=== PATIENT | female | born 1955 | race African-American/Black ===

== ENCOUNTER → 2016-12-15 | Outpatient (CLI) | payer OTHER ==
--- NOTE | 2016-12-15 11:39 | CONS ---
DATE OF CONSULTATION: 12/15/2016 CONSULTATION/NEW PATIENT EVALUATION: A 60-year-old lady who has been evaluated in the [facility] for possible obstructive sleep apnea-hypopnea syndrome. HISTORY OF PRESENT ILLNESS/SLEEP-WAKE EVALUATION: Patient's usual sleep schedule from around 9:30 p.m. to 6:30 a.m. FALLING ASLEEP: No problem with falling asleep. She has a TV set in bedroom. DURING SLEEP: According to her family she snores. She wakes up from sleep multiple times with a dry mouth, evidence of heartburn, palpitations, sweating, restless legs, nocturia 3 times at night. DURING THE DAY/WAKE STATE: Patient feels sleepy during the day following her sleep, has problems with memory. Dewitt Sleepiness Scale increased to 10. She usually takes naps at 2 p.m. once a day. No history of hypnagogical hallucinations, sleep paralysis or cataplexy. PAST MEDICAL HISTORY: Positive for hypertension and ( ). PAST SURGICAL HISTORY: Cyst removed from the left wrist, tubal ligation. SOCIAL HISTORY: Negative for smoking or using alcohol at the present time. MEDICATIONS: 1. Norvasc. 2. Losartan. 3. Minocycline. REVIEW OF SYSTEMS: Multiple awakenings from sleep, sleepiness during the day, episodes of anxiety, sometimes swelling of the legs. FAMILY HISTORY: Hypertension, heart problems, acid reflux, anemia. During physical exam, a 60-year-old lady without distress. BP 145/76, HR 68, RR 16. Height 5, 6-1/2, weight 252. BMI 36.8. Neck 15 inches in circumference. Temperature 98.1. Oxygen saturation at room air 98%. Oropharynx extremely low position of soft palate. ABDOMEN: Obese. HEENT: PERRLA, EOMI. Evaluation of oropharynx showed tongue protrudes midline. NECK: Supple. No JVD. Thyroid is not palpable. LUNGS: Clear to percussion and to auscultation. Good air exchange. No wheezing or rhonchi. HEART: S1, S2 regular. No murmurs, gallops or rubs. EXTREMITIES: No clubbing or cyanosis. SERGER: Awake, alert, and oriented x3. Cranial nerves 2 to 7 intact. There is no fasciculation or atrophy noted. No focal deficits observed. IMPRESSION: 1. Snoring, multiple awakenings from sleep with nocturia, extremely low position of soft palate, sleepiness, obstructive sleep apnea-hypopnea syndrome. 2. Obesity, body mass index of 36.8. 3. Hypertension. 4. ( ). 5. Status post tubal ligation. 6. Status post cyst removed from left wrist. 7. Back problems. 8. Episodes of swelling of legs. PLAN: 1. Polysomnography for evaluation of patient's breathing during sleep. 2. CPAP/BiPAP titration if sleep study confirms obstructive sleep apnea-hypopnea syndrome. 3. Preferable position during sleep on the side. 4. No driving if patient feels any sleepiness. Patient is aware of civil and criminal liability for unsafe driving. 5. I will see patient for follow-up visit to explain results of the testing and following plan. Thank you very much for referring this patient for consultation. Sincerely, Todd Vora MD, PhD, FAASM. Diplomat of [place], Sleep Medicine Board by [place] [place] [employer] Lot Porter [facility] [place]
== END | disposition home or self-care (01) ==
LOC: SLEEP 09:47
PROVIDERS: ATTEND Internal Medicine
DX: G47.33 Obstructive sleep apnea (adult) (pediatric) (principal); E66.9 Obesity, unspecified; Z68.36 Body mass index [BMI] 36.0-36.9, adult; I10 Essential (primary) hypertension
CPT/HCPCS: 99211

== ENCOUNTER → 2016-12-27 | Outpatient (CLI) | payer OTHER ==
--- NOTE | 2016-12-28 08:52 | MM ---
Reason for exam: screening (asymptomatic). Last mammogram was performed 1 year and 1 month ago. History: Patient is postmenopausal. Physical Findings: A clinical breast exam by your physician is recommended on an annual basis and results should be correlated with mammographic findings. MG Screening Mammo w CAD Bilateral CC and MLO view(s) were taken. Prior study comparison: November 24, 2015, bilateral MG screening mammo w CAD. October 29, 2013, bilateral digital screening mammo w/CAD. There are scattered fibroglandular densities. There is chronic nodularity bilaterally. There is no dominant lesion. No significant changes when compared with prior studies. ASSESSMENT: Benign, BI-RAD 2 RECOMMENDATION: Routine screening mammogram of both breasts in 1 year.
== END | disposition home or self-care (01) ==
LOC: RADMAMWWP 16:28
PROVIDERS: ATTEND Family Medicine
DX: Z12.31 Encounter for screening mammogram for malignant neoplasm of breast (principal)

== ENCOUNTER → 2016-12-30 | Outpatient (CLI) | payer OTHER ==
--- NOTE | 2016-12-30 10:27 | XR ---
EXAMINATION TYPE: XR chest 2V DATE OF EXAM: 12/30/2016 9:39 AM HISTORY: J44.9 COPD. REFERENCE: Previous study dated 12/07/2015. FINDINGS: The lungs are clear. Pleural space are clear. Heart size is normal. IMPRESSION: NO ACUTE INTRATHORACIC ABNORMALITY.
[2017-01-03 11:38] LABS: Asperg. fumagatus IgE 2.27 kU/L (<0.35); Asperg. fumagatus IgE Class CLASS II; Cat Epith & Dander IgE <0.35 kU/L (<0.35); Cat Epith & Dander IgE Class CLASS 0; Clad herbarum IgE 0.87 kU/L (<0.35); Clad herbarum IgE Class CLASS II; Com. Pigweed IgE <0.35 kU/L (<0.35); Com. Pigweed IgE Class CLASS 0; Common Ragweed IgE Class CLASS 0; Cow's Milk IgE Class CLASS 0; Dermato. farinae IgE 0.99 kU/L (<0.35); Dermato. farinae IgE Class CLASS II; House Dust (Greer) IgE 1.06 kU/L (<0.35); House Dust (Greer) IgE Class CLASS II; Maple (Box Elder) IgE <0.35 kU/L (<0.35); Maple (Box Elder) IgE Class CLASS 0; Penicillium notatum IgE Class CLASS I; Timothy Grass IgE <0.35 kU/L (<0.35); Timothy Grass IgE Class CLASS 0
[2017-01-11 23:27] LABS: Alternaria tenius IgG 7.9 mcg/mL (< 13.6); Cladosporium herbarium IgG 7.4 mcg/mL (< 14.7); Phoma ssp. IgG 7.7 mcg/mL (< 6.6); Saccaharomospora viridis Not detected (Not detected); Saccaharopoly. rectivirgula Not detected (Not detected)
== END | disposition home or self-care (01) ==
LOC: RADXRMAIN 09:24
PROVIDERS: ATTEND Internal Medicine Sleep Medicine
DX: J44.9 Chronic obstructive pulmonary disease, unspecified (principal); B44.89 Other forms of aspergillosis
CPT/HCPCS: 36415; 71020; 82785; 86001; 86003; 86606; 86609

== ENCOUNTER 2017-04-30 12:05 | Emergency (ER) | payer OTHER ==
[2017-04-30] MEDS ORDERED: ASPIRIN 81 MG CHEW PO STA (12:21)
[2017-04-30 12:23] VITALS: RESP 18
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
[2017-04-30] MEDS: NITROGLYCERIN SL TABS 0.4 MG TAB SUBLINGUAL PRN ×3 (12:29→12:40)
[2017-04-30 12:34] LABS: Basophils % (A) 1 %; CHCM 31.6; Eosinophils # (A) 0.1 k/uL (0-0.7); Eosinophils % (A) 1 %; HCT 35.6 % (34.0-46.0); HDW 2.85; HGB 11.2 gm/dL (11.4-16.0); Hypochromasia Slight; Luc # (Auto) 0.15; Luc % (Auto) 2; Lymphocytes # (A) 1.4 k/uL (1.0-4.8); Lymphocytes % (A) 20 %; MCHC 31.4 g/dL (31.0-37.0); Mean Platelet Volume 8.1; Monocytes # (A) 0.3 k/uL (0-1.0); Monocytes % (A) 4 %; Neutrophils # (A) 4.8 k/uL (1.3-7.7); Neutrophils % (A) 71 %; RBC 4.14 m/uL (3.80-5.40); RDW 14.7 % (11.5-15.5); WBC 6.7 k/uL (3.8-10.6); WBC (Perox) 7.13
[2017-04-30 12:45] LABS: ALT 28 U/L (9-52); AST 16 U/L (14-36); Alkaline Phosphatase 82 U/L (38-126); Anion Gap 10 mmol/L; Blood Urea Nitrogen 10 mg/dL (7-17); Calcium 9.4 mg/dL (8.4-10.2); Carbon Dioxide 26 mmol/L (22-30); Chloride 105 mmol/L (98-107); Glucose 90 mg/dL (74-99); Magnesium 1.8 mg/dL (1.6-2.3); Non-African American GFR(MDRD) >60 (>60 ml/min/1.73 sqM); Potassium 3.9 mmol/L (3.5-5.1); Sodium 141 mmol/L (137-145); Total Bilirubin 0.6 mg/dL (0.2-1.3); Total Protein 7.6 g/dL (6.3-8.2)
--- NOTE | 2017-04-30 12:55 | XR ---
EXAMINATION TYPE: XR chest 2V DATE OF EXAM: 04/30/2017 COMPARISON: 12/30/2016 HISTORY: 61-year-old female with chest pain TECHNIQUE: PA and lateral views FINDINGS: Heart is normal size. Mild elongation of the thoracic aorta. Mild diffuse interstitial prominence sim ilar to prior exam. No consolidation or pleural effusion. IMPRESSION: Interstitial prominence similar to prior exam, likely chronic changes. No acute process seen.
[2017-04-30 13:06] LABS: Creatine Kinase MB 0.6 ng/mL (0.0-2.4); Troponin I <0.012 ng/mL (0.000-0.034)
[2017-04-30 13:55] VITALS: PULSE 59
[2017-04-30 14:32] VITALS: BP 140/84; TEMP 97.6
== END 2017-04-30 14:32 | disposition left against medical advice (07) ==
LOC: EC 12:05
DX: R07.9 Chest pain, unspecified (principal); M54.2 Cervicalgia; M25.511 Pain in right shoulder; M79.601 Pain in right arm; M79.644 Pain in right finger(s); I25.10 Atherosclerotic heart disease of native coronary artery without angina pectoris; I10 Essential (primary) hypertension; Z87.891 Personal history of nicotine dependence; Z79.899 Other long term (current) drug therapy; Z88.0 Allergy status to penicillin; Z88.5 Allergy status to narcotic agent; Z95.818 Presence of other cardiac implants and grafts; Z82.49 Family history of ischemic heart disease and other diseases of the circulatory system
CPT/HCPCS: 36415; 71020; 80053; 82553; 83735; 84484; 85025; 93005; 99285

== ENCOUNTER → 2017-10-04 | Outpatient (CLI) | payer OTHER ==
[2017-10-04 09:08] LABS: T4, Free (Free Thyroxine) 1.18 ng/dL (0.78-2.19)
== END | disposition home or self-care (01) ==
LOC: LABWHC1 07:54
PROVIDERS: ATTEND Otolaryngology
DX: E03.9 Hypothyroidism, unspecified (principal); E07.89 Other specified disorders of thyroid
CPT/HCPCS: 36415; 84439; 84443; 86376

== ENCOUNTER → 2017-10-26 | Outpatient (CLI) | payer OTHER ==
--- NOTE | 2017-10-26 19:19 | US ---
EXAMINATION TYPE: US thyroid st tissue head/neck DATE OF EXAM: 10/26/2017 COMPARISON: 2009 CLINICAL HISTORY: E04.1 Thyroid Nodule. GLAND SIZE: Right Lobe: 4.5 x 1.3 x 1.8 cm Overall Parenchyma: heterogenous slightly Left Lobe: 4.3 x 1.4 x 1.5 cm Overall Parenchyma: heterogenous slightly Isthmus Thickness: 0.3 cm NODULES RIGHT: # of nodules measured on right: 0 LEFT: # of nodules measured on left: 0 ISTHMUS: # of nodules measured in the isthmus: 0 Bilateral neck scanned, no evidence of lymphadenopathy. IMPRESSION: 1. Unremarkable thyroid ultrasound.
== END | disposition home or self-care (01) ==
LOC: RADUSWWP 06:54
PROVIDERS: ATTEND Otolaryngology
DX: E04.1 Nontoxic single thyroid nodule (principal)
CPT/HCPCS: 76536

== ENCOUNTER → 2017-11-20 | Outpatient (CLI) | payer OTHER ==
--- NOTE | 2017-11-21 14:23 | MM ---
Reason for exam: screening (asymptomatic). Last mammogram was performed 11 months ago. History: Patient is postmenopausal. Physical Findings: A clinical breast exam by your physician is recommended on an annual basis and results should be correlated with mammographic findings. MG Screening Mammo w CAD Bilateral CC and MLO view(s) were taken. Prior study comparison: December 27, 2016, bilateral MG screening mammo w CAD. November 24, 2015, bilateral MG screening mammo w CAD. There are scattered fibroglandular densities. Finding #1: There are multiple typically benign masses, stable from priors. Finding #2: There are typically benign diffuse/scattered calcifications in both breasts. No suspicious abnormality. No significant changes in finding since December 27, 2016 and November 24, 2015. ASSESSMENT: Benign, BI-RAD 2 RECOMMENDATION: Routine screening mammogram of both breasts in 1 year.
== END | disposition home or self-care (01) ==
LOC: RADMAMWWP 16:20
PROVIDERS: ATTEND Obstetrics & Gynecology
DX: Z12.31 Encounter for screening mammogram for malignant neoplasm of breast (principal)
CPT/HCPCS: 77067

== ENCOUNTER → 2017-12-29 | Outpatient (CLI) | payer OTHER ==
--- NOTE | 2017-12-29 19:16 | CT ---
EXAMINATION TYPE: CT soft tissue neck w con DATE OF EXAM: 12/29/2017 6:52 PM COMPARISON: 11/06/2015 HISTORY: c/o throat pain and swelling to right side of neck CT DLP: 531.6 mGycm Automated exposure control for dose reduction was used. CONTRAST: CT scan of the neck is performed following with IV Contrast, patient injected with 100 mL of Isovue 3 00. Axial images are obtained, coronal and sagittal reformatted images are reviewed. FINDINGS: There is normal branching pattern of the great vessels on the aortic arch. Thyroid gland is symmetric . There is normal contrast opacification of carotid arteries and jugular veins. There is hypertrophic spurring in the cervical spine from C4 to T1. Epiglottis appears normal. Parotid glands are symmetri c. Submandibular salivary glands are symmetric. There are bilateral anterior triangle cervical lymph nodes that measure up to 10 mm. I see no pathologic fluid collection. Retropharyngeal soft tissues ar e not enlarged. There is medial deviation of the internal carotid arteries bilaterally which extend i nto the prevertebral soft tissues. There is no evidence of retropharyngeal abscess. The tonsils are s ymmetric. Adenoids appear within normal limits. IMPRESSION: There are spondylotic changes in the mid and lower cervical spine. Slight thickening of the retropharyngeal soft tissues apparently due to the medial deviation of the internal carotid arter ies. No adverse change compared to old exam. Nonspecific small cervical lymph nodes appear stable.
== END | disposition home or self-care (01) ==
LOC: RADCTMAIN 12-28 18:30
PROVIDERS: ATTEND Otolaryngology
DX: M47.812 Spondylosis without myelopathy or radiculopathy, cervical region (principal); J39.2 Other diseases of pharynx; I77.89 Other specified disorders of arteries and arterioles
CPT/HCPCS: 82565; 84520; 70491; 36415; Q9967

== ENCOUNTER 2018-08-23 19:34 | Emergency (ER) | payer OTHER ==
[2018-08-23 19:48] VITALS: BP 182/103; PULSE 63; RESP 18; TEMP 98.7
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
== END 2018-08-23 20:39 | disposition home or self-care (01) ==
LOC: EC 19:34
DX: M79.5 Residual foreign body in soft tissue (principal); I25.10 Atherosclerotic heart disease of native coronary artery without angina pectoris; I10 Essential (primary) hypertension; Z87.891 Personal history of nicotine dependence; Z79.899 Other long term (current) drug therapy; Z88.0 Allergy status to penicillin; Z88.5 Allergy status to narcotic agent; Z91.018 Allergy to other foods
CPT/HCPCS: 10120; 99283

== ENCOUNTER → 2018-10-30 | Outpatient (CLI) | payer OTHER | END | disposition home or self-care (01) | LOC: LABWHC1 14:17 | PROVIDERS: ATTEND Internal Medicine Interventional Cardiology | DX: E03.9 Hypothyroidism, unspecified (principal) | CPT/HCPCS: 36415; 84439; 84443 ==

== ENCOUNTER 2019-01-26 14:41 | Emergency (ER) | payer MEDICARE, OTHER ==
[2019-01-26 14:45] VITALS: RESP 16
[2019-01-26] MEDS ORDERED: KETOROLAC 30 MG/ML 1 ML VIAL IVP STA (15:08)
[2019-01-26] MEDS ORDERED: SODIUM CHLORIDE 0.9% 1,000 ML IV SCH (15:15)
[2019-01-26 15:26] LABS: Basophils # (A) 0.1 k/uL (0-0.2); Basophils % (A) 1 %; Eosinophils # (A) 0.1 k/uL (0-0.7); Eosinophils % (A) 1 %; HCT 35.7 % (34.0-46.0); Hypochromasia Slight; Lymphocytes # (A) 1.6 k/uL (1.0-4.8); Lymphocytes % (A) 27 %; MCH 26.9 pg (25.0-35.0); MCHC 30.9 g/dL (31.0-37.0); MCV 86.9 fL (80.0-100.0); Mean Platelet Volume 7.1; Monocytes # (A) 0.3 k/uL (0-1.0); Monocytes % (A) 4 %; Neutrophils # (A) 3.8 k/uL (1.3-7.7); Neutrophils % (A) 64 %; Platelet Count 240 k/uL (150-450); RBC 4.11 m/uL (3.80-5.40); WBC 5.9 k/uL (3.8-10.6)
--- NOTE | 2019-01-26 15:26 | ED ---
Extremity Problem HPI - General Chief complaint: Extremity Problem,Nontraumatic Stated complaint: Bilateral Leg Pain Time Seen by Provider: 01/26/19 14:53 Source: patient, RN notes reviewed, old records reviewed Mode of arrival: ambulatory Limitations: no limitations - History of Present Illness Initial comments: Patient is a 63-year-old female who presents emergency Department today with complaints of bilateral lower extremity pain. Patient states that she's noticed some swelling. She started having symptoms off and on for the past few months. She states the pain is worse here today. She is leaving tomorrow for vacation. She states she is occasionally short of breath. Patient denies any swelling of the leg at this time. No fall or trauma. - Related Data Home Medications Medication Instructions Recorded Confirmed amLODIPine BESYLATE [Norvasc] 10 mg PO HS 03/06/14 08/23/18 Cholecalciferol (Vitamin D3) 2,000 unit PO DAILY 04/30/17 08/23/18 [Vitamin D3] Losartan Potassium 50 mg PO DAILY 04/30/17 08/23/18 Previous Rx's Medication Instructions Recorded Mupirocin [Mupirocin 2%] 1 applic TOPICAL TID #60 gm 08/23/18 Cyclobenzaprine [Flexeril] 10 mg PO TID #15 tab 01/26/19 Ibuprofen 600 mg PO 20 #30 tablet 01/26/19 Allergies Allergy/AdvReac Type Severity Reaction Status Date / Time codeine Allergy Rash/Hives Verified 01/26/19 14:45 Penicillins Allergy Rash/Hives Verified 01/26/19 14:45 Review of Systems ROS Statement: Those systems with pertinent positive or pertinent negative responses have been documented in the HPI. ROS Other: All systems not noted in ROS Statement are negative. Past Medical History Past Medical History: Coronary Artery Disease (CAD), Chest Pain / Angina, GERD/Reflux, Hypertension, Skin Disorder Additional Past Medical History / Comment(s): rosacea, SOB, STATES RECENT ROOT CANAL, WAS TAKING ANTIBIOTIC History of Any Multi-Drug Resistant Organisms: None Reported Past Surgical History: Heart Catheterization, Tubal Ligation Additional Past Surgical History / Comment(s): ganglion cyst removal Past Anesthesia/Blood Transfusion Reactions: No Reported Reaction Past Psychological History: No Psychological Hx Reported Smoking Status: Former smoker Past Alcohol Use History: None Reported Past Drug Use History: None Reported - Past Family History Mother Family Medical History: Chest Pain / Angina, Congestive Heart Failure (CHF) Father Family Medical History: Chest Pain / Angina, Congestive Heart Failure (CHF), Coronary Artery Disease (CAD) General Exam - General Exam Comments Initial Comments: 63-year-old female. Alert and oriented. No distress. Limitations: no limitations General appearance: alert Head exam: Present: atraumatic, normocephalic, normal inspection Eye exam: Present: normal appearance, PERRL, EOMI. Absent: scleral icterus, conjunctival injection, periorbital swelling ENT exam: Present: normal exam, mucous membranes moist Neck exam: Present: normal inspection. Absent: tenderness, meningismus, lymphadenopathy Respiratory exam: Present: normal lung sounds bilaterally Cardiovascular Exam: Present: regular rate GI/Abdominal exam: Present: soft, normal bowel sounds. Absent: distended, tenderness, guarding, rebound, rigid Back exam: Present: normal inspection Neurological exam: Present: alert Psychiatric exam: Present: normal affect, normal mood Course Vital Signs 01/26/19 14:43 Temperature 98.3 F Pulse Rate 67 Respiratory 16 Rate Blood Pressure 147/85 O2 Sat by Pulse 100 Oximetry Medical Decision Making - Medical Decision Making 63-year-old female presents emergency department today with complaints bilateral extremity pain off-and-on for the past few months. Patient seems like the pain is worse with prolonged standing or putting pressure over her legs. She denies any back pain and falls or trauma. Patient has minimal swelling. Patient is very concerned has "caught her left lower 70. Patient's to have double ultrasound today and that is negative for any acute changes. She did complain of a mild episode of shortness breath yesterday with a leg pain we did do some further lab work checking for BNP for heart failure this was normal. Chest x- ray was normal. Patient pain seems similar to a sciatic distribution. We'll discharge the Patient with a short course of muscle relaxers anti-inflammatory medication. She is going on vacation tomorrow. I discussed return parameters and PCP follow-up as well. - Lab Data Result diagrams: 01/26/19 15:17 01/26/19 15:17 Lab Results 01/26/19 01/26/19 01/26/19 Range/Units 15:17 15:17 15:17 WBC 5.9 (3.8-10.6) k/uL RBC 4.11 (3.80-5.40) m/uL Hgb 11.0 L (11.4-16.0) gm/dL Hct 35.7 (34.0-46.0) % MCV 86.9 (80.0-100.0) fL MCH 26.9 (25.0-35.0) pg MCHC 30.9 L (31.0-37.0) g/dL RDW 14.0 (11.5-15.5) % Plt Count 240 (150-450) k/uL Neutrophils % 64 % Lymphocytes % 27 % Monocytes % 4 % Eosinophils % 1 % Basophils % 1 % Neutrophils # 3.8 (1.3-7.7) k/uL Lymphocytes # 1.6 (1.0-4.8) k/uL Monocytes # 0.3 (0-1.0) k/uL Eosinophils # 0.1 (0-0.7) k/uL Basophils # 0.1 (0-0.2) k/uL Hypochromasia Slight PT (9.0-12.0) sec INR (<1.2) APTT (22.0-30.0) sec Sodium 141 (137-145) mmol/L Potassium 4.1 (3.5-5.1) mmol/L Chloride 107 (98-107) mmol/L Carbon Dioxide 26 (22-30) mmol/L Anion Gap 8 mmol/L BUN 17 (7-17) mg/dL Creatinine 0.73 (0.52-1.04) mg/dL Est GFR (CKD-EPI)AfAm >90 (>60 ml/min/1.73 sqM) Est GFR (CKD-EPI)NonAf 87 (>60 ml/min/1.73 sqM) Glucose 92 (74-99) mg/dL Calcium 9.6 (8.4-10.2) mg/dL Magnesium 2.1 (1.6-2.3) mg/dL Total Bilirubin 0.4 (0.2-1.3) mg/dL AST 16 (14-36) U/L ALT 23 (9-52) U/L Alkaline Phosphatase 84 (38-126) U/L NT-Pro-B Natriuret Pep 32 pg/mL Total Protein 7.6 (6.3-8.2) g/dL Albumin 4.4 (3.5-5.0) g/dL 01/26/19 Range/Units 15:17 WBC (3.8-10.6) k/uL RBC (3.80-5.40) m/uL Hgb (11.4-16.0) gm/dL Hct (34.0-46.0) % MCV (80.0-100.0) fL MCH (25.0-35.0) pg MCHC (31.0-37.0) g/dL RDW (11.5-15.5) % Plt Count (150-450) k/uL Neutrophils % % Lymphocytes % % Monocytes % % Eosinophils % % Basophils % % Neutrophils # (1.3-7.7) k/uL Lymphocytes # (1.0-4.8) k/uL Monocytes # (0-1.0) k/uL Eosinophils # (0-0.7) k/uL Basophils # (0-0.2) k/uL Hypochromasia PT 10.4 (9.0-12.0) sec INR 1.0 (<1.2) APTT 26.3 (22.0-30.0) sec Sodium (137-145) mmol/L Potassium (3.5-5.1) mmol/L Chloride (98-107) mmol/L Carbon Dioxide (22-30) mmol/L Anion Gap mmol/L BUN (7-17) mg/dL Creatinine (0.52-1.04) mg/dL Est GFR (CKD-EPI)AfAm (>60 ml/min/1.73 sqM) Est GFR (CKD-EPI)NonAf (>60 ml/min/1.73 sqM) Glucose (74-99) mg/dL Calcium (8.4-10.2) mg/dL Magnesium (1.6-2.3) mg/dL Total Bilirubin (0.2-1.3) mg/dL AST (14-36) U/L ALT (9-52) U/L Alkaline Phosphatase (38-126) U/L NT-Pro-B Natriuret Pep pg/mL Total Protein (6.3-8.2) g/dL Albumin (3.5-5.0) g/dL 01/26/19 15:29 EKG shows sinus bradycardia minimal voltage Kercher for LVH may be normal variant. Benign EKG. Ventricular rate 56 bpm OK interval is 162 ms. QRS ration 92 ms. QT QTC 446/4:30 milliseconds. - Radiology Data Radiology results: report reviewed Chest x-rays negative for any acute critical me process. Doppler ultrasound of the shows no sign of DVT. Disposition Clinical Impression: Sciatic leg pain, IT band syndrome, Chronic leg pain Disposition: HOME SELF-CARE Condition: Good Instructions (If sedation given, give patient instructions): Sciatica (ED) Additional Instructions: Patient advised to follow-up with primary care physician. Take anti- inflammatory medication and muscle relaxers prescribed. Have close follow-up with your primary return to ED if any alarming signs or symptoms occur. Prescriptions: Cyclobenzaprine [Flexeril] 10 mg PO TID #15 tab Ibuprofen 600 mg PO 20 #30 tablet Is patient prescribed a controlled substance at d/c from ED?: No Referrals: Andre Rice DO [Primary Care Provider] - 1-2 days Time of Disposition: 16:48
[2019-01-26 15:43] LABS: Partial Thromboplastin Time 26.3 sec (22.0-30.0); Prothrombin Time 10.4 sec (9.0-12.0)
[2019-01-26 15:47] LABS: ALT 23 U/L (9-52); AST 16 U/L (14-36); Albumin 4.4 g/dL (3.5-5.0); Alkaline Phosphatase 84 U/L (38-126); Anion Gap 8 mmol/L; Blood Urea Nitrogen 17 mg/dL (7-17); Calcium 9.6 mg/dL (8.4-10.2); Carbon Dioxide 26 mmol/L (22-30); Chloride 107 mmol/L (98-107); Glucose 92 mg/dL (74-99); Magnesium 2.1 mg/dL (1.6-2.3); Potassium 4.1 mmol/L (3.5-5.1); Sodium 141 mmol/L (137-145); Total Bilirubin 0.4 mg/dL (0.2-1.3); Total Protein 7.6 g/dL (6.3-8.2)
--- NOTE | 2019-01-26 16:06 | XR ---
EXAMINATION TYPE: XR chest 2V DATE OF EXAM: 01/26/2019 COMPARISON: 04/30/2017 HISTORY: Leg pain TECHNIQUE: Frontal and lateral views of the chest are obtained. FINDINGS: There is no heart failure nor confluent pneumonic infiltrate. Costophrenic angles are rhett r. Bony thorax is intact. There is mild thoracolumbar levoscoliosis. IMPRESSION: No active cardiopulmonary disease. Normal heart. No change.
--- NOTE | 2019-01-26 16:18 | US ---
EXAMINATION TYPE: US venous doppler duplex LE LT DATE OF EXAM: 01/26/2019 3:06 PM COMPARISON: NONE CLINICAL HISTORY: Pain. No hx of blood clots. No blood thinners. No swelling. SIDE PERFORMED: Left TECHNIQUE: The lower extremity deep venous system is examined utilizing real time linear array sonog radha with graded compression, doppler sonography and color-flow sonography. VESSELS IMAGED: External Iliac Vein (EIV) Common Femoral Vein Deep Femoral Vein Greater Saphenous Vein * Femoral Vein Popliteal Vein Small Saphenous Vein * Proximal Calf Veins (* superficial vessels) Left Leg: Negative for DVT IMPRESSION: No evidence of deep venous thrombosis in the left leg.
[2019-01-26] MEDS ORDERED: traMADol 50 MG STARTER PACK 3 TAB BTL PO STA (16:49)
[2019-01-26 17:42] VITALS: BP 137/78; PULSE 61; TEMP 98.2
== END 2019-01-26 17:41 | disposition home or self-care (01) ==
LOC: EC 14:41
DX: M54.31 Sciatica, right side (principal); M54.32 Sciatica, left side; M76.31 Iliotibial band syndrome, right leg; M76.32 Iliotibial band syndrome, left leg; G89.29 Other chronic pain; I25.119 Atherosclerotic heart disease of native coronary artery with unspecified angina pectoris; I10 Essential (primary) hypertension; Z79.899 Other long term (current) drug therapy; Z88.0 Allergy status to penicillin; Z88.5 Allergy status to narcotic agent; Z87.891 Personal history of nicotine dependence; Z95.5 Presence of coronary angioplasty implant and graft
CPT/HCPCS: 36415; 93005; 83880; 80053; 83735; 85025; 85610; 85730; 71046; 93971; 99284; 96374; 96361 ×2; J1885

== ENCOUNTER 2019-07-08 15:47 | Observation (INO) | payer MEDICARE ==
--- NOTE | 2019-07-08 16:10 | ED ---
General Adult HPI - General Chief complaint: Chest Pain Stated complaint: Numbness side of face Time Seen by Provider: 07/08/19 16:07 Source: patient Mode of arrival: ambulatory Limitations: no limitations - History of Present Illness Initial comments: Patient presents to the ED complaining of having right lower facial numbness and diffuse upper chest pressure constantly since yesterday afternoon. Patient also states that she has felt very anxious recently. She denies any other area of numbness, focal weakness, headache, visual changes, speech difficulty, fever or chills, neck/arm/jaw/back pain, pleuritic pain, dyspnea, cough or cold symptoms, palpitations, dizziness, nausea or vomiting, abdominal pain, urinary symptoms, leg or calf swelling or tenderness, or any other symptoms or complaints. - Related Data Home Medications Medication Instructions Recorded Confirmed amLODIPine BESYLATE [Norvasc] 10 mg PO DAILY 03/06/14 07/08/19 Cholecalciferol (Vitamin D3) 2,000 unit PO DAILY 04/30/17 07/08/19 [Vitamin D3] Doxycycline Monohydrate 40 mg PO DAILY 07/08/19 07/08/19 [Doxycycline Ir-Dr] Allergies Allergy/AdvReac Type Severity Reaction Status Date / Time codeine Allergy Rash/Hives Verified 07/08/19 16:50 Penicillins Allergy Rash/Hives Verified 07/08/19 16:50 Review of Systems ROS Statement: Those systems with pertinent positive or pertinent negative responses have been documented in the HPI. ROS Other: All systems not noted in ROS Statement are negative. Past Medical History Past Medical History: Coronary Artery Disease (CAD), Chest Pain / Angina, GERD/Reflux, Hypertension, Skin Disorder Additional Past Medical History / Comment(s): rosacea History of Any Multi-Drug Resistant Organisms: None Reported Past Surgical History: Heart Catheterization, Tubal Ligation Additional Past Surgical History / Comment(s): ganglion cyst removal Past Anesthesia/Blood Transfusion Reactions: No Reported Reaction Past Psychological History: No Psychological Hx Reported Smoking Status: Former smoker Past Alcohol Use History: None Reported Past Drug Use History: None Reported - Past Family History Mother Family Medical History: Chest Pain / Angina, Congestive Heart Failure (CHF) Father Family Medical History: Chest Pain / Angina, Congestive Heart Failure (CHF), Coronary Artery Disease (CAD) General Exam Limitations: no limitations General appearance: alert, in no apparent distress Head exam: Present: atraumatic, normocephalic Eye exam: Present: normal appearance, PERRL, EOMI ENT exam: Present: mucous membranes moist Neck exam: Present: other (Trachea is in midline) Respiratory exam: Present: normal lung sounds bilaterally. Absent: respiratory distress, wheezes, rales, rhonchi, chest wall tenderness Cardiovascular Exam: Present: regular rate, normal rhythm, normal heart sounds, other (Normal radial pulses bilaterally) GI/Abdominal exam: Present: soft. Absent: distended, tenderness, guarding Extremities exam: Present: full ROM. Absent: tenderness, pedal edema, calf tenderness Neurological exam: Present: alert, oriented X3, other (patient has decreased sensation to light touch along right lower face when compared to the rest of her face; cranial nerves are otherwise intact; patient has no other sensory deficits; patient has no focal weakness on exam) Psychiatric exam: Present: normal affect, normal mood Skin exam: Present: warm, dry, intact, normal color Course Vital Signs 07/08/19 15:58 Temperature 98.3 F Pulse Rate 76 Respiratory 18 Rate Blood Pressure 153/88 O2 Sat by Pulse 99 Oximetry - Reevaluation(s) Reevaluation #1: 07/08/19 17:42 Patient denies development of any new symptoms while in the ED. Patient remains alert and breathing comfortably with a normal room air oxygen saturation. Patient is aware of her test results. Given the patient's symptoms and risk factors, I have recommended hospital admission for further cardiac and neurological workup. Patient agrees with hospital admission at this time. 07/08/19 18:50 Case, H&P, test results and ED management thus far were discussed with Dr. Dela Cruz. He accepts hospital floor admission. He requests to order an MRI brain with and without contrast for tomorrow morning. He has no further recom mendations at this time. EKG Findings - EKG Comments: EKG Findings:: EKG is somewhat limited secondary to motion, normal sinus rhythm, ventricular rate of 72 bpm, normal KS and QRS intervals, normal QT interval, minimal voltage criteria for LVH, normal axis, no ST or T-wave abnormality Medical Decision Making - Medical Decision Making Patient reports having constant symptoms since yesterday afternoon, and her ED workup is unremarkable, including a negative troponin and negative head CT. Patient's vital signs are reassuring. Given the patient's symptoms and risk factors, will admit the patient to the hospital for further cardiac and neurological evaluation. Patient was given a dose of aspirin 325 mg by mouth in the ED. Dr. Dela Cruz has accepted hospital admission. - Lab Data Result diagrams: 07/08/19 16:37 07/08/19 16:37 Lab Results 07/08/19 07/08/19 07/08/19 Range/Units 16:37 16:37 16:37 WBC 8.0 (3.8-10.6) k/uL RBC 4.21 (3.80-5.40) m/uL Hgb 11.6 (11.4-16.0) gm/dL Hct 36.0 (34.0-46.0) % MCV 85.5 (80.0-100.0) fL MCH 27.7 (25.0-35.0) pg MCHC 32.4 (31.0-37.0) g/dL RDW 13.5 (11.5-15.5) % Plt Count 262 (150-450) k/uL Neutrophils % 75 % Lymphocytes % 18 % Monocytes % 4 % Eosinophils % 1 % Basophils % 1 % Neutrophils # 6.1 (1.3-7.7) k/uL Lymphocytes # 1.4 (1.0-4.8) k/uL Monocytes # 0.3 (0-1.0) k/uL Eosinophils # 0.1 (0-0.7) k/uL Basophils # 0.1 (0-0.2) k/uL Hypochromasia Slight PT (9.0-12.0) sec INR (<1.2) APTT (22.0-30.0) sec Sodium 141 (137-145) mmol/L Potassium 4.0 (3.5-5.1) mmol/L Chloride 105 (98-107) mmol/L Carbon Dioxide 28 (22-30) mmol/L Anion Gap 8 mmol/L BUN 15 (7-17) mg/dL Creatinine 0.91 (0.52-1.04) mg/dL Est GFR (CKD-EPI)AfAm 77 (>60 ml/min/1.73 sqM) Est GFR (CKD-EPI)NonAf 66 (>60 ml/min/1.73 sqM) Glucose 99 (74-99) mg/dL Calcium 9.7 (8.4-10.2) mg/dL Magnesium 2.1 (1.6-2.3) mg/dL Total Bilirubin 0.4 (0.2-1.3) mg/dL AST 18 (14-36) U/L ALT 16 (9-52) U/L Alkaline Phosphatase 92 (38-126) U/L Troponin I (0.000-0.034) ng/mL NT-Pro-B Natriuret Pep 23 pg/mL Total Protein 7.7 (6.3-8.2) g/dL Albumin 4.4 (3.5-5.0) g/dL 07/08/19 07/08/19 Range/Units 16:37 16:37 WBC (3.8-10.6) k/uL RBC (3.80-5.40) m/uL Hgb (11.4-16.0) gm/dL Hct (34.0-46.0) % MCV (80.0-100.0) fL MCH (25.0-35.0) pg MCHC (31.0-37.0) g/dL RDW (11.5-15.5) % Plt Count (150-450) k/uL Neutrophils % % Lymphocytes % % Monocytes % % Eosinophils % % Basophils % % Neutrophils # (1.3-7.7) k/uL Lymphocytes # (1.0-4.8) k/uL Monocytes # (0-1.0) k/uL Eosinophils # (0-0.7) k/uL Basophils # (0-0.2) k/uL Hypochromasia PT 10.3 (9.0-12.0) sec INR 1.0 (<1.2) APTT 27.6 (22.0-30.0) sec Sodium (137-145) mmol/L Potassium (3.5-5.1) mmol/L Chloride (98-107) mmol/L Carbon Dioxide (22-30) mmol/L Anion Gap mmol/L BUN (7-17) mg/dL Creatinine (0.52-1.04) mg/dL Est GFR (CKD-EPI)AfAm (>60 ml/min/1.73 sqM) Est GFR (CKD-EPI)NonAf (>60 ml/min/1.73 sqM) Glucose (74-99) mg/dL Calcium (8.4-10.2) mg/dL Magnesium (1.6-2.3) mg/dL Total Bilirubin (0.2-1.3) mg/dL AST (14-36) U/L ALT (9-52) U/L Alkaline Phosphatase (38-126) U/L Troponin I <0.012 (0.000-0.034) ng/mL NT-Pro-B Natriuret Pep pg/mL Total Protein (6.3-8.2) g/dL Albumin (3.5-5.0) g/dL - Radiology Data Radiology results: report reviewed (CT head is negative), image reviewed (Chest x-ray is negative) Disposition Clinical Impression: Chest pain, Facial paresthesia, Anxiety Disposition: ADMITTED IP TO THIS [facility] Condition: Stable Is patient prescribed a controlled substance at d/c from ED?: No Time of Disposition: 18:50
[2019-07-08 16:49] LABS: Basophils # (A) 0.1 k/uL (0-0.2); Basophils % (A) 1 %; Eosinophils # (A) 0.1 k/uL (0-0.7); Eosinophils % (A) 1 %; HGB 11.6 gm/dL (11.4-16.0); Hypochromasia Slight; Lymphocytes # (A) 1.4 k/uL (1.0-4.8); Lymphocytes % (A) 18 %; MCH 27.7 pg (25.0-35.0); MCHC 32.4 g/dL (31.0-37.0); MCV 85.5 fL (80.0-100.0); Mean Platelet Volume 6.2; Monocytes # (A) 0.3 k/uL (0-1.0); Monocytes % (A) 4 %; Neutrophils # (A) 6.1 k/uL (1.3-7.7); Neutrophils % (A) 75 %; Platelet Count 262 k/uL (150-450); RBC 4.21 m/uL (3.80-5.40); RDW 13.5 % (11.5-15.5)
[2019-07-08 16:57] LABS: Partial Thromboplastin Time 27.6 sec (22.0-30.0); Prothrombin Time 10.3 sec (9.0-12.0)
[2019-07-08 17:00] LABS: Albumin 4.4 g/dL (3.5-5.0); Calcium 9.7 mg/dL (8.4-10.2); Magnesium 2.1 mg/dL (1.6-2.3); Total Bilirubin 0.4 mg/dL (0.2-1.3); Total Protein 7.7 g/dL (6.3-8.2)
--- NOTE | 2019-07-08 17:04 | XR ---
EXAMINATION TYPE: XR chest 2V DATE OF EXAM: 07/08/2019 COMPARISON: 01/26/2019 HISTORY: Chest pain TECHNIQUE: Frontal and lateral views of the chest are obtained. FINDINGS: Heart and mediastinum are normal. Lungs are clear. Diaphragm is normal. There are chest le ads. Bony thorax appears intact. IMPRESSION: Normal chest. No change.
--- NOTE | 2019-07-08 17:30 | CT ---
EXAMINATION TYPE: CT brain wo con DATE OF EXAM: 07/08/2019 COMPARISON: 03/15/2015 HISTORY: Right side facial numbness CT DLP: 1074.4 mGycm Automated exposure control for dose reduction was used. FINDINGS: Ventricles have normal size. There is no mass effect nor midline shift. There is no sign of intracran ial hemorrhage. Calvarium is intact. Skull base appears intact. IMPRESSION: NEGATIVE CT SCAN OF THE BRAIN. NO CHANGE.
[2019-07-08] MEDS ORDERED: ASPIRIN 325 MG TAB PO STA (17:41)
[2019-07-08] MEDS ORDERED: SODIUM CHLORIDE 0.9% 1,000 ML IV SCH (21:00)
[2019-07-08] MEDS ORDERED: MELATONIN 3 MG TABLET PO SCH (21:00)
[2019-07-08] MEDS ORDERED: ENOXAPARIN 40 MG/0.4 ML SYRINGE SQ SCH (21:00)
--- NOTE | 2019-07-08 22:13 | P.HPIM ---
History of Present Illness H&P Date: 07/08/19 Chief Complaint: Right face numbness, chest pain History of presenting complaint: This is a very pleasant 63-year-old patient of Dr. Rice. Chronic stable medical conditions include, GERD, rosacea, hypertension,. Patient is told she has a very small blockage in the heart. It was being managed medically. Patient now presents with right part of the face feeling numb along the AV are just adjacent to the right nostril. Present off and on. Patient also felt a little bit dizzy and some pain behind the right eye. Also had a very slight headache. Also felt central chest pressure felt more like indigestion. Lasted for about 20 minutes. There is no fever no chills. No radiation to the neck of the arm. Because of all the symptoms and decided to come in for a workup.. Both cardiology and neurology consulted. Review of systems: GEN.: Tired EYES: None HEENT: None NECK: None RESPIRATORY: None CARDIOVASCULAR: As above GASTROINTESTINAL: None GENITOURINARY: None MUSCULOSKELETAL: None LYMPHATICS: None HEMATOLOGICAL: None PSYCHIATRY: None NEUROLOGICAL: As above. Denied any other focal weakness no change in vision or change in swallowing Social history: Smoked half a day for about 13 years stopped in 1989. . Physical examination: VITAL SIGNS: 98.3, 76, 18, 153/88, 99% room air GENERAL: BMI 33.4, laying bed awake. EYES: Pupils equal. Conjunctiva normal. HEENT: External appearance of nose and ears normal, oral cavity grossly normal. NECK: JVD not raised; masses not palpable. HEART: First and second heart sounds are normal; no edema. LUNGS: Respiratory rate normal; clear to auscultation. ABDOMEN: Soft, nontender, liver spleen not palpable, no masses palpable. PSYCH: Alert and oriented x3; mood and affect normal. NEUROLOGICAL: Cranial nerves grossly intact; no facial asymmetry, power n grossly intact, some decreased sensation(lateral to the right nostril.. LYMPHATICS: No lymph nodes palpable in the axilla and neck INVESTIGATIONS, reviewed in the clinical context: White count 8 hemoglobin 11.6 platelets 262 potassium 4 creatinine 0.91 Troponin I less than 0.012 EKG tracing-personally reviewed by me shows normal sinus rhythm Chest x-ray film personally reviewed by me-lung londono are clear CT brain-negative Assessment: -Patient has numbness around the right part of the face with some dizziness and discomfort behind the right eye. Initial computed tomography scan was negative. MRI of the brain with and without contrast has been ordered. Was also ordered a CT angiogram of the brain. -Anterior chest wall pain. Rule out a cardiac cause -Essential hypertension -Chronic rosacea -GERD -Obesity BMI 33.4 Plan: -MRI of the brain with and without contrast has been ordered. We'll also order a CT angios the brain. 2-D echo. Care was discussed with the patient consultation is being made to cardiology and pulmonary. Past Medical History Past Medical History: Coronary Artery Disease (CAD), Chest Pain / Angina, GERD/Reflux, Hypertension, Skin Disorder Additional Past Medical History / Comment(s): rosacea History of Any Multi-Drug Resistant Organisms: None Reported Past Surgical History: Heart Catheterization, Tubal Ligation Additional Past Surgical History / Comment(s): ganglion cyst removal Past Anesthesia/Blood Transfusion Reactions: No Reported Reaction Past Psychological History: No Psychological Hx Reported Smoking Status: Former smoker Past Alcohol Use History: None Reported Additional Past Alcohol Use History / Comment(s): QUIT 1989, SMOKED FROM AGE 20, 1 AND 1/2PPD Past Drug Use History: None Reported - Past Family History Mother Family Medical History: Chest Pain / Angina, Congestive Heart Failure (CHF) Father Family Medical History: Chest Pain / Angina, Congestive Heart Failure (CHF), Coronary Artery Disease (CAD) Medications and Allergies Home Medications Medication Instructions Recorded Confirmed Type amLODIPine BESYLATE [Norvasc] 10 mg PO DAILY 03/06/14 07/08/19 History Cholecalciferol (Vitamin D3) 2,000 unit PO DAILY 04/30/17 07/08/19 History [Vitamin D3] Doxycycline Monohydrate 40 mg PO DAILY 07/08/19 07/08/19 History [Doxycycline Ir-Dr] Allergies Allergy/AdvReac Type Severity Reaction Status Date / Time codeine Allergy Rash/Hives Verified 07/08/19 16:50 Penicillins Allergy Rash/Hives Verified 07/08/19 16:50 Physical Exam Vitals: Vital Signs Temp Pulse Pulse Resp BP BP Pulse Ox 07/08/19 20:00 97.9 F 75 19 141/69 95 07/08/19 19:00 66 16 151/94 07/08/19 18:00 60 17 149/88 07/08/19 17:00 66 16 144/89 98 07/08/19 16:00 153/88 07/08/19 15:58 98.3 F 76 18 153/88 99 07/08/19 15:57 98 Intake and Output 07/08/19 07/08/19 07/08/19 06:59 14:59 22:59 Other: Weight 96.615 kg Results CBC & Chem 7: 07/08/19 16:37 07/08/19 16:37 Thrombosis Risk Factor Assmnt - Choose All That Apply Each Factor Represents 1 point: Obesity (BMI >25) Each Risk Factor Represents 2 Points: Age 61-74 years Thrombosis Risk Factor Assessment Total Risk Factor Score: 3 Thrombosis Risk Factor Assessment Level: Moderate Risk
--- NOTE | 2019-07-08 23:05 | CT ---
EXAMINATION TYPE: CT angio head neck DATE OF EXAM: 07/08/2019 HISTORY: COMPARISON: None CT DLP: mGycm. Automated Exposure Control for Dose Reduction was Utilized. TECHNIQUE: The IV contrast was Isovue 65 mL. There are 3-D post processed images. FINDINGS: There is normal branching pattern of the great vessels on the aortic arch. There is bilateral arteria l flow in the subclavian arteries. There is arterial flow in both vertebral arteries which are fairly symmetric. There is arterial flow in the common internal and external carotid arteries bilaterally. There is wide patency of the carotid artery bifurcations. There is minimal plaque formation and less than 10% stenosis. There is no evidence of carotid or vertebral artery aneurysm or dissection. There is arterial flow in the anterior middle and posterior cerebral arteries. Is arterial flow in th e vertebrobasilar artery system. The posterior communicating arteries show no significant flow. There is no mass effect. There is no evidence of intracranial aneurysm or neovascularity. I see no evidenc e of intracranial arterial stenosis. There is no evidence of aneurysm or neovascularity. IMPRESSION: Negative CT angiogram of the neck. Negative CT angiogram of the brain. No evidence of hemodynamic stenosis.
[2019-07-09 04:52] VITALS: RESP 18
[2019-07-09 04:52] LABS: Cholesterol 193 mg/dL (<200); HDL Cholesterol 49 mg/dL (40-60); LDL Cholesterol,Calculated 128 mg/dL (0-99); Triglycerides 78 mg/dL (<150)
[2019-07-09] MEDS ORDERED: ASPIRIN 325 MG TAB PO SCH (09:00)
[2019-07-09] MEDS ORDERED: amLODIPine 10 MG TAB PO SCH (09:00)
--- NOTE | 2019-07-09 11:47 | P.CNNES ---
History of Present Illness Consult date: 07/09/19 Reason for Consult: R facial numbness Chief complaint: R facial numbness and diffuse upper chest pressure History of Present Illness: HISTORY OF PRESENT ILLNESS: Thank you for allowing me to evaluate Ms. Angelita Griffith. Ms. Griffith is a 63-year-old woman with PMH of coronary artery disease, chest pa in, GERD, hypertension, rosacea, presenting to [facility] for right facial numbness. Patient states that in the last 3 weeks, she's been having more panic attacks than usual. Her granddaughter had a neck injury, which caused tics. Her granddaughter lives in [place], where patient was visiting recently. Since then, she's been experiencing more panic attacks. With these panic attacks, she usually feels some bandlike headache along with dizziness. Patient has never felt any numbness or weakness with these episodes. Patient states that the right facial numbness was like a line from just below her right nostril up to her right ear. She does not endorse any symptoms at this time. Denies any recent sickness, weakness, double vision. Patient endorses some blurry vision, but she's had this due to her cataract and glaucoma history. Patient denies ever having similar symptoms of facial numbness, or any weakness of her extremities. PAST MEDICAL HISTORY: coronary artery disease, chest pain, GERD, hypertension, rosacea, prolactinoma (treated medically about 25 years ago) PAST SURGICAL HISTORY: Heart catheterization, tubal ligation, ganglion cyst removal HOME MEDICATIONS: Amlodipine, vitamin D3 ALLERGIES: Codeine, penicillins SOCIAL HISTORY: Former smoker. Patient used to smoke 1.5 packs per day for about 25 years. She quit working about 20 years ago. Denies alcohol abuse or drug abuse history. FAMILY HISTORY: Mother with chest pain, CHF. Father with chest pain, CHF, coronary artery disease REVIEW OF SYSTEMS: The 14 systems are reviewed and no additional points are identified compared to the review of systems documented history and physical PHYSICAL EXAMINATION: VITAL SIGNS: T 98.9 HR 63 RR 18 BP 110/68 O2 sat 95% on RA GEN.: NAD, pleasant and cooperative HEENT: NCAT, sclera without icterus NECK: Supple, no carotid bruit SKIN AND EXTREMITIES: Warm to touch, no edema NEURO: MENTAL STATUS: Patient alert and oriented to self, place, time. Able to name the current president. Speech fluent, able to name and repeat, following all commands readily. No right and left disorientation, extinction to double simultaneous stimulation, finger agnosia, neglect. CRANIAL NERVES II THROUGH XII: II: Pupils are equal and reactive to light symmetrically. No afferent pupillary defect. Visual londono are intact. III, IV, : No ptosis. Extraocular movements full. No nystagmus. V: Facial sensation intact from V1-3. VII. No clear facial asymmetry. VIII: Hearing intact to finger rub bilaterally. IX, X: Symmetric palate elevation. XI: Shoulder shrug intact. XII: Tongue midline without fasciculation or atrophy. MOTOR: Normal bulk/tone. No pronator drift or tremor. Strength is 5/5 throughout all 4 extremities. SENSORY: Intact to light touch, temperature, pinprick in all 4 extremities. Romberg is negative. REFLEXES: 2+ throughout. Toes are downgoing. No clonus. Tianna's is absent COORDINATION: Finger to nose and heel to perez intact. No dysmetria. Rapid alternating movements with good speed and accuracy. GAIT: Narrow-based and stable. Able to toe/heel/tandem walk DIAGNOSTIC TESTING: LABORATORY: WBC 8.0 hemoglobin 11.6 platelet 262 PT 10.3 INR 1.0 sodium 141 potassium 4.0 chloride 105 bicarb 28 BUN 15 creatinine 0.91 AST 18 ALT 16 alk phos 92 troponin <0.012 Total cholesterol 193 LDL 128 HDL 49 triglycerides 78 IMAGING: CT head without contrast 07/08/2019: No acute intracranial process. Possible hypodensity in R [place] radi[place] region CTA of the head and neck with and without contrast 07/08/2019: Negative CTA of the head and neck. No evidence of hemodynamic stenosis. ASSESSMENT: Ms. Griffith is a 63-year-old woman with PMH of coronary artery disease, chest pain, GERD, hypertension, rosacea, prolactinoma (treated medically about 25 y ears ago) presenting to [facility] for right facial numbness. Patient with no other focal deficits. It's possible that she had this episode of numbness in the setting of her panic attack, palpation with risk factors for stroke along with a previous history of prolactinoma. RECOMMENDATIONS: 1. MRI brain without contrast. If patient cannot get MRI today, it is okay to get it as outpatient. 2. Transthoracic echocardiogram 3. Cardiac monitoring 4. Permissive HTN for 24-48 hours SBP >220. Give labetalol 10mg IV q1h PRN for SBP >220 DBP >110 5. ASA 81mg qday; patient has been on a statin before that caused significant muscle pain in her legs bilaterally. This happened many years ago, and she wants to try a low dose for stroke prevention. 6. Labs: A1C, TSH, FLP 7. PT/OT/ST per protocol 8. Discussed with patient about stroke prevention guidelines. Medication compliance, hypertension/diabetes control, lifestyle changes including no smoking, drinking in moderation, losing weight, exercising, eating healthier 9. Neurology will continue to follow 10. Patient needs to follow up with neurologist as outpatient with a 1-2 weeks of discharge. Past Medical History Past Medical History: Coronary Artery Disease (CAD), Chest Pain / Angina, GERD/Reflux, Hypertension, Skin Disorder Additional Past Medical History / Comment(s): rosacea History of Any Multi-Drug Resistant Organisms: None Reported Past Surgical History: Heart Catheterization, Tubal Ligation Additional Past Surgical History / Comment(s): ganglion cyst removal Past Anesthesia/Blood Transfusion Reactions: No Reported Reaction Past Psychological History: No Psychological Hx Reported Smoking Status: Former smoker Past Alcohol Use History: None Reported Additional Past Alcohol Use History / Comment(s): QUIT 1989, SMOKED FROM AGE 20, 1 AND 1/2PPD Past Drug Use History: None Reported - Past Family History Mother Family Medical History: Chest Pain / Angina, Congestive Heart Failure (CHF) Father Family Medical History: Chest Pain / Angina, Congestive Heart Failure (CHF), Coronary Artery Disease (CAD) Medications and Allergies Home Medications Medication Instructions Recorded Confirmed Type amLODIPine BESYLATE [Norvasc] 10 mg PO DAILY 03/06/14 07/08/19 History Cholecalciferol (Vitamin D3) 2,000 unit PO DAILY 04/30/17 07/08/19 History [Vitamin D3] Doxycycline Monohydrate 40 mg PO DAILY 07/08/19 07/08/19 History [Doxycycline Ir-Dr] Allergies Allergy/AdvReac Type Severity Reaction Status Date / Time codeine Allergy Rash/Hives Verified 07/08/19 16:50 Penicillins Allergy Rash/Hives Verified 07/08/19 16:50 Physical Examination - Vital Signs Vital Signs: Vital Signs Temp Pulse Pulse Resp BP BP Pulse Ox 10/08/19 04:00 98.9 F 63 18 110/68 95 07/08/19 22:57 97.0 F L 76 16 135/70 100 07/08/19 20:00 97.9 F 75 19 141/69 95 07/08/19 19:25 98.2 F 07/08/19 19:00 66 16 151/94 07/08/19 18:00 60 17 149/88 07/08/19 17:00 66 16 144/89 98 07/08/19 16:20 78 07/08/19 16:00 153/88 07/08/19 15:58 98.3 F 76 18 153/88 99 07/08/19 15:57 98 Intake and Output 07/08/19 07/09/19 07/09/19 22:59 06:59 14:59 Intake Total 360 Balance 360 Intake: Oral 360 Other: # Voids 1 Weight 96.615 kg 94.1 kg Results - Laboratory Findings CBC and BMP: 07/08/19 16:37 07/08/19 16:37 Abnormal Lab Findings: Abnormal Labs 07/09/19 04:23 LDL Cholesterol, Calc 128 H
--- NOTE | 2019-07-09 15:43 | MR ---
EXAMINATION TYPE: MR brain wo/w con DATE OF EXAM: 07/09/2019 COMPARISON: CT brain 07/08/2019, prior brain MRI 07/08/2014 HISTORY: right lower facial numbness TECHNIQUE: Multiplanar, multisequence images of the brain and brainstem is performed without and with IV contras t, utilizing 9.5 mL intravenous Gadavist . FINDINGS: Diffusion weighted images demonstrate no evidence of a recent infarct or other diffusion ab normality. There is no extra-axial fluid collection. Extensive confluent and scattered hyperintensit ies are present in the periventricular, subcortical, juxtacortical, pericallosal white matter similar to prior exam. There are some small lesions which are more conspicuous than on prior possibly due to differences in technique or some slight interval progression. There are greater than 50 lesions pres ent. The ventricular system and cisternal spaces are normal in size and appearance. The brain volume is age appropriate. Midline structures demonstrate normal morphology. The craniocervical junction appears within normal limits. Post contrast images demonstrate no abnormal enhancement. The dural venous sinuses appear pa tent. The visualized sinuses are clear and the globes are intact. IMPRESSION: Some slight interval progression in foci of abnormal signal compatible with demyelination , probable chronic small vessel ischemia
[2019-07-09 16:57] VITALS: BP 135/72; PULSE 65; TEMP 98.2
[2019-07-09 18:47] LABS: Hemoglobin A1C 4.6 % (4.0-6.0)
--- NOTE | 2019-07-09 21:57 | CONS ---
CONSULTATION This is a 63-year-old lady who is a patient of mine in the office. She has hypertension and a previous negative stress test that were performed as recently as August 2017. She had a recent stress test as recently as December 2017 and she walked for nearly 8 minutes without evidence of ischemia. Her blood pressure is generally under good control. She is under a lot of stress and she came into the hospital complaining of some right-sided numbness in the face, diffuse right upper chest discomfort with some anxiety and also she complained of some jaw discomfort. The quality of the pain seemed very atypical. There was a lot of anxiety involved. Patient is under a lot of stress and seems to be overwhelmed. However, after arrival, she had a CT angiography performed and there was no evidence of any obstructive lesions within the intracranial vasculature. She is back in her room, resting comfortably, feels somewhat better. She has no documented evidence of any significant CAD. Her last cardiac cath was in April 2011 which revealed a mid circumflex lesion of about 50%. At the time of my evaluation, she is resting comfortably without symptoms. PAST MEDICAL HISTORY: 1. Hypertension. 2. Anxiety disorder. 3. History of gastroesophageal reflux disease. 4. Noncritical coronary artery disease. ALLERGIES: SHE IS ALLERGIC TO CODEINE AND PENICILLIN. MEDICATIONS: Include amlodipine 10 mg daily, doxycycline, vitamin supplements. PHYSICAL EXAMINATION: On examination, blood pressure is 130/70, pulse rate is 70 per minute. HEENT unremarkable. Fundus was not examined by me. Neck is supple. No JVD. I do not hear any carotid bruit. There is no thyromegaly. Heart exam reveals S1, S2 heard normally. No rub, murmur or gallop. Lungs are clear. Abdomen is soft, nontender. Lower extremities reveal normal pulses. No edema. Central nervous system is normal. EKG revealed sinus mechanism, no acute changes. LABORATORY DATA: Reveals unremarkable troponins, normal BNP. Electrolytes are also within normal limits. CT angiography performed yesterday revealed no evidence of any hemodynamically significant lesions. EKG also did not reveal any significant abnormalities. Normal sinus rhythm was noted with borderline voltage criteria for LVH. IMPRESSION: 1. Atypical chest pain. 2. Very vague nondescript symptoms, not suggestive of transient ischemic attack, but negative CT angiography. 3. Hypertension. 4. Noncritical coronary artery disease by catheterization several years ago with a negative stress test in December of last year. RECOMMENDATIONS: I have given some Xanax for the patient. Same medical regimen to be continued. If she is stable, asymptomatic, feels well, she may be discharged later on today. Thank you very much for the consult. REGINA / PADMINI: [phone] /
--- NOTE | 2019-07-10 11:56 | ECHOF ---
Referral Reason:TIA MEASUREMENTS -------- HEIGHT: 170.2 cm WEIGHT: 93.9 kg BP: 114/74 RVIDd: 2.9 cm (< 3.3) IVSd: 1.6 cm (0.6 - 1.1) LVIDd: 3.2 cm (3.9 - 5.3) LVPWd: 1.8 cm (0.6 - 1.1) IVSs: 1.9 cm LVIDs: 2.0 cm LVPWs: 2.2 cm LAESV Index (A-L): 21.14 ml/m Ao Diam: 2.7 cm (2.0 - 3.7) AV Cusp: 2.0 cm (1.5 - 2.6) LA Diam: 3.5 cm (2.7 - 3.8) MV EXCURSION: 16.312 mm (> 18.000) MV EF SLOPE: 65 mm/s (70 - 150) EPSS: 0.8 cm MV E Abhinav: 0.59 m/s MV DecT: 247 ms MV A Abhinav: 0.85 m/s MV E/A Ratio: 0.69 RAP: 5.00 mmHg RVSP: 12.23 mmHg TAPSE: 27.77 mm FINDINGS -------- Sinus rhythm. This was a technically good study. The left ventricular size is normal. There is moderate concentric left ventricular hypertrophy. O verall left ventricular systolic function is normal with, an EF between 55 - 60 %. The right ventricle is normal in size. The left atrial size is normal. Normal LA size by volume 22+/-6 ml/m2. The right atrial size is normal. Interatrial and interventricular septum intact. The aortic valve is trileaflet and appears structurally normal. The mitral valve is normal. The mitral valve leaflets are mildly thickened. There is trace mitral regurgitation. The tricuspid valve appears structurally normal. Trace tricuspid regurgitation present. Right mandy tricular systolic pressure is normal at < 35 mmHg. There is no pulmonic regurgitation present. The aortic root size is normal. Normal inferior vena cava with normal inspiratory collapse consistent with estimated right atrial pre ssure of 5 mmHg. There is no pericardial effusion. CONCLUSIONS -------- 1. Sinus rhythm. 2. This was a technically good study. 3. The left ventricular size is normal. 4. There is moderate concentric left ventricular hypertrophy. 5. Overall left ventricular systolic function is normal with, an EF between 55 - 60 %. 6. The right ventricle is normal in size. 7. The left atrial size is normal. 8. Normal LA size by volume 22+/-6 ml/m2. 9. The right atrial size is normal. 10. Interatrial and interventricular septum intact. 11. The aortic valve is trileaflet and appears structurally normal. 12. The mitral valve is normal. 13. The mitral valve leaflets are mildly thickened. 14. There is trace mitral regurgitation. 15. The tricuspid valve appears structurally normal. 16. Trace tricuspid regurgitation present. 17. Right ventricular systolic pressure is normal at < 35 mmHg. 18. There is no pulmonic regurgitation present. 19. The aortic root size is normal. 20. Normal inferior vena cava with normal inspiratory collapse consistent with estimated right atrial pressure of 5 mmHg. 21. There is no pericardial effusion. BRAZING MACHINE FEEDER: Elizabeth Mccullough RDCS
--- NOTE | 2019-07-10 22:55 | P.DS ---
Providers Date of admission: 07/08/19 18:52 Expected date of discharge: 07/09/19 Attending physician: Chico Dela Cruz Consults: 07/08/19 20:51 Consult Physician Routine Consulting Provider: Marc Alas Consult Reason/Comments: CHEST PAIN Do you want consulting provider notified?: Yes, Notify in am 07/08/19 20:52 Consult Physician Routine Consulting Provider: Marcy Johnson Consult Reason/Comments: R FACIAL NUMBNESS Do you want consulting provider notified?: Yes, Notify in am Primary care physician: Andre Rice [facility] Course: Chief Complaint: Right face numbness, chest pain Hospital course: This is a very pleasant 63-year-old patient of Dr. Rice. Chronic stable medical conditions include, GERD, rosacea, hypertension,. Patient is told she has a very small blockage in the heart. It was being managed medically. Patient now presents with right part of the face feeling numb along the AV are just adjacent to the right nostril. Present off and on. Patient also felt a little bit dizzy and some pain behind the right eye. Also had a very slight headache. Also felt central chest pressure felt more like indigestion. Lasted for about 20 minutes. There is no fever no chills. No radiation to the neck of the arm. Because of all the symptoms and decided to come in for a workup.. Both cardiology and neurology consulted. Patient had a computed tomography scan of the brain, CT angios off the brain, 2-D echo, brain MRI. All negative. Patient's EF is 55-60%. And there was moderate concentric left ventricular hypertrophy. Possible TIA. Symptoms have resolved. Cleared by neurology and cardiology to go home. Care was discussed with the patient. Questions were answered. Consultation: Dr. KEMI Marvin from cardiology Dr. Johnson from neurology Physical examination: VITAL SIGNS: 98.2, 65, 18, 135/72, 98% room air GENERAL: Sitting up comfortable EYES: Pupils equal. Conjunctiva normal. HEENT: External appearance of nose and ears normal, oral cavity grossly normal. NECK: JVD not raised; masses not palpable. HEART: First and second heart sounds are normal; no edema. LUNGS: Respiratory rate normal; clear to auscultation. ABDOMEN: Soft, nontender, liver spleen not palpable, no masses palpable. PSYCH: Alert and oriented x3; mood and affect normal. NEUROLOGICAL: Cranial nerves grossly intact; no facial asymmetry, power n grossly intact, some decreased sensation(lateral to the right nostril.. INVESTIGATIONS, reviewed in the clinical context: White count 8 hemoglobin 11.6 platelets 262 potassium 4 creatinine 0.91 Troponin I less than 0.012 EKG tracing-personally reviewed by me shows normal sinus rhythm Chest x-ray film personally reviewed by me-lung londono are clear CT brain-negative 2-D echo shows EF of 55-60%. Concentric left medical hypertrophy. MRI of the brain-chronic changes Discharge diagnosis: -Possible TIA -Anterior chest wall pain. Possibly musculoskeletal pain -Essential hypertension -Hypertensive heart disease -Chronic rosacea -GERD -Obesity BMI 33.4 Disposition: Home Patient Condition at Discharge: Stable Plan - Discharge Summary New Discharge Prescriptions: New Aspirin 81 mg PO DAILY #30 chewable Atorvastatin [Lipitor] 40 mg PO HS #30 tablet Continue amLODIPine BESYLATE [Norvasc] 10 mg PO DAILY Cholecalciferol (Vitamin D3) [Vitamin D3] 2,000 unit PO DAILY Doxycycline Monohydrate [Doxycycline Ir-Dr] 40 mg PO DAILY Discharge Medication List amLODIPine BESYLATE [Norvasc] 10 mg PO DAILY 03/06/14 [History] Cholecalciferol (Vitamin D3) [Vitamin D3] 2,000 unit PO DAILY 04/30/17 [History] Doxycycline Monohydrate [Doxycycline Ir-Dr] 40 mg PO DAILY 07/08/19 [History] Aspirin 81 mg PO DAILY #30 chewable 07/09/19 [Rx] Atorvastatin [Lipitor] 40 mg PO HS #30 tablet 07/09/19 [Rx] Follow up Appointment(s)/Referral(s): Andre Rice DO [Primary Care Provider] - 1 Week (Please call and make an appointment with your primary physician within one week of being discharged. ) Wesley Marvin MD [STAFF PHYSICIAN] - 1 Week (Neurologist. Please call for a follow up appointment with neurology.) Patient Instructions/Handouts: Transient Ischemic Attack (DC), Chest Pain (DC) Discharge Disposition: HOME SELF-CARE
== END 2019-07-09 18:09 | disposition home or self-care (01) ==
LOC: EC 15:47 → 3SCARD 18:52
PROVIDERS: ADMIT Hospitalist; ATTEND Hospitalist
DX: R07.89 Other chest pain (principal); R20.0 Anesthesia of skin; R42 Dizziness and giddiness; H57.11 Ocular pain, right eye; R51 Headache; R68.84 Jaw pain; R20.2 Paresthesia of skin; I11.9 Hypertensive heart disease without heart failure; K21.9 Gastro-esophageal reflux disease without esophagitis; E66.9 Obesity, unspecified; Z68.33 Body mass index [BMI] 33.0-33.9, adult; F41.0 Panic disorder [episodic paroxysmal anxiety]; L71.9 Rosacea, unspecified; H40.9 Unspecified glaucoma; H26.9 Unspecified cataract; I25.10 Atherosclerotic heart disease of native coronary artery without angina pectoris; Z87.891 Personal history of nicotine dependence; Z79.899 Other long term (current) drug therapy; Z79.2 Long term (current) use of antibiotics; Z88.5 Allergy status to narcotic agent; Z88.0 Allergy status to penicillin; Z82.49 Family history of ischemic heart disease and other diseases of the circulatory system
CPT/HCPCS: 96372; 99285; 36415; 93005; 93306; 83880; 80061; 80053; 84443; 83735; 84484 ×2; 85025; 85610; 85730; 83036; 71046; 70496; 70450; 70498; 70553; G0378 ×2; J1650; A9585; Q9967

== ENCOUNTER 2019-07-28 10:35 | Emergency (ER) | payer MEDICARE ==
[2019-07-28 10:54] VITALS: BP 154/89; PULSE 71; RESP 20; TEMP 98.3
--- NOTE | 2019-07-28 11:31 | ED ---
General Adult HPI - General Chief complaint: Anxiety Stated complaint: anxiety Time Seen by Provider: 07/28/19 10:57 Source: patient, RN notes reviewed Mode of arrival: ambulatory Limitations: no limitations - History of Present Illness Initial comments: 63-year-old female with a past medical history of CAD, hypertension, GERD presents to the emergency department for chief complaint of anxiety. Patient has had severe anxiety for the past month. States this started when her granddaughter had a neck injury and became very sick. States that since then she cannot get her thoughts under control. States her mind is racing. States she has lost 13 pounds in the past month because she does not have an appetite. States that she saw her primary care provider who gave her Valium but this is not helping. States that she sought help with counseling which did give her some guidance however she cannot see her counselor again until the fourth. Patient states that she felt a little better yesterday and force herself to watch a movie. However she could not sleep all night. denies any thoughts of harming herself or anyone else. Denies any suicidal thoughts.Patient has no other complaints at this time including shortness of breath, chest pain, abdominal pain, nausea or vomiting, headache, or visual changes. - Related Data Home Medications Medication Instructions Recorded Confirmed amLODIPine BESYLATE [Norvasc] 10 mg PO DAILY 03/06/14 07/28/19 Doxycycline Monohydrate 40 mg PO DAILY 07/08/19 07/28/19 [Doxycycline Ir-Dr] Diazepam [Valium] 2.5 - 5 mg PO DAILY PRN 07/28/19 07/28/19 Allergies Allergy/AdvReac Type Severity Reaction Status Date / Time codeine Allergy Rash/Hives Verified 07/28/19 11:02 Penicillins Allergy Rash/Hives Verified 07/28/19 11:02 Review of Systems ROS Statement: Those systems with pertinent positive or pertinent negative responses have been documented in the HPI. ROS Other: All systems not noted in ROS Statement are negative. Past Medical History Past Medical History: Coronary Artery Disease (CAD), Chest Pain / Angina, GERD/Reflux, Hypertension, Skin Disorder Additional Past Medical History / Comment(s): rosacea History of Any Multi-Drug Resistant Organisms: None Reported Past Surgical History: Heart Catheterization, Tubal Ligation Additional Past Surgical History / Comment(s): ganglion cyst removal Past Anesthesia/Blood Transfusion Reactions: No Reported Reaction Past Psychological History: Anxiety Smoking Status: Former smoker Past Alcohol Use History: None Reported Past Drug Use History: None Reported - Past Family History Mother Family Medical History: Chest Pain / Angina, Congestive Heart Failure (CHF) Father Family Medical History: Chest Pain / Angina, Congestive Heart Failure (CHF), Coronary Artery Disease (CAD) General Exam Limitations: no limitations General appearance: alert, anxious (Tearful) Head exam: Present: atraumatic, normocephalic, normal inspection Eye exam: Present: normal appearance, PERRL, EOMI. Absent: scleral icterus, conjunctival injection, periorbital swelling ENT exam: Present: normal exam, mucous membranes moist Neck exam: Present: normal inspection, full ROM. Absent: tenderness, meningismus, lymphadenopathy Respiratory exam: Present: normal lung sounds bilaterally. Absent: respiratory distress, wheezes, rales, rhonchi, stridor Cardiovascular Exam: Present: regular rate, normal rhythm, normal heart sounds. Absent: systolic murmur, diastolic murmur, rubs, gallop, clicks Neurological exam: Present: alert Psychiatric exam: Present: anxious (Tearful) Course Vital Signs 07/28/19 10:52 Temperature 98.3 F Pulse Rate 71 Respiratory 20 Rate Blood Pressure 154/89 O2 Sat by Pulse 99 Oximetry Medical Decision Making - Medical Decision Making Patient evaluated by EPS, recommending discharge. She was reevaluated and feeling much better. She was given referral information outpatient. Again denying any suicidal thoughts or thoughts of harming herself or anyone else. She'll return if she has any worsening symptoms. Disposition Clinical Impression: Acute anxiety Disposition: HOME SELF-CARE Condition: Good Instructions (If sedation given, give patient instructions): Generalized Anxiety Disorder (ED) Additional Instructions: Please follow up with Dr. Rice as well as referrals given to you. Please return to the emergency department if you have any worsening symptoms. Is patient prescribed a controlled substance at d/c from ED?: No Referrals: Andre Rcie DO [Primary Care Provider] - 1-2 days Time of Disposition: 13:40
== END 2019-07-28 13:46 | disposition home or self-care (01) ==
LOC: EC 10:35
DX: F41.9 Anxiety disorder, unspecified (principal); I25.10 Atherosclerotic heart disease of native coronary artery without angina pectoris; I10 Essential (primary) hypertension; K21.9 Gastro-esophageal reflux disease without esophagitis; I25.2 Old myocardial infarction; Z87.891 Personal history of nicotine dependence; Z79.899 Other long term (current) drug therapy; Z88.5 Allergy status to narcotic agent; Z88.1 Allergy status to other antibiotic agents; Z95.5 Presence of coronary angioplasty implant and graft
CPT/HCPCS: 82075; 99283

== ENCOUNTER 2019-08-13 20:25 | Emergency (ER) | payer MEDICARE ==
[2019-08-13 20:30] VITALS: RESP 18
[2019-08-13] MEDS ORDERED: LORazepam 2 MG/ML INJ IV STA (21:05)
[2019-08-13] MEDS ORDERED: SODIUM CHLORIDE 0.9% 1,000 ML IV STA (21:05)
[2019-08-13] MEDS ORDERED: ONDANSETRON 4 MG/2 ML VIAL IVP STA (21:05)
--- NOTE | 2019-08-13 21:18 | ED ---
Anxiety HPI - General Chief Complaint: Anxiety Stated Complaint: Panic Attack Time Seen by Provider: 08/13/19 20:31 Source: patient Mode of arrival: ambulatory - History of Present Illness Initial Comments: 63-year-old female patient presents to the emergency department today for evaluation of anxiety and panic attacks. Patient states she's had some anxiety for quite some time. Patient states that her physician has been trying different medications. States that today she had panic attack after panic attacks so presented here for further evaluation. Patient's blood pressure is elevated. States that she did take a blood pressure medication today. Patient states she is having nausea and some chest discomfort and midepigastric burning and discomfort. Patient states the burning abdominal pain is radiating through to her back. She denies any episodes of vomiting or diarrhea. Denies fever or chills. She denies any suicidal or homicidal ideation. Patient states she feels "tired" of dealing with this anxiety and obsession. Patient denies any recent rash, shortness breath, diarrhea, constipation, back pain, numbness, tingling, dizziness, weakness, hematuria, dysuria, urinary urgency, urinary frequency, visual changes, or any other complaints. - Related Data Home Medications: Home Medications Medication Instructions Recorded Confirmed amLODIPine BESYLATE [Norvasc] 10 mg PO DAILY 03/06/14 08/13/19 Doxycycline Monohydrate 40 mg PO DAILY 07/08/19 08/13/19 [Doxycycline Ir-Dr] Diazepam [Valium] 2.5 - 5 mg PO DAILY PRN 07/28/19 08/13/19 ALPRAZolam [Xanax] 0.25 mg PO ONCE 08/13/19 08/13/19 Aspirin 81 mg PO DAILY 08/13/19 08/13/19 Mirtazapine [Remeron] 7.5 mg PO HS 08/13/19 08/13/19 Propranolol [Inderal] 5 mg PO Q12H PRN 08/13/19 08/13/19 Allergies/Adverse Reactions: Allergies Allergy/AdvReac Type Severity Reaction Status Date / Time codeine Allergy Rash/Hives Verified 08/13/19 21:34 Penicillins Allergy Rash/Hives Verified 08/13/19 21:34 Review of Systems ROS Statement: Those systems with pertinent positive or pertinent negative responses have been documented in the HPI. ROS Other: All systems not noted in ROS Statement are negative. Past Medical History Past Medical History: Coronary Artery Disease (CAD), Chest Pain / Angina, GERD/R eflux, Hypertension, Skin Disorder Additional Past Medical History / Comment(s): rosacea History of Any Multi-Drug Resistant Organisms: None Reported Past Surgical History: Heart Catheterization, Tubal Ligation Additional Past Surgical History / Comment(s): ganglion cyst removal Past Anesthesia/Blood Transfusion Reactions: No Reported Reaction Past Psychological History: Anxiety Smoking Status: Former smoker Past Alcohol Use History: None Reported Past Drug Use History: None Reported - Past Family History Mother Family Medical History: Chest Pain / Angina, Congestive Heart Failure (CHF) Father Family Medical History: Chest Pain / Angina, Congestive Heart Failure (CHF), Coronary Artery Disease (CAD) General Exam Limitations: no limitations General appearance: alert, in no apparent distress, other (Physical well-d eveloped, well-nourished adult female patient in no acute distress. Vital signs upon presentation are temperature 97.4F, pulse 72, respirations 18, blood pressure 205/102, pulse ox 96% on room air.) Eye exam: Present: normal appearance, PERRL, EOMI. Absent: scleral icterus, conjunctival injection, periorbital swelling ENT exam: Present: normal exam, normal oropharynx, mucous membranes moist Respiratory exam: Present: normal lung sounds bilaterally. Absent: respiratory distress, wheezes, rales, rhonchi, stridor Cardiovascular Exam: Present: regular rate, normal rhythm, normal heart sounds. Absent: systolic murmur, diastolic murmur, rubs, gallop, clicks GI/Abdominal exam: Present: soft, normal bowel sounds. Absent: distended, tenderness, guarding, rebound, rigid Neurological exam: Present: alert, oriented X3, CN II-XII intact Psychiatric exam: Present: normal affect, normal mood Skin exam: Present: warm, dry, intact, normal color. Absent: rash Course Vital Signs 08/13/19 08/13/19 08/13/19 20:27 20:51 21:30 Temperature 97.4 F L Pulse Rate 72 60 62 Respiratory 18 18 18 Rate Blood Pressure 205/102 182/116 164/98 O2 Sat by Pulse 96 99 100 Oximetry 08/13/19 08/13/19 08/13/19 22:06 22:57 23:31 Temperature 97.8 F 97.7 F Pulse Rate 64 62 60 Respiratory 17 18 18 Rate Blood Pressure 145/89 149/96 132/87 O2 Sat by Pulse 100 100 100 Oximetry Medical Decision Making - Medical Decision Making 63 old female patient percents to the emergency department today for evaluation of anxiety and panic attacks. Physical examination is unremarkable. Labs reviewed and were unremarkable. EKG showed normal sinus rhythm. Patient was given an IV dose of Ativan here in the emergency department. Upon reevaluation shows report improvement of symptoms. She'll be discharged home at this time. Her primary care physician for recheck in 1-2 days. Return parameters were discussed in detail patient verbalizes understanding and agrees with this plan. - Lab Data Result diagrams: 08/13/19 21:27 08/13/19 21:27 Lab Results 08/13/19 08/13/19 08/13/19 Range/Units 21:27 21:27 21:27 WBC 7.7 (3.8-10.6) k/uL RBC 4.50 (3.80-5.40) m/uL Hgb 11.8 (11.4-16.0) gm/dL Hct 38.4 (34.0-46.0) % MCV 85.5 (80.0-100.0) fL MCH 26.3 (25.0-35.0) pg MCHC 30.8 L (31.0-37.0) g/dL RDW 13.7 (11.5-15.5) % Plt Count 272 (150-450) k/uL Neutrophils % 73 % Lymphocytes % 20 % Monocytes % 3 % Eosinophils % 2 % Basophils % 1 % Neutrophils # 5.6 (1.3-7.7) k/uL Lymphocytes # 1.5 (1.0-4.8) k/uL Monocytes # 0.2 (0-1.0) k/uL Eosinophils # 0.2 (0-0.7) k/uL Basophils # 0.1 (0-0.2) k/uL Sodium 142 (137-145) mmol/L Potassium 3.9 (3.5-5.1) mmol/L Chloride 105 (98-107) mmol/L Carbon Dioxide 28 (22-30) mmol/L Anion Gap 9 mmol/L BUN 13 (7-17) mg/dL Creatinine 0.85 (0.52-1.04) mg/dL Est GFR (CKD-EPI)AfAm 84 (>60 ml/min/1.73 sqM) Est GFR (CKD-EPI)NonAf 72 (>60 ml/min/1.73 sqM) Glucose 115 H (74-99) mg/dL Calcium 9.8 (8.4-10.2) mg/dL Total Bilirubin 0.6 (0.2-1.3) mg/dL AST 16 (14-36) U/L ALT 19 (9-52) U/L Alkaline Phosphatase 89 (38-126) U/L Troponin I <0.012 (0.000-0.034) ng/mL Total Protein 7.8 (6.3-8.2) g/dL Albumin 4.4 (3.5-5.0) g/dL Lipase 167 (23-300) U/L TSH 2.330 (0.465-4.680) mIU/L Urine Color Urine Appearance (Clear) Urine pH (5.0-8.0) Ur Specific [place] (1.001-1.035) Urine Protein (Negative) Urine Glucose (UA) (Negative) Urine Ketones (Negative) Urine Blood (Negative) Urine Nitrite (Negative) Urine Bilirubin (Negative) Urine Urobilinogen (<2.0) mg/dL Ur Leukocyte Esterase (Negative) Urine WBC (0-5) /hpf Ur Squamous Epith Cells (0-4) /hpf Urine Mucus (None) /hpf 08/13/19 Range/Units 21:27 WBC (3.8-10.6) k/uL RBC (3.80-5.40) m/uL Hgb (11.4-16.0) gm/dL Hct (34.0-46.0) % MCV (80.0-100.0) fL MCH (25.0-35.0) pg MCHC (31.0-37.0) g/dL RDW (11.5-15.5) % Plt Count (150-450) k/uL Neutrophils % % Lymphocytes % % Monocytes % % Eosinophils % % Basophils % % Neutrophils # (1.3-7.7) k/uL Lymphocytes # (1.0-4.8) k/uL Monocytes # (0-1.0) k/uL Eosinophils # (0-0.7) k/uL Basophils # (0-0.2) k/uL Sodium (137-145) mmol/L Potassium (3.5-5.1) mmol/L Chloride (98-107) mmol/L Carbon Dioxide (22-30) mmol/L Anion Gap mmol/L BUN (7-17) mg/dL Creatinine (0.52-1.04) mg/dL Est GFR (CKD-EPI)AfAm (>60 ml/min/1.73 sqM) Est GFR (CKD-EPI)NonAf (>60 ml/min/1.73 sqM) Glucose (74-99) mg/dL Calcium (8.4-10.2) mg/dL Total Bilirubin (0.2-1.3) mg/dL AST (14-36) U/L ALT (9-52) U/L Alkaline Phosphatase (38-126) U/L Troponin I (0.000-0.034) ng/mL Total Protein (6.3-8.2) g/dL Albumin (3.5-5.0) g/dL Lipase (23-300) U/L TSH (0.465-4.680) mIU/L Urine Color Yellow Urine Appearance Clear (Clear) Urine pH 6.0 (5.0-8.0) Ur Specific [place] 1.020 (1.001-1.035) Urine Protein Negative (Negative) Urine Glucose (UA) Negative (Negative) Urine Ketones Negative (Negative) Urine Blood Negative (Negative) Urine Nitrite Negative (Negative) Urine Bilirubin Negative (Negative) Urine Urobilinogen <2.0 (<2.0) mg/dL Ur Leukocyte Esterase Trace H (Negative) Urine WBC 1 (0-5) /hpf Ur Squamous Epith Cells 4 (0-4) /hpf Urine Mucus Occasional H (None) /hpf - EKG Data -: EKG Interpreted by Me EKG Comments: EKG obtained at 2143 shows normal sinus rhythm with a ventricular rate of 63, OH interval 154, QRS duration 88, QT 412, QTC 421. No evidence of ST elevation or depression. Disposition Clinical Impression: Anxiety, Panic attack Disposition: HOME SELF-CARE Condition: Good Instructions (If sedation given, give patient instructions): Generalized Anxiety Disorder (ED) Additional Instructions: Follow-up through primary care physician for recheck in 1-2 days. Return to the emergency department immediately for any new, worsening, or concerning symptoms. Is patient prescribed a controlled substance at d/c from ED?: No Referrals: Andre Rice DO [Primary Care Provider] - 1-2 days Time of Disposition: 23:09
[2019-08-13 21:38] LABS: Basophils # (A) 0.1 k/uL (0-0.2); Basophils % (A) 1 %; Eosinophils # (A) 0.2 k/uL (0-0.7); Eosinophils % (A) 2 %; HCT 38.4 % (34.0-46.0); HGB 11.8 gm/dL (11.4-16.0); Lymphocytes # (A) 1.5 k/uL (1.0-4.8); Lymphocytes % (A) 20 %; MCH 26.3 pg (25.0-35.0); MCHC 30.8 g/dL (31.0-37.0); MCV 85.5 fL (80.0-100.0); Mean Platelet Volume 6.9; Monocytes # (A) 0.2 k/uL (0-1.0); Monocytes % (A) 3 %; Neutrophils # (A) 5.6 k/uL (1.3-7.7); Neutrophils % (A) 73 %; Platelet Count 272 k/uL (150-450); RDW 13.7 % (11.5-15.5); WBC 7.7 k/uL (3.8-10.6)
[2019-08-13 21:54] LABS: Albumin 4.4 g/dL (3.5-5.0); Calcium 9.8 mg/dL (8.4-10.2); Potassium 3.9 mmol/L (3.5-5.1); Total Bilirubin 0.6 mg/dL (0.2-1.3); Total Protein 7.8 g/dL (6.3-8.2)
[2019-08-13 21:56] LABS: Appearance,Urine Clear (Clear); Bilirubin,Urine Negative (Negative); Blood,Urine Negative (Negative); Color,Urine Yellow; Glucose,Urine (UA) Negative (Negative); Ketones,Urine Negative (Negative); Leukocyte Esterase,Urine Trace (Negative); Mucus,Urine Occasional /hpf; Nitrite,Urine Negative (Negative); Protein,Urine Negative (Negative); Squamous Epithelial Cell,Urine 4 /hpf (0-4); Urobilinogen,Urine <2.0 mg/dL (<2.0); WBC,Urine 1 /hpf (0-5)
[2019-08-13 23:32] VITALS: BP 132/87; PULSE 60; TEMP 97.7
== END 2019-08-13 23:33 | disposition home or self-care (01) ==
LOC: EC 20:25
DX: F41.0 Panic disorder [episodic paroxysmal anxiety] (principal); I25.119 Atherosclerotic heart disease of native coronary artery with unspecified angina pectoris; I10 Essential (primary) hypertension; L71.9 Rosacea, unspecified; Z87.891 Personal history of nicotine dependence; Z88.0 Allergy status to penicillin; Z88.5 Allergy status to narcotic agent; Z79.82 Long term (current) use of aspirin; Z79.899 Other long term (current) drug therapy; Z95.818 Presence of other cardiac implants and grafts; Z82.49 Family history of ischemic heart disease and other diseases of the circulatory system
CPT/HCPCS: 36415; 93005; 80053; 84443; 83690; 84484; 85025; 81001; 99283; 96374; 96375; 96361; J2060; J2405

== ENCOUNTER 2019-08-20 11:02 | Observation (INO) | payer MEDICARE ==
[2019-08-20] MEDS ORDERED: LORazepam 2 MG/ML INJ IV STA (11:25)
[2019-08-20] MEDS ORDERED: ASPIRIN 81 MG PO STA (11:25)
[2019-08-20] MEDS ORDERED: NITROGLYCERIN SL TABS 0.4 MG TAB SUBLINGUAL STA ×3 (11:25)
--- NOTE | 2019-08-20 11:29 | ED ---
General Adult HPI - General Chief complaint: Chest Pain Stated complaint: Chest discomfort Time Seen by Provider: 08/20/19 11:12 Source: patient, RN notes reviewed Mode of arrival: ambulatory Limitations: no limitations - History of Present Illness Initial comments: Patient is a pleasant 63-year-old female presenting to the emergency Department with complaints of chest discomfort. Onset of symptoms was around 9 AM. A perez feels more like indigestion but some pressure. Patient has now mild dyspnea. There has been nausea. Patient states she feels a little bit sweaty now as well. Discomfort is rated 5/10. Patient believes she has had similar symptoms previously associated with her heart however has no history of stent placement or heart attack. Patient also feels anxious and is receptive to antibiotic. No leg pain or leg swelling. - Related Data Home Medications Medication Instructions Recorded Confirmed amLODIPine BESYLATE [Norvasc] 10 mg PO DAILY 03/06/14 08/20/19 Doxycycline Monohydrate 40 mg PO DAILY 07/08/19 08/20/19 [Doxycycline Ir-Dr] Aspirin 81 mg PO DAILY 08/13/19 08/20/19 Mirtazapine [Remeron] 7.5 mg PO HS 08/13/19 08/20/19 Propranolol [Inderal] 5 mg PO Q12H PRN 08/13/19 08/20/19 Pantoprazole [Protonix] 40 mg PO DAILY 08/20/19 08/20/19 busPIRone HCL [Buspar] 7.5 mg PO BID 08/20/19 08/20/19 Allergies Allergy/AdvReac Type Severity Reaction Status Date / Time codeine Allergy Rash/Hives Verified 08/20/19 12:03 Penicillins Allergy Rash/Hives Verified 08/20/19 12:03 Review of Systems ROS Statement: Those systems with pertinent positive or pertinent negative responses have been documented in the HPI. ROS Other: All systems not noted in ROS Statement are negative. Constitutional: Denies: fever Eyes: Denies: eye pain ENT: Denies: ear pain Respiratory: Reports: dyspnea. Denies: cough Cardiovascular: Reports: chest pain Endocrine: Denies: fatigue Gastrointestinal: Reports: nausea. Denies: abdominal pain Genitourinary: Denies: dysuria Musculoskeletal: Denies: back pain Skin: Denies: rash Neurological: Denies: headache Psychiatric: Reports: anxiety Past Medical History Past Medical History: Coronary Artery Disease (CAD), Chest Pain / Angina, GERD/Reflux, Hypertension, Skin Disorder Additional Past Medical History / Comment(s): rosacea History of Any Multi-Drug Resistant Organisms: None Reported Past Surgical History: Heart Catheterization, Tubal Ligation Additional Past Surgical History / Comment(s): ganglion cyst removal Past Anesthesia/Blood Transfusion Reactions: No Reported Reaction Past Psychological History: Anxiety Smoking Status: Former smoker Past Alcohol Use History: None Reported Past Drug Use History: None Reported - Past Family History Mother Family Medical History: Chest Pain / Angina, Congestive Heart Failure (CHF) Father Family Medical History: Chest Pain / Angina, Congestive Heart Failure (CHF), Coronary Artery Disease (CAD) General Exam Limitations: no limitations General appearance: alert, in no apparent distress Head exam: Present: normocephalic Eye exam: Present: normal appearance, PERRL ENT exam: Present: normal oropharynx Neck exam: Present: normal inspection Respiratory exam: Present: normal lung sounds bilaterally. Absent: chest wall tenderness Cardiovascular Exam: Present: regular rate, normal rhythm, normal heart sounds Expanded Peripheral pulses: 2+: Radial (R), Radial (L), Posterior Tibialis (R), Posterior Tibialis (L), Dorsalis Pedis (R), Dorsalis Pedis (L) GI/Abdominal exam: Present: soft. Absent: tenderness Extremities exam: Present: normal inspection. Absent: pedal edema, calf tenderness Neurological exam: Present: alert Psychiatric exam: Present: normal affect, normal mood Skin exam: Present: normal color Course Vital Signs 08/20/19 08/20/19 11:09 11:36 Temperature 97.9 F Pulse Rate 66 79 Respiratory 18 18 Rate Blood Pressure 148/89 142/95 O2 Sat by Pulse 99 100 Oximetry EKG Findings - EKG Comments: EKG Findings:: Normal sinus rhythm at 70. MD 154. QRS 74. QT 390. QTC 421. Left axis. LVH criteria. Q wave in lead V1 and V2. No acute ST change. Medical Decision Making - Medical Decision Making Patient reevaluated and resting comfortably in bed. Patient states she had only mild improvement with nitroglycerin and Ativan. Patient and family updated on results and plan. Case was discussed in detail with Dr. Dela Cruz, who will admit covering for Dr. Rice. - Lab Data Result diagrams: 08/20/19 11:15 08/20/19 11:15 Lab Results 08/20/19 08/20/19 08/20/19 Range/Units 11:15 11:15 11:15 WBC 6.7 (3.8-10.6) k/uL RBC 4.42 (3.80-5.40) m/uL Hgb 12.1 (11.4-16.0) gm/dL Hct 38.4 (34.0-46.0) % MCV 86.7 (80.0-100.0) fL MCH 27.4 (25.0-35.0) pg MCHC 31.6 (31.0-37.0) g/dL RDW 13.5 (11.5-15.5) % Plt Count 254 (150-450) k/uL Neutrophils % 75 % Lymphocytes % 18 % Monocytes % 4 % Eosinophils % 1 % Basophils % 1 % Neutrophils # 5.1 (1.3-7.7) k/uL Lymphocytes # 1.2 (1.0-4.8) k/uL Monocytes # 0.3 (0-1.0) k/uL Eosinophils # 0.1 (0-0.7) k/uL Basophils # 0.0 (0-0.2) k/uL Hypochromasia Slight PT 10.4 (9.0-12.0) sec INR 1.0 (<1.2) APTT 27.3 (22.0-30.0) sec D-Dimer 0.21 (<0.60) mg/L FEU Sodium 141 (137-145) mmol/L Potassium 4.0 (3.5-5.1) mmol/L Chloride 103 (98-107) mmol/L Carbon Dioxide 26 (22-30) mmol/L Anion Gap 12 mmol/L BUN 13 (7-17) mg/dL Creatinine 1.01 (0.52-1.04) mg/dL Est GFR (CKD-EPI)AfAm 68 (>60 ml/min/1.73 sqM) Est GFR (CKD-EPI)NonAf 59 (>60 ml/min/1.73 sqM) Glucose 95 (74-99) mg/dL Calcium 10.1 (8.4-10.2) mg/dL Magnesium 2.2 (1.6-2.3) mg/dL Total Bilirubin 0.7 (0.2-1.3) mg/dL AST 16 (14-36) U/L ALT 16 (9-52) U/L Alkaline Phosphatase 85 (38-126) U/L Troponin I (0.000-0.034) ng/mL Total Protein 8.2 (6.3-8.2) g/dL Albumin 4.5 (3.5-5.0) g/dL 08/20/19 Range/Units 11:15 WBC (3.8-10.6) k/uL RBC (3.80-5.40) m/uL Hgb (11.4-16.0) gm/dL Hct (34.0-46.0) % MCV (80.0-100.0) fL MCH (25.0-35.0) pg MCHC (31.0-37.0) g/dL RDW (11.5-15.5) % Plt Count (150-450) k/uL Neutrophils % % Lymphocytes % % Monocytes % % Eosinophils % % Basophils % % Neutrophils # (1.3-7.7) k/uL Lymphocytes # (1.0-4.8) k/uL Monocytes # (0-1.0) k/uL Eosinophils # (0-0.7) k/uL Basophils # (0-0.2) k/uL Hypochromasia PT (9.0-12.0) sec INR (<1.2) APTT (22.0-30.0) sec D-Dimer (<0.60) mg/L FEU Sodium (137-145) mmol/L Potassium (3.5-5.1) mmol/L Chloride (98-107) mmol/L Carbon Dioxide (22-30) mmol/L Anion Gap mmol/L BUN (7-17) mg/dL Creatinine (0.52-1.04) mg/dL Est GFR (CKD-EPI)AfAm (>60 ml/min/1.73 sqM) Est GFR (CKD-EPI)NonAf (>60 ml/min/1.73 sqM) Glucose (74-99) mg/dL Calcium (8.4-10.2) mg/dL Magnesium (1.6-2.3) mg/dL Total Bilirubin (0.2-1.3) mg/dL AST (14-36) U/L ALT (9-52) U/L Alkaline Phosphatase (38-126) U/L Troponin I <0.012 (0.000-0.034) ng/mL Total Protein (6.3-8.2) g/dL Albumin (3.5-5.0) g/dL - Radiology Data Radiology results: image reviewed (Chest x-ray shows no acute process) Disposition Clinical Impression: Chest pain Disposition: ADMITTED IP TO THIS HOSP Is patient prescribed a controlled substance at d/c from ED?: No Referrals: Andre Rice DO [Primary Care Provider] - 1-2 days Decision Time: 12:21
[2019-08-20 11:48] LABS: Basophils % (A) 1 %; Eosinophils # (A) 0.1 k/uL (0-0.7); Eosinophils % (A) 1 %; HCT 38.4 % (34.0-46.0); HGB 12.1 gm/dL (11.4-16.0); Hypochromasia Slight; Lymphocytes # (A) 1.2 k/uL (1.0-4.8); Lymphocytes % (A) 18 %; MCH 27.4 pg (25.0-35.0); MCHC 31.6 g/dL (31.0-37.0); MCV 86.7 fL (80.0-100.0); Mean Platelet Volume 6.3; Monocytes # (A) 0.3 k/uL (0-1.0); Monocytes % (A) 4 %; Neutrophils # (A) 5.1 k/uL (1.3-7.7); Neutrophils % (A) 75 %; Platelet Count 254 k/uL (150-450); RBC 4.42 m/uL (3.80-5.40); RDW 13.5 % (11.5-15.5); WBC 6.7 k/uL (3.8-10.6)
[2019-08-20 11:49] LABS: Albumin 4.5 g/dL (3.5-5.0); Calcium 10.1 mg/dL (8.4-10.2); Magnesium 2.2 mg/dL (1.6-2.3); Total Bilirubin 0.7 mg/dL (0.2-1.3); Total Protein 8.2 g/dL (6.3-8.2)
--- NOTE | 2019-08-20 12:02 | XR ---
EXAMINATION TYPE: XR chest 2V DATE OF EXAM: 08/20/2019 COMPARISON: Prior chest x-ray 07/08/2019 HISTORY: Chest pain and shortness of breath TECHNIQUE: Frontal and lateral views of the chest are obtained. FINDINGS: There is no focal air space opacity, pleural effusion, or pneumothorax seen. The cardiac silhouette size is within normal limits. The osseous structures are intact, there is a spinal curva ture, degenerative disc change in the visualized spine. There is eventration of the right and left he midiaphragms. IMPRESSION: No acute cardiopulmonary process.
[2019-08-20 12:15] LABS: D-Dimer 0.21 mg/L FEU (<0.60); Partial Thromboplastin Time 27.3 sec (22.0-30.0); Prothrombin Time 10.4 sec (9.0-12.0)
[2019-08-20] MEDS ORDERED: PROPRANOLOL 10 MG TAB PO PRN (12:19)
[2019-08-20] MEDS ORDERED: NITROGLYCERIN SL TABS 0.4 MG TAB SUBLINGUAL PRN (12:21)
[2019-08-20] MEDS ORDERED: PANTOPRAZOLE 40 MG TABLET PO SCH (15:16)
[2019-08-20] MEDS: NITROGLYCERIN OINT 1 INCH/GM PACKET TOPICAL SCH (17:24)
--- NOTE | 2019-08-20 17:36 | P.HPIM ---
History of Present Illness H&P Date: 08/20/19 Chief Complaint: Chest. Pain History of presenting complaint: This is a very pleasant 63-year-old patient of Dr. Rice. Chronic stable medical conditions include, GERD, rosacea, hypertension, hypertensive heart disease. Patient is told she has a very small blockage in the heart. Had a cardiac cath some time ago with minimal disease. Patient was here about a month ago with a diagnosis of TIA. 2-D echo that time. He'll 455-60%. Concentric left ventricular hypertrophy. Patient now presents with multitudinous symptoms. For last 2 or 3 weeks finding it difficult to sleep. When she tries to go to sleep she'll wake up. She had some episodes of becoming forgetful and she is afraid if she goes to sleep she will forget things. Very anxious. Sometimes tearful during the interview. Also episodes of chest discomfort in the upper part of the chest. Not necessa rily related to exertion. No radiation. No dizziness no lightheadedness. Does feel weak and tired. Has been somewhat depressed. Otherwise able to get from the house. Patient was beginning significant burning sensation in epigastrium sometimes goes up the chest. In [address] Marquez that showed mild antral gastritis. Patient thinks her reflux symptoms are much worse after she not been eating well. is at the bedside. Review of systems: GEN.: Tired EYES: None HEENT: None NECK: None RESPIRATORY: None CARDIOVASCULAR: As above GASTROINTESTINAL: As above GENITOURINARY: None MUSCULOSKELETAL: None LYMPHATICS: None HEMATOLOGICAL: None PSYCHIATRY: Anxious NEUROLOGICAL: As above. Difficulty sleeping Social history: Smoked half a day for about 13 years stopped in 1989. . 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 Conjunctiva normal. HEENT: External appearance of nose and ears normal, oral cavity grossly normal. NECK: JVD not raised; masses not palpable. HEART: First and second heart sounds are normal; no edema. LUNGS: Respiratory rate normal; clear to auscultation. ABDOMEN: Soft, minimal epigastric tenderness, liver spleen not palpable, no masses palpable. PSYCH: Alert and oriented x3; mood and affect. Tearful. NEUROLOGICAL: Cranial nerves grossly intact; no facial asymmetry, power n grossly intact, some decreased sensation(lateral to the right nostril.. LYMPHATICS: No lymph nodes palpable in the axilla and neck INVESTIGATIONS, reviewed in the clinical context: White count 6.7 hemoglobin 12.1 percussion 4 creatinine 1.01 Troponin less than 0.012 LDL 128 from recently 2-D echo-no wall motion operability, moderate concentric left medical hypertrophy from 07/09/2019 Assessment: -Anterior chest wall pain could be exacerbation of GERD, but rule out cardiac cause -Exacerbation of GERD with gastritis -Anterior chest wall pain. Rule out a cardiac cause -Essential hypertension -Chronic rosacea -GERD -Obesity BMI 31 -Anxiety depression not otherwise specified -Insomnia from anxiety Plan: Care was discussed the patient and at length. Dr. Conley different lifestyle modalities to overcome anxiety depression. is any creams for the same. Serial cardiac enzymes and in place. Cardiology was consulted. Give melatonin at night. Encouraged the patient to be out of bed. We'll start the p atient Protonix. We'll order gallbladder ultrasound. Consult GI for endoscopy Past Medical History Past Medical History: Coronary Artery Disease (CAD), Chest Pain / Angina, Eye Disorder, GERD/Reflux, Hyperlipidemia, Hypertension, Skin Disorder Additional Past Medical History / Comment(s): Chronic bilateral sciatica, arrhythmia-pt cannot recall type, beginnings of bilateral cataracts, rosacea. History of Any Multi-Drug Resistant Organisms: None Reported Past Surgical History: Heart Catheterization, Tubal Ligation Additional Past Surgical History / Comment(s): Cardiac cath-normal, egd, colonoscopy, R ganglion cyst removal Past Anesthesia/Blood Transfusion Reactions: No Reported Reaction Smoking Status: Former smoker - Past Family History Mother Family Medical History: Chest Pain / Angina, Congestive Heart Failure (CHF) Father Family Medical History: Chest Pain / Angina, Congestive Heart Failure (CHF), Coronary Artery Disease (CAD) Medications and Allergies Home Medications Medication Instructions Recorded Confirmed Type amLODIPine BESYLATE [Norvasc] 10 mg PO DAILY 03/06/14 08/20/19 History Doxycycline Monohydrate 40 mg PO DAILY 07/08/19 08/20/19 History [Doxycycline Ir-Dr] Aspirin 81 mg PO DAILY 08/13/19 08/20/19 History Mirtazapine [Remeron] 7.5 mg PO HS 08/13/19 08/20/19 History Propranolol [Inderal] 5 mg PO Q12H PRN 08/13/19 08/20/19 History Pantoprazole [Protonix] 40 mg PO DAILY 08/20/19 08/20/19 History busPIRone HCL [Buspar] 7.5 mg PO BID 08/20/19 08/20/19 History Allergies Allergy/AdvReac Type Severity Reaction Status Date / Time codeine Allergy Rash/Hives Verified 08/20/19 12:03 Penicillins Allergy Rash/Hives Verified 08/20/19 12:03 Physical Exam Vitals: Vital Signs Temp Pulse Resp BP BP Pulse Ox 08/20/19 16:00 98.3 F 14 123/74 98 08/20/19 12:38 98.6 F 08/20/19 12:00 70 142/95 99 08/20/19 11:36 79 18 142/95 100 08/20/19 11:30 69 162/98 99 08/20/19 11:09 97.9 F 66 18 148/89 99 Intake and Output 08/20/19 08/20/19 08/20/19 06:59 14:59 22:59 Intake Total 120 Balance 120 Intake: Oral 120 Other: Weight 89.811 kg Results CBC & Chem 7: 08/20/19 11:15 08/20/19 11:15 Thrombosis Risk Factor Assmnt - Choose All That Apply Any of the Below Risk Factors Present?: Yes Each Factor Represents 1 point: Obesity (BMI >25) Other Risk Factors: Yes Each Risk Factor Represents 2 Points: Age 61-74 years Other congenital or acquired thrombophilia - If yes, enter type in comment: No Thrombosis Risk Factor Assessment Total Risk Factor Score: 3 Thrombosis Risk Factor Assessment Level: Moderate Risk
[2019-08-20] MEDS ORDERED: MAG HYDROX/AL HYDROX/SIMETH 30 ML CUP PO SCH (18:00)
[2019-08-20 20:23] VITALS: RESP 18
[2019-08-20] MEDS ORDERED: MELATONIN 3 MG TABLET PO SCH (21:00)
[2019-08-20] MEDS ORDERED: MIRTAZAPINE 15 MG TAB PO SCH (21:00)
[2019-08-20] MEDS: busPIRone HCl 5 MG TAB PO SCH (21:12)
[2019-08-21 01:20] LABS: Cholesterol 209 mg/dL (<200); HDL Cholesterol 49 mg/dL (40-60); LDL Cholesterol,Calculated 140 mg/dL (0-99); Triglycerides 101 mg/dL (<150)
[2019-08-21] MEDS: CALCIUM CARBONATE LIQUID 500 MG/5 ML CUP PO SCH ×3 (02:28→12:11)
[2019-08-21] MEDS: NITROGLYCERIN OINT 1 INCH/GM PACKET TOPICAL SCH ×3 (02:28→12:08)
[2019-08-21] MEDS ORDERED: PANTOPRAZOLE 40 MG TABLET PO SCH ×2 (07:30)
--- NOTE | 2019-08-21 08:26 | US ---
EXAMINATION TYPE: US abdomen limited DATE OF EXAM: 08/21/2019 COMPARISON: US CLINICAL HISTORY: Assess gallbladder-epigastric pain. Pain, ABD burning EXAM MEASUREMENTS: Liver Length: 14.2 cm Gallbladder Wall: 0.2 cm CBD: 0.4 cm Right Kidney: 10.1 x 4.2 x 4.9 cm Pancreas: wnl Liver: wnl Gallbladder: wnl Evidence for sonographic Kaur's sign: No CBD: wnl Right Kidney: wnl No abnormality visualized to account for pt's symptoms IMPRESSION: No sonographic evidence of cholelithiasis nor acute cholecystitis. Unremarkable limited a bdominal ultrasound.
--- NOTE | 2019-08-21 08:58 | P.CRDCN ---
History of Present Illness Consult date: 08/21/19 Chief complaint: Chest pain History of present illness: This is a very pleasant 63-year-old female patient with a past medical history significant for hypertension, dyslipidemia, and recent diagnosis of TIA, presented to the hospital complaining of multiple symptoms. We consulted to see her mainly because of chest discomfort. The patient does follow-up with Dr. Marvin in the office on regular basis. She stated that she has not been feeling well for the last few days. She has been more forgetful and not sleeping well. She described beside that the chest discomfort, in the mid of the chest as well as epigastric area, as a sharp kind of discomfort, without any radiation, and without any associated symptoms of sweating, nausea, or vomiting. The EKG showed sinus rhythm without any ST or T-wave abnormalities. 3 sets of cardiac enzymes came in to be unremarkable. The chest x-ray did not show any acute abnormalities. The patient stated that she underwent heart catheterization long time ago and she was told that she has minimal coronary artery disease. Also she stated that she underwent a stress echo and echocardiogram in our office about 2 years ago. She sustained chest pain free at this point. Overall she is reluctant to undergo any testing at this point and she will like to wait. Meanwhile I am going to obtain the previous medical records from our office including the last office visit, stress test and echocardiogram. Past Medical History Past Medical History: Coronary Artery Disease (CAD), Chest Pain / Angina, Eye Disorder, GERD/Reflux, Hyperlipidemia, Hypertension, Skin Disorder Additional Past Medical History / Comment(s): Chronic bilateral sciatica, arrhythmia-pt cannot recall type, beginnings of bilateral cataracts, rosacea. History of Any Multi-Drug Resistant Organisms: None Reported Past Surgical History: Heart Catheterization, Tubal Ligation Additional Past Surgical History / Comment(s): Cardiac cath-normal, egd, colonoscopy, R ganglion cyst removal Past Anesthesia/Blood Transfusion Reactions: No Reported Reaction Smoking Status: Former smoker - Past Family History Mother Family Medical History: Chest Pain / Angina, Congestive Heart Failure (CHF) Father Family Medical History: Chest Pain / Angina, Congestive Heart Failure (CHF), Coronary Artery Disease (CAD) Medications and Allergies Home Medications Medication Instructions Recorded Confirmed Type amLODIPine BESYLATE [Norvasc] 10 mg PO DAILY 03/06/14 08/20/19 History Doxycycline Monohydrate 40 mg PO DAILY 07/08/19 08/20/19 History [Doxycycline Ir-Dr] Aspirin 81 mg PO DAILY 08/13/19 08/20/19 History Mirtazapine [Remeron] 7.5 mg PO HS 08/13/19 08/20/19 History Propranolol [Inderal] 5 mg PO Q12H PRN 08/13/19 08/20/19 History Pantoprazole [Protonix] 40 mg PO DAILY 08/20/19 08/20/19 History busPIRone HCL [Buspar] 7.5 mg PO BID 08/20/19 08/20/19 History Allergies Allergy/AdvReac Type Severity Reaction Status Date / Time codeine Allergy Rash/Hives Verified 08/20/19 12:03 Penicillins Allergy Rash/Hives Verified 08/20/19 12:03 Physical Exam Vitals: Vital Signs Temp Pulse Pulse Resp BP BP Pulse Ox 08/21/19 03:23 97.9 F 75 18 121/75 97 08/21/19 00:00 97.8 F 60 17 118/72 99 08/20/19 20:21 97.4 F L 66 18 121/69 100 08/20/19 20:00 64 17 08/20/19 18:22 17 08/20/19 16:00 98.3 F 14 123/74 98 08/20/19 12:38 98.6 F 08/20/19 12:00 70 142/95 99 08/20/19 11:36 79 18 142/95 100 08/20/19 11:30 69 162/98 99 08/20/19 11:09 97.9 F 66 18 148/89 99 Intake and Output 08/20/19 08/21/19 08/21/19 22:59 06:59 14:59 Intake Total 360 Balance 360 Intake: Oral 360 Other: Voiding Method Toilet Toilet # Voids 1 1 Weight 89.7 kg - Constitutional General appearance: no acute distress - Respiratory Respiratory: bilateral: CTA - Cardiovascular Rhythm: regular Heart sounds: normal: S1, S2 Results 08/20/19 11:15 08/20/19 11:15 Cardiac Enzymes 08/20/19 08/20/19 08/20/19 Range/Units 11:15 11:15 17:42 AST 16 (14-36) U/L Troponin I <0.012 <0.012 (0.000-0.034) ng/mL 08/20/19 Range/Units 22:53 AST (14-36) U/L Troponin I <0.012 (0.000-0.034) ng/mL Coagulation 08/20/19 Range/Units 11:15 PT 10.4 (9.0-12.0) sec APTT 27.3 (22.0-30.0) sec Lipids 08/20/19 Range/Units 11:15 Triglycerides 101 (<150) mg/dL Cholesterol 209 H (<200) mg/dL HDL Cholesterol 49 (40-60) mg/dL CBC 08/20/19 Range/Units 11:15 WBC 6.7 (3.8-10.6) k/uL RBC 4.42 (3.80-5.40) m/uL Hgb 12.1 (11.4-16.0) gm/dL Hct 38.4 (34.0-46.0) % Plt Count 254 (150-450) k/uL Comprehensive Metabolic Panel 08/20/19 Range/Units 11:15 Sodium 141 (137-145) mmol/L Potassium 4.0 (3.5-5.1) mmol/L Chloride 103 (98-107) mmol/L Carbon Dioxide 26 (22-30) mmol/L BUN 13 (7-17) mg/dL Creatinine 1.01 (0.52-1.04) mg/dL Glucose 95 (74-99) mg/dL Calcium 10.1 (8.4-10.2) mg/dL AST 16 (14-36) U/L ALT 16 (9-52) U/L Alkaline Phosphatase 85 (38-126) U/L Total Protein 8.2 (6.3-8.2) g/dL Albumin 4.5 (3.5-5.0) g/dL Current Medications Generic Name Dose Route Start Last Admin Trade Name Freq PRN Reason Stop Dose Admin Amlodipine Besylate 10 mg 08/21/19 09:00 Norvasc PO DAILY [facility] Aspirin 81 mg 08/21/19 09:00 Aspirin PO DAILY [facility] Buspirone HCl 7.5 mg 08/20/19 21:00 08/20/19 21:12 Buspar PO Not Given BID [facility] Calcium Carbonate/Glycine 500 mg 08/20/19 21:00 08/21/19 02:28 Tums Liquid PO Not Given ACHS RUPALI Melatonin 3 mg 08/20/19 21:00 08/21/19 02:28 Melatonin PO Not Given HS RUPALI Mirtazapine 7.5 mg 08/20/19 21:00 08/20/19 21:09 Remeron PO 7.5 mg HS RUPALI Administration Nitroglycerin 0.4 mg 08/20/19 12:21 Nitrostat SUBLINGUAL Q5M PRN Chest Pain Nitroglycerin 1 inch 08/20/19 18:00 08/21/19 06:36 Nitro-Bid Oint TOPICAL Not Given Q6HR RUPALI Pantoprazole Sodium 40 mg 08/21/19 07:30 08/21/19 06:37 Protonix PO 40 mg AC-BID RUPALI Administration Propranolol HCl 5 mg 08/20/19 12:19 Inderal PO Q12H PRN Anxiety Sodium Chloride 10 ml 08/20/19 21:00 08/20/19 21:13 Saline Flush IV 10 ml BID RUPALI Administration Intake and Output 08/20/19 08/21/19 08/21/19 22:59 06:59 14:59 Intake Total 360 Balance 360 Intake: Oral 360 Other: Voiding Method Toilet Toilet # Voids 1 1 Weight 89.7 kg 08/20/19 11:15 08/20/19 11:15 Assessment and Plan Assessment: Assessment #1 atypical chest discomfort #2 hypertension #3 dyslipidemia #4 history of TIA Plan #1 the patient was ruled out for acute coronary event #2 I will obtain the previous medical records from the office #3 further recommendation to follow that
[2019-08-21] MEDS ORDERED: ASPIRIN 81 MG PO SCH (09:00)
[2019-08-21] MEDS ORDERED: ASPIRIN 325 MG TAB PO SCH (09:00)
[2019-08-21] MEDS ORDERED: amLODIPine 10 MG TAB PO SCH (09:00)
[2019-08-21] MEDS: busPIRone HCl 5 MG TAB PO SCH (09:39)
[2019-08-21 11:17] VITALS: BMI 30.9
[2019-08-21 11:31] VITALS: TEMP 98.1
[2019-08-21 12:46] VITALS: BP 128/77; PULSE 65
--- NOTE | 2019-08-21 23:04 | P.DS ---
Providers Date of admission: 08/20/19 12:21 Expected date of discharge: 08/21/19 Attending physician: [place] Dela Cruz Consults: 08/20/19 12:21 Consult Physician Urgent Consulting Provider: Florencio Galeano Consult Reason/Comments: cp Do you want consulting provider notified?: Yes [facility] Course: Chief Complaint: Chest. Pain Hospital course: This is a very pleasant 63-year-old patient of Dr. Rice. Chronic stable medical conditions include, GERD, rosacea, hypertension, hypertensive heart disease. Patient is told she has a very small blockage in the heart. Had a cardiac cath some time ago with minimal disease. Patient was here about a month ago with a diagnosis of TIA. 2-D echo that time. He'll 455-60%. Concentric left ventricular hypertrophy. Patient now presents with multitudinous symptoms. For last 2 or 3 weeks finding it difficult to sleep. When she tries to go to sleep she'll wake up. She had some episodes of becoming forgetful and she is afraid if she goes to sleep she will forget things. Very anxious. Sometimes tearful during the interview. Also episodes of chest discomfort in the upper part of the chest. Not necessarily related to exertion. No radiation. No dizziness no lightheadedness. Does feel weak and tired. Has been somewhat depressed. Otherwise able to get from the house. Patient was beginning significant burning sensation in epigastrium sometimes goes up the chest. In [address] Marquez that showed mild antral gastritis. Patient thinks her reflux symptoms are much worse after she not been eating well. is at the bedside. Today-patient was offered stress test per Dr. Galeano. Patient wishes to do that as an outpatient. Also decided to have EGD done as an outpatient. Dose of Protonix was doubled. Spoke to patient extensively about lifestyle changes. Discussion and discharge planning more than 35 minutes Physical examination: VITAL SIGNS: 98.1, 68, 128% 6, 99% room air GENERAL: BMI 31, sitting up, comfortable EYES: Pupils equal. Conjunctiva normal. HEENT: External appearance of nose and ears normal, oral cavity grossly normal. NECK: JVD not raised; masses not palpable. HEART: First and second heart sounds are normal; no edema. LUNGS: Respiratory rate normal; clear to auscultation. ABDOMEN: Soft, minimal epigastric tenderness, liver spleen not palpable, no masses palpable. PSYCH: Alert and oriented x3; mood and affect. Tearful. INVESTIGATIONS, reviewed in the clinical context: White count 6.7 hemoglobin 12.1 percussion 4 creatinine 1.01 Troponin less than 0.012 LDL 128 from recently 2-D echo-no wall motion operability, moderate concentric left medical hypertrophy from 07/09/2019 Abdominal ultrasound-unremarkable Assessment: -Anterior chest wall pain could be exacerbation of GERD, but rule out cardiac cause -Exacerbation of GERD with gastritis -Anterior chest wall pain. Rule out a cardiac cause -Essential hypertension -Chronic rosacea -GERD -Obesity BMI 31 -Anxiety depression not otherwise specified -Insomnia from anxiety Disposition: Home Patient Condition at Discharge: Stable Plan - Discharge Summary Discharge Rx Participant: No New Discharge Prescriptions: Continue amLODIPine BESYLATE [Norvasc] 10 mg PO DAILY Doxycycline Monohydrate [Doxycycline Ir-Dr] 40 mg PO DAILY Aspirin 81 mg PO DAILY Mirtazapine [Remeron] 7.5 mg PO HS Changed Pantoprazole [Protonix] 40 mg PO BID #60 tab No Action Propranolol [Inderal] 5 mg PO Q12H PRN PRN Reason: Anxiety Discharge Medication List amLODIPine BESYLATE [Norvasc] 10 mg PO DAILY 03/06/14 [History] Doxycycline Monohydrate [Doxycycline Ir-Dr] 40 mg PO DAILY 07/08/19 [History] Aspirin 81 mg PO DAILY 08/13/19 [History] Mirtazapine [Remeron] 7.5 mg PO HS 08/13/19 [History] Propranolol [Inderal] 5 mg PO Q12H PRN 08/13/19 [History] Pantoprazole [Protonix] 40 mg PO BID #60 tab 08/21/19 [Rx] Follow up Appointment(s)/Referral(s): Benny Marvin MD [STAFF PHYSICIAN] - 09/03/19 10:45 am (Monday with COMPREHENSIVE ADVISOR) Andre Rice DO [Primary Care Provider] - 09/03/19 11:40 am (Monday -earliest available pharmacy) Vijaya May MD [STAFF PHYSICIAN] - 1 Week (Please call to schedule appointment) Patient Instructions/Handouts: Chest Pain (DC), How to Stop Smoking (DC) Discharge Disposition: HOME SELF-CARE
== END 2019-08-21 15:00 | disposition home or self-care (01) ==
LOC: EC 11:02 → 3SCARD 12:21
PROVIDERS: ADMIT Hospitalist; ATTEND Hospitalist
DX: R07.89 Other chest pain (principal); E66.9 Obesity, unspecified; E78.5 Hyperlipidemia, unspecified; F41.9 Anxiety disorder, unspecified; F32.9 Major depressive disorder, single episode, unspecified; F51.05 Insomnia due to other mental disorder; I11.9 Hypertensive heart disease without heart failure; I25.10 Atherosclerotic heart disease of native coronary artery without angina pectoris; K21.9 Gastro-esophageal reflux disease without esophagitis; L71.9 Rosacea, unspecified; Z68.31 Body mass index [BMI] 31.0-31.9, adult; Z79.82 Long term (current) use of aspirin; Z79.899 Other long term (current) drug therapy; Z82.49 Family history of ischemic heart disease and other diseases of the circulatory system; Z86.73 Personal history of transient ischemic attack (TIA), and cerebral infarction without residual deficits; Z87.891 Personal history of nicotine dependence; Z88.5 Allergy status to narcotic agent; Z88.0 Allergy status to penicillin
CPT/HCPCS: 93005 ×2; 96374; 99285; 36415; 85379; 83880; 80061; 80053; 83735; 84484; 85025; 85610; 85730; 71046; 76705; G0378 ×2; J2060

== ENCOUNTER 2019-08-27 15:52 | Emergency (ER) | payer MEDICARE ==
[2019-08-27 16:05] VITALS: BP 144/89; PULSE 72; RESP 18; TEMP 98.3
--- NOTE | 2019-08-27 16:55 | ED ---
General Adult HPI - General Chief complaint: Anxiety Stated complaint: Panic attack Time Seen by Provider: 08/27/19 16:20 Source: patient, RN notes reviewed Mode of arrival: ambulatory Limitations: no limitations - History of Present Illness Initial comments: Patient is a pleasant [age]-year-old female presenting to the emergency Department with complaints of anxiety. He should states symptoms are somewhat chronic, worse with the past several weeks. Patient did not sleep well last night. Patient was prescribed Remeron however has not been using it. Patient does have Ativan and Xanax and Valium. Patient states she took one Xanax earlier and feels like she would take an additional 0.5. Patient denies any suicidal or homicidal thoughts. Patient is not on any long-term medication at this time. Patient previously was on BuSpar however this was discontinued. Patient states she was in the emergency department by long ago and was admitted for cardiac evaluation and everything turned out okay. - Related Data Home Medications Medication Instructions Recorded Confirmed amLODIPine BESYLATE [Norvasc] 10 mg PO DAILY 03/06/14 08/20/19 Doxycycline Monohydrate 40 mg PO DAILY 07/08/19 08/20/19 [Doxycycline Ir-Dr] Aspirin 81 mg PO DAILY 08/13/19 08/20/19 Mirtazapine [Remeron] 7.5 mg PO HS 08/13/19 08/20/19 Propranolol [Inderal] 5 mg PO Q12H PRN 08/13/19 08/20/19 Previous Rx's Medication Instructions Recorded Pantoprazole [Protonix] 40 mg PO BID #60 tab 08/21/19 Allergies Allergy/AdvReac Type Severity Reaction Status Date / Time codeine Allergy Rash/Hives Verified 08/27/19 16:05 Penicillins Allergy Rash/Hives Verified 08/27/19 16:05 Review of Systems ROS Statement: Those systems with pertinent positive or pertinent negative responses have been documented in the HPI. ROS Other: All systems not noted in ROS Statement are negative. Constitutional: Denies: fever Eyes: Denies: eye pain ENT: Denies: ear pain Respiratory: Denies: cough Cardiovascular: Denies: chest pain Endocrine: Denies: fatigue Gastrointestinal: Denies: abdominal pain Genitourinary: Denies: urgency Musculoskeletal: Denies: back pain Skin: Denies: rash Neurological: Denies: weakness Psychiatric: Reports: anxiety. Denies: homicidal thoughts, suicidal thoughts Past Medical History Past Medical History: Coronary Artery Disease (CAD), Chest Pain / Angina, Eye Disorder, GERD/Reflux, Hyperlipidemia, Hypertension, Skin Disorder Additional Past Medical History / Comment(s): Chronic bilateral sciatica, arrhythmia-pt cannot recall type, beginnings of bilateral cataracts, rosacea. History of Any Multi-Drug Resistant Organisms: None Reported Past Surgical History: Heart Catheterization, Tubal Ligation Additional Past Surgical History / Comment(s): Cardiac cath-normal, egd, colonoscopy, R ganglion cyst removal Past Anesthesia/Blood Transfusion Reactions: No Reported Reaction Past Psychological History: Anxiety, Depression Smoking Status: Former smoker Past Alcohol Use History: None Reported Past Drug Use History: None Reported - Past Family History Mother Family Medical History: Chest Pain / Angina, Congestive Heart Failure (CHF) Father Family Medical History: Chest Pain / Angina, Congestive Heart Failure (CHF), Coronary Artery Disease (CAD) General Exam Limitations: no limitations General appearance: alert, in no apparent distress Head exam: Present: normocephalic Eye exam: Present: normal appearance Respiratory exam: Present: normal lung sounds bilaterally Cardiovascular Exam: Present: regular rate, normal rhythm Extremities exam: Present: normal inspection Neurological exam: Present: alert Psychiatric exam: Present: anxious (Patient is mildly anxious) Skin exam: Present: normal color Course Vital Signs 08/27/19 16:03 Temperature 98.3 F Pulse Rate 72 Respiratory 18 Rate Blood Pressure 144/89 O2 Sat by Pulse 98 Oximetry Medical Decision Making - Medical Decision Making Patient would like to take an additional 0.5 of her Xanax as far as treatment at this time. Patient is informed that this would be okay. Patient is advised close follow-up with her primary care physician for long-term management. Disposition Clinical Impression: Anxiety Disposition: HOME SELF-CARE Condition: Stable Instructions (If sedation given, give patient instructions): Generalized Anxiety Disorder (ED) Additional Instructions: Please take Remeron this evening as prescribed. Please follow-up with primary care physician in the next day or 2 for recheck. You will need further long- term treatment for anxiety. Continue follow-up with counselor as well. Is patient prescribed a controlled substance at d/c from ED?: No Referrals: Andre Rice DO [Primary Care Provider] - 1-2 days Time of Disposition: 16:55
== END 2019-08-27 17:06 | disposition home or self-care (01) ==
LOC: EC 15:52
DX: F41.9 Anxiety disorder, unspecified (principal); I25.119 Atherosclerotic heart disease of native coronary artery with unspecified angina pectoris; I10 Essential (primary) hypertension; F32.9 Major depressive disorder, single episode, unspecified; Z79.899 Other long term (current) drug therapy; Z88.0 Allergy status to penicillin; Z88.5 Allergy status to narcotic agent; Z87.891 Personal history of nicotine dependence
CPT/HCPCS: 99282

== ENCOUNTER 2019-09-01 04:50 | Emergency (ER) | payer MEDICARE ==
[2019-09-01 05:21] LABS: Glucose,Whole Blood 127 mg/dL (75-99)
[2019-09-01] MEDS ORDERED: ALPRAZolam 0.25 MG TAB PO STA (05:21)
[2019-09-01 05:47] LABS: Basophils % (A) 1 %; Eosinophils # (A) 0.1 k/uL (0-0.7); Eosinophils % (A) 1 %; HCT 37.9 % (34.0-46.0); HGB 11.6 gm/dL (11.4-16.0); Lymphocytes # (A) 0.9 k/uL (1.0-4.8); Lymphocytes % (A) 16 %; MCH 26.2 pg (25.0-35.0); MCHC 30.5 g/dL (31.0-37.0); Mean Platelet Volume 7.1; Monocytes # (A) 0.2 k/uL (0-1.0); Monocytes % (A) 4 %; Neutrophils # (A) 4.2 k/uL (1.3-7.7); Neutrophils % (A) 77 %; Platelet Count 253 k/uL (150-450); RBC 4.41 m/uL (3.80-5.40); RDW 13.9 % (11.5-15.5); WBC 5.5 k/uL (3.8-10.6)
--- NOTE | 2019-09-01 05:54 | ED ---
General Adult HPI - General Chief complaint: Neuro Symptoms/Deficit Stated complaint: Near Syncope Time Seen by Provider: 09/01/19 05:19 Source: patient Mode of arrival: ambulatory Limitations: no limitations - History of Present Illness -: week(s) Location: head Consistency: intermittent, now resolved Improves with: none Worsens with: none, other (Walking) Treatments Prior to Arrival: none - Related Data Home Medications Medication Instructions Recorded Confirmed amLODIPine BESYLATE [Norvasc] 10 mg PO DAILY 03/06/14 08/20/19 Doxycycline Monohydrate 40 mg PO DAILY 07/08/19 08/20/19 [Doxycycline Ir-Dr] Aspirin 81 mg PO DAILY 08/13/19 08/20/19 Mirtazapine [Remeron] 7.5 mg PO HS 08/13/19 08/20/19 Propranolol [Inderal] 5 mg PO Q12H PRN 08/13/19 08/20/19 Previous Rx's Medication Instructions Recorded Pantoprazole [Protonix] 40 mg PO BID #60 tab 08/21/19 Allergies Allergy/AdvReac Type Severity Reaction Status Date / Time codeine Allergy Rash/Hives Verified 09/01/19 05:09 Penicillins Allergy Rash/Hives Verified 09/01/19 05:09 Review of Systems ROS Statement: Those systems with pertinent positive or pertinent negative responses have been documented in the HPI. ROS Other: All systems not noted in ROS Statement are negative. Constitutional: Denies: fever, chills, weakness Eyes: Denies: eye pain, vision change Respiratory: Denies: cough, dyspnea Cardiovascular: Denies: chest pain, palpitations, dyspnea on exertion, orthopnea, edema, syncope Gastrointestinal: Denies: abdominal pain, nausea, vomiting, melena, hematochezia Genitourinary: Denies: dysuria, hematuria Musculoskeletal: Denies: back pain Skin: Denies: rash Neurological: Reports: abnormal gait, vertigo. Denies: headache, weakness, numbness, paresthesias, confusion Psychiatric: Reports: anxiety Past Medical History Past Medical History: Coronary Artery Disease (CAD), Chest Pain / Angina, CVA/TIA, Eye Disorder, GERD/Reflux, Hyperlipidemia, Hypertension, Skin Disorder Additional Past Medical History / Comment(s): Chronic bilateral sciatica, arrhy thmia-pt cannot recall type, beginnings of bilateral cataracts, rosacea. History of Any Multi-Drug Resistant Organisms: None Reported Past Surgical History: Heart Catheterization, Tubal Ligation Additional Past Surgical History / Comment(s): Cardiac cath-normal, egd, colonoscopy, R ganglion cyst removal Past Anesthesia/Blood Transfusion Reactions: No Reported Reaction Past Psychological History: Anxiety, Depression Smoking Status: Former smoker Past Alcohol Use History: None Reported Past Drug Use History: None Reported - Past Family History Mother Family Medical History: Chest Pain / Angina, Congestive Heart Failure (CHF) Father Family Medical History: Chest Pain / Angina, Congestive Heart Failure (CHF), Coronary Artery Disease (CAD) General Exam Limitations: no limitations General appearance: alert, in no apparent distress, anxious Head exam: Present: atraumatic, normocephalic Eye exam: Present: normal appearance, PERRL, EOMI. Absent: scleral icterus, conjunctival injection, nystagmus ENT exam: Present: normal oropharynx Neck exam: Present: normal inspection, full ROM Respiratory exam: Present: normal lung sounds bilaterally. Absent: respiratory distress, wheezes, rales, rhonchi, stridor Cardiovascular Exam: Present: regular rate, normal rhythm, normal heart sounds. Absent: systolic murmur, diastolic murmur, rubs, gallop GI/Abdominal exam: Present: soft. Absent: distended, tenderness, guarding, rebound, rigid Extremities exam: Present: normal inspection, normal capillary refill. Absent: pedal edema, calf tenderness Back exam: Present: normal inspection. Absent: CVA tenderness (R), CVA ten derness (L) Neurological exam: Present: alert, oriented X3, CN II-XII intact, normal gait. Absent: motor sensory deficit Skin exam: Present: warm, dry, intact, normal color. Absent: rash Course Vital Signs 09/01/19 09/01/19 09/01/19 05:06 05:50 06:59 Temperature 98.4 F 98.4 F Pulse Rate 71 63 60 Respiratory 18 18 18 Rate Blood Pressure 161/95 132/90 125/85 O2 Sat by Pulse 95 100 96 Oximetry EKG Findings - EKG Results: EKG: interpreted by ERMD, sinus rhythm (Rate 63 bpm), normal axis, normal QRS, normal ST/T - Blocks, [place], Hypertrophy, ST Abn: Chamber hypertrophy or enlargement: only voltage criteria for left ventricular hypertrophy Medical Decision Making - Lab Data Result diagrams: 09/01/19 05:31 09/01/19 05:31 Lab Results 09/01/19 09/01/19 09/01/19 Range/Units 05:19 05:31 05:31 WBC 5.5 (3.8-10.6) k/uL RBC 4.41 (3.80-5.40) m/uL Hgb 11.6 (11.4-16.0) gm/dL Hct 37.9 (34.0-46.0) % MCV 86.0 (80.0-100.0) fL MCH 26.2 (25.0-35.0) pg MCHC 30.5 L (31.0-37.0) g/dL RDW 13.9 (11.5-15.5) % Plt Count 253 (150-450) k/uL Neutrophils % 77 % Lymphocytes % 16 % Monocytes % 4 % Eosinophils % 1 % Basophils % 1 % Neutrophils # 4.2 (1.3-7.7) k/uL Lymphocytes # 0.9 L (1.0-4.8) k/uL Monocytes # 0.2 (0-1.0) k/uL Eosinophils # 0.1 (0-0.7) k/uL Basophils # 0.0 (0-0.2) k/uL PT (9.0-12.0) sec INR (<1.2) APTT (22.0-30.0) sec Sodium 139 (137-145) mmol/L Potassium 3.9 (3.5-5.1) mmol/L Chloride 104 (98-107) mmol/L Carbon Dioxide 28 (22-30) mmol/L Anion Gap 7 mmol/L BUN 15 (7-17) mg/dL Creatinine 1.03 (0.52-1.04) mg/dL Est GFR (CKD-EPI)AfAm 66 (>60 ml/min/1.73 sqM) Est GFR (CKD-EPI)NonAf 57 (>60 ml/min/1.73 sqM) Glucose 114 H (74-99) mg/dL POC Glucose (mg/dL) 127 H (75-99) mg/dL POC Glu Ingot Weigher ID Mari Campos Calcium 9.8 (8.4-10.2) mg/dL Total Bilirubin 0.8 (0.2-1.3) mg/dL AST 15 (14-36) U/L ALT 18 (9-52) U/L Alkaline Phosphatase 82 (38-126) U/L Troponin I (0.000-0.034) ng/mL Total Protein 7.4 (6.3-8.2) g/dL Albumin 4.3 (3.5-5.0) g/dL TSH 2.080 (0.465-4.680) mIU/L 09/01/19 09/01/19 Range/Units 05:31 05:31 WBC (3.8-10.6) k/uL RBC (3.80-5.40) m/uL Hgb (11.4-16.0) gm/dL Hct (34.0-46.0) % MCV (80.0-100.0) fL MCH (25.0-35.0) pg MCHC (31.0-37.0) g/dL RDW (11.5-15.5) % Plt Count (150-450) k/uL Neutrophils % % Lymphocytes % % Monocytes % % Eosinophils % % Basophils % % Neutrophils # (1.3-7.7) k/uL Lymphocytes # (1.0-4.8) k/uL Monocytes # (0-1.0) k/uL Eosinophils # (0-0.7) k/uL Basophils # (0-0.2) k/uL PT 10.6 (9.0-12.0) sec INR 1.0 (<1.2) APTT 27.1 (22.0-30.0) sec Sodium (137-145) mmol/L Potassium (3.5-5.1) mmol/L Chloride (98-107) mmol/L Carbon Dioxide (22-30) mmol/L Anion Gap mmol/L BUN (7-17) mg/dL Creatinine (0.52-1.04) mg/dL Est GFR (CKD-EPI)AfAm (>60 ml/min/1.73 sqM) Est GFR (CKD-EPI)NonAf (>60 ml/min/1.73 sqM) Glucose (74-99) mg/dL POC Glucose (mg/dL) (75-99) mg/dL POC Glu Ingot Weigher ID Calcium (8.4-10.2) mg/dL Total Bilirubin (0.2-1.3) mg/dL AST (14-36) U/L ALT (9-52) U/L Alkaline Phosphatase (38-126) U/L Troponin I <0.012 (0.000-0.034) ng/mL Total Protein (6.3-8.2) g/dL Albumin (3.5-5.0) g/dL TSH (0.465-4.680) mIU/L Disposition Clinical Impression: Anxiety, Vertigo Disposition: HOME SELF-CARE Condition: Fair Instructions (If sedation given, give patient instructions): Vertigo (DC) Is patient prescribed a controlled substance at d/c from ED?: No Referrals: Andre Rice DO [Primary Care Provider] - 1-2 days Nathalie Kamara MD [STAFF PHYSICIAN] - 1-2 days
[2019-09-01 05:56] LABS: Partial Thromboplastin Time 27.1 sec (22.0-30.0); Prothrombin Time 10.6 sec (9.0-12.0)
[2019-09-01 06:01] LABS: Albumin 4.3 g/dL (3.5-5.0); Calcium 9.8 mg/dL (8.4-10.2); Potassium 3.9 mmol/L (3.5-5.1); Total Bilirubin 0.8 mg/dL (0.2-1.3); Total Protein 7.4 g/dL (6.3-8.2)
--- NOTE | 2019-09-01 06:18 | CT ---
EXAM: CT Head Without Intravenous Contrast CLINICAL HISTORY: Neuro deficit, acute, stroke suspected TECHNIQUE: Axial computed tomography images of the head/brain without intravenous contrast. CTDI is 49.1 mGy and DLP is 1078.4 mGy-cm. This CT exam was performed using one or more of the following dose reduction techniques: automated exposure control, adjustment of the mA and/or kV according to patient size, and/or use of iterative reconstruction technique. COMPARISON: 07/08/19 FINDINGS: Brain: Unremarkable. No hemorrhage. Few scattered areas of white matter change. This is stable compared to prior study No edema. Ventricles: Unremarkable. No ventriculomegaly. Bones/joints: Unremarkable. No acute fracture. Soft tissues: Unremarkable. Sinuses: Unremarkable as visualized. No acute sinusitis. Mastoid air cells: Unremarkable as visualized. No mastoid effusion. IMPRESSION: No acute abnormality. No evidence for hemorrhage or hematoma. No evidence for acute infarct. Stable compared to prior study
--- NOTE | 2019-09-01 06:37 | XR ---
EXAM: XR Chest, 2 Views CLINICAL HISTORY: altered mental status TECHNIQUE: Frontal and lateral views of the chest. COMPARISON: 08/20/19 FINDINGS: Lungs: Unremarkable. No consolidation. Pleural space: Unremarkable. No pneumothorax. Heart: Unremarkable. No cardiomegaly. Mediastinum: Unremarkable. Bones/joints: Unremarkable. IMPRESSION: Normal chest x-rays. No change from the prior study
[2019-09-01 07:38] LABS: Appearance,Urine Clear (Clear); Bilirubin,Urine Negative (Negative); Blood,Urine Negative (Negative); Color,Urine Yellow; Glucose,Urine (UA) Negative (Negative); Ketones,Urine Negative (Negative); Leukocyte Esterase,Urine Negative (Negative); Nitrite,Urine Negative (Negative); Protein,Urine Negative (Negative); Urobilinogen,Urine <2.0 mg/dL (<2.0)
[2019-09-01 09:22] VITALS: BP 138/74; PULSE 64; RESP 16; TEMP 97.9
== END 2019-09-01 09:20 | disposition home or self-care (01) ==
LOC: EC 04:50
DX: F41.9 Anxiety disorder, unspecified (principal); R42 Dizziness and giddiness; R55 Syncope and collapse; I25.10 Atherosclerotic heart disease of native coronary artery without angina pectoris; I10 Essential (primary) hypertension; F32.9 Major depressive disorder, single episode, unspecified; Z86.73 Personal history of transient ischemic attack (TIA), and cerebral infarction without residual deficits; Z95.818 Presence of other cardiac implants and grafts; Z87.891 Personal history of nicotine dependence; Z79.82 Long term (current) use of aspirin; Z79.899 Other long term (current) drug therapy; Z88.5 Allergy status to narcotic agent; Z88.0 Allergy status to penicillin
CPT/HCPCS: 36415; 70450; 71046; 80053; 81003; 84443; 84484; 85025; 85610; 85730; 93005; 99285

== ENCOUNTER 2019-09-23 07:39 | Emergency (ER) | payer MEDICARE ==
[2019-09-23 07:44] VITALS: BP 142/87; PULSE 65; RESP 18; TEMP 97.8
[2019-09-23] MEDS ORDERED: LORazepam 1 MG TAB PO STA (08:03)
--- NOTE | 2019-09-23 08:20 | ED ---
General Adult HPI - General Chief complaint: Allergic Reaction Stated complaint: medication side effect Time Seen by Provider: 09/23/19 07:45 Source: patient, RN notes reviewed, old records reviewed Mode of arrival: ambulatory Limitations: no limitations - History of Present Illness Initial comments: 63-year-old female presents with abnormal reaction to medication. Patient was initiated on trazodone yesterday for sleep. She took this medication yesterday evening and was awake all night with anxiety and inability to sleep. Denies suicidal or homicidal ideation. She's been dealing with panic attacks and anxiety for some time. She's following with her primary care physician and has been initiated on Prozac, Ativan, and trazodone. She's had some success with Prozac and Ativan but this trazodone left her feeling wired and unable to sleep. No other complaints. - Related Data Home Medications Medication Instructions Recorded Confirmed FLUoxetine HCL [PROzac] 10 mg PO DAILY 09/23/19 09/23/19 LORazepam [Ativan] 0.5 mg PO DAILY PRN 09/23/19 09/23/19 traZODone HCL 50 mg PO HS 09/23/19 09/23/19 Allergies Allergy/AdvReac Type Severity Reaction Status Date / Time codeine Allergy Rash/Hives Verified 09/23/19 08:10 Penicillins Allergy Rash/Hives Verified 09/23/19 08:10 Review of Systems ROS Statement: Those systems with pertinent positive or pertinent negative responses have been documented in the HPI. ROS Other: All systems not noted in ROS Statement are negative. Past Medical History Past Medical History: Coronary Artery Disease (CAD), Chest Pain / Angina, CVA/TIA, Eye Disorder, GERD/Reflux, Hyperlipidemia, Hypertension, Skin Disorder Additional Past Medical History / Comment(s): Chronic bilateral sciatica, arrhythmia-pt cannot recall type, beginnings of bilateral cataracts, rosacea. History of Any Multi-Drug Resistant Organisms: None Reported Past Surgical History: Heart Catheterization, Tubal Ligation Additional Past Surgical History / Comment(s): Cardiac cath-normal, egd, colonoscopy, R ganglion cyst removal Past Anesthesia/Blood Transfusion Reactions: No Reported Reaction Past Psychological History: Anxiety, Depression Smoking Status: Former smoker Past Alcohol Use History: None Reported Past Drug Use History: None Reported - Past Family History Mother Family Medical History: Chest Pain / Angina, Congestive Heart Failure (CHF) Father Family Medical History: Chest Pain / Angina, Congestive Heart Failure (CHF), Coronary Artery Disease (CAD) General Exam Limitations: no limitations General appearance: alert, in no apparent distress Head exam: Present: atraumatic, normocephalic Eye exam: Present: normal appearance, PERRL ENT exam: Present: normal exam Neck exam: Present: normal inspection. Absent: tenderness, meningismus Respiratory exam: Present: normal lung sounds bilaterally. Absent: respiratory distress, wheezes Cardiovascular Exam: Present: regular rate, normal rhythm GI/Abdominal exam: Present: soft. Absent: distended, tenderness Extremities exam: Present: normal inspection, full ROM Neurological exam: Present: alert, oriented X3, CN II-XII intact Psychiatric exam: Present: anxious. Absent: homicidal ideation, suicidal ideation Skin exam: Present: warm, dry Course Vital Signs 09/23/19 07:41 Temperature 97.8 F Pulse Rate 65 Respiratory 18 Rate Blood Pressure 142/87 O2 Sat by Pulse 98 Oximetry Medical Decision Making - Medical Decision Making 63-year-old female with paradoxical reaction to trazodone. She will discontinue trazodone, yesterday was her first day on this medication. She is given Ativan in the emergency department, she will go home and sleep. She is not driving. She is not suicidal. Disposition Clinical Impression: Adverse drug reaction, Anxiety Disposition: HOME SELF-CARE Condition: Good Instructions (If sedation given, give patient instructions): Adverse Drug Reaction (ED) Is patient prescribed a controlled substance at d/c from ED?: No Referrals: Andre Rice DO [Primary Care Provider] - 1-2 days Time of Disposition: 08:20
== END 2019-09-23 08:35 | disposition home or self-care (01) ==
LOC: EC 07:39
DX: F41.9 Anxiety disorder, unspecified (principal); T43.215A Adverse effect of selective serotonin and norepinephrine reuptake inhibitors, initial encounter; F32.9 Major depressive disorder, single episode, unspecified; I25.119 Atherosclerotic heart disease of native coronary artery with unspecified angina pectoris; Z79.899 Other long term (current) drug therapy; Z88.5 Allergy status to narcotic agent; Z88.0 Allergy status to penicillin; Z95.5 Presence of coronary angioplasty implant and graft; Z87.891 Personal history of nicotine dependence; Z86.73 Personal history of transient ischemic attack (TIA), and cerebral infarction without residual deficits
CPT/HCPCS: 99283

== ENCOUNTER 2019-10-04 13:28 | Observation (INO) | payer MEDICARE ==
[2019-10-04] MEDS ORDERED: ALPRAZolam 0.5 MG TAB PO STA (13:58)
[2019-10-04] MEDS ORDERED: NITROGLYCERIN OINT 1 INCH/GM PACKET TOPICAL STA (14:00)
[2019-10-04] MEDS ORDERED: ASPIRIN 81 MG PO STA (14:00)
--- NOTE | 2019-10-04 14:04 | ED ---
General Adult HPI - General Chief complaint: Chest Pain Stated complaint: Chest pain Time Seen by Provider: 10/04/19 13:52 Source: patient, RN notes reviewed, old records reviewed Mode of arrival: ambulatory Limitations: no limitations - History of Present Illness Initial comments: Patient is a pleasant 63-year-old female presenting to the emergency Department with chest discomfort and shortness of breath. Patient has had this several times recently. Patient admits to feeling anxious. Onset of symptoms was a couple hours ago. Patient states the shortness of breath seems for her. Discomfort in the chest is hard to describe. No radiation. No nausea or diaphoresis. - Related Data Home Medications Medication Instructions Recorded Confirmed FLUoxetine HCL [PROzac] 10 mg PO DAILY 09/23/19 10/04/19 ALPRAZolam [Xanax] 0.5 mg PO DAILY PRN 10/04/19 10/04/19 Aspirin EC [Ecotrin Low Dose] 81 mg PO DAILY 10/04/19 10/04/19 Famotidine [Pepcid] 20 mg PO DAILY 10/04/19 10/04/19 amLODIPine [Norvasc] 10 mg PO DAILY 10/04/19 10/04/19 Allergies Allergy/AdvReac Type Severity Reaction Status Date / Time codeine Allergy Rash/Hives Verified 10/04/19 14:19 Penicillins Allergy Rash/Hives Verified 10/04/19 14:19 Review of Systems ROS Statement: Those systems with pertinent positive or pertinent negative responses have been documented in the HPI. ROS Other: All systems not noted in ROS Statement are negative. Constitutional: Denies: fever Eyes: Denies: eye pain ENT: Denies: ear pain Respiratory: Reports: dyspnea. Denies: cough Cardiovascular: Reports: chest pain. Denies: palpitations Endocrine: Denies: fatigue Gastrointestinal: Denies: abdominal pain Genitourinary: Denies: dysuria Musculoskeletal: Denies: back pain Skin: Denies: rash Neurological: Denies: weakness Psychiatric: Reports: anxiety Past Medical History Past Medical History: Coronary Artery Disease (CAD), Chest Pain / Angina, CVA/TIA, Eye Disorder, GERD/Reflux, Hyperlipidemia, Hypertension, Skin Disorder Additional Past Medical History / Comment(s): Chronic bilateral sciatica, arrhythmia-pt cannot recall type, beginnings of bilateral cataracts, rosacea. History of Any Multi-Drug Resistant Organisms: None Reported Past Surgical History: Heart Catheterization, Tubal Ligation Additional Past Surgical History / Comment(s): Cardiac cath-normal, egd, colonoscopy, R ganglion cyst removal Past Anesthesia/Blood Transfusion Reactions: No Reported Reaction Past Psychological History: Anxiety, Depression Smoking Status: Former smoker Past Alcohol Use History: None Reported Past Drug Use History: None Reported - Past Family History Mother Family Medical History: Chest Pain / Angina, Congestive Heart Failure (CHF) Father Family Medical History: Chest Pain / Angina, Congestive Heart Failure (CHF), Coronary Artery Disease (CAD) General Exam Limitations: no limitations General appearance: alert, in no apparent distress Head exam: Present: normocephalic Eye exam: Present: normal appearance Neck exam: Present: normal inspection Respiratory exam: Present: normal lung sounds bilaterally. Absent: chest wall tenderness Cardiovascular Exam: Present: regular rate, normal rhythm Expanded Peripheral pulses: 2+: Radial (R), Radial (L), Dorsalis Pedis (R), Dorsalis Pedis (L) GI/Abdominal exam: Present: soft. Absent: tenderness Extremities exam: Present: normal inspection Neurological exam: Present: alert Psychiatric exam: Present: normal affect, normal mood Skin exam: Present: normal color Course Vital Signs 10/04/19 10/04/19 10/04/19 13:31 14:00 14:30 Temperature 97.6 F Pulse Rate 64 62 65 Respiratory 18 16 16 Rate Blood Pressure 184/100 190/108 178/97 O2 Sat by Pulse 100 Oximetry 10/04/19 10/04/19 15:00 15:30 Temperature Pulse Rate 63 63 Respiratory 16 16 Rate Blood Pressure 152/99 165/102 O2 Sat by Pulse Oximetry EKG Findings - EKG Comments: EKG Findings:: Sinus bradycardia 59. OK 158. QRS 80. QT 434. QTC 429. Left axis. LVH criteria. No acute ST change. Medical Decision Making - Medical Decision Making Patient reevaluated and resting comfortably in bed. Dyspnea has resolved. Chest discomfort has improved. Patient updated on results and plan. Case discussed in detail with Dr. Painting, who will admit for Dr. Dela Cruz, who admits for Dr. Rice. - Lab Data Result diagrams: 10/04/19 14:00 10/04/19 14:00 Lab Results 10/04/19 10/04/19 10/04/19 Range/Units 14:00 14:00 14:00 WBC 6.7 (3.8-10.6) k/uL RBC 4.47 (3.80-5.40) m/uL Hgb 12.0 (11.4-16.0) gm/dL Hct 38.7 (34.0-46.0) % MCV 86.5 (80.0-100.0) fL MCH 26.8 (25.0-35.0) pg MCHC 31.0 (31.0-37.0) g/dL RDW 14.1 (11.5-15.5) % Plt Count 234 (150-450) k/uL Neutrophils % 71 % Lymphocytes % 21 % Monocytes % 4 % Eosinophils % 1 % Basophils % 1 % Neutrophils # 4.7 (1.3-7.7) k/uL Lymphocytes # 1.4 (1.0-4.8) k/uL Monocytes # 0.3 (0-1.0) k/uL Eosinophils # 0.1 (0-0.7) k/uL Basophils # 0.0 (0-0.2) k/uL PT 10.8 (9.0-12.0) sec INR 1.0 (<1.2) APTT 26.7 (22.0-30.0) sec D-Dimer 0.33 (<0.60) mg/L FEU Sodium 140 (137-145) mmol/L Potassium 3.7 (3.5-5.1) mmol/L Chloride 104 (98-107) mmol/L Carbon Dioxide 28 (22-30) mmol/L Anion Gap 8 mmol/L BUN 11 (7-17) mg/dL Creatinine 0.84 (0.52-1.04) mg/dL Est GFR (CKD-EPI)AfAm 84 (>60 ml/min/1.73 sqM) Est GFR (CKD-EPI)NonAf 73 (>60 ml/min/1.73 sqM) Glucose 91 (74-99) mg/dL Calcium 9.7 (8.4-10.2) mg/dL Magnesium 2.1 (1.6-2.3) mg/dL Total Bilirubin 0.8 (0.2-1.3) mg/dL AST 18 (14-36) U/L ALT 9 (4-34) U/L Alkaline Phosphatase 89 (38-126) U/L Troponin I (0.000-0.034) ng/mL NT-Pro-B Natriuret Pep pg/mL Total Protein 7.8 (6.3-8.2) g/dL Albumin 4.4 (3.5-5.0) g/dL Amylase 56 (30-110) U/L Lipase 127 (23-300) U/L 10/04/19 10/04/19 Range/Units 14:00 14:00 WBC (3.8-10.6) k/uL RBC (3.80-5.40) m/uL Hgb (11.4-16.0) gm/dL Hct (34.0-46.0) % MCV (80.0-100.0) fL MCH (25.0-35.0) pg MCHC (31.0-37.0) g/dL RDW (11.5-15.5) % Plt Count (150-450) k/uL Neutrophils % % Lymphocytes % % Monocytes % % Eosinophils % % Basophils % % Neutrophils # (1.3-7.7) k/uL Lymphocytes # (1.0-4.8) k/uL Monocytes # (0-1.0) k/uL Eosinophils # (0-0.7) k/uL Basophils # (0-0.2) k/uL PT (9.0-12.0) sec INR (<1.2) APTT (22.0-30.0) sec D-Dimer (<0.60) mg/L FEU Sodium (137-145) mmol/L Potassium (3.5-5.1) mmol/L Chloride (98-107) mmol/L Carbon Dioxide (22-30) mmol/L Anion Gap mmol/L BUN (7-17) mg/dL Creatinine (0.52-1.04) mg/dL Est GFR (CKD-EPI)AfAm (>60 ml/min/1.73 sqM) Est GFR (CKD-EPI)NonAf (>60 ml/min/1.73 sqM) Glucose (74-99) mg/dL Calcium (8.4-10.2) mg/dL Magnesium (1.6-2.3) mg/dL Total Bilirubin (0.2-1.3) mg/dL AST (14-36) U/L ALT (4-34) U/L Alkaline Phosphatase (38-126) U/L Troponin I <0.012 (0.000-0.034) ng/mL NT-Pro-B Natriuret Pep 57 pg/mL Total Protein (6.3-8.2) g/dL Albumin (3.5-5.0) g/dL Amylase (30-110) U/L Lipase (23-300) U/L - Radiology Data Radiology results: image reviewed (Chest x-ray shows no acute process) Disposition Clinical Impression: Chest pain Disposition: ADMITTED IP TO THIS HOSP Is patient prescribed a controlled substance at d/c from ED?: No Referrals: Andre Rice DO [Primary Care Provider] - 1-2 days Decision Time: 15:51
[2019-10-04 14:24] LABS: Basophils % (A) 1 %; Eosinophils # (A) 0.1 k/uL (0-0.7); Eosinophils % (A) 1 %; HCT 38.7 % (34.0-46.0); Lymphocytes # (A) 1.4 k/uL (1.0-4.8); Lymphocytes % (A) 21 %; MCH 26.8 pg (25.0-35.0); MCV 86.5 fL (80.0-100.0); Mean Platelet Volume 7.6; Monocytes # (A) 0.3 k/uL (0-1.0); Monocytes % (A) 4 %; Neutrophils # (A) 4.7 k/uL (1.3-7.7); Neutrophils % (A) 71 %; Platelet Count 234 k/uL (150-450); RBC 4.47 m/uL (3.80-5.40); RDW 14.1 % (11.5-15.5); WBC 6.7 k/uL (3.8-10.6)
[2019-10-04 14:30] LABS: Albumin 4.4 g/dL (3.5-5.0); Calcium 9.7 mg/dL (8.4-10.2); Magnesium 2.1 mg/dL (1.6-2.3); Potassium 3.7 mmol/L (3.5-5.1); Total Bilirubin 0.8 mg/dL (0.2-1.3); Total Protein 7.8 g/dL (6.3-8.2)
[2019-10-04 14:43] LABS: D-Dimer 0.33 mg/L FEU (<0.60); Partial Thromboplastin Time 26.7 sec (22.0-30.0); Prothrombin Time 10.8 sec (9.0-12.0)
--- NOTE | 2019-10-04 14:43 | XR ---
EXAMINATION TYPE: XR chest 2V DATE OF EXAM: 10/04/2019 COMPARISON: 09/01/2019 HISTORY: 63-year-old female with chest pain TECHNIQUE: PA and lateral views FINDINGS: Heart normal size. Aorta and pulmonary vasculature within normal limits. Mild interstitial prominence is unchanged. No consolidation or pleural effusion. IMPRESSION: Chronic changes without acute cardiopulmonary process.
[2019-10-04] MEDS ORDERED: NITROGLYCERIN SL TABS 0.4 MG TAB SUBLINGUAL PRN (15:51)
[2019-10-04] MEDS ORDERED: ALPRAZolam 0.25 MG TAB PO PRN (15:51)
[2019-10-04] MEDS ORDERED: LORazepam 2 MG/ML INJ IV STA (16:50)
[2019-10-04] MEDS ORDERED: ACETAMINOPHEN TAB 500 MG TAB PO PRN (19:58)
[2019-10-04] MEDS ORDERED: TEMAZEPAM 15 MG CAP PO PRN (19:58)
--- NOTE | 2019-10-04 21:48 | HP ---
HISTORY AND PHYSICAL DATE OF SERVICE: 10/04/2019 CHIEF COMPLAINT: Chest pain. HISTORY OF PRESENT ILLNESS: This is a 63-year-old woman with a past medical history of multiple medical problems including history of CAD, history of GERD, hypertension, hyperlipidemia, history of chronic bilateral sciatica, history of anxiety and depression being followed by Dr. Rice in the outpatient is complaining of chest pain which is felt in anterior part of the chest, radiating to the back. The patient also feels some anxiety. The pain was mostly a pressure type. No excessive sweating or palpitations. The patient came to [facility] and admitted for further evaluation and treatment. The initial troponins are negative and the EKG shows some nonspecific ST-T changes and probably LVH. There is no history of any fevers or rigors. No history of headache, loss of consciousness, seizures. The patient apparently had a stress test about a year ago, being followed by Dr. Ford Marvin in the outpatient setting. PAST MEDICAL HISTORY: History of CAD, history of GERD, hypertension, hyperlipidemia, history of cardiac catheterization, history of anxiety, depression. HOME MEDICATIONS: 1. Norvasc 10 mg. 2. Pepcid 20 mg. 3. Prozac 10 mg. 4. Ecotrin 81 mg. 5. Xanax 0.5 daily p.r.n. ALLERGIES: CODEINE, PENICILLIN. FAMILY HISTORY: History of chest pain, history of CHF in the family. SOCIAL HISTORY: History of smoking. No history of current smoking or alcohol intake. REVIEW OF SYSTEMS: ENT: No diminished vision or hearing. CARDIOVASCULAR: As mentioned earlier. RESPIRATORY: As mentioned earlier. GI: No nausea. : No dysuria. NERVOUS SYSTEM: No numbness or weakness. ALLERGY/IMMUNOLOGY: No asthma or hayfever. MUSCULOSKELETAL: As mentioned earlier. HEMATOLOGY/ONCOLOGY: No history of anemia. ENDOCRINE: No history of diabetes or hypothyroidism. CONSTITUTIONAL: As mentioned earlier. DERMATOLOGY: Negative. RHEUMATOLOGY: Negative. PSYCHIATRY: As mentioned earlier. PHYSICAL EXAMINATION: Alert and oriented x3. Pulse 61, blood pressure 141/81, respiration 16, temperature 98.2, pulse ox 100% on room air. HEENT: Conjunctivae normal. Oral mucosa moist. NECK: No jugular venous distention. No lymph node enlargement. CARDIOVASCULAR: S1, S2. RESPIRATORY: Diminished breath sounds at the bases. No rhonchi, no crackles. ABDOMEN: Soft, nontender. LEGS: No edema, no swelling. NERVOUS SYSTEM: Higher functions mentioned earlier. Moves all four limbs. No focal deficits. LYMPHATICS: No lymph node in neck or axilla. SKIN: No rash. JOINTS: No active deforming arthropathy. LABS: CBC and BMP noted. EKG noted. ASSESSMENT: 1. Chest pain, possible unstable angina. 2. History of gastroesophageal reflux disease. 3. History of hypertension. 4. History of hyperlipidemia. 5. Chronic bilateral sciatica. 6. History of cardiac arrhythmias. 7. History of anxiety, depression. 8. Remote history of nicotine dependence. RECOMMENDATIONS AND DISCUSSION: In this 63-year-old woman who presented with multiple complex medical issues, we will monitor the patient closely, rule out myocardial infarction, resume the home medications, unstable angina protocol, cardiology consultation. Guarded prognosis because of multiple complex medical issues. Further recommendations to follow. MMODL / IJN: [id number] /
[2019-10-04] MEDS: NITROGLYCERIN OINT 1 INCH/GM PACKET TOPICAL SCH (21:57)
[2019-10-05] MEDS: NITROGLYCERIN OINT 1 INCH/GM PACKET TOPICAL SCH ×2 (02:35→09:35)
[2019-10-05 07:05] VITALS: RESP 18
[2019-10-05 07:19] LABS: Basophils % (A) 1 %; Eosinophils # (A) 0.1 k/uL (0-0.7); Eosinophils % (A) 1 %; HCT 35.5 % (34.0-46.0); HGB 11.1 gm/dL (11.4-16.0); Lymphocytes % (A) 20 %; MCHC 31.2 g/dL (31.0-37.0); MCV 86.7 fL (80.0-100.0); Mean Platelet Volume 7.8; Monocytes # (A) 0.3 k/uL (0-1.0); Monocytes % (A) 5 %; Neutrophils # (A) 3.8 k/uL (1.3-7.7); Neutrophils % (A) 72 %; Platelet Count 224 k/uL (150-450); RBC 4.09 m/uL (3.80-5.40); WBC 5.3 k/uL (3.8-10.6)
[2019-10-05] MEDS ORDERED: PANTOPRAZOLE 40 MG TABLET PO SCH (07:30)
[2019-10-05 07:41] LABS: Calcium 9.5 mg/dL (8.4-10.2); Potassium 3.8 mmol/L (3.5-5.1)
[2019-10-05] MEDS ORDERED: FAMOTIDINE 20 MG TAB PO SCH (09:00)
[2019-10-05] MEDS ORDERED: FLUoxetine HCL 10 MG CAP PO SCH (09:00)
[2019-10-05] MEDS ORDERED: ASPIRIN 325 MG TAB PO SCH (09:00)
[2019-10-05] MEDS ORDERED: ASPIRIN 81 MG PO SCH (09:00)
[2019-10-05] MEDS ORDERED: amLODIPine 10 MG TAB PO SCH (09:00)
[2019-10-05 11:17] VITALS: BMI 31.0
[2019-10-05 12:01] VITALS: BP 135/82; PULSE 75; TEMP 98.3
--- NOTE | 2019-10-05 13:37 | ECHOF ---
Referral Reason:cp MEASUREMENTS -------- HEIGHT: 167.6 cm WEIGHT: 88.5 kg BP: RVIDd: 3.3 cm (< 3.3) IVSd: 1.2 cm (0.6 - 1.1) LVIDd: 4.1 cm (3.9 - 5.3) LVPWd: 1.5 cm (0.6 - 1.1) IVSs: 2.2 cm LVIDs: 1.9 cm LVPWs: 1.9 cm LAESV Index (A-L): 19.79 ml/m Ao Diam: 3.1 cm (2.0 - 3.7) AV Cusp: 1.9 cm (1.5 - 2.6) LA Diam: 3.5 cm (2.7 - 3.8) MV EXCURSION: 15.271 mm (> 18.000) MV EF SLOPE: 97 mm/s (70 - 150) EPSS: 0.8 cm MV E Abhinav: 0.71 m/s MV DecT: 263 ms MV A Abhinav: 1.13 m/s MV E/A Ratio: 0.62 RAP: 5.00 mmHg RVSP: 13.49 mmHg FINDINGS -------- Sinus rhythm. This was a technically good study. The left ventricular size is normal. There is mild concentric left ventricular hypertrophy. Overa ll left ventricular systolic function is normal with, an EF between 55 - 60 %. Normal LAP. Grade 1 Diastolic Dysfunction. The right ventricle is mildly enlarged. The left atrial size is normal. Normal LA size by volume 22+/-6 ml/m2. The right atrial size is normal. The aortic valve is trileaflet and appears structurally normal. The mitral valve is normal. There is trace mitral regurgitation. The tricuspid valve appears structurally normal. Trace tricuspid regurgitation present. Right mandy tricular systolic pressure is normal at < 35 mmHg. There is no pulmonic regurgitation present. The aortic root size is normal. Normal inferior vena cava with normal inspiratory collapse consistent with estimated right atrial pre ssure of 5 mmHg. There is no pericardial effusion. CONCLUSIONS -------- 1. Sinus rhythm. 2. This was a technically good study. 3. The left ventricular size is normal. 4. There is mild concentric left ventricular hypertrophy. 5. Overall left ventricular systolic function is normal with, an EF between 55 - 60 %. 6. Normal LAP. Grade 1 Diastolic Dysfunction. 7. The right ventricle is mildly enlarged. 8. The left atrial size is normal. 9. Normal LA size by volume 22+/-6 ml/m2. 10. The right atrial size is normal. 11. The aortic valve is trileaflet and appears structurally normal. 12. The mitral valve is normal. 13. There is trace mitral regurgitation. 14. The tricuspid valve appears structurally normal. 15. Trace tricuspid regurgitation present. 16. Right ventricular systolic pressure is normal at < 35 mmHg. 17. There is no pulmonic regurgitation present. 18. The aortic root size is normal. 19. Normal inferior vena cava with normal inspiratory collapse consistent with estimated right atrial pressure of 5 mmHg. 20. There is no pericardial effusion. ADMINISTRATIVE SUPPORT SPECIALIST: Elizabeth Mccullough RDCS
--- NOTE | 2019-10-05 15:36 | CONS ---
CONSULTATION CHIEF COMPLAINT: Chest pain. Angelita is a 63-year-old lady with family history of premature coronary artery disease and hypertension as coronary risk factors, who presented to the hospital complaining of chest discomfort. She sees Dr. KEMI Marvin, my associate in the office and underwent a cardiac catheterization more than 10 years ago that revealed normal coronaries. Apparently, underwent a stress test a year ago that was unremarkable. Patient had an echocardiogram July of last year that showed normal LV function. Patient's symptoms were associated with anxiety and her initial blood pressure was elevated. She also complains of shortness of breath. An EKG on this admission was within normal limits. Cardiac enzymes have been normal. PAST MEDICAL HISTORY: Significant for hypertension, anxiety, bipolar mood disorder. CURRENT MEDICATIONS: Include Norvasc 10 daily, Pepcid 20 daily, Prozac, aspirin and Xanax. ALLERGIC: To CODEINE and PENICILLIN. FAMILY HISTORY: Significant for coronary artery disease. SOCIAL HISTORY: There is no history of EtOH abuse or drug abuse. REVIEW OF SYSTEMS: HEENT: Unremarkable. CARDIAC: As described above. RESPIRATORY: As described above. GI: Negative. GENITOURINARY: Negative. ALLERGY/IMMUNOLOGY: Negative. MUSCULOSKELETAL: Negative. ENDOCRINE: Negative. CONSTITUTIONAL: Negative. ONCOLOGICAL: Negative. COMMUNITY YOUTH SECRETARY: Negative. Rest of the system review is not relevant. On exam, patient is comfortable at rest. Vital signs are stable. There is no jugular venous distention. Carotid upstroke is normal. There is no bruit. Chest exam reveals good air entry bilaterally. Heart exam reveals first and second heart sounds. Systolic murmur at the left lower sternal border. Abdomen is soft. Exam of extremities did not reveal any edema. Peripheral pulses are felt. COMMUNITY YOUTH SECRETARY exam did not reveal focal neurological deficits. ASSESSMENT: Chest pain, atypical. Myocardial infarction is ruled out. I will obtain a 2D echo. If this is unremarkable, she can be discharged home and have an outpatient stress test. MMODL / IJN: [id number] /
--- NOTE | 2019-10-06 00:04 | DS ---
DISCHARGE SUMMARY FINAL DIAGNOSES: 1. Chest pain possible unstable angina. Myocardial infarction ruled out. 2. History of gastroesophageal reflux disease. 3. History of hypertension. 4. History of hyperlipidemia. 5. History of chronic bilateral sciatica. 6. History of cardiac catheterization. 7. History of anxiety, depression. 8. Remote history of nicotine dependence. 9. Social stressors. DISCHARGE DISPOSITION: The patient will be discharged in stable condition with guarded prognosis. Discharge cleared by Cardiology. HISTORY OF PRESENT ILLNESS: This 63-year-old woman with a past medical history of multiple medical problems being followed by Dr. Rice in the outpatient setting. The patient had chest pain, myocardial function ruled out. Cardiology saw the patient and recommend outpatient stress test. On exam, vital signs are stable. Cardiovascular: S1, S2. Abdomen soft. Nervous system: No focal deficits. DISCHARGE ADVICE AND MEDICATIONS: 1. Diet is cardiac diet. 2. Activity limited until followup. 3. Follow up with Dr. Rice, as mentioned earlier. 4. Follow up with Dr. Ford Marvin as recommended. DISCHARGE MEDICATIONS: 1. Ecotrin 81 mg. 2. Norvasc 10 mg. 3. Pepcid 20 mg daily. 4. Prozac 10 mg. 5. Xanax 0.5 daily. MMODL / IJN: [id number] /
== END 2019-10-05 13:05 | disposition home or self-care (01) ==
LOC: EC 13:28 → 1SOBS 15:51
PROVIDERS: ADMIT Hospitalist; ATTEND Hospitalist
DX: R07.89 Other chest pain (principal); E78.5 Hyperlipidemia, unspecified; F31.9 Bipolar disorder, unspecified; F41.9 Anxiety disorder, unspecified; I10 Essential (primary) hypertension; I25.10 Atherosclerotic heart disease of native coronary artery without angina pectoris; M54.31 Sciatica, right side; M54.32 Sciatica, left side; Z79.82 Long term (current) use of aspirin; Z82.49 Family history of ischemic heart disease and other diseases of the circulatory system; Z86.73 Personal history of transient ischemic attack (TIA), and cerebral infarction without residual deficits; Z87.891 Personal history of nicotine dependence; Z79.899 Other long term (current) drug therapy; Z88.5 Allergy status to narcotic agent; Z88.0 Allergy status to penicillin; H26.9 Unspecified cataract; K21.9 Gastro-esophageal reflux disease without esophagitis; Z73.3 Stress, not elsewhere classified
CPT/HCPCS: 93005 ×2; 96374; 99285; 36415; 93306; 85379; 83880; 80061; 80053; 80048; 82150; 83690; 83735; 84484 ×2; 85025 ×2; 85610; 85730; 71046; G0378 ×2; J2060

== ENCOUNTER 2019-10-08 01:12 | Emergency (ER) | payer MEDICARE ==
[2019-10-08 01:19] VITALS: BP 156/85; PULSE 65; RESP 20; TEMP 97.9
[2019-10-08] MEDS ORDERED: INSULIN REGULAR 100 UNIT/ML VIAL IV STA (03:25)
[2019-10-08] MEDS ORDERED: diphenhydrAMINE 50 MG/ML 1 ML VIAL IM STA (03:25)
--- NOTE | 2019-10-08 03:28 | ED ---
Recheck HPI - General Chief Complaint: Recheck/Abnormal Lab/Rx Stated Complaint: Unable to sleep Time Seen by Provider: 10/08/19 02:31 Source: patient, family Mode of arrival: ambulatory Limitations: no limitations - History of Present Illness Initial Comments: 63 year old female patient presents to the emergency department today for evaluation of insomnia and anxiety. Patient states she's been having difficulty with this for over the last month and a half. Patient states she has tried multiple medications. States that her Remeron dosage was doubled today. Patient states she did take this dose. States that she is still unable to sleep. States his been 3 days and she's had any sleep. States she is feeling nauseous and increasingly anxious due to lack of sleep. She denies any chest pain or shortness of breath. Denies any fever or chills. States her symptoms are consistent with what she has been going through over the last couple of mo nths. She has been seeing a psychiatrist who has been trialing different medications. Patient denies any recent rash, chest pain, abdominal pain, nausea, vomiting, diarrhea, constipation, back pain, numbness, tingling, dizziness, weakness, hematuria, dysuria, urinary urgency, urinary frequency, headache, visual changes, or any other complaints. - Related Data Home Medications Medication Instructions Recorded Confirmed FLUoxetine HCL [PROzac] 10 mg PO DAILY 09/23/19 10/04/19 ALPRAZolam [Xanax] 0.5 mg PO DAILY PRN 10/04/19 10/04/19 Aspirin EC [Ecotrin Low Dose] 81 mg PO DAILY 10/04/19 10/04/19 Famotidine [Pepcid] 20 mg PO DAILY 10/04/19 10/04/19 amLODIPine [Norvasc] 10 mg PO DAILY 10/04/19 10/04/19 Allergies Allergy/AdvReac Type Severity Reaction Status Date / Time codeine Allergy Rash/Hives Verified 10/08/19 01:18 Penicillins Allergy Rash/Hives Verified 10/08/19 01:18 Review of Systems ROS Statement: Those systems with pertinent positive or pertinent negative responses have been documented in the HPI. ROS Other: All systems not noted in ROS Statement are negative. Past Medical History Past Medical History: Coronary Artery Disease (CAD), Chest Pain / Angina, Eye Disorder, GERD/Reflux, Hyperlipidemia, Hypertension, Skin Disorder Additional Past Medical History / Comment(s): Chronic bilateral sciatica, arrhythmia-pt cannot recall type, beginnings of bilateral cataracts, rosacea. History of Any Multi-Drug Resistant Organisms: None Reported Past Surgical History: Heart Catheterization, Tubal Ligation Additional Past Surgical History / Comment(s): Cardiac cath-normal, egd, colonoscopy, R ganglion cyst removal Past Anesthesia/Blood Transfusion Reactions: No Reported Reaction Past Psychological History: Anxiety, Depression Smoking Status: Former smoker Past Alcohol Use History: None Reported Past Drug Use History: None Reported - Past Family History Mother Family Medical History: Chest Pain / Angina, Congestive Heart Failure (CHF) Father Family Medical History: Chest Pain / Angina, Congestive Heart Failure (CHF), Coronary Artery Disease (CAD) General Exam Limitations: no limitations General appearance: alert, in no apparent distress, other (This is a well- developed, well-nourished adult female patient in no acute distress. Vital signs upon presentation are temperature 97.9F, pulse 65, respirations 20, blood pressure 156/85, pulse ox 99% on room air.) Eye exam: Present: normal appearance, PERRL, EOMI. Absent: scleral icterus, conjunctival injection, periorbital swelling ENT exam: Present: normal exam, normal oropharynx, mucous membranes moist Respiratory exam: Present: normal lung sounds bilaterally. Absent: respiratory distress, wheezes, rales, rhonchi, stridor Cardiovascular Exam: Present: regular rate, normal rhythm, normal heart sounds. Absent: systolic murmur, diastolic murmur, rubs, gallop, clicks GI/Abdominal exam: Present: soft, normal bowel sounds. Absent: distended, tenderness, guarding, rebound, rigid Neurological exam: Present: alert, oriented X3, CN II-XII intact Psychiatric exam: Present: normal affect, normal mood Skin exam: Present: warm, dry, intact, normal color. Absent: rash Course Vital Signs 10/08/19 01:15 Temperature 97.9 F Pulse Rate 65 Respiratory 20 Rate Blood Pressure 156/85 O2 Sat by Pulse 99 Oximetry Medical Decision Making - Medical Decision Making [age] female patient presents to the emergency department today for evaluation of insomnia. States she has not slept in 3 days. Physical examination is unremarkable. Patient did take 15 mg of Remeron this evening which did not help her. She is not suicidal nor homicidal. She does not want to see emergency psychiatric services. We did discuss several options for medications for sleep this evening. She does agree to take Benadryl at this time. She'll be discharged to follow up with her psychiatrist in the morning. Return parameters discussed in detail patient verbalizes understanding and agrees with this plan. Disposition Clinical Impression: Insomnia Disposition: HOME SELF-CARE Condition: Good Instructions (If sedation given, give patient instructions): Insomnia (ED) Additional Instructions: Follow up with your primary care physician for recheck as soon as possible. Is patient prescribed a controlled substance at d/c from ED?: No Referrals: Andre Rice DO [Primary Care Provider] - 1-2 days Time of Disposition: 03:28
== END 2019-10-08 03:42 | disposition home or self-care (01) ==
LOC: EC 01:12
DX: G47.00 Insomnia, unspecified (principal); R11.0 Nausea; I25.119 Atherosclerotic heart disease of native coronary artery with unspecified angina pectoris; K21.9 Gastro-esophageal reflux disease without esophagitis; I10 Essential (primary) hypertension; M54.32 Sciatica, left side; M54.31 Sciatica, right side; F32.9 Major depressive disorder, single episode, unspecified; F41.9 Anxiety disorder, unspecified; Z87.891 Personal history of nicotine dependence; Z88.0 Allergy status to penicillin; Z88.5 Allergy status to narcotic agent; Z79.82 Long term (current) use of aspirin; Z79.899 Other long term (current) drug therapy; Z95.818 Presence of other cardiac implants and grafts
CPT/HCPCS: 99283; 96372; J1200

== ENCOUNTER 2019-10-23 00:10 | Emergency (ER) | payer MEDICARE ==
[2019-10-23 00:16] VITALS: TEMP 97.9
--- NOTE | 2019-10-23 00:57 | ED ---
Anxiety HPI - General Chief Complaint: Anxiety Stated Complaint: Medication Reaction Time Seen by Provider: 10/23/19 00:22 Source: patient Mode of arrival: wheelchair - History of Present Illness Initial Comments: 's patient is 63-year-old woman who presents because she thinks she is having an adverse reaction to Seroquel. The patient states that she has been prescribed this medication to help with her anxiety. She states that she took her dose this evening, and then noticed that she was feeling a bit shaky, she was having some tingling of the extremities and feeling very anxious. She states that this set COME on about 2 hours ago. I patient did phone the psychiatric nurse and was told that if she was not feeling better she could come emergency part for evaluation. The patient is stating that she is not having any suicidal ideation or hallucinations. She is not having any chest pain, dyspnea, syncope, lightheadedness, nausea or vomiting. The patient did request to speak further with psychiatric nurse. MD Complaint: anxiety Onset/Timin -: hour(s) Symptoms: extremity numbness/tingling, dry mouth Place: home Previous History of Same: Yes Severity: moderate Quality: constant Improves With: nothing Worsens With: nothing - Related Data Home Medications: Home Medications Medication Instructions Recorded Confirmed FLUoxetine HCL [PROzac] 10 mg PO DAILY 09/23/19 10/04/19 ALPRAZolam [Xanax] 0.5 mg PO DAILY PRN 10/04/19 10/04/19 Aspirin EC [Ecotrin Low Dose] 81 mg PO DAILY 10/04/19 10/04/19 Famotidine [Pepcid] 20 mg PO DAILY 10/04/19 10/04/19 amLODIPine [Norvasc] 10 mg PO DAILY 10/04/19 10/04/19 Allergies/Adverse Reactions: Allergies Allergy/AdvReac Type Severity Reaction Status Date / Time codeine Allergy Rash/Hives Verified 10/23/19 00:16 Penicillins Allergy Rash/Hives Verified 10/23/19 00:16 Review of Systems ROS Statement: Those systems with pertinent positive or pertinent negative responses have been documented in the HPI. ROS Other: All systems not noted in ROS Statement are negative. Constitutional: Denies: fever, chills Respiratory: Denies: cough, dyspnea Cardiovascular: Denies: chest pain, palpitations, syncope Gastrointestinal: Denies: abdominal pain, vomiting, diarrhea Skin: Denies: rash Neurological: Denies: headache, weakness Psychiatric: Reports: anxiety Past Medical History Past Medical History: Coronary Artery Disease (CAD), Chest Pain / Angina, Eye Disorder, GERD/Reflux, Hyperlipidemia, Hypertension, Skin Disorder Additional Past Medical History / Comment(s): Chronic bilateral sciatica, arrhythmia-pt cannot recall type, beginnings of bilateral cataracts, rosacea. History of Any Multi-Drug Resistant Organisms: None Reported Past Surgical History: Heart Catheterization, Tubal Ligation Additional Past Surgical History / Comment(s): Cardiac cath-normal, egd, colonoscopy, R ganglion cyst removal Past Anesthesia/Blood Transfusion Reactions: No Reported Reaction Past Psychological History: Anxiety, Depression Smoking Status: Former smoker Past Alcohol Use History: None Reported Past Drug Use History: None Reported - Past Family History Mother Family Medical History: Chest Pain / Angina, Congestive Heart Failure (CHF) Father Family Medical History: Chest Pain / Angina, Congestive Heart Failure (CHF), Coronary Artery Disease (CAD) General Exam Limitations: physical limitation General appearance: alert, anxious Head exam: Present: atraumatic, normocephalic Eye exam: Present: normal appearance ENT exam: Present: normal oropharynx Respiratory exam: Present: normal lung sounds bilaterally. Absent: respiratory distress, wheezes, rales, rhonchi, stridor Cardiovascular Exam: Present: regular rate, normal rhythm, normal heart sounds. Absent: systolic murmur, diastolic murmur, rubs, gallop GI/Abdominal exam: Present: soft. Absent: tenderness Extremities exam: Present: normal inspection Neurological exam: Present: alert Psychiatric exam: Present: anxious. Absent: depressed, agitated, manic, homicidal ideation, suicidal ideation Skin exam: Present: warm, dry, intact, normal color. Absent: rash Course Vital Signs 10/23/19 10/23/19 00:12 02:14 Temperature 97.9 F Pulse Rate 71 66 Respiratory 18 18 Rate Blood Pressure 166/86 135/95 O2 Sat by Pulse 100 97 Oximetry Disposition Clinical Impression: Acute anxiety Disposition: HOME SELF-CARE Condition: Good Instructions (If sedation given, give patient instructions): Generalized Anxiety Disorder (ED) Is patient prescribed a controlled substance at d/c from ED?: No Referrals: Andre Rice DO [Primary Care Provider] - 1-2 days
[2019-10-23] MEDS ORDERED: ALPRAZolam 0.25 MG TAB PO STA (02:22)
[2019-10-23 05:30] VITALS: BP 139/97; PULSE 69; RESP 16
== END 2019-10-23 05:30 | disposition home or self-care (01) ==
LOC: EC 00:10
DX: F41.9 Anxiety disorder, unspecified (principal); R20.0 Anesthesia of skin; R20.2 Paresthesia of skin; R68.2 Dry mouth, unspecified; I25.10 Atherosclerotic heart disease of native coronary artery without angina pectoris; K21.9 Gastro-esophageal reflux disease without esophagitis; I10 Essential (primary) hypertension; F32.9 Major depressive disorder, single episode, unspecified; Z95.818 Presence of other cardiac implants and grafts; Z87.891 Personal history of nicotine dependence; Z79.82 Long term (current) use of aspirin; Z79.899 Other long term (current) drug therapy; Z88.5 Allergy status to narcotic agent; Z88.0 Allergy status to penicillin
CPT/HCPCS: 82075; 99284

== ENCOUNTER → 2019-10-30 | Outpatient (CLI) | payer MEDICARE ==
--- NOTE | 2019-10-31 10:18 | MM ---
Reason for exam: screening (asymptomatic). Last mammogram was performed 1 year and 11 months ago. History: Patient is postmenopausal. Physical Findings: A clinical breast exam by your physician is recommended on an annual basis and results should be correlated with mammographic findings. MG 3D Screening Mammo W/Cad Bilateral CC and MLO view(s) were taken. Prior study comparison: November 20, 2017, bilateral MG screening mammo w CAD. December 27, 2016, bilateral MG screening mammo w CAD. The breast tissue is heterogeneously dense. This may lower the sensitivity of mammography. There are benign appearing round oval circumscribed masses bilaterally similar to prior exams, most appear as lymph nodes. Benign appearing bilateral calcifications. No suspicious abnormality. No significant changes when compared with prior studies. ASSESSMENT: Benign, BI-RAD 2 RECOMMENDATION: Routine screening mammogram of both breasts in 1 year.
== END | disposition home or self-care (01) ==
LOC: RADMAMWWP 08:46
PROVIDERS: ATTEND Family Medicine
DX: Z12.31 Encounter for screening mammogram for malignant neoplasm of breast (principal)
CPT/HCPCS: 77063; 77067

== ENCOUNTER 2019-11-05 06:00 | Emergency (ER) | payer MEDICARE ==
[2019-11-05 06:05] VITALS: TEMP 98.2
[2019-11-05] MEDS ORDERED: amLODIPine 10 MG TAB PO STA (06:16)
[2019-11-05] MEDS ORDERED: LORazepam 1 MG TAB PO STA (06:17)
[2019-11-05] MEDS ORDERED: LORATADINE 10 MG TAB PO STA (06:17)
--- NOTE | 2019-11-05 06:31 | ED ---
ENT HPI - General Chief complaint: ENT Stated complaint: ear pain Time Seen by Provider: 11/05/19 06:07 Source: patient, RN notes reviewed Mode of arrival: ambulatory Limitations: no limitations - History of Present Illness Initial comments: This is a 63-year-old female presents emergency Department chief complaint of congestion in the ears. Patient states that when filling fall, crackling in ringing at times. She states that she's had some mild congestion no current headache or dizziness. Patient states she had an episode of dizziness days ago in which she was evaluated for. Patient has no nausea, vomiting diarrhea constipation no fevers or chills patient states that she has an appointment with ENT at 3:00 today. Patient states the only change in her medications that she is taking [id number] probiotic. Patient states with movement she notices a the congestion changes in her ear she states she can feel it moving. Patient does admit that she has hypertension did not take her blood pressure medications morning and also states that she has a history anxiety but does not take her Xanax and she states that she is very anxious about her ears. - Related Data Home Medications Medication Instructions Recorded Confirmed FLUoxetine HCL [PROzac] 10 mg PO DAILY 09/23/19 10/04/19 ALPRAZolam [Xanax] 0.5 mg PO DAILY PRN 10/04/19 10/04/19 Aspirin EC [Ecotrin Low Dose] 81 mg PO DAILY 10/04/19 10/04/19 Famotidine [Pepcid] 20 mg PO DAILY 10/04/19 10/04/19 amLODIPine [Norvasc] 10 mg PO DAILY 10/04/19 10/04/19 Previous Rx's Medication Instructions Recorded Fluticasone Nasal [place] [Flonase 2 spr EA NOSTRIL DAILY #1 bottle 11/05/19 Nasal [place]] Allergies Allergy/AdvReac Type Severity Reaction Status Date / Time codeine Allergy Rash/Hives Verified 11/05/19 06:05 Penicillins Allergy Rash/Hives Verified 11/05/19 06:05 Review of Systems ROS Statement: Those systems with pertinent positive or pertinent negative responses have been documented in the HPI. ROS Other: All systems not noted in ROS Statement are negative. Past Medical History Past Medical History: Coronary Artery Disease (CAD), Chest Pain / Angina, Eye Disorder, GERD/Reflux, Hyperlipidemia, Hypertension, Skin Disorder Additional Past Medical History / Comment(s): Chronic bilateral sciatica, arrhythmia-pt cannot recall type, beginnings of bilateral cataracts, rosacea. History of Any Multi-Drug Resistant Organisms: None Reported Past Surgical History: Heart Catheterization, Tubal Ligation Additional Past Surgical History / Comment(s): Cardiac cath-normal, egd, colonoscopy, R ganglion cyst removal Past Anesthesia/Blood Transfusion Reactions: No Reported Reaction Past Psychological History: Anxiety, Depression Smoking Status: Former smoker Past Alcohol Use History: None Reported Past Drug Use History: None Reported - Past Family History Mother Family Medical History: Chest Pain / Angina, Congestive Heart Failure (CHF) Father Family Medical History: Chest Pain / Angina, Congestive Heart Failure (CHF), Coronary Artery Disease (CAD) General Exam Limitations: no limitations General appearance: alert, in no apparent distress Head exam: Present: atraumatic, normocephalic, normal inspection Eye exam: Present: normal appearance, PERRL, EOMI. Absent: scleral icterus, conjunctival injection, periorbital swelling ENT exam: Present: normal oropharynx, mucous membranes moist, normal external ear exam. Absent: TM's normal bilaterally (Bilateral no erythema, mild fluid noted) Neck exam: Present: normal inspection, full ROM. Absent: tenderness, meningismus, lymphadenopathy Respiratory exam: Present: normal lung sounds bilaterally. Absent: respiratory distress, wheezes, rales, rhonchi, stridor Cardiovascular Exam: Present: regular rate, normal rhythm, normal heart sounds. Absent: systolic murmur, diastolic murmur, rubs, gallop, clicks Neurological exam: Present: alert, oriented X3, CN II-XII intact, reflexes normal. Absent: motor sensory deficit Skin exam: Present: warm, dry, intact, normal color. Absent: rash Course Vital Signs 11/05/19 11/05/19 06:02 06:59 Temperature 98.2 F Pulse Rate 61 74 Respiratory 20 18 Rate Blood Pressure 178/110 120/73 O2 Sat by Pulse 100 100 Oximetry Medical Decision Making - Medical Decision Making 53-year-old female presented for ear fullness, congestion. Patient does have some eustachian tube dysfunction. Patient will be given Flonase, advised take decongestant. Patient did have some hypertension it's not taking medication. Blood pressures improved she has no complaints of chest pain, dizziness or any focal weakness. Patient has appointment 3 PM today for ENT. She is advised to follow-up return for any worsening symptoms. Disposition Clinical Impression: Eustachian tube dysfunction, Hypertension, Tinnitus Disposition: HOME SELF-CARE Condition: Stable Instructions (If sedation given, give patient instructions): Earache (ED), Tinnitus (ED) Additional Instructions: Go to your ENT appointment at 3 PM.Please return to the Emergency Department if symptoms worsen or any other concerns. Prescriptions: Fluticasone Nasal [place] [Flonase Nasal [place]] 2 spr EA NOSTRIL DAILY #1 bottle Is patient prescribed a controlled substance at d/c from ED?: No Referrals: Andre Rice DO [Primary Care Provider] - 1-2 days Time of Disposition: 07:02
[2019-11-05 06:59] VITALS: BP 120/73; PULSE 74; RESP 18
== END 2019-11-05 07:11 | disposition home or self-care (01) ==
LOC: EC 06:00
DX: H69.80 Other specified disorders of Eustachian tube, unspecified ear (principal); H93.19 Tinnitus, unspecified ear; I10 Essential (primary) hypertension; F41.9 Anxiety disorder, unspecified; F32.9 Major depressive disorder, single episode, unspecified; I25.119 Atherosclerotic heart disease of native coronary artery with unspecified angina pectoris; K21.9 Gastro-esophageal reflux disease without esophagitis; Z79.82 Long term (current) use of aspirin; Z79.899 Other long term (current) drug therapy; Z88.0 Allergy status to penicillin; Z88.5 Allergy status to narcotic agent; Z87.891 Personal history of nicotine dependence; Z95.5 Presence of coronary angioplasty implant and graft
CPT/HCPCS: 99282

== ENCOUNTER → 2019-11-12 | Outpatient (CLI) | payer MEDICARE ==
--- NOTE | 2019-11-12 11:45 | BD ---
EXAMINATION TYPE: Axial Bone Density DATE OF EXAM: 11/12/2019 COMPARISON: NONE CLINICAL HISTORY: Height: 66 IN Weight: 193 LBS FRAX RISK QUESTIONS: Secondary Osteoporosis: 3. Menopause before 45: AGE 53 RISK FACTORS HISTORY OF: Active: YES Diet low in dairy products/other sources of calcium: YES Postmenopausal woman: AGE 53 Frequent falls: YES DUE TO DIZZINESS MEDICATIONS: Additional Medications: VIT D, XANAX, NORVASC EXAM MEASUREMENTS: Bone mineral densitometry was performed using the NovoED System. Bone mineral density as measured about the Lumbar spine is: ----- L1-L4(G/cm2): 1.158 T Score Values are as follows: ----- L2: -0.7 ----- L3: -0.6 ----- L4: 0.1 ----- L1-L4: -0.2 Bone mineral density BASELINE Bone mineral density about the R hip (g/cm2): 1.000 Bone mineral density about the L hip (g/cm2): 1.032 T Score values are as follows: -----R Neck: -0.3 -----L Neck: 0.0 -----R Total: -0.6 -----L Total: -0.3 Bone mineral density BASELINE IMPRESSION: Normal NOTE: T-SCORE=SD OF THE YOUNG ADULT MEAN.
== END | disposition home or self-care (01) ==
LOC: RADBDWWP 10:28
PROVIDERS: ATTEND Obstetrics & Gynecology
DX: N95.1 Menopausal and female climacteric states (principal)
CPT/HCPCS: 77080

== ENCOUNTER → 2019-11-21 | Outpatient (CLI) | payer MEDICARE ==
--- NOTE | 2019-11-21 09:25 | US ---
EXAMINATION TYPE: US pelvic complete DATE OF EXAM: 11/21/2019 COMPARISON: NONE CLINICAL HISTORY: 63-year-old female R10.2 Pelvic Pain. Pelvic pressure hx of fibroids. TECHNIQUE: Transabdominal (TA Findings: EXAM MEASUREMENTS: Uterus: 13.8 x 6.6 x 11.1 cm Endometrial Stripe: Not seen due to fibroids. 1. Uterus: Anteverted. Numerous fibroids are present distorting the uterine contour, largest at the fundus measuring 4.2 x 3.5 x 3.7 cm. 2. Endometrium: Obscured due to fibroids 3. Right Ovary: Obscured by overlying bowel gas 4. Left Ovary: Obscured by overlying bowel gas 5. Bilateral Adnexa: wnl 6. Posterior cul-de-sac: wnl IMPRESSION: 1. Bulky fibroid uterus with lobulated contours. Largest fibroid measures 4.2 cm. The endometrial str ipe is obscured secondary to the fibroid change. If fibroid mapping or assessment of the zonal anatom y is desired, female pelvic MRI can be performed. 2. Neither ovary could be visualized.
== END | disposition home or self-care (01) ==
LOC: RADUSWWP 08:11
PROVIDERS: ATTEND Obstetrics & Gynecology
DX: D25.9 Leiomyoma of uterus, unspecified (principal)
CPT/HCPCS: 76856

== ENCOUNTER 2019-12-08 19:10 | Emergency (ER) | payer MEDICARE ==
[2019-12-08 19:17] VITALS: BP 144/102; PULSE 74; RESP 20; TEMP 97.9
[2019-12-08] MEDS ORDERED: SODIUM CHLORIDE 0.9% 1,000 ML IV STA (19:34)
[2019-12-08 19:57] LABS: Basophils % (A) 0 %; Eosinophils # (A) 0.2 k/uL (0-0.7); Eosinophils % (A) 3 %; HCT 37.1 % (34.0-46.0); HGB 11.4 gm/dL (11.4-16.0); Hypochromasia Slight; Lymphocytes # (A) 1.7 k/uL (1.0-4.8); Lymphocytes % (A) 22 %; MCH 26.6 pg (25.0-35.0); MCHC 30.8 g/dL (31.0-37.0); MCV 86.4 fL (80.0-100.0); Mean Platelet Volume 7.7; Monocytes # (A) 0.3 k/uL (0-1.0); Monocytes % (A) 3 %; Neutrophils # (A) 5.3 k/uL (1.3-7.7); Neutrophils % (A) 70 %; Platelet Count 249 k/uL (150-450); RBC 4.29 m/uL (3.80-5.40); RDW 13.7 % (11.5-15.5); WBC 7.6 k/uL (3.8-10.6)
[2019-12-08 20:07] LABS: Albumin 4.3 g/dL (3.5-5.0); Calcium 9.4 mg/dL (8.4-10.2); Potassium 3.8 mmol/L (3.5-5.1); Total Bilirubin 0.4 mg/dL (0.2-1.3); Total Protein 7.5 g/dL (6.3-8.2)
[2019-12-08 20:18] LABS: Appearance,Urine Clear (Clear); Bilirubin,Urine Negative (Negative); Blood,Urine Large (Negative); Color,Urine Light Yellow; Glucose,Urine (UA) Negative (Negative); Ketones,Urine Negative (Negative); Leukocyte Esterase,Urine Negative (Negative); Mucus,Urine Occasional /hpf; Nitrite,Urine Negative (Negative); Protein,Urine Negative (Negative); RBC,Urine 56 /hpf (0-5); Specific Gravity,Urine 1.009 (1.001-1.035); Squamous Epithelial Cell,Urine <1 /hpf (0-4); Urobilinogen,Urine <2.0 mg/dL (<2.0); WBC,Urine <1 /hpf (0-5)
--- NOTE | 2019-12-08 20:18 | CT ---
EXAMINATION TYPE: CT abdomen pelvis wo con DATE OF EXAM: 12/08/2019 COMPARISON: None HISTORY: hematuria and flank pain CT DLP: 757.1 mGycm Automated exposure control for dose reduction was used. Multiple axial sections were obtained from the diaphragm to the floor the pelvis with no contrast. The lung bases show some mild atelectasis in the left lower lobe. There is no pleural effusion. Heart size is normal. There is no pericardial effusion. Liver shows no focal defect. Gallbladder appears normal. Spleen is intact. There is no pancreatic mas s. Stomach is intact. There is no adrenal mass. Kidneys have normal size and contour. There is no hydronephrosis. Ureters a re not dilated. There is 1.3 cm calculus in the interpolar right kidney. There is no retroperitoneal adenopathy. Bladder distends smoothly. There is lobulated enlarged uterus related to multiple fibroid s. Uterus measures 13.3 x 7.6 cm. There is no inguinal hernia. There is no free fluid in the pelvis. The appendix appears normal. There is mild atheromatous change in the abdominal aorta. There is no mesenteric edema. There is no ascites or free air. IMPRESSION: Nonobstructing large right renal calculus. Normal appendix. Enlarged lobulated fibroid uterus.
--- NOTE | 2019-12-08 20:39 | ED ---
Abdominal Pain HPI - General Chief Complaint: Abdominal Pain Stated Complaint: BLood in urine Time Seen by Provider: 12/08/19 19:20 Source: patient Mode of arrival: ambulatory Limitations: no limitations - History of Present Illness Initial Comments: 63 old female patient presents to the emergency department today for evaluation of hematuria and mild right flank pain. Patient states that she noticed this morning that her urine is very dark so she went to urgent care. When they ran a urinalysis that showed blood to the center here for further evaluation. Patient states is having some mild right flank pain for the last few days. She denies any dysuria or urinary urgency, urinary frequency. Denies history of kidney stones. She denies fever or chills, nausea, or vomiting. She denies use of anticoagulants or antiplatelet medications. Denies any injury to the region. Patient denies any recent rash, shortness breath, chest pain, diarrhea, co nstipation, numbness, tingling, dizziness, weakness, headache, visual changes, or any other complaints. - Related Data Home Medications Medication Instructions Recorded Confirmed FLUoxetine HCL [PROzac] 10 mg PO DAILY 09/23/19 10/04/19 ALPRAZolam [Xanax] 0.5 mg PO DAILY PRN 10/04/19 10/04/19 Aspirin EC [Ecotrin Low Dose] 81 mg PO DAILY 10/04/19 10/04/19 Famotidine [Pepcid] 20 mg PO DAILY 10/04/19 10/04/19 amLODIPine [Norvasc] 10 mg PO DAILY 10/04/19 10/04/19 Previous Rx's Medication Instructions Recorded Fluticasone Nasal [place] [Flonase 2 spr EA NOSTRIL DAILY #1 bottle 11/05/19 Nasal [place]] Allergies Allergy/AdvReac Type Severity Reaction Status Date / Time codeine Allergy Rash/Hives Verified 12/08/19 19:17 Penicillins Allergy Rash/Hives Verified 12/08/19 19:17 Review of Systems ROS Statement: Those systems with pertinent positive or pertinent negative responses have been documented in the HPI. ROS Other: All systems not noted in ROS Statement are negative. Past Medical History Past Medical History: Coronary Artery Disease (CAD), Chest Pain / Angina, Eye Disorder, GERD/Reflux, Hyperlipidemia, Hypertension, Skin Disorder Additional Past Medical History / Comment(s): Chronic bilateral sciatica, arrhythmia-pt cannot recall type, beginnings of bilateral cataracts, rosacea. History of Any Multi-Drug Resistant Organisms: None Reported Past Surgical History: Heart Catheterization, Tubal Ligation Additional Past Surgical History / Comment(s): Cardiac cath-normal, egd, colonoscopy, R ganglion cyst removal Past Anesthesia/Blood Transfusion Reactions: No Reported Reaction Past Psychological History: Anxiety, Depression Smoking Status: Former smoker Past Alcohol Use History: None Reported Past Drug Use History: None Reported - Past Family History Mother Family Medical History: Chest Pain / Angina, Congestive Heart Failure (CHF) Father Family Medical History: Chest Pain / Angina, Congestive Heart Failure (CHF), Coronary Artery Disease (CAD) General Exam Limitations: no limitations General appearance: alert, in no apparent distress, other (This is a well- developed, well-nourished adult female patient in no acute distress. Vital signs upon presentation are temperature 97.9F, pulse 74, respirations 20, blood pressure 144/102, pulse ox 97% on room air.) Eye exam: Present: normal appearance, PERRL, EOMI. Absent: scleral icterus, conjunctival injection, periorbital swelling ENT exam: Present: normal exam, normal oropharynx, mucous membranes moist Respiratory exam: Present: normal lung sounds bilaterally. Absent: respiratory distress, wheezes, rales, rhonchi, stridor Cardiovascular Exam: Present: regular rate, normal rhythm, normal heart sounds. Absent: systolic murmur, diastolic murmur, rubs, gallop, clicks GI/Abdominal exam: Present: soft, normal bowel sounds. Absent: distended, tenderness, guarding, rebound, rigid Back exam: Present: normal inspection, CVA tenderness (R). Absent: CVA tenderness (L) Neurological exam: Present: alert, oriented X3, CN II-XII intact Psychiatric exam: Present: normal affect, normal mood Skin exam: Present: warm, dry, intact, normal color. Absent: rash Course Vital Signs 12/08/19 19:15 Temperature 97.9 F Pulse Rate 74 Respiratory 20 Rate Blood Pressure 144/102 O2 Sat by Pulse 97 Oximetry Medical Decision Making - Medical Decision Making 63-year-old female patient presents to emergency department today for evaluation of hematuria and right flank pain. Physical examination is reveal some mild right CVA tenderness. Labs reviewed and are unremarkable. There is blood in the urine. CT abdomen and pelvis was obtained, shows a large right renal calculus with no obstructing stones seen. She is afebrile with normal vital signs. Results were discussed with the patient. She'll be discharged to follow up with urology and her primary care physician for recheck in 1-2 days. Return parameters were discussed in detail. She verbalizes understanding and agrees with this plan to - Lab Data Result diagrams: 12/08/19 19:45 12/08/19 19:45 Lab Results 12/08/19 12/08/19 12/08/19 Range/Units 19:45 19:45 19:45 WBC 7.6 (3.8-10.6) k/uL RBC 4.29 (3.80-5.40) m/uL Hgb 11.4 (11.4-16.0) gm/dL Hct 37.1 (34.0-46.0) % MCV 86.4 (80.0-100.0) fL MCH 26.6 (25.0-35.0) pg MCHC 30.8 L (31.0-37.0) g/dL RDW 13.7 (11.5-15.5) % Plt Count 249 (150-450) k/uL Neutrophils % 70 % Lymphocytes % 22 % Monocytes % 3 % Eosinophils % 3 % Basophils % 0 % Neutrophils # 5.3 (1.3-7.7) k/uL Lymphocytes # 1.7 (1.0-4.8) k/uL Monocytes # 0.3 (0-1.0) k/uL Eosinophils # 0.2 (0-0.7) k/uL Basophils # 0.0 (0-0.2) k/uL Hypochromasia Slight Sodium 136 L (137-145) mmol/L Potassium 3.8 (3.5-5.1) mmol/L Chloride 103 (98-107) mmol/L Carbon Dioxide 27 (22-30) mmol/L Anion Gap 6 mmol/L BUN 15 (7-17) mg/dL Creatinine 0.87 (0.52-1.04) mg/dL Est GFR (CKD-EPI)AfAm 81 (>60 ml/min/1.73 sqM) Est GFR (CKD-EPI)NonAf 70 (>60 ml/min/1.73 sqM) Glucose 121 H (74-99) mg/dL Calcium 9.4 (8.4-10.2) mg/dL Total Bilirubin 0.4 (0.2-1.3) mg/dL AST 22 (14-36) U/L ALT 11 (4-34) U/L Alkaline Phosphatase 95 (38-126) U/L Total Protein 7.5 (6.3-8.2) g/dL Albumin 4.3 (3.5-5.0) g/dL Amylase 63 (30-110) U/L Lipase 229 (23-300) U/L Urine Color Light Yellow Urine Appearance Clear (Clear) Urine pH 5.0 (5.0-8.0) Ur Specific [place] 1.009 (1.001-1.035) Urine Protein Negative (Negative) Urine Glucose (UA) Negative (Negative) Urine Ketones Negative (Negative) Urine Blood Large H (Negative) Urine Nitrite Negative (Negative) Urine Bilirubin Negative (Negative) Urine Urobilinogen <2.0 (<2.0) mg/dL Ur Leukocyte Esterase Negative (Negative) Urine RBC 56 H (0-5) /hpf Urine WBC <1 (0-5) /hpf Ur Squamous Epith Cells <1 (0-4) /hpf Urine Mucus Occasional H (None) /hpf - Radiology Data Radiology results: report reviewed, image reviewed CT abdomen and pelvis without contrast was obtained. Report was reviewed in its entirety. Impression by Dr. Brock shows nonobstructing large right renal calculus. Normal appendix. A large lobulated fibroid uterus. Disposition Clinical Impression: Hematuria, Right flank pain, Kidney stone on right side Disposition: HOME SELF-CARE Condition: Good Instructions (If sedation given, give patient instructions): Kidney Stones (ED), Hematuria (ED), Flank Pain (ED) Additional Instructions: Increase fluids. Rest. Follow-up with the urologist for further evaluation. Follow up with her primary care physician for recheck in 1-2 days. Return to the emergency department immediately for any new, worsening, or concerning symptoms. Is patient prescribed a controlled substance at d/c from ED?: No Referrals: Andre Rice DO [Primary Care Provider] - 1-2 days Heraclio Carrizales MD [STAFF PHYSICIAN] - 1-2 days Time of Disposition: 20:39
== END 2019-12-08 20:57 | disposition home or self-care (01) ==
LOC: EC 19:10
DX: N20.0 Calculus of kidney (principal); F41.9 Anxiety disorder, unspecified; F32.9 Major depressive disorder, single episode, unspecified; I25.119 Atherosclerotic heart disease of native coronary artery with unspecified angina pectoris; K21.9 Gastro-esophageal reflux disease without esophagitis; I10 Essential (primary) hypertension; Z79.82 Long term (current) use of aspirin; Z88.5 Allergy status to narcotic agent; Z88.0 Allergy status to penicillin; Z79.899 Other long term (current) drug therapy; Z98.890 Other specified postprocedural states; Z95.5 Presence of coronary angioplasty implant and graft; Z87.891 Personal history of nicotine dependence
CPT/HCPCS: 36415; 74176; 80053; 81001; 82150; 83690; 85025; 96360; 99284

== ENCOUNTER → 2020-03-06 | Outpatient (CLI) | payer MEDICARE ==
--- NOTE | 2020-03-06 10:24 | CT ---
EXAMINATION TYPE: CT soft tissue neck w con DATE OF EXAM: 03/06/2020 HISTORY: swelling posterior neck COMPARISON: CT neck December 29, 2017. CT DLP: 494.5 mGycm. Automated Exposure Control for Dose Reduction was Utilized. TECHNIQUE: CT scan of the neck is performed with IV Contrast, patient injected with 100 mL of Isovue 300, axial images are obtained, coronal and sagittal reformatted images are reviewed. FINDINGS: Airway: No gross abnormality seen. Parotid/submandibular glands: Few scattered benign-appearing lymph nodes throughout the right parotid gland inferiorly are present. Carotid/Vascular Structures: Mild calcified plaque right carotid bulb without significant stenosis, n o significant change from prior. Fairly moderate to severe calcified plaque supraclinoid segment dist al internal carotid arteries bilaterally redemonstrated. Osseous Structures: Straightening of cervical spine with moderate multilevel spurring and disc space narrowing mid to lower cervical levels again seen Other: A few scattered prominent but subcentimeter lymph nodes throughout the neck bilaterally. No ovalle spicious greater than 1 cm neck adenopathy. IMPRESSION: No significant new or acute abnormality is identified.
== END | disposition home or self-care (01) ==
LOC: RADCTMAIN 08:13
PROVIDERS: ATTEND Otolaryngology
DX: R22.1 Localized swelling, mass and lump, neck (principal); J32.9 Chronic sinusitis, unspecified; H93.19 Tinnitus, unspecified ear; H92.09 Otalgia, unspecified ear; Z88.0 Allergy status to penicillin; Z88.1 Allergy status to other antibiotic agents; Z88.5 Allergy status to narcotic agent
CPT/HCPCS: 82565; 84520; 70491; 36415; Q9967

== ENCOUNTER 2020-03-15 19:31 | Emergency (ER) | payer MEDICARE ==
[2020-03-15 19:37] VITALS: TEMP 98.5
[2020-03-15] MEDS ORDERED: SODIUM CHLORIDE 0.9% 500 ML 500 ML IV STA (20:01)
[2020-03-15] MEDS ORDERED: ASPIRIN 81 MG PO STA (20:01)
[2020-03-15 20:38] LABS: Basophils % (A) 0 %; Eosinophils # (A) 0.1 k/uL (0-0.7); Eosinophils % (A) 2 %; HCT 36.5 % (34.0-46.0); HGB 11.7 gm/dL (11.4-16.0); Hypochromasia Slight; Lymphocytes # (A) 1.6 k/uL (1.0-4.8); Lymphocytes % (A) 21 %; MCH 27.9 pg (25.0-35.0); Mean Platelet Volume 7.5; Monocytes # (A) 0.3 k/uL (0-1.0); Monocytes % (A) 4 %; Neutrophils # (A) 5.4 k/uL (1.3-7.7); Neutrophils % (A) 71 %; Platelet Count 226 k/uL (150-450); RBC 4.19 m/uL (3.80-5.40); RDW 13.9 % (11.5-15.5); WBC 7.6 k/uL (3.8-10.6)
--- NOTE | 2020-03-15 20:42 | XR ---
EXAMINATION TYPE: XR chest 2V DATE OF EXAM: 03/15/2020 COMPARISON: 10/04/2019 HISTORY: Chest pain TECHNIQUE: 2 views FINDINGS: Heart and mediastinum are normal. Lungs are clear. Diaphragm is normal. Bony thorax is inta ct. There are chest leads. IMPRESSION: Normal chest. No change.
[2020-03-15 20:47] LABS: Albumin 4.3 g/dL (3.5-5.0); Calcium 9.5 mg/dL (8.4-10.2); Magnesium 2.1 mg/dL (1.6-2.3); Potassium 4.1 mmol/L (3.5-5.1); Total Bilirubin 0.5 mg/dL (0.2-1.3); Total Protein 7.7 g/dL (6.3-8.2)
[2020-03-15 20:58] LABS: D-Dimer 0.27 mg/L FEU (<0.60); Partial Thromboplastin Time 24.5 sec (22.0-30.0); Prothrombin Time 10.2 sec (9.0-12.0)
--- NOTE | 2020-03-15 21:26 | US ---
EXAMINATION TYPE: US venous doppler duplex LE RT DATE OF EXAM: 03/15/2020 9:12 PM COMPARISON: NONE CLINICAL HISTORY: pain . Pain SIDE PERFORMED: Right TECHNIQUE: The lower extremity deep venous system is examined utilizing real time linear array sonog radha with graded compression, doppler sonography and color-flow sonography. VESSELS IMAGED: External Iliac Vein (EIV) Common Femoral Vein Deep Femoral Vein Greater Saphenous Vein * Femoral Vein Popliteal Vein Small Saphenous Vein * Proximal Calf Veins (* superficial vessels) Right Leg: Normal augmentation. IMPRESSION: No evidence of deep vein thrombosis in the right leg.
--- NOTE | 2020-03-15 22:12 | ED ---
General Adult HPI - General Chief complaint: Arrhythmia/Palpitations Stated complaint: Heart Palps Time Seen by Provider: 03/15/20 19:50 Source: patient, RN notes reviewed, old records reviewed Mode of arrival: ambulatory Limitations: no limitations - History of Present Illness Initial comments: 64-year-old female patient presents to ED for evaluation of heart palpitations and some chest pain that she experienced earlier today. Patient reports that about 7:00 she began experience some substernal chest pain also radiating underneath the left breast in the left arm. Patient reports that she had some mild shortness of breath which resolved. Denies any nausea or vomiting. Does report previous reported heart blockage that was just treated with medical management. No stent placement. Patient also reports that she has been having some pain in her right leg. That has been waxing and waning for the last few months. Denies any other complaints. Systemic: Pt denies fatigue, fever/chills, rash. Pt denies weakness, night sweats, weight loss. Neuro: Pt denies headache, visual disturbances, syncope or pre-syncope. HEENT: Pt denies ocular discharge or irritation, otalgia, rhinorrhea, pharyngitis or notable lymphadenopathy. Cardiopulmonary: Pt denies dyspnea on exertion. Abdominal/GI: Pt denies abdominal pain, n/v/d. : Pt denies dysuria, burning w/ urination, frequency/urgency. Denies new onset urinary or bowel incontinence. MSK: Pt denies myalgia, loss of strength or function in extremities. Neuro: Pt denies new onset weakness, paresthesias. - Related Data Home Medications Medication Instructions Recorded Confirmed FLUoxetine HCL [PROzac] 10 mg PO DAILY 09/23/19 10/04/19 ALPRAZolam [Xanax] 0.5 mg PO DAILY PRN 10/04/19 10/04/19 Aspirin EC [Ecotrin Low Dose] 81 mg PO DAILY 10/04/19 10/04/19 Famotidine [Pepcid] 20 mg PO DAILY 10/04/19 10/04/19 amLODIPine [Norvasc] 10 mg PO DAILY 10/04/19 10/04/19 Previous Rx's Medication Instructions Recorded Fluticasone Nasal [place] [Flonase 2 spr EA NOSTRIL DAILY #1 bottle 11/05/19 Nasal [place]] Allergies Allergy/AdvReac Type Severity Reaction Status Date / Time codeine Allergy Rash/Hives Verified 03/15/20 19:36 Penicillins Allergy Rash/Hives Verified 03/15/20 19:36 Review of Systems ROS Statement: Those systems with pertinent positive or pertinent negative responses have been documented in the HPI. ROS Other: All systems not noted in ROS Statement are negative. Past Medical History Past Medical History: Coronary Artery Disease (CAD), Chest Pain / Angina, Eye Disorder, GERD/Reflux, Hyperlipidemia, Hypertension, Skin Disorder Additional Past Medical History / Comment(s): Chronic bilateral sciatica, arrhythmia-pt cannot recall type, beginnings of bilateral cataracts, rosacea. History of Any Multi-Drug Resistant Organisms: None Reported Past Surgical History: Heart Catheterization, Tubal Ligation Additional Past Surgical History / Comment(s): Cardiac cath-normal, egd, colonoscopy, R ganglion cyst removal Past Anesthesia/Blood Transfusion Reactions: No Reported Reaction Past Psychological History: Anxiety, Depression Smoking Status: Former smoker Past Alcohol Use History: None Reported Past Drug Use History: None Reported - Past Family History Mother Family Medical History: Chest Pain / Angina, Congestive Heart Failure (CHF) Father Family Medical History: Chest Pain / Angina, Congestive Heart Failure (CHF), Co ronary Artery Disease (CAD) General Exam - General Exam Comments Initial Comments: Constitutional: NAD, AOX3, Pt has pleasant affect. HEENT: NC/AT, trachea midline, neck supple, no lymphadenopathy. Posterior pharynx non erythematous, without exudates. External ears appear normal, without discharge. Mucous membranes moist. Eyes PERRLA, EOM intact. There is no scleral icterus. No pallor noted. Cardiopulmonary: RRR, no murmurs, rubs or gallops, no JVD noted. Lungs CTAB in anterior and posterior [place]. No peripheral edema. Abdominal exam: Abdomen soft and non-distended. Abdomen non-tender to palpation in all 4 quadrants. Bowel sounds active in LLQ. No hepatosplenomegaly. No ecchymosis Neuro: CN II-XII grossly intact. No nuchal rigidity. No raccon eyes, no gregory sign, no hemotympanum. No cervical spinal tenderness. MSK: No posterior calf tenderness bilaterally, homans sign negative bilaterally. Posterior tibialis and radial pulse +2 bilaterally. Sensation intact in upper and lower extremities. Full active ROM in upper and lower extremities, 5/5 stregnth. Limitations: no limitations Course Vital Signs 03/15/20 03/15/20 03/15/20 19:34 20:00 21:00 Temperature 98.5 F Pulse Rate 68 65 57 L Respiratory 16 16 16 Rate Blood Pressure 157/88 156/92 157/97 O2 Sat by Pulse 99 99 100 Oximetry 03/15/20 22:00 Temperature Pulse Rate 54 L Respiratory 18 Rate Blood Pressure 134/80 O2 Sat by Pulse 98 Oximetry Medical Decision Making - Medical Decision Making 64-year-old female patient presents to ED for evaluation of heart palpitations and some chest pain that she experienced earlier today. Patient reports that about 7:00 she began experience some substernal chest pain also radiating underneath the left breast in the left arm. Patient reports that she had some mild shortness of breath which resolved. Denies any nausea or vomiting. Does report previous reported heart blockage that was just treated with medical management. No stent placement. Patient also reports that she has been having some pain in her right leg. That has been waxing and waning for the last few months. Denies any other complaints. Patient vital signs stable, afebrile. Physical exam did not display acute pathology. Laboratory investigations were obtained. D-dimer is negative troponin is negative, CXR revealed no aucte process. Ultrasound is negative for DVT. Patient was advised to stay in hospital. Was initially agreeable to this. Patient then went to be discharged. I discussed with patient risks including she verbalized understanding. Patient left AGAINST MEDICAL ADVICE. Case discussed with Dr. Soliman. - Lab Data Result diagrams: 03/15/20 20:27 03/15/20 20:27 Lab Results 03/15/20 03/15/20 03/15/20 Range/Units 20:27 20:27 20:27 WBC 7.6 (3.8-10.6) k/uL RBC 4.19 (3.80-5.40) m/uL Hgb 11.7 (11.4-16.0) gm/dL Hct 36.5 (34.0-46.0) % MCV 87.0 (80.0-100.0) fL MCH 27.9 (25.0-35.0) pg MCHC 32.0 (31.0-37.0) g/dL RDW 13.9 (11.5-15.5) % Plt Count 226 (150-450) k/uL Neutrophils % 71 % Lymphocytes % 21 % Monocytes % 4 % Eosinophils % 2 % Basophils % 0 % Neutrophils # 5.4 (1.3-7.7) k/uL Lymphocytes # 1.6 (1.0-4.8) k/uL Monocytes # 0.3 (0-1.0) k/uL Eosinophils # 0.1 (0-0.7) k/uL Basophils # 0.0 (0-0.2) k/uL Hypochromasia Slight PT 10.2 (9.0-12.0) sec INR 1.0 (<1.2) APTT 24.5 (22.0-30.0) sec D-Dimer 0.27 (<0.60) mg/L FEU Sodium 139 (137-145) mmol/L Potassium 4.1 (3.5-5.1) mmol/L Chloride 107 (98-107) mmol/L Carbon Dioxide 25 (22-30) mmol/L Anion Gap 7 mmol/L BUN 23 H (7-17) mg/dL Creatinine 0.86 (0.52-1.04) mg/dL Est GFR (CKD-EPI)AfAm 82 (>60 ml/min/1.73 sqM) Est GFR (CKD-EPI)NonAf 71 (>60 ml/min/1.73 sqM) Glucose 99 (74-99) mg/dL Calcium 9.5 (8.4-10.2) mg/dL Magnesium 2.1 (1.6-2.3) mg/dL Total Bilirubin 0.5 (0.2-1.3) mg/dL AST 20 (14-36) U/L ALT 10 (4-34) U/L Alkaline Phosphatase 81 (38-126) U/L Troponin I (0.000-0.034) ng/mL NT-Pro-B Natriuret Pep pg/mL Total Protein 7.7 (6.3-8.2) g/dL Albumin 4.3 (3.5-5.0) g/dL 03/15/20 03/15/20 Range/Units 20:27 20:27 WBC (3.8-10.6) k/uL RBC (3.80-5.40) m/uL Hgb (11.4-16.0) gm/dL Hct (34.0-46.0) % MCV (80.0-100.0) fL MCH (25.0-35.0) pg MCHC (31.0-37.0) g/dL RDW (11.5-15.5) % Plt Count (150-450) k/uL Neutrophils % % Lymphocytes % % Monocytes % % Eosinophils % % Basophils % % Neutrophils # (1.3-7.7) k/uL Lymphocytes # (1.0-4.8) k/uL Monocytes # (0-1.0) k/uL Eosinophils # (0-0.7) k/uL Basophils # (0-0.2) k/uL Hypochromasia PT (9.0-12.0) sec INR (<1.2) APTT (22.0-30.0) sec D-Dimer (<0.60) mg/L FEU Sodium (137-145) mmol/L Potassium (3.5-5.1) mmol/L Chloride (98-107) mmol/L Carbon Dioxide (22-30) mmol/L Anion Gap mmol/L BUN (7-17) mg/dL Creatinine (0.52-1.04) mg/dL Est GFR (CKD-EPI)AfAm (>60 ml/min/1.73 sqM) Est GFR (CKD-EPI)NonAf (>60 ml/min/1.73 sqM) Glucose (74-99) mg/dL Calcium (8.4-10.2) mg/dL Magnesium (1.6-2.3) mg/dL Total Bilirubin (0.2-1.3) mg/dL AST (14-36) U/L ALT (4-34) U/L Alkaline Phosphatase (38-126) U/L Troponin I <0.012 (0.000-0.034) ng/mL NT-Pro-B Natriuret Pep 30 pg/mL Total Protein (6.3-8.2) g/dL Albumin (3.5-5.0) g/dL - EKG Data -: EKG Interpreted by Me (and Dr. Soliman ) EKG Comments: Ventricular rate 64, purulent for 148, QS 88, QT/QTc 424 since 437. Normal sinus rhythm. Possible anterior infarct age undetermined. No concern for acute ischemia at this time. Disposition Clinical Impression: Chest pain Disposition: Left Against Medical Advice Condition: Undetermined Is patient prescribed a controlled substance at d/c from ED?: No Referrals: Andre Rice DO [Primary Care Provider] - 1-2 days
[2020-03-15 22:18] VITALS: BP 134/80; PULSE 54; RESP 18
[2020-03-15] MEDS ORDERED: NITROGLYCERIN SL TABS 0.4 MG TAB SUBLINGUAL PRN (22:27)
[2020-03-16] MEDS ORDERED: ASPIRIN 325 MG TAB PO SCH (09:00)
== END 2020-03-15 23:07 | disposition left against medical advice (07) ==
LOC: EC 19:31 → UNDOADMOB 21:44 → 1SOBS 21:44 → EC 23:07
DX: R07.2 Precordial pain (principal); R00.2 Palpitations; R06.02 Shortness of breath; M79.604 Pain in right leg; I25.119 Atherosclerotic heart disease of native coronary artery with unspecified angina pectoris; K21.9 Gastro-esophageal reflux disease without esophagitis; I10 Essential (primary) hypertension; F41.9 Anxiety disorder, unspecified; F32.9 Major depressive disorder, single episode, unspecified; Z79.82 Long term (current) use of aspirin; Z79.899 Other long term (current) drug therapy; Z87.891 Personal history of nicotine dependence; Z88.0 Allergy status to penicillin; Z88.5 Allergy status to narcotic agent; Z95.5 Presence of coronary angioplasty implant and graft; Z98.51 Tubal ligation status; Z53.20 Procedure and treatment not carried out because of patient's decision for unspecified reasons
CPT/HCPCS: 36415; 71046; 80053; 83735; 83880; 84484; 85025; 85379; 85610; 85730; 93005; 96360; 96361; 99285

== ENCOUNTER 2020-04-13 18:02 | Emergency (ER) | payer MEDICARE ==
[2020-04-13 18:23] VITALS: RESP 18
[2020-04-13] MEDS ORDERED: SODIUM CHLORIDE 0.9% 1,000 ML IV STA (18:41)
[2020-04-13] MEDS ORDERED: KETOROLAC 30 MG/ML 1 ML VIAL IVP STA (18:41)
[2020-04-13] MEDS ORDERED: ONDANSETRON 4 MG/2 ML VIAL IVP STA (18:41)
--- NOTE | 2020-04-13 18:44 | ED ---
General Adult HPI - General Chief complaint: Recheck/Abnormal Lab/Rx Stated complaint: High blood pressure Time Seen by Provider: 04/13/20 18:32 Source: patient Mode of arrival: ambulatory Limitations: no limitations - History of Present Illness Initial comments: Dictation was produced using [employer] dictation software. please excuse any grammatical, word or spelling errors. This patient was cared for during a federal and state declared state of emergency secondary to Covid 19 Chief Complaint: 64 year old female presents with labile blood pressures. History of Present Illness: 64 year female she has past medical history of hypertension. Last week patient had a couple changes to her antihypertensive medications. Patient used to be on Norvasc over develop some adverse effects to it. Her primary care physician took her off of that. Patient was then started on metoprolol. Yesterday she did have more salt usual with her dinner. She woke up and had high blood pressures with systolics measuring from 150-170. Should her blood pressure checked at the local pharmacy which is found to be slightly elevated 170s. Shoulder PCP and was told to come to the emergency department. Patient complains of slight sinus pressure and very mild headache. Denies any numbness distally paresthesias. The ROS documented in this emergency department record has been reviewed and confirmed by me. Those systems with pertinent positive or negative responses have been documented in the HPI. All other systems are other negative and/or noncontributory. PHYSICAL EXAM: General Impression: Alert and oriented x3, not in acute distress HEENT: Normocephalic atraumatic, extra-ocular movements intact, pupils equal and reactive to light bilaterally, mucous membranes moist. Cardiovascular: Heart regular rate and rhythm Chest: Able to complete full sentences, no retractions, no tachypnea Abdomen: abdomen soft, non-tender, non-distended, no organomegaly Musculoskeletal: Pulses present and equal in all extremities, no peripheral edema Motor: no focal deficits noted Neurological: CN II-XII grossly intact, no focal motor or sensory deficits noted Skin: Intact with no visualized rashes Psych: Normal affect and mood ED course: 64 yo female presents with labile blood pressures that have been trending higher than patient's usual. She did have her blood pressure medications adjusted by her primary care physician last week. Signs upon a rrival are within acceptable limits. BP is 162/88. Patient is complaining of mild headache. She did have more salt than usual yesterday. She is well- appearing and not showing any signs of hypertensive emergency. Patient given headache cocktail. Laboratory evaluation obtained. CBC, metabolic panel is unremarkable. Patient reevaluated at bedside with still mild headache. Patient's elevated blood pressure is likely multifactorial secondary to increased salt intake yesterday and mild headache. Patient given medications for her headache. Patient given 5 mg IV labetalol. Patient strongly advised to follow-up with her primary care physician tomorrow for Rx adjustments on her antihypertensive medications. Patient is well-appearing. She does not have any symptoms to suggest hypertensive emergency. Return parameters discussed. Patient clear for discharge. - Related Data Home Medications Medication Instructions Recorded Confirmed FLUoxetine HCL [PROzac] 10 mg PO DAILY 09/23/19 10/04/19 ALPRAZolam [Xanax] 0.5 mg PO DAILY PRN 10/04/19 10/04/19 Aspirin EC [Ecotrin Low Dose] 81 mg PO DAILY 10/04/19 10/04/19 Famotidine [Pepcid] 20 mg PO DAILY 10/04/19 10/04/19 amLODIPine [Norvasc] 10 mg PO DAILY 10/04/19 10/04/19 Previous Rx's Medication Instructions Recorded Fluticasone Nasal [place] [Flonase 2 spr EA NOSTRIL DAILY #1 bottle 11/05/19 Nasal [place]] Allergies Allergy/AdvReac Type Severity Reaction Status Date / Time codeine Allergy Rash/Hives Verified 04/13/20 18:23 Penicillins Allergy Rash/Hives Verified 04/13/20 18:23 Review of Systems ROS Statement: Those systems with pertinent positive or pertinent negative responses have been documented in the HPI. ROS Other: All systems not noted in ROS Statement are negative. Past Medical History Past Medical History: Coronary Artery Disease (CAD), Chest Pain / Angina, Eye Disorder, GERD/Reflux, Hyperlipidemia, Hypertension, Skin Disorder Additional Past Medical History / Comment(s): Chronic bilateral sciatica, arrhythmia-pt cannot recall type, beginnings of bilateral cataracts, rosacea. History of Any Multi-Drug Resistant Organisms: None Reported Past Surgical History: Heart Catheterization, Tubal Ligation Additional Past Surgical History / Comment(s): Cardiac cath-normal, egd, colonoscopy, R ganglion cyst removal Past Anesthesia/Blood Transfusion Reactions: No Reported Reaction Past Psychological History: Anxiety, Depression Smoking Status: Former smoker Past Alcohol Use History: None Reported Past Drug Use History: None Reported - Past Family History Mother Family Medical History: Chest Pain / Angina, Congestive Heart Failure (CHF) Father Family Medical History: Chest Pain / Angina, Congestive Heart Failure (CHF), Coronary Artery Disease (CAD) General Exam Limitations: no limitations Course Vital Signs 04/13/20 04/13/20 18:19 19:34 Temperature 98.2 F Pulse Rate 80 88 Respiratory 18 18 Rate Blood Pressure 162/88 160/102 O2 Sat by Pulse 98 98 Oximetry Medical Decision Making - Lab Data Result diagrams: 04/13/20 19:00 04/13/20 19:00 Lab Results 04/13/20 04/13/20 Range/Units 19:00 19:00 WBC 5.5 (3.8-10.6) k/uL RBC 4.15 (3.80-5.40) m/uL Hgb 11.6 (11.4-16.0) gm/dL Hct 36.6 (34.0-46.0) % MCV 88.2 (80.0-100.0) fL MCH 28.0 (25.0-35.0) pg MCHC 31.7 (31.0-37.0) g/dL RDW 14.0 (11.5-15.5) % Plt Count 221 (150-450) k/uL Neutrophils % 68 % Lymphocytes % 23 % Monocytes % 4 % Eosinophils % 3 % Basophils % 1 % Neutrophils # 3.7 (1.3-7.7) k/uL Lymphocytes # 1.3 (1.0-4.8) k/uL Monocytes # 0.2 (0-1.0) k/uL Eosinophils # 0.2 (0-0.7) k/uL Basophils # 0.0 (0-0.2) k/uL Hypochromasia Moderate Sodium 139 (137-145) mmol/L Potassium 4.0 (3.5-5.1) mmol/L Chloride 106 (98-107) mmol/L Carbon Dioxide 26 (22-30) mmol/L Anion Gap 7 mmol/L BUN 16 (7-17) mg/dL Creatinine 0.76 (0.52-1.04) mg/dL Est GFR (CKD-EPI)AfAm >90 (>60 ml/min/1.73 sqM) Est GFR (CKD-EPI)NonAf 83 (>60 ml/min/1.73 sqM) Glucose 89 (74-99) mg/dL Calcium 9.5 (8.4-10.2) mg/dL Disposition Clinical Impression: Hypertension Disposition: HOME SELF-CARE Condition: Good Instructions (If sedation given, give patient instructions): Hypertension (ED) Is patient prescribed a controlled substance at d/c from ED?: No Referrals: Andre Rice DO [Primary Care Provider] - 1-2 days Time of Disposition: 19:44
[2020-04-13] MEDS ORDERED: ACETAMINOPHEN TAB 325 MG TAB PO STA (19:02)
[2020-04-13 19:13] LABS: Basophils % (A) 1 %; Eosinophils # (A) 0.2 k/uL (0-0.7); Eosinophils % (A) 3 %; HCT 36.6 % (34.0-46.0); HGB 11.6 gm/dL (11.4-16.0); Hypochromasia Moderate; Lymphocytes # (A) 1.3 k/uL (1.0-4.8); Lymphocytes % (A) 23 %; MCHC 31.7 g/dL (31.0-37.0); MCV 88.2 fL (80.0-100.0); Mean Platelet Volume 7.8; Monocytes # (A) 0.2 k/uL (0-1.0); Monocytes % (A) 4 %; Neutrophils # (A) 3.7 k/uL (1.3-7.7); Neutrophils % (A) 68 %; Platelet Count 221 k/uL (150-450); RBC 4.15 m/uL (3.80-5.40); WBC 5.5 k/uL (3.8-10.6)
[2020-04-13 19:24] LABS: African American GFR (CKD) >90 (>60 ml/min/1.73 sqM); Anion Gap 7 mmol/L; Blood Urea Nitrogen 16 mg/dL (7-17); Calcium 9.5 mg/dL (8.4-10.2); Carbon Dioxide 26 mmol/L (22-30); Chloride 106 mmol/L (98-107); Glucose 89 mg/dL (74-99); Non-African American GFR(CKD) 83 (>60 ml/min/1.73 sqM); Sodium 139 mmol/L (137-145)
[2020-04-13] MEDS ORDERED: LABETALOL 5 MG/ML VIAL MDV IVP STA (19:42)
[2020-04-13 20:11] VITALS: BP 154/87; PULSE 78; TEMP 97.9
== END 2020-04-13 20:10 | disposition home or self-care (01) ==
LOC: EC 18:02
DX: I10 Essential (primary) hypertension (principal); R51 Headache; J34.89 Other specified disorders of nose and nasal sinuses; I25.119 Atherosclerotic heart disease of native coronary artery with unspecified angina pectoris; K21.9 Gastro-esophageal reflux disease without esophagitis; F41.9 Anxiety disorder, unspecified; F32.9 Major depressive disorder, single episode, unspecified; Z79.82 Long term (current) use of aspirin; Z79.899 Other long term (current) drug therapy; Z87.891 Personal history of nicotine dependence; Z88.5 Allergy status to narcotic agent; Z88.0 Allergy status to penicillin; Z95.5 Presence of coronary angioplasty implant and graft; Z82.49 Family history of ischemic heart disease and other diseases of the circulatory system
CPT/HCPCS: 36415; 80048; 85025; 96361; 96374; 99283

== ENCOUNTER 2020-11-19 20:40 | Emergency (ER) | payer MEDICARE ==
[2020-11-19 20:47] VITALS: BP 156/91; PULSE 68; TEMP 98.7
[2020-11-19] MEDS ORDERED: SODIUM CHLORIDE 0.9% 1,000 ML IV STA (20:56)
[2020-11-19] MEDS ORDERED: FAMOTIDINE 20 MG/2 ML VIAL IV STA (20:56)
[2020-11-19] MEDS ORDERED: diphenhydrAMINE 50 MG/ML 1 ML VIAL IVP STA (20:56)
[2020-11-19] MEDS ORDERED: methylPREDNISolone SOD SUCCI 125 MG/2 ML VIAL IV STA (20:56)
--- NOTE | 2020-11-19 20:58 | ED ---
Allergic Reaction HPI - General Chief complaint: Allergic Reaction Stated complaint: Allergic reaction Time Seen by Provider: 11/19/20 20:52 Source: patient, RN notes reviewed Mode of arrival: ambulatory Limitations: no limitations - History of Present Illness Initial Comments: Patient is a 64-year-old female that presents emergency department complaining of ALLERGIC reaction. She noted that she started taking omeprazole 2 days ago but noted that she had no reaction the first 2 days. She did note that she took an Ativan which usually doesn't take today for some head pain. She also that she ate some popcorn was new seasoning that she never had before. She noted that the last thing that is bothering her is that her throat feels a little bit swollen. She denied any shortness of breath chest pain urticaria fever fatigue chills nausea vomiting diarrhea constipation. - Related Data Home Medications Medication Instructions Recorded Confirmed FLUoxetine HCL [PROzac] 10 mg PO DAILY 09/23/19 10/04/19 ALPRAZolam [Xanax] 0.5 mg PO DAILY PRN 10/04/19 10/04/19 Aspirin EC [Ecotrin Low Dose] 81 mg PO DAILY 10/04/19 10/04/19 Famotidine [Pepcid] 20 mg PO DAILY 10/04/19 10/04/19 amLODIPine [Norvasc] 10 mg PO DAILY 10/04/19 10/04/19 Previous Rx's Medication Instructions Recorded Fluticasone Nasal [place] [Flonase 2 spr EA NOSTRIL DAILY #1 bottle 11/05/19 Nasal [place]] Allergies Allergy/AdvReac Type Severity Reaction Status Date / Time codeine Allergy Rash/Hives Verified 11/19/20 20:46 Penicillins Allergy Rash/Hives Verified 11/19/20 20:46 Review of Systems ROS Statement: Those systems with pertinent positive or pertinent negative responses have been documented in the HPI. ROS Other: All systems not noted in ROS Statement are negative. Past Medical History Past Medical History: Coronary Artery Disease (CAD), Chest Pain / Angina, Eye Disorder, GERD/Reflux, Hyperlipidemia, Hypertension, Skin Disorder Additional Past Medical History / Comment(s): Chronic bilateral sciatica, arrhythmia-pt cannot recall type, beginnings of bilateral cataracts, rosacea. History of Any Multi-Drug Resistant Organisms: None Reported Past Surgical History: Heart Catheterization, Tubal Ligation Additional Past Surgical History / Comment(s): Cardiac cath-normal, egd, colonoscopy, R ganglion cyst removal Past Anesthesia/Blood Transfusion Reactions: No Reported Reaction Past Psychological History: Anxiety, Depression Smoking Status: Former smoker Past Alcohol Use History: None Reported Past Drug Use History: None Reported - Past Family History Mother Family Medical History: Chest Pain / Angina, Congestive Heart Failure (CHF) Father Family Medical History: Chest Pain / Angina, Congestive Heart Failure (CHF), Coronary Artery Disease (CAD) General Exam Limitations: no limitations General appearance: alert, in no apparent distress Head exam: Present: atraumatic, normocephalic, normal inspection Eye exam: Present: normal appearance, PERRL, EOMI. Absent: scleral icterus, conjunctival injection, periorbital swelling ENT exam: Present: normal exam, mucous membranes moist, other (Oropharynx mild erythema) Neck exam: Present: normal inspection. Absent: tenderness, meningismus, lymphadenopathy Respiratory exam: Present: normal lung sounds bilaterally. Absent: respiratory distress, wheezes, rales, rhonchi, stridor Cardiovascular Exam: Present: regular rate, normal rhythm, normal heart sounds. Absent: systolic murmur, diastolic murmur, rubs, gallop, clicks GI/Abdominal exam: Present: soft, normal bowel sounds. Absent: distended, tenderness, guarding, rebound, rigid Extremities exam: Present: normal inspection, full ROM, normal capillary refill. Absent: tenderness, pedal edema, joint swelling, calf tenderness Neurological exam: Present: alert, oriented X3, CN II-XII intact Psychiatric exam: Present: normal affect, normal mood Skin exam: Present: warm, dry, intact, normal color. Absent: rash Course Vital Signs 11/19/20 11/19/20 20:42 20:46 Temperature 98.7 F Pulse Rate 68 Respiratory 17 18 Rate Blood Pressure 156/91 O2 Sat by Pulse 99 Oximetry Medical Decision Making - Medical Decision Making Patient is a 64-year-old female that presents to emergency complaining of ALLERGIC reaction. 1 L normal saline, Solu-Medrol, Benadryl, Pepcid ordered. Patient handled medication and saline bolus well. Case discussed with Dr. Morrell, was decided the patient to discharge home. Disposition Clinical Impression: Allergic reaction Disposition: HOME SELF-CARE Instructions (If sedation given, give patient instructions): Allergies (ED) Additional Instructions: Please return to the Emergency Department if symptoms worsen or any other concerns. Follow-up with primary care 1-2 days. Continue to take Benadryl [id number] as needed for symptomatically control. Drink plenty of fluids. Is patient prescribed a controlled substance at d/c from ED?: No Referrals: Andre Rice DO [Primary Care Provider] - 1-2 days Time of Disposition: 22:29
[2020-11-19 22:05] VITALS: RESP 18
== END 2020-11-19 22:40 | disposition home or self-care (01) ==
LOC: EC 20:40
DX: T78.40XA Allergy, unspecified, initial encounter (principal); I25.119 Atherosclerotic heart disease of native coronary artery with unspecified angina pectoris; K21.9 Gastro-esophageal reflux disease without esophagitis; F41.9 Anxiety disorder, unspecified; F32.9 Major depressive disorder, single episode, unspecified; I10 Essential (primary) hypertension; Z79.82 Long term (current) use of aspirin; Z79.899 Other long term (current) drug therapy; Z95.5 Presence of coronary angioplasty implant and graft; Z87.891 Personal history of nicotine dependence; Z88.5 Allergy status to narcotic agent; Z88.0 Allergy status to penicillin
CPT/HCPCS: 96374; 96375 ×2; 96361; 99284; J1200; J2930

== ENCOUNTER → 2021-01-18 | Outpatient (CLI) | payer MEDICARE ==
--- NOTE | 2021-01-18 12:12 | FL ---
EXAMINATION TYPE: FL barium swallow DATE OF EXAM: 01/18/2021 CLINICAL HISTORY: Dysphagia. For 3 months. Patient feels like food and pills getting stuck in upper t hroat. TECHNIQUE: A double contrast esophagram is performed utilizing air and barium. A total of 29 second s of fluoroscopic time was utilized during procedure and 63 images obtained COMPARISON: CT neck March 06, 2020 FINDINGS: The esophagus shows satisfactory motility and emptying into the stomach. Small sliding-type hiatal hernia noted towards the end of study. No proximal diverticulum. No suspicious mass or strict ure with particular attention to the proximal esophagus. No proximal diverticulum. There is persisten t left-sided prominence just below aortic knob could reflect a wide mouth diverticulum or focal dilat ation. No significant stasis of contrast at this level identified. No significant gastroesophageal re flux was seen during real time performance of this study. Incidental multilevel spurring in the mid t o lower thoracic spine noted during real-time performance of study. IMPRESSION: No significant abnormality is seen to account for patient's symptoms of upper esophageal dysphagia.
== END | disposition home or self-care (01) ==
LOC: RADUSWWP 10:03
PROVIDERS: ATTEND Family Medicine
DX: R13.10 Dysphagia, unspecified (principal)
CPT/HCPCS: 74220

== ENCOUNTER → 2021-01-21 | Outpatient (CLI) | payer MEDICARE ==
--- NOTE | 2021-01-25 10:26 | MM ---
Reason for exam: screening (asymptomatic). Last mammogram was performed 1 year and 3 months ago. History: Patient is postmenopausal. Physical Findings: A clinical breast exam by your physician is recommended on an annual basis and results should be correlated with mammographic findings. MG 3D Screening Mammo W/Cad Bilateral CC and MLO view(s) were taken. Prior study comparison: October 30, 2019, bilateral MG 3d screening mammo w/cad. November 20, 2017, bilateral MG screening mammo w CAD. The breast tissue is heterogeneously dense. This may lower the sensitivity of mammography. There is chronic nodularity bilaterally. Superior asymmetric denity right MLO view does not persist on 3D images. No significant changes when compared with prior studies. ASSESSMENT: Benign, BI-RAD 2 RECOMMENDATION: Routine screening mammogram of both breasts in 1 year.
== END | disposition home or self-care (01) ==
LOC: RADMAMWWP 12:34
PROVIDERS: ATTEND Family Medicine
DX: Z12.31 Encounter for screening mammogram for malignant neoplasm of breast (principal)
CPT/HCPCS: 77063; 77067

== ENCOUNTER 2021-06-22 00:45 | Emergency (ER) | payer MEDICARE ==
[2021-06-22 00:49] VITALS: TEMP 97.9
[2021-06-22] MEDS ORDERED: methylPREDNISolone SOD SUCCI 125 MG/2 ML VIAL IM ONE (01:07)
[2021-06-22] MEDS ORDERED: ACETAMINOPHEN TAB 500 MG TAB PO STA (01:09)
--- NOTE | 2021-06-22 01:37 | XR ---
EXAMINATION TYPE: XR lumbar spine 2 or 3V DATE OF EXAM: 06/22/2021 COMPARISON: 10/03/2010 HISTORY: Back pain TECHNIQUE: 2 views FINDINGS: There is mild dextroscoliosis. There is no compression fracture. Abdominal aorta is atherom atous. Posterior elements are intact. There is narrowing of L4-5 disc space. Sacroiliac joints are in tact. IMPRESSION: Disc space narrowing at L4-5 not significantly different than old exam. No fracture.
--- NOTE | 2021-06-22 02:04 | ED ---
Extremity Problem HPI - General Chief complaint: Extremity Problem,Nontraumatic Stated complaint: Leg Pain Time Seen by Provider: 06/22/21 00:58 Source: patient, RN notes reviewed Mode of arrival: ambulatory Limitations: no limitations - History of Present Illness Initial comments: Patient is a 65-year-old female presents to emergency department complaining of bilateral lower extremities pain. She notes that she does have some low back issues. She is unsure if these 2 are connected. She notes that she came in for evaluation and symptomatic control. She denied any injury or trauma to her low back or lower extremities. She was otherwise a well-appearing 65-year-old female in no apparent distress or pain. She noted that her pain was approximate 5-6 out of 10 with no relief from at home therapies. She denied any chest pain shortness of breath headache nausea vomiting diarrhea constipation fever fatigue chills. - Related Data Home Medications Medication Instructions Recorded Confirmed FLUoxetine HCL [PROzac] 10 mg PO DAILY 09/23/19 10/04/19 ALPRAZolam [Xanax] 0.5 mg PO DAILY PRN 10/04/19 10/04/19 Aspirin EC [Ecotrin Low Dose] 81 mg PO DAILY 10/04/19 10/04/19 Famotidine [Pepcid] 20 mg PO DAILY 10/04/19 10/04/19 amLODIPine [Norvasc] 10 mg PO DAILY 10/04/19 10/04/19 Previous Rx's Medication Instructions Recorded Fluticasone Nasal [place] [Flonase 2 spr EA NOSTRIL DAILY #1 bottle 11/05/19 Nasal [place]] Ibuprofen [Motrin] 600 mg PO Q8HR PRN #30 tab 06/22/21 predniSONE 50 mg PO DAILY #5 tab 06/22/21 Allergies Allergy/AdvReac Type Severity Reaction Status Date / Time codeine Allergy Rash/Hives Verified 06/22/21 00:49 Penicillins Allergy Rash/Hives Verified 06/22/21 00:49 Review of Systems ROS Statement: Those systems with pertinent positive or pertinent negative responses have been documented in the HPI. ROS Other: All systems not noted in ROS Statement are negative. Past Medical History Past Medical History: Coronary Artery Disease (CAD), Chest Pain / Angina, Eye Disorder, GERD/Reflux, Hyperlipidemia, Hypertension, Skin Disorder Additional Past Medical History / Comment(s): Chronic bilateral sciatica, arrhythmia-pt cannot recall type, beginnings of bilateral cataracts, rosacea. History of Any Multi-Drug Resistant Organisms: None Reported Past Surgical History: Heart Catheterization, Tubal Ligation Additional Past Surgical History / Comment(s): Cardiac cath-normal, egd, colonoscopy, R ganglion cyst removal Past Anesthesia/Blood Transfusion Reactions: No Reported Reaction Past Psychological History: Anxiety, Depression Smoking Status: Former smoker Past Alcohol Use History: None Reported Past Drug Use History: None Reported - Past Family History Mother Family Medical History: Chest Pain / Angina, Congestive Heart Failure (CHF) Father Family Medical History: Chest Pain / Angina, Congestive Heart Failure (CHF), Coronary Artery Disease (CAD) General Exam Limitations: no limitations General appearance: alert, in no apparent distress, obese Head exam: Present: atraumatic, normocephalic, normal inspection Eye exam: Present: normal appearance, PERRL, EOMI. Absent: scleral icterus, conjunctival injection, periorbital swelling ENT exam: Present: normal exam, mucous membranes moist Neck exam: Present: normal inspection Respiratory exam: Present: normal lung sounds bilaterally. Absent: respiratory distress, wheezes, rales, rhonchi, stridor Cardiovascular Exam: Present: regular rate, normal rhythm, normal heart sounds. Absent: systolic murmur, diastolic murmur, rubs, gallop, clicks Extremities exam: Present: normal inspection, full ROM, normal capillary refill. Absent: tenderness, pedal edema, joint swelling, calf tenderness Back exam: Present: normal inspection, tenderness (Bilateral SI). Absent: CVA tenderness (R), CVA tenderness (L) Neurological exam: Present: alert, oriented X3 Psychiatric exam: Present: normal affect, normal mood Skin exam: Present: warm, dry, intact, normal color. Absent: rash Course Vital Signs 06/22/21 00:47 Temperature 97.9 F Pulse Rate 63 Respiratory 18 Rate Blood Pressure 151/88 O2 Sat by Pulse 98 Oximetry Medical Decision Making - Medical Decision Making 65-year-old female complaining of bilateral lower extremity pain and low back pain and tenderness over her SI. Lumbar spine x-ray, 125 mg of Solu-Medrol ordered. X-ray negative for any acute process, no significant change from previous studies. Patient is okay with discharge home and felt primary care. Case discussed with Dr. Trachy, patient can discharge home. - Radiology Data Radiology results: report reviewed, image reviewed Lumbar x-ray: Disc space narrowing at L4-L5 not significantly different than old exam. No fracture. Disposition Clinical Impression: Bilateral sciatica, Lumbar radiculopathy Disposition: HOME SELF-CARE Condition: Stable Instructions (If sedation given, give patient instructions): Back Pain (ED), Lower Back Exercises (ED) Additional Instructions: Please return to the Emergency Department if symptoms worsen or any other concerns. Follow-up with primary care 1-2 days. Take prednisone and Motrin as prescribed. Is patient prescribed a controlled substance at d/c from ED?: No Referrals: Andre Rice DO [Primary Care Provider] - 1-2 days Time of Disposition: 02:03
[2021-06-22 02:16] VITALS: BP 146/84; PULSE 64; RESP 20
== END 2021-06-22 02:17 | disposition home or self-care (01) ==
LOC: EC 00:45
DX: M54.42 Lumbago with sciatica, left side (principal); M54.41 Lumbago with sciatica, right side; M54.16 Radiculopathy, lumbar region; I10 Essential (primary) hypertension; I25.10 Atherosclerotic heart disease of native coronary artery without angina pectoris; K21.9 Gastro-esophageal reflux disease without esophagitis; E78.5 Hyperlipidemia, unspecified; F41.9 Anxiety disorder, unspecified; F32.9 Major depressive disorder, single episode, unspecified; Z79.82 Long term (current) use of aspirin; Z88.0 Allergy status to penicillin; Z88.5 Allergy status to narcotic agent; Z98.51 Tubal ligation status; Z87.891 Personal history of nicotine dependence
CPT/HCPCS: 72100; 96372; 99283

== ENCOUNTER 2021-07-07 13:25 | Emergency (ER) | payer MEDICARE ==
[2021-07-07 13:41] VITALS: BP 132/75; PULSE 75; RESP 16; TEMP 98.3
--- NOTE | 2021-07-07 14:53 | ED ---
General Adult HPI - General Chief complaint: Dizziness Stated complaint: Dizziness sent by pcp for e/o cva Time Seen by Provider: 07/07/21 14:31 Source: patient Mode of arrival: wheelchair Limitations: no limitations - History of Present Illness Initial comments: Dictation was produced using [employer] dictation software. please excuse any grammatical, word or spelling errors. Chief Complaint: 65-year-old was sent in from a nearby urgent care for concerns of stroke History of Present Illness: This 65-year-old female she has been for the last 2 days been feeling fatigued, weak and nauseated. Patient went to the urgent care to be evaluated. She was told by the nurse practitioner to come to the emergency department for concerns of cerebrovascular accident. Patient denies any numbness tingling or paresthesias. Denies any ataxia or weakness to the extremities. She is able to ambulate with no problem. She has no history of [facility]. She has past medical history of coronary artery disease, dyslipidemia and hypertension. States that she's been having some sinus congestion and feels warm but has no fever. She states that she feels like she has an internal fever. She has no pain complaints. Denies any urinary symptoms. No cough. She was tested for covered at the urgent care and was negative. She has no dizziness at rest. The ROS documented in this emergency department record has been reviewed and confirmed by me. Those systems with pertinent positive or negative responses have been documented in the HPI. All other systems are other negative and/or noncontributory. PHYSICAL EXAM: General Impression: Alert and oriented x3, not in acute distress HEENT: Normocephalic atraumatic, extra-ocular movements intact, pupils equal and reactive to light bilaterally, mucous membranes moist. Cardiovascular: Heart regular rate and rhythm Chest: Able to complete full sentences, no retractions, no tachypnea Abdomen: abdomen soft, non-tender, non-distended, no organomegaly Musculoskeletal: Pulses present and equal in all extremities, no peripheral edema Motor: no focal deficits noted Neurological: CN II-XII grossly intact, no focal motor or sensory deficits noted, normal gait, NIH of 0, non-aphasic, not dysarthric, non-ataxic Skin: Intact with no visualized rashes Psych: Normal affect and mood ED course: 65-year-old feel presents to the emergency department for feelings of fatigue for 2 days. She states that she feels like she has a fever inside her body. She has no localizing symptoms. Signs upon arrival are within acceptable limits. Physical examination is benign. No concern for CVA. Laboratory evaluation obtained. Metabolic panel is unremarkable. Urinalysis negative. 4 panel viral PCR is negative for influenza RSV and coronavirus. Chest x-ray showed right basilar infiltrate. EKG interpretation: Ventricular rate 57, sinus bradycardia, OK interval 172, QRS 86, QTC 426. No OK prolongation, no QTC prolongation. Isolated T-wave inversion in lead 3. Compared to EKG from 03/15/2020 V3 was flattened. Today's EKG is nonspecific. After evaluation obtained. CBC unremarkable. Metabolic panel is negative. Urinalysis is negative. 4 panel viral PCR is negative. Chest x-ray shows mild right lower lobe infiltrates. Patient's clinical presentation is not entirely obvious for possible pneumonia however given patient's x-ray findings with his constitutional symptoms this may be a pneumonia. Patient given prescription for Zithromax pack to be taken in a wait and see fashion. She has an appointment with her primary care doctor tomorrow. Patient reevaluated bedside at 4:30 PM she is stable appearing. She is not showing signs of distress. Patient discharged. - Related Data Home Medications Medication Instructions Recorded Confirmed amLODIPine [Norvasc] 10 mg PO HS 10/04/19 07/07/21 Previous Rx's Medication Instructions Recorded Ibuprofen [Motrin] 600 mg PO Q8HR PRN #30 tab 06/22/21 Azithromycin [Zithromax Z-pack] 0 mg PO DIRECTED #6 tab 07/07/21 Allergies Allergy/AdvReac Type Severity Reaction Status Date / Time codeine Allergy Rash/Hives Verified 07/07/21 15:00 Penicillins Allergy Rash/Hives Verified 07/07/21 15:00 Review of Systems ROS Statement: Those systems with pertinent positive or pertinent negative responses have been documented in the HPI. ROS Other: All systems not noted in ROS Statement are negative. Past Medical History Past Medical History: Coronary Artery Disease (CAD), Chest Pain / Angina, Eye Disorder, GERD/Reflux, Hyperlipidemia, Hypertension, Skin Disorder Additional Past Medical History / Comment(s): Chronic bilateral sciatica, arrhythmia-pt cannot recall type, beginnings of bilateral cataracts, rosacea. History of Any Multi-Drug Resistant Organisms: None Reported Past Surgical History: Heart Catheterization, Tubal Ligation Additional Past Surgical History / Comment(s): Cardiac cath-normal, egd, co lonoscopy, R ganglion cyst removal Past Anesthesia/Blood Transfusion Reactions: No Reported Reaction Past Psychological History: Anxiety, Depression Smoking Status: Former smoker Past Alcohol Use History: None Reported Past Drug Use History: None Reported - Past Family History Mother Family Medical History: Chest Pain / Angina, Congestive Heart Failure (CHF) Father Family Medical History: Chest Pain / Angina, Congestive Heart Failure (CHF), Coronary Artery Disease (CAD) General Exam Limitations: no limitations Course Vital Signs 07/07/21 13:39 Temperature 98.3 F Pulse Rate 75 Respiratory 16 Rate Blood Pressure 132/75 O2 Sat by Pulse 100 Oximetry Medical Decision Making - Lab Data Result diagrams: 07/07/21 15:53 07/07/21 14:56 Lab Results 07/07/21 07/07/21 07/07/21 Range/Units 14:56 14:56 14:56 WBC (3.8-10.6) k/uL RBC (3.80-5.40) m/uL Hgb (11.4-16.0) gm/dL Hct (34.0-46.0) % MCV (80.0-100.0) fL MCH (25.0-35.0) pg MCHC (31.0-37.0) g/dL RDW (11.5-15.5) % Plt Count (150-450) k/uL MPV Neutrophils % % Lymphocytes % % Monocytes % % Eosinophils % % Basophils % % Neutrophils # (1.3-7.7) k/uL Lymphocytes # (1.0-4.8) k/uL Monocytes # (0-1.0) k/uL Eosinophils # (0-0.7) k/uL Basophils # (0-0.2) k/uL Sodium 140 (137-145) mmol/L Potassium 4.6 (3.5-5.1) mmol/L Chloride 107 (98-107) mmol/L Carbon Dioxide 25 (22-30) mmol/L Anion Gap 8 mmol/L BUN 19 H (7-17) mg/dL Creatinine 0.83 (0.52-1.04) mg/dL Est GFR (CKD-EPI)AfAm 85 (>60 ml/min/1.73 sqM) Est GFR (CKD-EPI)NonAf 74 (>60 ml/min/1.73 sqM) Glucose 100 H (74-99) mg/dL Calcium 9.2 (8.4-10.2) mg/dL Magnesium 2.2 (1.6-2.3) mg/dL Total Bilirubin 0.8 (0.2-1.3) mg/dL AST 41 H (14-36) U/L ALT 15 (4-34) U/L Alkaline Phosphatase 100 (38-126) U/L Total Protein 7.7 (6.3-8.2) g/dL Albumin 4.3 (3.5-5.0) g/dL Urine Color Yellow Urine Appearance Cloudy H (Clear) Urine pH 5.5 (5.0-8.0) Ur Specific [place] 1.023 (1.001-1.035) Urine Protein Negative (Negative) Urine Glucose (UA) Negative (Negative) Urine Ketones Negative (Negative) Urine Blood Negative (Negative) Urine Nitrite Negative (Negative) Urine Bilirubin Negative (Negative) Urine Urobilinogen <2.0 (<2.0) mg/dL Ur Leukocyte Esterase Negative (Negative) Urine WBC 2 (0-5) /hpf Ur Squamous Epith Cells 1 (0-4) /hpf Uric Acid Crystals Few H (None) /hpf Urine Mucus Occasional H (None) /hpf Influenza Type A (PCR) Not Detected (Not Detectd) Influenza Type B (PCR) Not Detected (Not Detectd) RSV (PCR) Not Detected (Not Detectd) SARS-CoV-2 (PCR) Not Detected (Not Detectd) 07/07/21 Range/Units 15:53 WBC 6.8 (3.8-10.6) k/uL RBC 4.28 (3.80-5.40) m/uL Hgb 11.7 (11.4-16.0) gm/dL Hct 37.8 (34.0-46.0) % MCV 88.5 (80.0-100.0) fL MCH 27.3 (25.0-35.0) pg MCHC 30.8 L (31.0-37.0) g/dL RDW 14.0 (11.5-15.5) % Plt Count 243 (150-450) k/uL MPV 8.0 Neutrophils % 74 % Lymphocytes % 18 % Monocytes % 4 % Eosinophils % 2 % Basophils % 1 % Neutrophils # 5.0 (1.3-7.7) k/uL Lymphocytes # 1.2 (1.0-4.8) k/uL Monocytes # 0.3 (0-1.0) k/uL Eosinophils # 0.1 (0-0.7) k/uL Basophils # 0.1 (0-0.2) k/uL Sodium (137-145) mmol/L Potassium (3.5-5.1) mmol/L Chloride (98-107) mmol/L Carbon Dioxide (22-30) mmol/L Anion Gap mmol/L BUN (7-17) mg/dL Creatinine (0.52-1.04) mg/dL Est GFR (CKD-EPI)AfAm (>60 ml/min/1.73 sqM) Est GFR (CKD-EPI)NonAf (>60 ml/min/1.73 sqM) Glucose (74-99) mg/dL Calcium (8.4-10.2) mg/dL Magnesium (1.6-2.3) mg/dL Total Bilirubin (0.2-1.3) mg/dL AST (14-36) U/L ALT (4-34) U/L Alkaline Phosphatase (38-126) U/L Total Protein (6.3-8.2) g/dL Albumin (3.5-5.0) g/dL Urine Color Urine Appearance (Clear) Urine pH (5.0-8.0) Ur Specific [place] (1.001-1.035) Urine Protein (Negative) Urine Glucose (UA) (Negative) Urine Ketones (Negative) Urine Blood (Negative) Urine Nitrite (Negative) Urine Bilirubin (Negative) Urine Urobilinogen (<2.0) mg/dL Ur Leukocyte Esterase (Negative) Urine WBC (0-5) /hpf Ur Squamous Epith Cells (0-4) /hpf Uric Acid Crystals (None) /hpf Urine Mucus (None) /hpf Influenza Type A (PCR) (Not Detectd) Influenza Type B (PCR) (Not Detectd) RSV (PCR) (Not Detectd) SARS-CoV-2 (PCR) (Not Detectd) Disposition Clinical Impression: Dizziness Disposition: HOME SELF-CARE Condition: Good Instructions (If sedation given, give patient instructions): Dizziness (ED) Prescriptions: Azithromycin [Zithromax Z-pack] 0 mg PO DIRECTED #6 tab Is patient prescribed a controlled substance at d/c from ED?: No Referrals: Andre Rice DO [Primary Care Provider] - 1-2 days
[2021-07-07 15:19] LABS: Albumin 4.3 g/dL (3.5-5.0); Calcium 9.2 mg/dL (8.4-10.2); Magnesium 2.2 mg/dL (1.6-2.3); Potassium 4.6 mmol/L (3.5-5.1); Total Bilirubin 0.8 mg/dL (0.2-1.3); Total Protein 7.7 g/dL (6.3-8.2)
[2021-07-07 15:34] LABS: Appearance,Urine Cloudy (Clear); Bilirubin,Urine Negative (Negative); Blood,Urine Negative (Negative); Color,Urine Yellow; Glucose,Urine (UA) Negative (Negative); Ketones,Urine Negative (Negative); Leukocyte Esterase,Urine Negative (Negative); Mucus,Urine Occasional /hpf; Nitrite,Urine Negative (Negative); PH, Urine 5.5 (5.0-8.0); Protein,Urine Negative (Negative); Specific Gravity,Urine 1.023 (1.001-1.035); Squamous Epithelial Cell,Urine 1 /hpf (0-4); Uric Acid Crystals,Urine Few /hpf; Urobilinogen,Urine <2.0 mg/dL (<2.0); WBC,Urine 2 /hpf (0-5)
--- NOTE | 2021-07-07 15:37 | XR ---
EXAMINATION TYPE: XR chest 1V portable DATE OF EXAM: 07/07/2021 COMPARISON: 03/15/2020 HISTORY: Sinus pressure TECHNIQUE: Single frontal view of the chest is obtained. FINDINGS: Subsegmental changes at the right lung base. Heart size normal. No overt failure. Diffuse osteopenia. Heart size mildly prominent there is hypertrophic and degenerative change of the spine. IMPRESSION: Right basilar infiltrate or atelectasis.
[2021-07-07 16:00] LABS: Basophils # (A) 0.1 k/uL (0-0.2); Basophils % (A) 1 %; Eosinophils # (A) 0.1 k/uL (0-0.7); Eosinophils % (A) 2 %; HCT 37.8 % (34.0-46.0); HGB 11.7 gm/dL (11.4-16.0); Lymphocytes # (A) 1.2 k/uL (1.0-4.8); Lymphocytes % (A) 18 %; MCH 27.3 pg (25.0-35.0); MCHC 30.8 g/dL (31.0-37.0); MCV 88.5 fL (80.0-100.0); Monocytes # (A) 0.3 k/uL (0-1.0); Monocytes % (A) 4 %; Neutrophils % (A) 74 %; Platelet Count 243 k/uL (150-450); RBC 4.28 m/uL (3.80-5.40); WBC 6.8 k/uL (3.8-10.6)
== END 2021-07-07 16:53 | disposition home or self-care (01) ==
LOC: EC 13:25
DX: R42 Dizziness and giddiness (principal); I10 Essential (primary) hypertension; I25.10 Atherosclerotic heart disease of native coronary artery without angina pectoris; E78.5 Hyperlipidemia, unspecified; Z79.1 Long term (current) use of non-steroidal anti-inflammatories (NSAID); Z79.899 Other long term (current) drug therapy; Z87.891 Personal history of nicotine dependence; Z88.0 Allergy status to penicillin; Z82.49 Family history of ischemic heart disease and other diseases of the circulatory system
CPT/HCPCS: 36415; 71045; 80053; 81001; 83735; 85025; 87636; 93005; 99284

== ENCOUNTER 2021-09-12 00:10 | Emergency (ER) | payer MEDICARE ==
[2021-09-12 00:18] VITALS: TEMP 98.6
--- NOTE | 2021-09-12 00:36 | ED ---
General Adult HPI - General Chief complaint: Upper Respiratory Infection Stated complaint: Heart Palpatations, Cough Time Seen by Provider: 09/12/21 00:22 Source: patient Mode of arrival: wheelchair Limitations: no limitations - History of Present Illness Initial comments: This patient is 65-year-old woman who presents to emergency department to be evaluated for cough. She states that her symptoms started 4-5 days ago with some upper congestion, the following day with cough. She states she went to the clinic and was seen there. She had a covid test that was negative. She was given a course of azithromycin which she has taken 3 days of, and course of steroids which she has not started yet. She states that the cough seems to be a little worse. She states that she was not able to sleep well last night. The cough is worse if she lies flat and that prevented her from sleeping. Patient denies fever or chills. No chest pain. No leg pain or swelling. No change in urination. Patient states she may be having more frequent bowel movements over the past few days. No blood or dark tarry stools. Onset/Timin -: days(s) Severity scale (1-10): 0 Improves with: none Worsens with: none Associated Symptoms: cough Treatments Prior to Arrival: none - Related Data Home Medications Medication Instructions Recorded Confirmed amLODIPine [Norvasc] 10 mg PO HS 10/04/19 07/07/21 Previous Rx's Medication Instructions Recorded Ibuprofen [Motrin] 600 mg PO Q8HR PRN #30 tab 06/22/21 Azithromycin [Zithromax Z-pack] 0 mg PO DIRECTED #6 tab 07/07/21 Allergies Allergy/AdvReac Type Severity Reaction Status Date / Time codeine Allergy Rash/Hives Verified 09/12/21 00:18 Penicillins Allergy Rash/Hives Verified 09/12/21 00:18 Review of Systems ROS Statement: Those systems with pertinent positive or pertinent negative responses have been documented in the HPI. ROS Other: All systems not noted in ROS Statement are negative. Constitutional: Denies: fever, chills Respiratory: Reports: cough. Denies: dyspnea, wheezes, hemoptysis Cardiovascular: Reports: palpitations. Denies: chest pain, orthopnea, edema, syncope Gastrointestinal: Reports: diarrhea. Denies: abdominal pain, nausea, vomiting, constipation, melena, hematochezia Genitourinary: Denies: dysuria, hematuria Musculoskeletal: Denies: back pain Skin: Denies: rash Neurological: Denies: headache, weakness Past Medical History Past Medical History: Coronary Artery Disease (CAD), Chest Pain / Angina, Eye Disorder, GERD/Reflux, Hyperlipidemia, Hypertension, Skin Disorder Additional Past Medical History / Comment(s): Chronic bilateral sciatica, arrhythmia-pt cannot recall type, beginnings of bilateral cataracts, rosacea. History of Any Multi-Drug Resistant Organisms: None Reported Past Surgical History: Heart Catheterization, Tubal Ligation Additional Past Surgical History / Comment(s): Cardiac cath-normal, egd, colonoscopy, R ganglion cyst removal Past Anesthesia/Blood Transfusion Reactions: No Reported Reaction Past Psychological History: Anxiety, Depression Smoking Status: Former smoker Past Alcohol Use History: None Reported Past Drug Use History: None Reported - Past Family History Mother Family Medical History: Chest Pain / Angina, Congestive Heart Failure (CHF) Father Family Medical History: Chest Pain / Angina, Congestive Heart Failure (CHF), Coronary Artery Disease (CAD) General Exam Limitations: no limitations General appearance: alert, in no apparent distress Head exam: Present: atraumatic, normocephalic Eye exam: Present: normal appearance. Absent: scleral icterus, conjunctival injection Neck exam: Present: normal inspection Respiratory exam: Present: normal lung sounds bilaterally. Absent: respiratory distress, wheezes, rales, rhonchi, stridor Cardiovascular Exam: Present: regular rate, normal rhythm, normal heart sounds. Absent: systolic murmur, diastolic murmur, rubs, gallop GI/Abdominal exam: Present: soft. Absent: distended, tenderness, guarding, rebound, rigid, mass Extremities exam: Present: normal inspection, normal capillary refill. Absent: pedal edema, calf tenderness Back exam: Present: normal inspection. Absent: CVA tenderness (R), CVA tenderness (L) Neurological exam: Present: alert Skin exam: Present: warm, dry, intact, normal color. Absent: rash Course Vital Signs 09/12/21 09/12/21 09/12/21 00:13 01:02 01:58 Temperature 98.6 F Pulse Rate 68 66 64 Respiratory 20 16 20 Rate Blood Pressure 177/92 129/74 120/70 O2 Sat by Pulse 100 98 95 Oximetry 09/12/21 09/12/21 02:09 02:17 Temperature Pulse Rate 63 60 Respiratory Rate Blood Pressure O2 Sat by Pulse Oximetry EKG Findings - EKG Results: EKG: interpreted by ERMD, sinus rhythm (Rate 63 bpm), normal axis, normal ST/T - IN, Pacemaker, Normal: Myocardial infarction: anterior IN (old age or indeterminate) (Possible old anterior infarct) Medical Decision Making - Lab Data Result diagrams: 09/12/21 00:48 09/12/21 00:48 Lab Results 09/12/21 09/12/21 09/12/21 Range/Units 00:48 00:48 00:48 WBC 7.7 (3.8-10.6) k/uL RBC 4.22 (3.80-5.40) m/uL Hgb 11.4 (11.4-16.0) gm/dL Hct 36.8 (34.0-46.0) % MCV 87.3 (80.0-100.0) fL MCH 27.0 (25.0-35.0) pg MCHC 30.9 L (31.0-37.0) g/dL RDW 14.3 (11.5-15.5) % Plt Count 249 (150-450) k/uL MPV 7.7 Neutrophils % 68 % Lymphocytes % 24 % Monocytes % 4 % Eosinophils % 2 % Basophils % 1 % Neutrophils # 5.2 (1.3-7.7) k/uL Lymphocytes # 1.9 (1.0-4.8) k/uL Monocytes # 0.3 (0-1.0) k/uL Eosinophils # 0.2 (0-0.7) k/uL Basophils # 0.1 (0-0.2) k/uL Hypochromasia Slight D-Dimer (<0.60) mg/L FEU Sodium 139 (137-145) mmol/L Potassium 3.9 (3.5-5.1) mmol/L Chloride 103 (98-107) mmol/L Carbon Dioxide 26 (22-30) mmol/L Anion Gap 10 mmol/L BUN 22 H (7-17) mg/dL Creatinine 1.02 (0.52-1.04) mg/dL Est GFR (CKD-EPI)AfAm 66 (>60 ml/min/1.73 sqM) Est GFR (CKD-EPI)NonAf 57 (>60 ml/min/1.73 sqM) Glucose 106 H (74-99) mg/dL Calcium 9.4 (8.4-10.2) mg/dL Total Bilirubin 0.8 (0.2-1.3) mg/dL AST 21 (14-36) U/L ALT 17 (4-34) U/L Alkaline Phosphatase 83 (38-126) U/L Troponin I <0.012 (0.000-0.034) ng/mL NT-Pro-B Natriuret Pep pg/mL Total Protein 7.6 (6.3-8.2) g/dL Albumin 4.2 (3.5-5.0) g/dL Coronavirus (PCR) (Not Detectd) 09/12/21 09/12/21 09/12/21 Range/Units 00:48 00:48 00:48 WBC (3.8-10.6) k/uL RBC (3.80-5.40) m/uL Hgb (11.4-16.0) gm/dL Hct (34.0-46.0) % MCV (80.0-100.0) fL MCH (25.0-35.0) pg MCHC (31.0-37.0) g/dL RDW (11.5-15.5) % Plt Count (150-450) k/uL MPV Neutrophils % % Lymphocytes % % Monocytes % % Eosinophils % % Basophils % % Neutrophils # (1.3-7.7) k/uL Lymphocytes # (1.0-4.8) k/uL Monocytes # (0-1.0) k/uL Eosinophils # (0-0.7) k/uL Basophils # (0-0.2) k/uL Hypochromasia D-Dimer 0.33 (<0.60) mg/L FEU Sodium (137-145) mmol/L Potassium (3.5-5.1) mmol/L Chloride (98-107) mmol/L Carbon Dioxide (22-30) mmol/L Anion Gap mmol/L BUN (7-17) mg/dL Creatinine (0.52-1.04) mg/dL Est GFR (CKD-EPI)AfAm (>60 ml/min/1.73 sqM) Est GFR (CKD-EPI)NonAf (>60 ml/min/1.73 sqM) Glucose (74-99) mg/dL Calcium (8.4-10.2) mg/dL Total Bilirubin (0.2-1.3) mg/dL AST (14-36) U/L ALT (4-34) U/L Alkaline Phosphatase (38-126) U/L Troponin I (0.000-0.034) ng/mL NT-Pro-B Natriuret Pep 55 pg/mL Total Protein (6.3-8.2) g/dL Albumin (3.5-5.0) g/dL Coronavirus (PCR) Not Detected (Not Detectd) Disposition Clinical Impression: Bronchitis Disposition: HOME SELF-CARE Condition: Good Instructions (If sedation given, give patient instructions): Acute Bronchitis (ED) Is patient prescribed a controlled substance at d/c from ED?: No Referrals: Andre Rice DO [Primary Care Provider] - 1-2 days
[2021-09-12 00:55] LABS: Basophils # (A) 0.1 k/uL (0-0.2); Basophils % (A) 1 %; Eosinophils # (A) 0.2 k/uL (0-0.7); Eosinophils % (A) 2 %; HCT 36.8 % (34.0-46.0); HGB 11.4 gm/dL (11.4-16.0); Hypochromasia Slight; Lymphocytes # (A) 1.9 k/uL (1.0-4.8); Lymphocytes % (A) 24 %; MCHC 30.9 g/dL (31.0-37.0); MCV 87.3 fL (80.0-100.0); Mean Platelet Volume 7.7; Monocytes # (A) 0.3 k/uL (0-1.0); Monocytes % (A) 4 %; Neutrophils # (A) 5.2 k/uL (1.3-7.7); Neutrophils % (A) 68 %; Platelet Count 249 k/uL (150-450); RBC 4.22 m/uL (3.80-5.40); RDW 14.3 % (11.5-15.5); WBC 7.7 k/uL (3.8-10.6)
--- NOTE | 2021-09-12 00:55 | XR ---
EXAMINATION TYPE: XR chest 2V DATE OF EXAM: 09/12/2021 COMPARISON: 07/07/2021 HISTORY: Short of breath TECHNIQUE: 2 views FINDINGS: There is no heart failure nor confluent pneumonic infiltrate. Costophrenic angles are clear. There ar e chest leads. IMPRESSION: No active cardiopulmonary disease. No change.
[2021-09-12 01:08] LABS: Albumin 4.2 g/dL (3.5-5.0); Calcium 9.4 mg/dL (8.4-10.2); Potassium 3.9 mmol/L (3.5-5.1); Total Bilirubin 0.8 mg/dL (0.2-1.3); Total Protein 7.6 g/dL (6.3-8.2)
[2021-09-12] MEDS ORDERED: predniSONE 20 MG TAB PO STA (01:48)
[2021-09-12] MEDS ORDERED: ALBUTEROL NEBULIZED 2.5 MG/3 ML INHALATION STA (01:48)
[2021-09-12 01:59] VITALS: BP 120/70; RESP 20
[2021-09-12 02:17] VITALS: PULSE 60
== END 2021-09-12 03:20 | disposition home or self-care (01) ==
LOC: EC 00:10
DX: J40 Bronchitis, not specified as acute or chronic (principal); I25.10 Atherosclerotic heart disease of native coronary artery without angina pectoris; E78.5 Hyperlipidemia, unspecified; I10 Essential (primary) hypertension; F41.9 Anxiety disorder, unspecified; F32.A Depression, unspecified; Z87.891 Personal history of nicotine dependence
CPT/HCPCS: 36415; 94640; 93005; 85379; 83880; 80053; 84484; 85025; 87635; 71046; 99284; J7512

== ENCOUNTER → 2021-10-21 | Outpatient (CLI) | payer MEDICARE ==
--- NOTE | 2021-10-21 15:50 | US ---
EXAMINATION TYPE: US kidneys/renal and bladder DATE OF EXAM: 10/21/2021 COMPARISON: CT A&P 2019 CLINICAL HISTORY: N20.0 kidney stone. Hx of renal stone; found on CT EXAM MEASUREMENTS: Right Kidney: 10.2 x 4.2 x 5.1 cm Left Kidney: 10.4 x 4.9 x 5.1 cm Right Kidney: Echogenic focus lower pole with posterior shadowing 1.2 cm compatible with a nonobstruc ting renal stone. Left Kidney: No hydronephrosis or masses seen Bladder: Not distended Bilateral Jets seen: No IMPRESSION: 1. Nonobstructing inferior pole right renal stone.
== END | disposition home or self-care (01) ==
LOC: RADUSWWP 09:31
PROVIDERS: ATTEND Urology
DX: N20.0 Calculus of kidney (principal)
CPT/HCPCS: 76770

== ENCOUNTER → 2022-01-27 | Outpatient (CLI) | payer MEDICARE ==
--- NOTE | 2022-01-28 13:05 | MM ---
Reason for exam: screening (asymptomatic). Last mammogram was performed 1 year ago. History: Patient is postmenopausal. Physical Findings: A clinical breast exam by your physician is recommended on an annual basis and results should be correlated with mammographic findings. MG 3D Screening Mammo W/Cad Bilateral CC and MLO view(s) were taken. Prior study comparison: January 21, 2021, bilateral MG 3d screening mammo w/cad. October 30, 2019, bilateral MG 3d screening mammo w/cad. There are scattered fibroglandular densities. No significant changes when compared with prior studies. ASSESSMENT: Benign, BI-RAD 2 RECOMMENDATION: Routine screening mammogram of both breasts in 1 year.
== END | disposition home or self-care (01) ==
LOC: RADMAMWWP 06:45
PROVIDERS: ATTEND Family Medicine
DX: Z12.31 Encounter for screening mammogram for malignant neoplasm of breast (principal); Z78.0 Asymptomatic menopausal state
CPT/HCPCS: 77063; 77067

== ENCOUNTER 2022-05-01 21:30 | Emergency (ER) | payer MEDICARE ==
[2022-05-01 21:50] VITALS: TEMP 98.6
--- NOTE | 2022-05-01 22:08 | ED ---
General Adult HPI - General Chief complaint: Shortness of Breath Stated complaint: Wants to be tested for Covid Time Seen by Provider: 05/01/22 21:55 Source: patient Mode of arrival: ambulatory Limitations: no limitations - History of Present Illness Initial comments: Patient is a 66-year-old female presenting requesting Covid test. Patient took him at home Covid test today which was positive, she wants to receive a PCR test to ensure this result was accurate. Symptoms started 3 days ago. She admits to some cough, congestion, mild shortness of breath, nausea. She denies any fever, chills, chest pain, weakness, abdominal pain, diarrhea, hematochezia, melena, dysuria, hematuria. - Related Data Home Medications Medication Instructions Recorded Confirmed amLODIPine [Norvasc] 10 mg PO HS 10/04/19 07/07/21 Previous Rx's Medication Instructions Recorded Ibuprofen [Motrin] 600 mg PO Q8HR PRN #30 tab 06/22/21 Azithromycin [Zithromax Z-pack] 0 mg PO DIRECTED #6 tab 07/07/21 Nirmatrelvir/Ritonavir [Paxlovid 1 each PO BID #1 packet 05/01/22 2X150 mg-100 mg (Eua)] Allergies Allergy/AdvReac Type Severity Reaction Status Date / Time codeine Allergy Rash/Hives Verified 09/12/21 00:18 Penicillins Allergy Rash/Hives Verified 09/12/21 00:18 Review of Systems ROS Statement: Those systems with pertinent positive or pertinent negative responses have been documented in the HPI. ROS Other: All systems not noted in ROS Statement are negative. Past Medical History Past Medical History: Coronary Artery Disease (CAD), Chest Pain / Angina, Eye Disorder, GERD/Reflux, Hyperlipidemia, Hypertension, Skin Disorder Additional Past Medical History / Comment(s): Chronic bilateral sciatica, arrhythmia-pt cannot recall type, beginnings of bilateral cataracts, rosacea. History of Any Multi-Drug Resistant Organisms: None Reported Past Surgical History: Heart Catheterization, Tubal Ligation Additional Past Surgical History / Comment(s): Cardiac cath-normal, egd, colonoscopy, R ganglion cyst removal Past Anesthesia/Blood Transfusion Reactions: No Reported Reaction Past Psychological History: Anxiety, Depression Smoking Status: Former smoker Past Alcohol Use History: None Reported Past Drug Use History: None Reported - Past Family History Mother Family Medical History: Chest Pain / Angina, Congestive Heart Failure (CHF) Father Family Medical History: Chest Pain / Angina, Congestive Heart Failure (CHF), Coronary Artery Disease (CAD) General Exam Limitations: no limitations General appearance: alert, in no apparent distress Head exam: Present: atraumatic, normocephalic, normal inspection Eye exam: Present: normal appearance, EOMI. Absent: scleral icterus, periorbital swelling Neck exam: Present: normal inspection Respiratory exam: Present: normal lung sounds bilaterally. Absent: respiratory distress, wheezes, rales, rhonchi, stridor Cardiovascular Exam: Present: regular rate, normal rhythm, normal heart sounds. Absent: systolic murmur, diastolic murmur, rubs, gallop, clicks Neurological exam: Present: alert, oriented X3, CN II-XII intact Psychiatric exam: Present: normal affect, normal mood Skin exam: Present: warm, dry, intact, normal color. Absent: rash Course Vital Signs 05/01/22 05/01/22 21:44 23:33 Temperature 98.6 F Pulse Rate 77 83 Respiratory 18 16 Rate Blood Pressure 155/86 148/92 O2 Sat by Pulse 98 98 Oximetry Medical Decision Making - Medical Decision Making Patient is a 66-year-old female presenting for Covid testing. Patient states she tested positive at home today. She has had symptoms for the last 3 days. They include cough, congestion, mild shortness of breath on exertion. Physical examination is unremarkable, vital signs are stable. Chest x-ray shows no acute process. Patient does test positive for Covid today. Patient will be provided with a prescription for Paxlovid. I instructed the patient on dose adjustment for her amlodipine. I instructed her and quarantine guidelines and supportive treatment. Follow-up with PCP. Report back to ER with any new or worsening symptoms. Discussed return parameters answered all questions. Patient conveyed verbal understanding and agreed to the plan. I discussed this case my attending Dr. Zamudio. - Lab Data Lab Results 05/01/22 Range/Units 22:21 Coronavirus (PCR) Detected A (Not Detectd) Disposition Clinical Impression: COVID Disposition: HOME SELF-CARE Condition: Good Instructions (If sedation given, give patient instructions): COVID-19 (Co ronavirus Disease 2019) (ED), How to Recover from COVID-19 at Home (ED) Additional Instructions: Follow-up with PCP. Take medication as prescribed. Take half of your daily dose of amlodipine while taking Paxlovid, restart usual dose 2 days after completing Paxlovid. Quarantine for 5 days starting from your first day of symptoms, after 5 days if you are symptom-free and fever free you may go out in public while wearing a tight fitting mask at all times for an additional 5 days. Continue quarantining if you are still having symptoms or any fever. Report back to ER with any new or worsening symptoms. Prescriptions: Nirmatrelvir/Ritonavir [Paxlovid 2X150 mg-100 mg (Eua)] 1 each PO BID #1 packet Is patient prescribed a controlled substance at d/c from ED?: No Referrals: Andre Rice DO [Primary Care Provider] - 1-2 days Time of Disposition: 23:19
--- NOTE | 2022-05-01 22:38 | XR ---
EXAMINATION TYPE: XR chest 2V DATE OF EXAM: 05/01/2022 COMPARISON: 09/12/2021 HISTORY: Cough. Short of breath TECHNIQUE: FINDINGS: Heart and mediastinum are normal. Lungs are clear. Diaphragm is normal. Bony thorax is inta ct. IMPRESSION: Normal chest. No change.
[2022-05-01 23:34] VITALS: BP 148/92; PULSE 83; RESP 16
== END 2022-05-01 23:33 | disposition home or self-care (01) ==
LOC: EC 21:30
DX: U07.1 COVID-19 (principal); I25.10 Atherosclerotic heart disease of native coronary artery without angina pectoris; E78.5 Hyperlipidemia, unspecified; I10 Essential (primary) hypertension; Z87.891 Personal history of nicotine dependence; Z79.899 Other long term (current) drug therapy; Z88.5 Allergy status to narcotic agent; Z88.0 Allergy status to penicillin
CPT/HCPCS: 71046; 87635; 99285

== ENCOUNTER 2023-04-01 18:44 | Emergency (ER) | payer MEDICARE ==
[2023-04-01] MEDS ORDERED: SODIUM CHLORIDE 0.9% 1,000 ML IV STA (19:21)
--- NOTE | 2023-04-01 19:29 | ED ---
General Adult HPI - General Chief complaint: Arrhythmia/Palpitations Stated complaint: weakness/chest pressure Time Seen by Provider: 04/01/23 18:55 Source: patient, RN notes reviewed, old records reviewed Mode of arrival: ambulatory Limitations: no limitations - History of Present Illness Initial comments: 67-year-old female presenting with palpitations, and lightheadedness. Patient denies central chest pain. She's had some nausea without vomiting. No abdominal pain. Denies measured fever but states she has felt warm. She denies any focal numbness or weakness. She states she has multiple medical problems and is being followed by multiple physicians. - Related Data Home Medications Medication Instructions Recorded Confirmed amLODIPine [Norvasc] 10 mg PO HS 10/04/19 04/01/23 Allergies Allergy/AdvReac Type Severity Reaction Status Date / Time codeine Allergy Rash/Hives Verified 04/01/23 19:50 Penicillins Allergy Rash/Hives Verified 04/01/23 19:50 Review of Systems ROS Statement: Those systems with pertinent positive or pertinent negative responses have been documented in the HPI. ROS Other: All systems not noted in ROS Statement are negative. Past Medical History Past Medical History: Coronary Artery Disease (CAD), Chest Pain / Angina, Eye Disorder, GERD/Reflux, Hyperlipidemia, Hypertension, Skin Disorder Additional Past Medical History / Comment(s): Chronic bilateral sciatica, arrhythmia-pt cannot recall type, beginnings of bilateral cataracts, rosacea. History of Any Multi-Drug Resistant Organisms: None Reported Past Surgical History: Heart Catheterization, Tubal Ligation Additional Past Surgical History / Comment(s): Cardiac cath-normal, egd, colonoscopy, R ganglion cyst removal Past Anesthesia/Blood Transfusion Reactions: No Reported Reaction Past Psychological History: Anxiety, Depression Smoking Status: Former smoker Past Alcohol Use History: None Reported Past Drug Use History: None Reported - Past Family History Mother Family Medical History: Chest Pain / Angina, Congestive Heart Failure (CHF) Father Family Medical History: Chest Pain / Angina, Congestive Heart Failure (CHF), Coronary Artery Disease (CAD) General Exam Limitations: no limitations General appearance: alert, in no apparent distress Head exam: Present: atraumatic, normocephalic Eye exam: Present: normal appearance, PERRL ENT exam: Present: normal exam Neck exam: Present: normal inspection. Absent: tenderness Respiratory exam: Present: normal lung sounds bilaterally. Absent: respiratory distress, wheezes Cardiovascular Exam: Present: regular rate, normal rhythm GI/Abdominal exam: Present: soft. Absent: distended, tenderness, guarding Extremities exam: Present: normal inspection, normal capillary refill Neurological exam: Present: alert, oriented X3, CN II-XII intact. Absent: motor sensory deficit Psychiatric exam: Present: normal affect, normal mood Skin exam: Present: warm, dry, intact. Absent: cyanosis, diaphoretic, erythema Course Vital Signs 04/01/23 04/01/23 04/01/23 18:47 18:59 19:00 Temperature 98.6 F Pulse Rate 64 63 Respiratory 20 17 12 Rate Blood Pressure 140/85 O2 Sat by Pulse 97 99 100 Oximetry 04/01/23 04/01/23 04/01/23 19:10 19:20 19:30 Temperature Pulse Rate 60 66 59 L Respiratory 12 20 14 Rate Blood Pressure O2 Sat by Pulse 99 99 Oximetry 04/01/23 04/01/23 04/01/23 19:40 19:50 20:00 Temperature Pulse Rate 57 L 60 Respiratory 17 18 Rate Blood Pressure 155/95 155/95 155/95 O2 Sat by Pulse 99 100 Oximetry 04/01/23 04/01/23 04/01/23 20:10 20:20 20:30 Temperature Pulse Rate 57 L 57 L 59 L Respiratory 16 13 17 Rate Blood Pressure 151/110 151/110 151/110 O2 Sat by Pulse 98 99 98 Oximetry 04/01/23 04/01/23 04/01/23 20:40 20:50 21:00 Temperature Pulse Rate 60 61 56 L Respiratory 18 44 H 9 L Rate Blood Pressure 145/91 145/91 145/91 O2 Sat by Pulse Oximetry 04/01/23 04/01/23 21:10 21:20 Temperature Pulse Rate 58 L 61 Respiratory 6 L 16 Rate Blood Pressure 142/92 142/92 O2 Sat by Pulse Oximetry Medical Decision Making - Medical Decision Making Was pt. sent in by a medical professional or institution (, INGE, REEL REPAIRER, urgent care, hospital, or usp...) When possible be specific @ -No Did you speak to anyone other than the patient for history (EMS, parent, family, police, friend...)? What history was obtained from this source @ -No Did you review nursing and triage notes (agree or disagree)? Why? @ -I reviewed and agree with nursing and triage notes Were old charts reviewed (outside hosp., previous admission, EMS record, old EKG , old radiological studies, urgent care reports/EKG's, usp records)? Report findings @ -No old charts were reviewed Differential Diagnosis (chest pain, altered mental status, abdominal pain women, abdominal pain men, vaginal bleeding, weakness, fever, dyspnea, syncope, headache, dizziness, GI bleed, back pain, seizure, CVA, palpatations, mental health, musculoskeletal)? @ Differential Palpitations Ventricular arrhythmias, atrial arrhythmias, myocardial infarction, anemia, thyrotoxicosis, electrolyte imbalance, hypokalemia, pulmonary embolism, pulmonary disease, drugs, alcohol, anxiety, stress.... This is not meant to be an all-inclusive list. EKG interpreted by me (3pts min.). @ -Sinus rhythm rate of 61, CO interval 169, QRS duration 89, QTC 426, no ST segment elevation X-rays interpreted by me (1pt min.). @Chest x-ray clear without focal pneumonia or acute findings CT interpreted by me (1pt min.). @ -None done U/S interpreted by me (1pt. min.). @ -None done What testing was considered but not performed or refused? (CT, X-rays, U/S, labs)? Why? @ -None What meds were considered but not given or refused? Why? @ -None Did you discuss the management of the patient with other professionals (professionals i.e. , PA, REEL REPAIRER, lab, RT, psych nurse, 7th grade social studies teacher, field reporter, teacher, training and development officer, bilingual case manager)? Give summary @ -No Was smoking cessation discussed for >3mins.? @ -No Was critical care preformed (if so, how long)? @ -No Were there social determinants of health that impacted care today? How? (Homelessness, low income, unemployed, alcoholism, drug addiction, transportation, low edu. Level, literacy, decrease access to med. care, fci, rehab)? @ -No Was there de-escalation of care discussed even if they declined (Discuss DNR or withdrawal of care, Hospice)? DNR status @ -No What co-morbidities impacted this encounter? (DM, HTN, Smoking, COPD, CAD, Cancer, CVA, ARF, Chemo, Hep., AIDS, mental health diagnosis, sleep apnea, morbid obesity)? @Hypertension Was patient admitted / discharged? Hospital course, mention meds given and route, prescriptions, significant lab abnormalities, going to OR and other pertinent info. @ -67-year-old female presenting with palpitations. No central chest pain. EKG is sinus rhythm. Chest x-ray is clear. She has a CBC showing anemia which is chronic. Normal CMP, negative troponin, normal urinalysis. Patient has occasional PVC on the monitor. She does have close outpatient cardiology follow-up. I did offer observation but patient declines prefers discharge with return parameters. Undiagnosed new problem with uncertain prognosis? @ -No Drug Therapy requiring intensive monitoring for toxicity (Heparin, Nitro, Insulin, Cardizem)? @ -No Were any procedures done? @ -No Diagnosis/symptom? @Palpitations, occasional PVC Acute, or Chronic, or Acute on Chronic? @Acute Uncomplicated (without systemic symptoms) or Complicated (systemic symptoms)? @ -default Side effects of treatment? @ -No Exacerbation, Progression, or Severe Exacerbation? @ -No Poses a threat to life or bodily function? How? (Chest pain, USA, IA, pneumonia, PE, COPD, DKA, ARF, appy, cholecystitis, CVA, Diverticulitis, Homicidal, Suicidal, threat to staff... and all critical care pts) @Moderate risk, arrhythmia - Lab Data Result diagrams: 04/01/23 19:43 04/01/23 19:43 Lab Results 04/01/23 04/01/23 04/01/23 Range/Units 19:43 19:43 19:43 WBC 6.2 (3.8-10.6) k/uL RBC 3.93 (3.80-5.40) m/uL Hgb 10.8 L (11.4-16.0) gm/dL Hct 34.5 (34.0-46.0) % MCV 87.9 (80.0-100.0) fL MCH 27.6 (25.0-35.0) pg MCHC 31.4 (31.0-37.0) g/dL RDW 14.2 (11.5-15.5) % Plt Count 211 (150-450) k/uL MPV 7.8 Neutrophils % 66 % Lymphocytes % 25 % Monocytes % 4 % Eosinophils % 3 % Basophils % 0 % Neutrophils # 4.1 (1.3-7.7) k/uL Lymphocytes # 1.6 (1.0-4.8) k/uL Monocytes # 0.2 (0-1.0) k/uL Eosinophils # 0.2 (0-0.7) k/uL Basophils # 0.0 (0-0.2) k/uL Hypochromasia Slight PT 10.4 (9.0-12.0) sec INR 1.0 (<1.2) APTT 23.5 (22.0-30.0) sec Sodium (137-145) mmol/L Potassium (3.5-5.1) mmol/L Chloride (98-107) mmol/L Carbon Dioxide (22-30) mmol/L Anion Gap mmol/L BUN (7-17) mg/dL Creatinine (0.52-1.04) mg/dL Est GFR (CKD-EPI)AfAm (>60 ml/min/1.73 sqM) Est GFR (CKD-EPI)NonAf (>60 ml/min/1.73 sqM) Glucose (74-99) mg/dL Calcium (8.4-10.2) mg/dL Magnesium (1.6-2.3) mg/dL Total Bilirubin (0.2-1.3) mg/dL AST (14-36) U/L ALT (4-34) U/L Alkaline Phosphatase (38-126) U/L Troponin I (0.000-0.034) ng/mL Total Protein (6.3-8.2) g/dL Albumin (3.5-5.0) g/dL Urine Color Yellow Urine Appearance Clear (Clear) Urine pH 5.5 (5.0-8.0) Ur Specific [place] 1.023 (1.001-1.035) Urine Protein Negative (Negative) Urine Glucose (UA) Negative (Negative) Urine Ketones Negative (Negative) Urine Blood Negative (Negative) Urine Nitrite Negative (Negative) Urine Bilirubin Negative (Negative) Urine Urobilinogen <2.0 (<2.0) mg/dL Ur Leukocyte Esterase Negative (Negative) 04/01/23 04/01/23 Range/Units 19:43 19:43 WBC (3.8-10.6) k/uL RBC (3.80-5.40) m/uL Hgb (11.4-16.0) gm/dL Hct (34.0-46.0) % MCV (80.0-100.0) fL MCH (25.0-35.0) pg MCHC (31.0-37.0) g/dL RDW (11.5-15.5) % Plt Count (150-450) k/uL MPV Neutrophils % % Lymphocytes % % Monocytes % % Eosinophils % % Basophils % % Neutrophils # (1.3-7.7) k/uL Lymphocytes # (1.0-4.8) k/uL Monocytes # (0-1.0) k/uL Eosinophils # (0-0.7) k/uL Basophils # (0-0.2) k/uL Hypochromasia PT (9.0-12.0) sec INR (<1.2) APTT (22.0-30.0) sec Sodium 139 (137-145) mmol/L Potassium 4.0 (3.5-5.1) mmol/L Chloride 105 (98-107) mmol/L Carbon Dioxide 27 (22-30) mmol/L Anion Gap 7 mmol/L BUN 15 (7-17) mg/dL Creatinine 0.81 (0.52-1.04) mg/dL Est GFR (CKD-EPI)AfAm 86 (>60 ml/min/1.73 sqM) Est GFR (CKD-EPI)NonAf 75 (>60 ml/min/1.73 sqM) Glucose 91 (74-99) mg/dL Calcium 9.0 (8.4-10.2) mg/dL Magnesium 2.0 (1.6-2.3) mg/dL Total Bilirubin 0.5 (0.2-1.3) mg/dL AST 24 (14-36) U/L ALT 31 (4-34) U/L Alkaline Phosphatase 89 (38-126) U/L Troponin I <0.012 (0.000-0.034) ng/mL Total Protein 7.3 (6.3-8.2) g/dL Albumin 4.0 (3.5-5.0) g/dL Urine Color Urine Appearance (Clear) Urine pH (5.0-8.0) Ur Specific [place] (1.001-1.035) Urine Protein (Negative) Urine Glucose (UA) (Negative) Urine Ketones (Negative) Urine Blood (Negative) Urine Nitrite (Negative) Urine Bilirubin (Negative) Urine Urobilinogen (<2.0) mg/dL Ur Leukocyte Esterase (Negative) Disposition Clinical Impression: Palpitations Disposition: HOME SELF-CARE Condition: Fair Instructions (If sedation given, give patient instructions): Heart Palpitations (ED) Is patient prescribed a controlled substance at d/c from ED?: No Referrals: Andre Rice DO [Primary Care Provider] - 1-2 days Benny Marvin MD [STAFF PHYSICIAN] - 1-2 days Time of Disposition: 21:48
[2023-04-01 20:04] LABS: Basophils % (A) 0 %; Eosinophils # (A) 0.2 k/uL (0-0.7); Eosinophils % (A) 3 %; HCT 34.5 % (34.0-46.0); HGB 10.8 gm/dL (11.4-16.0); Hypochromasia Slight; Lymphocytes # (A) 1.6 k/uL (1.0-4.8); Lymphocytes % (A) 25 %; MCH 27.6 pg (25.0-35.0); MCHC 31.4 g/dL (31.0-37.0); MCV 87.9 fL (80.0-100.0); Mean Platelet Volume 7.8; Monocytes # (A) 0.2 k/uL (0-1.0); Monocytes % (A) 4 %; Neutrophils # (A) 4.1 k/uL (1.3-7.7); Neutrophils % (A) 66 %; Platelet Count 211 k/uL (150-450); RBC 3.93 m/uL (3.80-5.40); RDW 14.2 % (11.5-15.5); WBC 6.2 k/uL (3.8-10.6)
--- NOTE | 2023-04-01 20:20 | XR ---
EXAMINATION TYPE: XR chest 2V DATE OF EXAM: 04/01/2023 COMPARISON: 11/19/2022 INDICATION: Dysrhythmia heart palpitations TECHNIQUE: Frontal and lateral views of the chest are obtained. FINDINGS: The heart size is normal. The pulmonary vasculature is normal. The lungs are clear. IMPRESSION: 1. No acute pulmonary process.
[2023-04-01 20:31] LABS: Partial Thromboplastin Time 23.5 sec (22.0-30.0); Prothrombin Time 10.4 sec (9.0-12.0)
[2023-04-01 20:44] LABS: ALT 31 U/L (4-34); AST 24 U/L (14-36); African American GFR (CKD) 86 (>60 ml/min/1.73 sqM); Alkaline Phosphatase 89 U/L (38-126); Anion Gap 7 mmol/L; Appearance,Urine Clear (Clear); Bilirubin,Urine Negative (Negative); Blood Urea Nitrogen 15 mg/dL (7-17); Blood,Urine Negative (Negative); Carbon Dioxide 27 mmol/L (22-30); Chloride 105 mmol/L (98-107); Color,Urine Yellow; Glucose 91 mg/dL (74-99); Glucose,Urine (UA) Negative (Negative); Ketones,Urine Negative (Negative); Leukocyte Esterase,Urine Negative (Negative); Nitrite,Urine Negative (Negative); Non-African American GFR(CKD) 75 (>60 ml/min/1.73 sqM); PH, Urine 5.5 (5.0-8.0); Protein,Urine Negative (Negative); Sodium 139 mmol/L (137-145); Specific Gravity,Urine 1.023 (1.001-1.035); Total Bilirubin 0.5 mg/dL (0.2-1.3); Total Protein 7.3 g/dL (6.3-8.2); Urobilinogen,Urine <2.0 mg/dL (<2.0)
[2023-04-01 22:08] VITALS: BP 137/84; PULSE 57; RESP 18
[2023-04-01 22:09] VITALS: TEMP 98.9
== END 2023-04-01 22:16 | disposition home or self-care (01) ==
LOC: EC 18:44
DX: R00.2 Palpitations (principal); I10 Essential (primary) hypertension; I25.10 Atherosclerotic heart disease of native coronary artery without angina pectoris; F41.9 Anxiety disorder, unspecified; F32.A Depression, unspecified; Z79.899 Other long term (current) drug therapy; Z87.891 Personal history of nicotine dependence; Z88.0 Allergy status to penicillin; Z88.8 Allergy status to other drugs, medicaments and biological substances
CPT/HCPCS: 36415; 71046; 80053; 81003; 83735; 84484; 85025; 85610; 85730; 93005; 99285

== ENCOUNTER 2023-09-14 00:13 | Emergency (ER) | payer MEDICARE ==
[2023-09-14 00:34] VITALS: RESP 18
[2023-09-14 00:46] LABS: Basophils % (A) 1 %; Eosinophils # (A) 0.2 k/uL (0-0.7); Eosinophils % (A) 3 %; HCT 35.3 % (34.0-46.0); HGB 11.3 gm/dL (11.4-16.0); Hypochromasia Slight; Lymphocytes # (A) 1.7 k/uL (1.0-4.8); Lymphocytes % (A) 25 %; MCH 27.7 pg (25.0-35.0); MCV 86.6 fL (80.0-100.0); Mean Platelet Volume 8.2; Monocytes # (A) 0.4 k/uL (0-1.0); Monocytes % (A) 5 %; Neutrophils # (A) 4.4 k/uL (1.3-7.7); Neutrophils % (A) 65 %; Platelet Count 228 k/uL (150-450); RBC 4.08 m/uL (3.80-5.40); RDW 14.2 % (11.5-15.5); WBC 6.7 k/uL (3.8-10.6)
[2023-09-14] MEDS ORDERED: ONDANSETRON 4 MG/2 ML VIAL IVP STA (01:31)
[2023-09-14] MEDS ORDERED: MORPHINE SULFATE 4 MG/ML SYRINGE IVP STA (01:31)
[2023-09-14] MEDS ORDERED: KETOROLAC 15 MG/ML 1 ML VIAL IVP STA (01:57)
--- NOTE | 2023-09-14 01:57 | ED ---
Abdominal Pain HPI - General Source: patient Mode of arrival: ambulatory Limitations: no limitations <Cinthya Mata - Last Filed: 09/14/23 03:45> - General Source: RN notes reviewed, old records reviewed <Nabeel Rodrigez - Last Filed: 09/14/23 04:54> - General Chief Complaint: Abdominal Pain Stated Complaint: Back Pain, Abdominal Pain, Nausea, Vomiting Time Seen by Provider: 09/14/23 01:23 - History of Present Illness Initial Comments: 67-year-old female presenting with chief complaint of right flank pain. Patient has had pain for several days. She was seen at urgent care and had an x-ray done which showed a large kidney stone. Patient states that she was given Toradol and the pain improved, however this evening she was awoken to severe pain and reported to the ER. She admits to nausea and vomiting. She states that the pain radiates from the flank to the groin and thigh. No fevers or chills. No dysuria or hematuria. No diarrhea. No injury. (Cinthya Mata) - Related Data Home Medications Medication Instructions Recorded Confirmed amLODIPine [Norvasc] 10 mg PO HS 10/04/19 04/01/23 Allergies Allergy/AdvReac Type Severity Reaction Status Date / Time codeine Allergy Rash/Hives Verified 04/01/23 19:50 Penicillins Allergy Rash/Hives Verified 04/01/23 19:50 Review of Systems ROS Other: All systems not noted in ROS Statement are negative. <Cinthya Mata - Last Filed: 09/14/23 03:45> ROS Other: All systems not noted in ROS Statement are negative. <Nabeel Rodrigez - Last Filed: 09/14/23 04:54> ROS Statement: Those systems with pertinent positive or pertinent negative responses have been documented in the HPI. Past Medical History Past Medical History: Coronary Artery Disease (CAD), Chest Pain / Angina, Eye Disorder, GERD/Reflux, Hyperlipidemia, Hypertension, Skin Disorder Additional Past Medical History / Comment(s): Chronic bilateral sciatica, arrhythmia-pt cannot recall type, beginnings of bilateral cataracts, rosacea. History of Any Multi-Drug Resistant Organisms: None Reported Past Surgical History: Heart Catheterization, Tubal Ligation Additional Past Surgical History / Comment(s): Cardiac cath-normal, egd, colonoscopy, R ganglion cyst removal Past Anesthesia/Blood Transfusion Reactions: No Reported Reaction Past Psychological History: Anxiety, Depression Smoking Status: Former smoker Past Alcohol Use History: None Reported Past Drug Use History: None Reported - Past Family History Mother Family Medical History: Chest Pain / Angina, Congestive Heart Failure (CHF) Father Family Medical History: Chest Pain / Angina, Congestive Heart Failure (CHF), Coronary Artery Disease (CAD) <Cinthya Mata - Last Filed: 09/14/23 03:45> General Exam Limitations: no limitations General appearance: alert, in no apparent distress Head exam: Present: atraumatic, normocephalic, normal inspection Eye exam: Present: normal appearance, EOMI Neck exam: Present: normal inspection Respiratory exam: Present: normal lung sounds bilaterally. Absent: respiratory distress, wheezes, rales, rhonchi, stridor Cardiovascular Exam: Present: regular rate, normal rhythm, normal heart sounds. Absent: systolic murmur, diastolic murmur, rubs, gallop, clicks GI/Abdominal exam: Present: soft, tenderness. Absent: distended, guarding, rebound, rigid Back exam: Present: normal inspection, CVA tenderness (R). Absent: CVA tenderness (L) Neurological exam: Present: alert, oriented X3 Psychiatric exam: Present: normal affect, normal mood Skin exam: Present: warm, dry, intact, normal color. Absent: rash <Cinthya Mata - Last Filed: 09/14/23 03:45> Course Vital Signs 09/14/23 09/14/23 09/14/23 00:17 01:20 01:23 Temperature 98.0 F 98.6 F Pulse Rate 70 71 Respiratory 18 18 Rate Blood Pressure 141/72 137/88 O2 Sat by Pulse 99 99 99 Oximetry 09/14/23 09/14/23 02:00 03:00 Temperature 98.6 F 97.9 F Pulse Rate 67 72 Respiratory 16 18 Rate Blood Pressure 137/88 132/86 O2 Sat by Pulse 98 99 Oximetry Medical Decision Making - Lab Data Result diagrams: 09/14/23 00:28 09/14/23 00:28 <Cinthya Mata - Last Filed: 09/14/23 03:45> - Lab Data Result diagrams: 09/14/23 00:28 09/14/23 00:28 <Nabeel Rodrigez N - Last Filed: 09/14/23 04:54> - Medical Decision Making Was pt. sent in by a medical professional or institution (INGE Kessler, MACHINE PLASTER MIXER, urgent care, hospital, or residential...) When possible be specific @ -[No] Did you speak to anyone other than the patient for history (EMS, parent, family, police, friend...)? What history was obtained from this source @ -[No] Did you review nursing and triage notes (agree or disagree)? Why? @ -[I reviewed and agree with nursing and triage notes] Were old charts reviewed (outside hosp., previous admission, EMS record, old EKG, old radiological studies, urgent care reports/EKG's, residential records)? Report findings @ -[No old charts were reviewed] Differential Diagnosis (chest pain, altered mental status, abdominal pain women, abdominal pain men, vaginal bleeding, weakness, fever, dyspnea, syncope, headache, dizziness, GI bleed, back pain, seizure, CVA, palpatations, mental health, musculoskeletal)? @ -MDM Differential Abdominal Pain Women: Appendicitis, Cholecystitis, diverticulosis, ischemic bowel, pancreatitis, hepatitis, UTI, gastroenteritis, AAA, incarcerated hernia, bowel obstruction, constipation, inflammatory bowel, hepatitis, peptic ulcer disease, splenic infarction, perforated viscus, vulvitis, ovarian torsion, PID, kidney stone, placenta abruption... This is not meant to be an all-inclusive list EKG interpreted by me (3pts min.). @ -[As above] X-rays interpreted by me (1pt min.). @ -[None done] CT interpreted by me (1pt min.). @ -Pending U/S interpreted by me (1pt. min.). @ -[None done] What testing was considered but not performed or refused? (CT, X-rays, U/S, labs)? Why? @ -[None] What meds were considered but not given or refused? Why? @ -[None] Did you discuss the management of the patient with other professionals (professionals i.e. IN[employer] Kessler, MACHINE PLASTER MIXER, lab, RT, psych nurse, social media job titles, special education itinerant teacher, teacher, environmental technical officer, case technician)? Give summary @ -[No] Was smoking cessation discussed for >3mins.? @ -[No] Was critical care preformed (if so, how long)? @ -[No] Were there social determinants of health that impacted care today? How? (Homelessness, low income, unemployed, alcoholism, drug addiction, transportation, low edu. Level, literacy, decrease access to med. care, longterm, rehab)? @ -[No] Was there de-escalation of care discussed even if they declined (Discuss DNR or withdrawal of care, Hospice)? DNR status @ -[No] What co-morbidities impacted this encounter? (DM, HTN, Smoking, COPD, CAD, Cancer, CVA, ARF, Chemo, Hep., AIDS, mental health diagnosis, sleep apnea, morbid obesity)? @ -[None] Was patient admitted / discharged? Hospital course, mention meds given and route, prescriptions, significant lab abnormalities, going to OR and other pertinent info. @ -67-year-old female presented chief complaint of right flank pain and nausea and vomiting. History and physical examination are conducted. No leukocytosis. Hemoglobin is consistent with baseline. CT of the abdomen and pelvis without contrast is obtained and results are pending Patient is signed out to my attending for further management and disposition (Cinthya Mata) CT shows large stone in the right renal pelvis, no other acute findings. Laboratory studies reviewed, unremarkable. Patient eager for discharge will follow with urology. (Nabeel Rodrigez) - Lab Data Lab Results 09/14/23 09/14/23 09/14/23 Range/Units 00:28 00:28 00:28 WBC 6.7 (3.8-10.6) k/uL RBC 4.08 (3.80-5.40) m/uL Hgb 11.3 L (11.4-16.0) gm/dL Hct 35.3 (34.0-46.0) % MCV 86.6 (80.0-100.0) fL MCH 27.7 (25.0-35.0) pg MCHC 32.0 (31.0-37.0) g/dL RDW 14.2 (11.5-15.5) % Plt Count 228 (150-450) k/uL MPV 8.2 Neutrophils % 65 % Lymphocytes % 25 % Monocytes % 5 % Eosinophils % 3 % Basophils % 1 % Neutrophils # 4.4 (1.3-7.7) k/uL Lymphocytes # 1.7 (1.0-4.8) k/uL Monocytes # 0.4 (0-1.0) k/uL Eosinophils # 0.2 (0-0.7) k/uL Basophils # 0.0 (0-0.2) k/uL Hypochromasia Slight Sodium 141 (137-145) mmol/L Potassium 4.1 (3.5-5.1) mmol/L Chloride 106 (98-107) mmol/L Carbon Dioxide 22 (22-30) mmol/L Anion Gap 13 mmol/L BUN 20 H (7-17) mg/dL Creatinine 0.82 (0.52-1.04) mg/dL Est GFR (CKD-EPI)AfAm 85 (>60 ml/min/1.73 sqM) Est GFR (CKD-EPI)NonAf 73 (>60 ml/min/1.73 sqM) Glucose 109 H (74-99) mg/dL Calcium 9.0 (8.4-10.2) mg/dL Total Bilirubin 0.6 (0.2-1.3) mg/dL AST 23 (14-36) U/L ALT 23 (4-34) U/L Alkaline Phosphatase 88 (38-126) U/L Total Protein 7.2 (6.3-8.2) g/dL Albumin 4.0 (3.5-5.0) g/dL Urine Color Yellow Urine Appearance Clear (Clear) Urine pH 5.0 (5.0-8.0) Ur Specific Gomer 1.030 (1.001-1.035) Urine Protein Negative (Negative) Urine Glucose (UA) Negative (Negative) Urine Ketones Negative (Negative) Urine Blood Negative (Negative) Urine Nitrite Negative (Negative) Urine Bilirubin 1+ H (Negative) Urine Urobilinogen <2.0 (<2.0) mg/dL Ur Leukocyte Esterase Small (Negative) Urine RBC 2 (0-5) /hpf Urine WBC 1 (0-5) /hpf Ur Squamous Epith Cells 8 H (0-4) /hpf Urine Mucus Rare H (None) /hpf Disposition <Cinthya Mata - Last Filed: 09/14/23 03:45> Is patient prescribed a controlled substance at d/c from ED?: No Time of Disposition: 04:54 <Nabeel Rodrigez - Last Filed: 09/14/23 04:54> Clinical Impression: Abdominal pain, Calculus of kidney Disposition: HOME SELF-CARE Condition: Fair Instructions (If sedation given, give patient instructions): Abdominal Pain (ED), Kidney Stones (ED) Referrals: Andre Rice DO [Primary Care Provider] - 1-2 days Heraclio Carrizales MD [STAFF PHYSICIAN] - 1-2 days
[2023-09-14 02:13] LABS: ALT 23 U/L (4-34); AST 23 U/L (14-36); African American GFR (CKD) 85 (>60 ml/min/1.73 sqM); Alkaline Phosphatase 88 U/L (38-126); Anion Gap 13 mmol/L; Blood Urea Nitrogen 20 mg/dL (7-17); Carbon Dioxide 22 mmol/L (22-30); Chloride 106 mmol/L (98-107); Glucose 109 mg/dL (74-99); Non-African American GFR(CKD) 73 (>60 ml/min/1.73 sqM); Potassium 4.1 mmol/L (3.5-5.1); Sodium 141 mmol/L (137-145); Total Bilirubin 0.6 mg/dL (0.2-1.3); Total Protein 7.2 g/dL (6.3-8.2)
[2023-09-14] MEDS ORDERED: DICYCLOMINE 10 MG/ML 2 ML AMP IM STA (02:14)
[2023-09-14 04:04] LABS: Mucus,Urine Rare /hpf; RBC,Urine 2 /hpf (0-5); Squamous Epithelial Cell,Urine 8 /hpf (0-4); WBC,Urine 1 /hpf (0-5)
[2023-09-14 04:06] LABS: Appearance,Urine Clear (Clear); Bilirubin,Urine 1+ (Negative); Blood,Urine Negative (Negative); Color,Urine Yellow; Glucose,Urine (UA) Negative (Negative); Ketones,Urine Negative (Negative); Nitrite,Urine Negative (Negative); Protein,Urine Negative (Negative); Urobilinogen,Urine <2.0 mg/dL (<2.0)
[2023-09-14 04:07] LABS: Leukocyte Esterase,Urine Small (Negative)
--- NOTE | 2023-09-14 04:33 | CT ---
EXAM: CT Abdomen and Pelvis Without Intravenous Contrast CLINICAL HISTORY: ITS.REASON CT Reason: R flank pain TECHNIQUE: Axial computed tomography images of the abdomen and pelvis without intravenous contrast. CTDI is 17.5 mGy and DLP is 995.9 mGy-cm. This CT exam was performed using one or more of the following dose reduction techniques: automated exposure control, adjustment of the mA and/or kV according to patient size, and/or use of iterative reconstruction technique. COMPARISON: No relevant prior studies available. FINDINGS: Limitations: Limited evaluation in the absence of contrast. Lung bases: Tree-in-bud nodularity within the left lower lobe which may be due to chronic atypical infection. ABDOMEN: Liver: Unremarkable. Gallbladder and bile ducts: Unremarkable. No calcified stones. No ductal dilation. Pancreas: Unremarkable. No ductal dilation. Spleen: Unremarkable. No splenomegaly. Adrenals: Unremarkable. No mass. Kidneys and ureters: No evidence of obstructive renal calculi or signs of collecting system dilatation. 8 x 13 x 10 mm calculus noted within the right renal pelvis. No evidence of signs of obstruction. Stomach and bowel: No evidence of bowel obstruction. No mucosal thickening. PELVIS: Appendix: Normal appendix. Bladder: Unremarkable. No stones. Reproductive: Multi-fibroid uterus with degenerated fibroids. ABDOMEN and PELVIS: Intraperitoneal space: Unremarkable. No free air. No significant fluid collection. Bones/joints: Degenerative changes in the spine. Flowing osteophyte formations in the spine compatible with diffuse idiopathic skeletal hyperostosis (DISH). Soft tissues: Umbilical hernia containing fat. Vasculature: Atherosclerotic disease. No abdominal aortic aneurysm. Lymph nodes: Unremarkable. No enlarged lymph nodes. IMPRESSION: 1. Limited evaluation in the absence of contrast. 2. No evidence of obstructive renal calculi or signs of collecting system dilatation. 3. 8 x 13 x 10 mm calculus noted within the right renal pelvis. No evidence of signs of obstruction. 4. No other acute findings. 5. Incidental findings as described.
[2023-09-14 05:27] VITALS: BP 126/78; PULSE 74; TEMP 98.8
== END 2023-09-14 05:09 | disposition home or self-care (01) ==
LOC: EC 00:13
DX: N20.0 Calculus of kidney (principal); I10 Essential (primary) hypertension; I25.10 Atherosclerotic heart disease of native coronary artery without angina pectoris; Z86.59 Personal history of other mental and behavioral disorders; Z87.891 Personal history of nicotine dependence; Z79.899 Other long term (current) drug therapy; Z88.5 Allergy status to narcotic agent; Z88.0 Allergy status to penicillin
CPT/HCPCS: 36415; 80053; 85025; 81001; 74176; 99284; 96374; 96375; 96372; J0500; J2405; J1885

== ENCOUNTER 2023-10-12 13:18 | Emergency (ER) | payer MEDICARE ==
[2023-10-12 14:03] LABS: Basophils % (A) 1 %; Eosinophils # (A) 0.2 k/uL (0-0.7); Eosinophils % (A) 2 %; HCT 36.7 % (34.0-46.0); HGB 11.7 gm/dL (11.4-16.0); Hypochromasia Slight; Lymphocytes # (A) 1.4 k/uL (1.0-4.8); Lymphocytes % (A) 19 %; MCH 27.4 pg (25.0-35.0); MCV 85.9 fL (80.0-100.0); Mean Platelet Volume 7.7; Monocytes # (A) 0.3 k/uL (0-1.0); Monocytes % (A) 4 %; Neutrophils # (A) 5.6 k/uL (1.3-7.7); Neutrophils % (A) 73 %; Platelet Count 248 k/uL (150-450); RBC 4.27 m/uL (3.80-5.40); RDW 14.3 % (11.5-15.5); WBC 7.7 k/uL (3.8-10.6)
[2023-10-12 14:13] LABS: ALT 25 U/L (4-34); AST 23 U/L (14-36); African American GFR (CKD) 72 (>60 ml/min/1.73 sqM); Albumin 4.3 g/dL (3.5-5.0); Alkaline Phosphatase 92 U/L (38-126); Anion Gap 12 mmol/L; Blood Urea Nitrogen 18 mg/dL (7-17); Calcium 9.3 mg/dL (8.4-10.2); Carbon Dioxide 24 mmol/L (22-30); Chloride 104 mmol/L (98-107); Glucose 122 mg/dL (74-99); Magnesium 2.1 mg/dL (1.6-2.3); Non-African American GFR(CKD) 62 (>60 ml/min/1.73 sqM); Potassium 4.1 mmol/L (3.5-5.1); Sodium 140 mmol/L (137-145); Total Bilirubin 0.5 mg/dL (0.2-1.3); Total Protein 7.8 g/dL (6.3-8.2)
--- NOTE | 2023-10-12 14:22 | ED ---
Chest Pain HPI - General Source: patient, family, RN notes reviewed Mode of arrival: ambulatory Limitations: no limitations <Poncho Rios - Last Filed: 10/12/23 14:21> - General Source: RN notes reviewed, old records reviewed Mode of arrival: ambulatory Limitations: no limitations - History of Present Illness MD Complaint: chest pain -: days(s) Onset: during rest, during exertion, awoke with symptoms Pain Location: substernal, left chest Severity: moderate Severity scale (1-10): 5 Quality: tightness Consistency: intermittent Improves With: nothing Worsens With: nothing Anginal Symptoms: dyspnea, sense of impending doom, other (Severe anxiety) Other Symptoms: palpitations Treatments Prior to Arrival: none <Luis E Huitron - Last Filed: 10/23/23 15:36> - General Chief Complaint: Chest Pain Stated Complaint: Chest pain Time Seen by Provider: 10/12/23 14:21 - History of Present Illness Initial Comments: 67-year-old female presents emergency Department chief complaint chest pain, hypertension. Patient does have history of high blood pressure states she is on medications for this. States pain started earlier today. Patient states she's had a prior heart cath which show no evidence of a blockage. She does follow with cardiology regularly. Patient does admit that her sister a few days ago from a heart attack. Patient states she believes this may be related to stress, anxiety. (Poncho Rios) This is a 67-year-old female to the emergency department for evaluation of chest pain hypertension and recently going through some significant distress secondary to family member passing away.. Patient admits to significant stressors in the ER with concern for heart failure as well cause her family members demise. Patient does have history of heart disease but does have prior heart catheterization which was normal (Luis E Huitron) - Related Data Home Medications Medication Instructions Recorded Confirmed amLODIPine [Norvasc] 10 mg PO HS 10/04/19 04/01/23 Allergies Allergy/AdvReac Type Severity Reaction Status Date / Time codeine Allergy Rash/Hives Verified 04/01/23 19:50 Penicillins Allergy Rash/Hives Verified 04/01/23 19:50 Review of Systems ROS Other: All systems not noted in ROS Statement are negative. <Poncho Rios - Last Filed: 10/12/23 14:21> ROS Other: All systems not noted in ROS Statement are negative. <Luis E Huitron - Last Filed: 10/23/23 15:36> ROS Statement: Those systems with pertinent positive or pertinent negative responses have been documented in the HPI. EKG Findings - EKG Comments: EKG Findings:: EKG is sinus 69 MD 149 QRS 94 QTC 4:15 - EKG Results: EKG: interpreted by ERMD <Luis E Huitron - Last Filed: 10/23/23 15:36> Past Medical History Past Medical History: Coronary Artery Disease (CAD), Chest Pain / Angina, Eye Disorder, GERD/Reflux, Hyperlipidemia, Hypertension, Skin Disorder Additional Past Medical History / Comment(s): Chronic bilateral sciatica, arrhythmia-pt cannot recall type, beginnings of bilateral cataracts, rosacea. History of Any Multi-Drug Resistant Organisms: None Reported Past Surgical History: Heart Catheterization, Tubal Ligation Additional Past Surgical History / Comment(s): Cardiac cath-normal, egd, colonoscopy, R ganglion cyst removal Past Anesthesia/Blood Transfusion Reactions: No Reported Reaction Past Psychological History: Anxiety, Depression Smoking Status: Former smoker Past Alcohol Use History: None Reported Past Drug Use History: None Reported - Past Family History Mother Family Medical History: Chest Pain / Angina, Congestive Heart Failure (CHF) Father Family Medical History: Chest Pain / Angina, Congestive Heart Failure (CHF), Coronary Artery Disease (CAD) <Poncho Rios - Last Filed: 10/12/23 14:21> General Exam Limitations: no limitations <Poncho Rios M - Last Filed: 10/12/23 14:21> General appearance: alert, in no apparent distress, anxious Head exam: Present: atraumatic, normocephalic, normal inspection Eye exam: Present: normal appearance, PERRL, EOMI. Absent: scleral icterus, conjunctival injection, periorbital swelling ENT exam: Present: normal exam, mucous membranes moist Neck exam: Present: normal inspection. Absent: tenderness, meningismus, lymphadenopathy Respiratory exam: Present: normal lung sounds bilaterally. Absent: respiratory distress, wheezes, rales, rhonchi, stridor Cardiovascular Exam: Present: regular rate, normal rhythm, normal heart sounds. Absent: systolic murmur, diastolic murmur, rubs, gallop, clicks GI/Abdominal exam: Present: soft, normal bowel sounds. Absent: distended, tenderness, guarding, rebound, rigid Extremities exam: Present: normal inspection, full ROM, normal capillary refill. Absent: tenderness, pedal edema, joint swelling, calf tenderness Back exam: Present: normal inspection Neurological exam: Present: alert, oriented X3, CN II-XII intact Psychiatric exam: Present: normal affect, normal mood Skin exam: Present: warm, dry, intact, normal color. Absent: rash <Luis E Huitron - Last Filed: 10/23/23 15:36> - General Exam Comments Initial Comments: Visual Physical Exam Vital signs reviewed General: Well-appearing, nontoxic, no acute distress. Head: Normocephalic, atraumatic Eyes: PERRLA, EOMI ENT: Airway patent Chest: Nonlabored breathing Skin: No visual rash, normal skin tone Neuro: Alert and oriented 3 Musculoskeletal: No gross abnormalities (Poncho Rios) Course <Luis E Huitron - Last Filed: 10/23/23 15:36> Vital Signs 10/12/23 10/12/23 13:34 16:43 Temperature 97.7 F 97.8 F Pulse Rate 71 62 Respiratory 16 18 Rate Blood Pressure 145/89 132/99 O2 Sat by Pulse 97 98 Oximetry - Reevaluation(s) Reevaluation #1: Medical records reviewed (Luis E Huitron) Reevaluation #2: Patient's symptoms improved (Luis E Huitron) Reevaluation #3: Patient informed results questions answered Studies Chest x-rays negative for acute disease (Luis E Huitron) Reevaluation #4: Was pt. sent in by a medical professional or institution (, PA, NUTRITION MANAGER, urgent care, hospital, or snf...) When possible be specific @ -no Did you speak to anyone other than the patient for history (EMS, parent, family, police, friend...)? What history was obtained from this source @ -no Did you review nursing and triage notes (agree or disagree)? Why? @ -agree Are old charts reviewed (outside hosp., previous admission, EMS record, old EKG, old radiological studies, urgent care reports/EKG's, snf records)? Report findings @ -yes Differential Diagnosis (chest pain, altered mental status, abdominal pain women, abdominal pain men, vaginal bleeding, weakness, fever, dyspnea, syncope, headache, dizziness, GI bleed, back pain, seizure, CVA, palpatations, mental health, musculoskeletal)? @ -prior EKG interpreted by me (3pts min.). @ -yes X-rays interpreted by me (1pt min.). @ -yes negative for acute disease CT interpreted by me (1pt min.). @ -no U/S interpreted by me (1pt. min.). @ -no What testing was considered but not performed or refused? (CT, X-rays, U/S, labs)? Why? @ -none What meds were considered but not given or refused? Why? @ -none Did you discuss the management of the patient with other professionals (professionals i.e. , PA, NUTRITION MANAGER, lab, RT, psych nurse, social work nurse, imaging scheduler, teacher, co founder and chief strategy officer, nurse outreach case manager)? Give summary @ -no Was smoking cessation discussed for >3mins.? @ -no Were there social determinants of health that impacted care today? How? (Homelessness, low income, unemployed, alcoholism, drug addiction, transportation, low edu. Level, literacy, decrease access to med. care, [facility], rehab)? @ -none Was there de-escalation of care discussed even if they declined (Discuss DNR or withdrawal of care, Hospice)? DNR status @ -no What co-morbidities impacted this encounter? (DM, HTN, Smoking, COPD, CAD, Cancer, CVA, ARF, Chemo, Hep., AIDS, mental health diagnosis, sleep apnea, morbid obesity)? @ -none Was patient admitted / discharged? Hospital course, mention meds given and route, prescriptions, significant lab abnormalities, going to OR and other pertinent info. @ - 67 female to the emergency for evaluation with no prior significant findings are heart catheterization. Patient does have chest pain resolved here in the ER feels well, can be discharged home Discharge Was critical care preformed (if so, how long)? @ -no Undiagnosed new problem with uncertain prognosis? @ -no Drug Therapy requiring intensive monitoring for toxicity (Heparin, Nitro, Insulin, Cardizem)? @ -no Were any procedures done? @ -no Diagnosis/symptom? @ -Chest pain, severe anxiety reaction increased Acute, or Chronic, or Acute on Chronic? @ -Acute Uncomplicated (without systemic symptoms) or Complicated (systemic symptoms)? @ -Complicated Side effects of treatment? @ -no Exacerbation, Progression, or Severe Exacerbation? @ -exacerbation Poses a threat to life or bodily function? How? (Chest pain, [place], [place], pneumonia, PE, COPD, DKA, ARF, appy, cholecystitis, CVA, Diverticulitis, Homicidal, Owens icidal, threat to staff... and all critical care pts) @ -yes with acute chest pain (Luis E Huitron) Reevaluation #5: Differential Chest Pain: Stable Angina, Unstable Angina, STEMI, NSTEMI Aortic Dissection, Pneumothorax, Musculoskeletal, Esophageal Spasm GERD, Cholecystitis, Pancreatitis, Zoster, this is not meant to be an all-inclusive list. (Luis E Huitron) Chest Pain MDM <Poncho Rios - Last Filed: 10/12/23 14:21> <Luis E Huitron - Last Filed: 10/23/23 15:36> - MDM I completed the quick note portion of this chart signed Poncho Rios PA-C (Poncho Rios) 67 female to the emergency for evaluation with no prior significant findings are heart catheterization. Patient does have chest pain resolved here in the ER feels well, can be discharged home (Luis E Huitron) Disposition <Poncho Rios - Last Filed: 10/12/23 14:21> Is patient prescribed a controlled substance at d/c from ED?: No Time of Disposition: 16:35 <Luis E Huitron - Last Filed: 10/23/23 15:36> Clinical Impression: Anxiety, Grief reaction Disposition: HOME SELF-CARE Condition: Fair Instructions (If sedation given, give patient instructions): Grief and Loss (ED) Referrals: Andre Rice DO [Primary Care Provider] - 1-2 days
--- NOTE | 2023-10-12 14:59 | XR ---
EXAMINATION TYPE: XR chest 2V DATE OF EXAM: 10/12/2023 COMPARISON: 04/01/2023 HISTORY: 67-year-old female with chest pain TECHNIQUE: PA and lateral views FINDINGS: The cardiomediastinal silhouette, aorta, and pulmonary vasculature are within normal limits. Lungs an d pleural spaces are clear. Similar slight eventration anterior right hemidiaphragm. IMPRESSION: No acute cardiopulmonary process.
[2023-10-12 17:02] VITALS: BP 132/99; PULSE 62; RESP 18; TEMP 97.8
== END 2023-10-12 16:50 | disposition home or self-care (01) ==
LOC: EC 13:18
DX: F43.22 Adjustment disorder with anxiety (principal); R07.89 Other chest pain; I10 Essential (primary) hypertension; I25.10 Atherosclerotic heart disease of native coronary artery without angina pectoris; Z79.899 Other long term (current) drug therapy; Z88.5 Allergy status to narcotic agent; Z88.0 Allergy status to penicillin; Z87.891 Personal history of nicotine dependence
CPT/HCPCS: 36415; 71046; 80053; 83735; 84484; 85025; 93005; 99285

== ENCOUNTER 2024-01-07 15:30 | Emergency (ER) | payer MEDICARE ==
--- NOTE | 2024-01-07 16:03 | ED ---
Fall HPI - General Source: patient, RN notes reviewed Mode of arrival: ambulatory Limitations: no limitations - History of Present Illness MD Complaint: fall <Kay Arteaga - Last Filed: 01/07/24 16:58> <Venu Gan - Last Filed: 01/07/24 17:38> - General Chief Complaint: Fall Stated Complaint: Fall, head injury Time Seen by Provider: 01/07/24 15:44 - History of Present Illness Initial Comments: This is a 68-year-old female who presents to the emergency department for a fall. About 20 minutes prior to arrival patient was walking around when she tripped on a bag and fell. She hit her head into the drywall, and states that it caused a hole in the wall. Denies any loss of consciousness. Not taking any blood thinners. She does complain of a headache. She has mild dizziness but denies any nausea. (Kay Arteaga) - Related Data Home Medications Medication Instructions Recorded Confirmed amLODIPine [Norvasc] 10 mg PO HS 10/04/19 04/01/23 Allergies Allergy/AdvReac Type Severity Reaction Status Date / Time codeine Allergy Rash/Hives Verified 01/07/24 15:40 ketorolac [From Toradol] Allergy Nausea Verified 01/07/24 15:41 Penicillins Allergy Rash/Hives Verified 01/07/24 15:40 Review of Systems ROS Other: All systems not noted in ROS Statement are negative. <Kay Arteaga - Last Filed: 01/07/24 16:58> ROS Other: All systems not noted in ROS Statement are negative. <Venu Gan - Last Filed: 01/07/24 17:38> ROS Statement: Those systems with pertinent positive or pertinent negative responses have been documented in the HPI. Past Medical History Past Medical History: Coronary Artery Disease (CAD), Chest Pain / Angina, Eye Disorder, GERD/Reflux, Hyperlipidemia, Hypertension, Skin Disorder Additional Past Medical History / Comment(s): Chronic bilateral sciatica, arrhythmia-pt cannot recall type, beginnings of bilateral cataracts, rosacea. History of Any Multi-Drug Resistant Organisms: None Reported Past Surgical History: Heart Catheterization, Tubal Ligation Additional Past Surgical History / Comment(s): Cardiac cath-normal, egd, colonoscopy, R ganglion cyst removal Past Anesthesia/Blood Transfusion Reactions: No Reported Reaction Past Psychological History: Anxiety, Depression Smoking Status: Former smoker Past Alcohol Use History: None Reported Past Drug Use History: None Reported - Past Family History Mother Family Medical History: Chest Pain / Angina, Congestive Heart Failure (CHF) Father Family Medical History: Chest Pain / Angina, Congestive Heart Failure (CHF), Coronary Artery Disease (CAD) <Kay Arteaga - Last Filed: 01/07/24 16:58> General Exam Limitations: no limitations General appearance: alert, in no apparent distress Head exam: Present: atraumatic, normocephalic, normal inspection Eye exam: Present: normal appearance, PERRL, EOMI. Absent: scleral icterus, conjunctival injection, periorbital swelling Respiratory exam: Present: normal lung sounds bilaterally. Absent: respiratory distress, wheezes, rales, rhonchi, stridor Cardiovascular Exam: Present: regular rate, normal rhythm, normal heart sounds. Absent: systolic murmur, diastolic murmur, rubs, gallop, clicks Neurological exam: Present: alert, oriented X3, CN II-XII intact Psychiatric exam: Present: normal affect, normal mood Skin exam: Present: warm, dry, intact, normal color. Absent: rash <Kay Arteaga - Last Filed: 01/07/24 16:58> Course Vital Signs 01/07/24 15:36 Temperature 97.8 F Pulse Rate 67 Respiratory 17 Rate Blood Pressure 137/77 O2 Sat by Pulse 100 Oximetry Medical Decision Making - Radiology Data Radiology results: report reviewed, image reviewed <Kay Arteaga - Last Filed: 01/07/24 16:58> <Venu Gan - Last Filed: 01/07/24 17:38> - Medical Decision Making This is a 68-year-old female who presents to the emergency department for a head injury. Was pt. sent in by a medical professional or institution? @ -No Did you speak to anyone other than the patient for history? @ -No Did you review nursing and triage notes? @ -Yes, and I agree, it is accurate with regards to the patient's symptoms. Were old charts reviewed? @ -No Differential Diagnosis? @ -Differential Diagnosis Head Injury: Contusion, hematoma, intracranial hemorrhage, skull fracture, whiplash, concussion, this is not meant to be an all-inclusive list. EKG interpreted by me (3pts min.)? @ -Not obtained X-rays interpreted by me (1pt min.)? @ -Not obtained CT interpreted by me (1pt min.)? @ -Pending U/S interpreted by me (1pt. min.)? @ -Not obtained What testing was considered but not performed? (CT, X-rays, U/S, labs)? Why? @ -None What meds were considered but not given? Why? @ -None Did you discuss the management of the patient with other professionals? @ -No Did you reconcile home meds? @ -No Was smoking cessation discussed for >3mins.? @ -No Was critical care preformed (if so, how long)? @ -No Were there social determinants of health that impacted care today? How? (Homelessness, low income, unemployed, alcoholism, drug addiction, transportation, low edu. Level, literacy, decrease access to med. care, [facility], rehab)? @ -No Was there de-escalation of care discussed even if they declined? (Discuss DNR or withdrawal of care, Hospice)? @ -No What co-morbidities impacted this encounter? (DM, HTN, Smoking, COPD, CAD, Cancer, CVA, Hep., AIDS, mental health diagnosis, sleep apnea, morbid obesity)? @ -None Was patient admitted / discharged? @ -CT scan of the brain/c-spine obtained. Case signed out to Juan David Gan PA-C, at shift completion pending CT scan results. (Kay Arteaga) Was patient admitted / discharged? Hospital course, mention meds given and route, prescriptions, significant lab abnormalities, going to OR and other pertinent info. @ -Discharge 68-year-old female presenting status post mechanical fall. Patient not on blood thinners. Patient reports she was walking around her house when she excellently tripped on a bag causing her to fall forward into the drywall hitting the right side of her forehead and breaking the drywall. Denies any LOC. Patient not on blood thinners. Head CT obtained which revealed no evidence of acute intracranial abnormality. Patient discharged home in stable condition with instructions to follow-up with her primary care provider. Undiagnosed new problem with uncertain prognosis? @ -No Drug Therapy requiring intensive monitoring for toxicity (Heparin, Nitro, Insulin, Cardizem)? @ -No Were any procedures done? @ -No Diagnosis/symptom? @ -Mechanical trip and fall into the wall, head injury Acute, or Chronic, or Acute on Chronic? @ -Acute Uncomplicated (without systemic symptoms) or Complicated (systemic symptoms)? @ -Uncomplicated Side effects of treatment? @ -No Exacerbation, Progression, or Severe Exacerbation? @ -No Poses a threat to life or bodily function? How? (Chest pain, [place], [place], pneumonia, PE, COPD, DKA, ARF, appy, cholecystitis, CVA, Diverticulitis, Homicidal, Suicidal, threat to staff... and all critical care pts) @ -No (Venu Gan) Disposition <Kay Arteaga - Last Filed: 01/07/24 16:58> Is patient prescribed a controlled substance at d/c from ED?: No Time of Disposition: 17:38 <Venu Gan - Last Filed: 01/07/24 17:38> Clinical Impression: Fall, Head injury Disposition: HOME SELF-CARE Condition: Good Additional Instructions: Please return to the Emergency Department if symptoms worsen or any other concerns. Please follow-up with your primary care provider. Referrals: Andre Rice DO [Primary Care Provider] - 1-2 days
--- NOTE | 2024-01-07 17:17 | CT ---
EXAMINATION TYPE: CT brain cspine wo con CT DLP: 1563.5 mGycm, Automated exposure control for dose reduction was used. DATE OF EXAM: 01/07/2024 4:59 PM COMPARISON: CT head 11/19/2022 CLINICAL INDICATION:Female, 68 years old with history of Head injury; pain after fall and hit head. TECHNIQUE: Brain: Multiple axial CT images of the brain were obtained without IV contrast. Cspine: Axial CT images from the skull base to the inferior aspect of T2 we obtained without intraven ous contrast. Coronal and sagittal reformatted images were also reviewed. FINDINGS: Brain: Extra-axial spaces: No abnormal extra-axial fluid collections. Ventricular system: Similar size and configuration of the ventricles, mildly enlarged likely sequela of brain volume loss. Cerebral parenchyma: No increased attenuation to suggest acute intraparenchymal hemorrhage. The gra y-white matter interface appears maintained. Mild generalized brain atrophy. Scattered hypoattenuat ing areas are seen within the cerebral white matter, nonspecific but most often seen with chronic ana rovascular ischemic changes; mild in degree. Small bilateral foci of hyperattenuation in the basal g anglia, similar to previous, suggesting lacunar infarcts most likely chronic. Cerebellum: No acute abnormality. Mass effect: No evidence of mass effect or midline shift. Intracranial vasculature: Atherosclerotic calcifications of the larger arteries near the skull base. Soft tissues: No acute abnormality Visualized orbits: Orbital contents appear grossly intact. Calvarium/osseous structures: No evidence of calvarial fracture. Paranasal sinuses and mastoid air cells: Clear. MRI is more sensitive for detecting acute processes such as infarct, and may be considered if clinica lly warranted. Cervical spine: Fracture: None seen. Osseous structures, spinal canal/neural foramina: Craniocervical junction appears intact. There are m ild/moderate degenerative changes throughout the cervical spine. Predominantly disc marginal osteophy hafsa cause mild to moderate spinal canal and neural foraminal stenoses at multiple levels. No critical stenosis. Vertebral alignment: No traumatic malalignment. Straightening of the normal cervical lordosis, likely related to degenerative changes, but also pain, positioning, or muscular spasm. Neck soft tissues: No acute finding.. Other: Not well seen without contrast, but there is calcification along the aortic arch and the branc h vessels appear quite tortuous, this likely accounts for the appearance of bowing of the trachea tow ards the right near the level of the thoracic inlet. Trachea does remain patent however. The lung api edilson show no acute infiltrate or pneumothorax. Mild chronic senescent changes. IMPRESSION: CT head: Overall stable exam, no acute intracranial abnormality. CT cervical spine: 1. No evidence of acute cervical spine fracture or traumatic malalignment. 2. Mild/moderate cervical spondylosis.
[2024-01-07] MEDS: ACETAMINOPHEN TAB 500 MG TAB PO STA (17:43)
[2024-01-07 18:01] VITALS: BP 120/76; PULSE 80; RESP 18; TEMP 97.9
== END 2024-01-07 17:45 | disposition home or self-care (01) ==
LOC: EC 15:30
DX: S09.90XA Unspecified injury of head, initial encounter (principal); Z87.891 Personal history of nicotine dependence; Z88.0 Allergy status to penicillin; Z88.5 Allergy status to narcotic agent; Z88.8 Allergy status to other drugs, medicaments and biological substances; W01.0XXA Fall on same level from slipping, tripping and stumbling without subsequent striking against object, initial encounter
CPT/HCPCS: 70450; 72125; 99284

== ENCOUNTER → 2024-01-08 | Outpatient (CLI) | payer MEDICARE ==
--- NOTE | 2024-01-08 08:51 | XR ---
EXAMINATION TYPE: XR KUB DATE OF EXAM: 01/08/2024 COMPARISON: 09/14/2023 HISTORY: Pain TECHNIQUE: One view abdominal series FINDINGS: The osseous structures are intact. The bowel gas pattern is nonspecific. Multiple calculi are seen along the right paraspinal line at the level L3 the largest measuring a smith meter 5 mm. Additional approximately 4 calcifications are seen involving the mid and lower pole of the right kid claudia. No suspicious calcifications overlying the left kidney. Scoliosis and degenerative changes of the spine. Arthropathy of the hips. IMPRESSION: 1. Nonspecific abdomen. 2. Multiple mid right ureteral calculi with the largest measuring 5 mm in diameter.
== END | disposition home or self-care (01) ==
LOC: RADXRMAIN 08:05
PROVIDERS: ATTEND Urology
DX: N20.1 Calculus of ureter (principal)
CPT/HCPCS: 74018

== ENCOUNTER → 2024-01-09 | Outpatient (CLI) | payer MEDICARE ==
--- NOTE | 2024-01-09 13:55 | CT ---
EXAMINATION TYPE: CT brain wo con DATE OF EXAM: 01/09/2024 COMPARISON: 01/07/2024 INDICATION: headache and dizziness following fall DLP: 995.5 mGycm, Automated exposure control for dose reduction was used. CONTRAST: None CT of the brain is performed utilizing 3 mm thick sections through the posterior fossa and 3 mm thick sections through the remaining calvarium. Study is performed within 24 hours of arrival to the hosp ital. No abnormal hyperdensity is present to suggest an acute intracranial hemorrhage. No mass lesion is evident. No acute infarcts are evident. There is subtle periventricular white matter hypodensity, likely on th e basis of chronic white matter ischemic change. Finding was present previously and appears stable. Ventricles and sulci are appropriate for the patient age. Paranasal sinuses and mastoid air cells within the [id number] are clear. IMPRESSION: 1. Mild stable chronic appearing periventricular white matter ischemic-type change. Follow-up MRI c an be performed as clinically indicated.
== END | disposition home or self-care (01) ==
LOC: RADCTMAIN 12:28
PROVIDERS: ATTEND Family Medicine
DX: I67.82 Cerebral ischemia (principal)
CPT/HCPCS: 70450

== ENCOUNTER 2024-01-11 14:21 | Emergency (ER) | payer MEDICARE ==
--- NOTE | 2024-01-11 14:42 | ED ---
Abdominal Pain HPI - General Chief Complaint: Abdominal Pain Stated Complaint: Back Pain Time Seen by Provider: 01/11/24 14:40 Source: patient, RN notes reviewed Mode of arrival: ambulatory Limitations: no limitations - History of Present Illness Initial Comments: This is a 68-year-old female with a history of hypertension and nephrolithiasis presents emergency department chief complaint of right-sided flank pain and right lower quadrant pain. Patient states that she underwent a lithotripsy due to a large stone in her right kidney on 01/01/24, unsure of the size.Patient states that her pain subsided after procedure, however has been experiencing dilshad n since Monday associated with right lower quadrant tenderness and increasing urgency and frequency to use the restroom. Denies dysuria, hematuria. Patient endorses feelings of chills, nausea, no vomiting. States she has not been on antibiotics lately for kidney and/or urinary tract infections. Patient presented with her urologist on Monday with a KUB was completed revealing a 5 mm stone in the right ureteral calculi - Related Data Home Medications Medication Instructions Recorded Confirmed amLODIPine [Norvasc] 10 mg PO HS 10/04/19 01/11/24 Allergies Allergy/AdvReac Type Severity Reaction Status Date / Time codeine Allergy Rash/Hives Verified 01/11/24 16:57 ketorolac [From Toradol] Allergy Nausea Verified 01/11/24 16:57 Penicillins Allergy Rash/Hives Verified 01/11/24 16:57 Review of Systems ROS Statement: Those systems with pertinent positive or pertinent negative responses have been documented in the HPI. ROS Other: All systems not noted in ROS Statement are negative. Past Medical History Past Medical History: Coronary Artery Disease (CAD), Chest Pain / Angina, Eye Di sorder, GERD/Reflux, Hyperlipidemia, Hypertension, Skin Disorder Additional Past Medical History / Comment(s): Chronic bilateral sciatica, arrhythmia-pt cannot recall type, beginnings of bilateral cataracts, rosacea. History of Any Multi-Drug Resistant Organisms: None Reported Past Surgical History: Heart Catheterization, Tubal Ligation Additional Past Surgical History / Comment(s): Cardiac cath-normal, egd, colonoscopy, R ganglion cyst removal Past Anesthesia/Blood Transfusion Reactions: No Reported Reaction Past Psychological History: Anxiety, Depression Smoking Status: Former smoker Past Alcohol Use History: None Reported Past Drug Use History: None Reported - Past Family History Mother Family Medical History: Chest Pain / Angina, Congestive Heart Failure (CHF) Father Family Medical History: Chest Pain / Angina, Congestive Heart Failure (CHF), Coronary Artery Disease (CAD) General Exam Limitations: no limitations Course Vital Signs 01/11/24 14:29 Temperature 97.9 F Pulse Rate 73 Respiratory 18 Rate Blood Pressure 129/81 O2 Sat by Pulse 95 Oximetry Medical Decision Making - Medical Decision Making Was pt. sent in by a medical professional or institution (, PA, [facility], urgent care, hospital, or fdc...) When possible be specific @ -No Did you speak to anyone other than the patient for history (EMS, parent, family, police, friend...)? What history was obtained from this source @ -No Did you review nursing and triage notes (agree or disagree)? Why? @ -I reviewed and agree with nursing and triage notes Were old charts reviewed (outside hosp., previous admission, EMS record, old EKG, old radiological studies, urgent care reports/EKG's, fdc records)? Report findings @ -No old charts were reviewed Differential Diagnosis (chest pain, altered mental status, abdominal pain women, abdominal pain men, vaginal bleeding, weakness, fever, dyspnea, syncope, headache, dizziness, GI bleed, back pain, seizure, CVA, palpatations, mental health, musculoskeletal)? @ -Differential Abdominal Pain Women: Appendicitis, Cholecystitis, diverticulosis, ischemic bowel, pancreatitis, hepatitis, UTI, gastroenteritis, AAA, incarcerated hernia, bowel obstruction, constipation, inflammatory bowel, hepatitis, peptic ulcer disease, splenic infarction, perforated viscus, vulvitis, ovarian torsion, PID, kidney stone, placenta abruption, this is not meant to be an all-inclusive list EKG interpreted by me (3pts min.). @ -None X-rays interpreted by me (1pt min.). @ -None done CT interpreted by me (1pt min.). @ - CT abdomen pelvis without contrast reveals an obstructing 0.7 cm right UPJ stone with moderate right-sided hydronephrosis additional nonobstructing right renal stones present U/S interpreted by me (1pt. min.). @ -None done What testing was considered but not performed or refused? (CT, X-rays, U/S, labs)? Why? @ -None What meds were considered but not given or refused? Why? @ -None Did you discuss the management of the patient with other professionals (professionals i.e. DrGregory, PA, [facility], lab, RT, psych nurse, perinatal social worker, senior quality analyst, teacher, chief legal officer, correctional case manager)? Give summary @ -I spoke with Dr. Espinal, with urology, recommended 2 options with the patient. Option 1 patient will be admitted this evening for pain control and will undergo stent placement tomorrow. A second option being that patient can text Dr. Hirsch's office regarding worsening, reviewed CT findings today if patient's pain is well-controlled. Was smoking cessation discussed for >3mins.? @ -No Was critical care preformed (if so, how long)? @ -No Were there social determinants of health that impacted care today? How? (Homelessness, low income, unemployed, alcoholism, drug addiction, transportation, low edu. Level, literacy, decrease access to med. care, senior living, rehab)? @ -No Was there de-escalation of care discussed even if they declined (Discuss DNR or withdrawal of care, Hospice)? DNR status @ -No What co-morbidities impacted this encounter? (DM, HTN, Smoking, COPD, CAD, Canc er, CVA, ARF, Chemo, Hep., AIDS, mental health diagnosis, sleep apnea, morbid obesity)? @ -Hypertension Was patient admitted / discharged? Hospital course, mention meds given and route, prescriptions, significant lab abnormalities, going to OR and other pertinent info. @ -68-year-old female with right-sided flank right lower quadrant tenderness. A 0.7 cm right UPJ stone. Patient's laboratory results unremarkable for signs of infection. Urinalysis reveals blood, no leukocytes or concern for infection. CMP reveals an elevated BUN and creatinine ratio of 22 and 1.38, consistent with mild JAMES therefor 500 cc fluids IV given. I discussed options of care with the patient, she states that she would like to go home this evening to follow-up with Dr. Hirsch outpatient.. Patient's vitals are stable, and pain is well- controlled with dose of Tylenol given. Discussed with Dr. Owusu. Undiagnosed new problem with uncertain prognosis? @ -No Drug Therapy requiring intensive monitoring for toxicity (Heparin, Nitro, Insulin, Cardizem)? @ -No Were any procedures done? @ -No Diagnosis/symptom? @ -nephrolithiasis, obstructing kidney stone, flank pain Acute, or Chronic, or Acute on Chronic? @ -acute Uncomplicated (without systemic symptoms) or Complicated (systemic symptoms)? @ -uncomplicated Side effects of treatment? @ -No Exacerbation, Progression, or Severe Exacerbation? @ -No Poses a threat to life or bodily function? How? (Chest pain, [place], [place], pneumonia, PE, COPD, DKA, ARF, appy, cholecystitis, CVA, Diverticulitis, Homicidal, Suicidal, threat to staff... and all critical care pts) @ -No - Lab Data Result diagrams: 01/11/24 15:10 01/11/24 15:10 Lab Results 01/11/24 01/11/24 01/11/24 Range/Units 15:10 15:10 15:39 WBC 7.1 (3.8-10.6) k/uL RBC 4.25 (3.80-5.40) m/uL Hgb 11.3 L (11.4-16.0) gm/dL Hct 36.8 (34.0-46.0) % MCV 86.6 (80.0-100.0) fL MCH 26.5 (25.0-35.0) pg MCHC 30.6 L (31.0-37.0) g/dL RDW 14.3 (11.5-15.5) % Plt Count 233 (150-450) k/uL MPV 9.0 Neutrophils % 73 % Lymphocytes % 18 % Monocytes % 5 % Eosinophils % 1 % Basophils % 0 % Neutrophils # 5.2 (1.3-7.7) k/uL Lymphocytes # 1.3 (1.0-4.8) k/uL Monocytes # 0.3 (0-1.0) k/uL Eosinophils # 0.1 (0-0.7) k/uL Basophils # 0.0 (0-0.2) k/uL Hypochromasia Slight Sodium 139 (137-145) mmol/L Potassium 4.3 (3.5-5.1) mmol/L Chloride 106 (98-107) mmol/L Carbon Dioxide 28 (22-30) mmol/L Anion Gap 5 mmol/L BUN 22 H (7-17) mg/dL Creatinine 1.38 H (0.52-1.04) mg/dL Est GFR (CKD-EPI)AfAm 45 (>60 ml/min/1.73 sqM) Est GFR (CKD-EPI)NonAf 39 (>60 ml/min/1.73 sqM) Glucose 92 (74-99) mg/dL Calcium 9.3 (8.4-10.2) mg/dL Total Bilirubin 0.7 (0.2-1.3) mg/dL AST 24 (14-36) U/L ALT 17 (4-34) U/L Alkaline Phosphatase 86 (38-126) U/L Total Protein 7.2 (6.3-8.2) g/dL Albumin 4.0 (3.5-5.0) g/dL Urine Color Light Yellow Urine Appearance Clear (Clear) Urine pH 6.0 (5.0-8.0) Ur Specific [place] 1.020 (1.001-1.035) Urine Protein Negative (Negative) Urine Glucose (UA) Negative (Negative) Urine Ketones Negative (Negative) Urine Blood Moderate H (Negative) Urine Nitrite Negative (Negative) Urine Bilirubin Negative (Negative) Urine Urobilinogen <2.0 (<2.0) mg/dL Ur Leukocyte Esterase Trace H (Negative) Urine RBC 28 H (0-5) /hpf Urine WBC 4 (0-5) /hpf Ur Squamous Epith Cells 3 (0-4) /hpf Urine Bacteria Rare H (None) /hpf Urine Mucus Rare H (None) /hpf Disposition Clinical Impression: Nephrolithiasis, Hydronephrosis with obstructing calculus Narrative: Please return to the Emergency Department if symptoms worsen or any other concerns. Follow-up with Dr. Carrizales, urologist, urology for further evaluation of 0.7 cm obstructing ureteral calculi within the ureteropelvic junction. Disposition: HOME SELF-CARE Condition: Good Instructions (If sedation given, give patient instructions): Kidney Stones (ED) Is patient prescribed a controlled substance at d/c from ED?: No Referrals: Andre Rice DO [Primary Care Provider] - 1-2 days Time of Disposition: 17:52
[2024-01-11] MEDS: ACETAMINOPHEN TAB 500 MG TAB PO STA (15:02)
[2024-01-11 15:03] VITALS: BP 129/81; PULSE 73; RESP 18; TEMP 97.9
[2024-01-11 15:34] LABS: Basophils % (A) 0 %; Eosinophils # (A) 0.1 k/uL (0-0.7); Eosinophils % (A) 1 %; HCT 36.8 % (34.0-46.0); HGB 11.3 gm/dL (11.4-16.0); Hypochromasia Slight; Lymphocytes # (A) 1.3 k/uL (1.0-4.8); Lymphocytes % (A) 18 %; MCH 26.5 pg (25.0-35.0); MCHC 30.6 g/dL (31.0-37.0); MCV 86.6 fL (80.0-100.0); Monocytes # (A) 0.3 k/uL (0-1.0); Monocytes % (A) 5 %; Neutrophils # (A) 5.2 k/uL (1.3-7.7); Neutrophils % (A) 73 %; Platelet Count 233 k/uL (150-450); RBC 4.25 m/uL (3.80-5.40); RDW 14.3 % (11.5-15.5); WBC 7.1 k/uL (3.8-10.6)
[2024-01-11 15:44] LABS: ALT 17 U/L (4-34); AST 24 U/L (14-36); African American GFR (CKD) 45 (>60 ml/min/1.73 sqM); Alkaline Phosphatase 86 U/L (38-126); Anion Gap 5 mmol/L; Blood Urea Nitrogen 22 mg/dL (7-17); Calcium 9.3 mg/dL (8.4-10.2); Carbon Dioxide 28 mmol/L (22-30); Chloride 106 mmol/L (98-107); Glucose 92 mg/dL (74-99); Non-African American GFR(CKD) 39 (>60 ml/min/1.73 sqM); Potassium 4.3 mmol/L (3.5-5.1); Sodium 139 mmol/L (137-145); Total Bilirubin 0.7 mg/dL (0.2-1.3); Total Protein 7.2 g/dL (6.3-8.2)
[2024-01-11 15:57] LABS: Appearance,Urine Clear (Clear); Bacteria,Urine Rare /hpf; Bilirubin,Urine Negative (Negative); Blood,Urine Moderate (Negative); Color,Urine Light Yellow; Glucose,Urine (UA) Negative (Negative); Ketones,Urine Negative (Negative); Leukocyte Esterase,Urine Trace (Negative); Mucus,Urine Rare /hpf; Nitrite,Urine Negative (Negative); Protein,Urine Negative (Negative); RBC,Urine 28 /hpf (0-5); Squamous Epithelial Cell,Urine 3 /hpf (0-4); Urobilinogen,Urine <2.0 mg/dL (<2.0); WBC,Urine 4 /hpf (0-5)
--- NOTE | 2024-01-11 16:02 | CT ---
EXAMINATION TYPE: CT abdomen pelvis wo con DATE OF EXAM: 01/11/2024 COMPARISON: None INDICATION: right flank pain DLP: 929.5 mGycm, Automated exposure control for dose reduction was used. CONTRAST: 0 mL of Isovue 300. Study performed without Oral Contrast TECHNIQUE: Axial images were obtained from above the diaphragm to the pubic rami in the axial plane a t 5 mm thick sections. Reconstructed images are reviewed on the computer in the coronal plane. FINDINGS: Limited CT sections are obtained the lung bases. The lung bases are clear. CT ABDOMEN: Liver: Normal Spleen: Normal Pancreas: Normal Adrenal glands: The adrenal glands are normal. Gallbladder: Normal Kidneys: No masses are evident. There is moderate right hydronephrosis. Nonobstructing 0.7 cm calcifi cation at the proximal right ureter. Additional nonobstructing right renal stones are present includi ng a 0.8 cm stone at the inferior pole and a dependent 0.4 similar calcification within the right gabbie al pelvis. No cysts are present. No right-sided renal stones are evident. Aorta: Vascular calcification is within the aorta. Inferior vena cava: Normal. CT PELVIS: Loops of bowel within the abdomen and pelvis are normal. There are loops of bowel which are incom pletely distended or lack oral contrast limiting their evaluation. Appendix: Normal as visualized. Urinary bladder: Normal. Genitourinary structures: Uterus is bulky. Underlying fibroids are likely present. Some calcification is present. Adnexa are normal. No free fluid is within the pelvis. Osseous structures: No suspicious lytic or sclerotic lesions. IMPRESSION: 1. Obstructing 0.7 cm right ureteropelvic junction stone. There is a moderate right hydronephrosis. 2. Additional nonobstructing right renal stones are present. 3. Bulky uterus likely with underlying fibroids.
[2024-01-11] MEDS: SODIUM CHLORIDE 0.9% 500 ML 500 ML IV STA (18:09)
== END 2024-01-11 18:40 | disposition home or self-care (01) ==
LOC: EC 14:21
DX: N13.2 Hydronephrosis with renal and ureteral calculous obstruction (principal); N17.9 Acute kidney failure, unspecified; I10 Essential (primary) hypertension; Z79.899 Other long term (current) drug therapy; Z88.0 Allergy status to penicillin; Z87.891 Personal history of nicotine dependence
CPT/HCPCS: 36415; 74176; 80053; 81001; 83605; 85025; 99284

== ENCOUNTER 2024-01-17 09:46 | Observation (INO) | payer MEDICARE ==
[2024-01-12 15:42] VITALS: BMI 32.8
--- NOTE | 2024-01-16 19:51 | P.GSHP ---
History of Present Illness H&P Date: 01/16/24 68 yo female with a larger right renal stone. She underwent right eswl. The stone broke into several pieces but lodged in the proximal ureter. She was given treatment options and comes for right ureteroscopy with laser lithotripsy. the risks, complications and alternatives have been discussed. She comes for this procedure. Past Medical History Past Medical History: Coronary Artery Disease (CAD), Chest Pain / Angina, Eye Disorder, GERD/Reflux, Hypertension, Skin Disorder Additional Past Medical History / Comment(s): Chronic bilateral sciatica, arrhythmia-pt cannot recall type, beginnings of bilateral cataracts, rosacea. KIDNEY STONES, SEEN IN ER 01/11/24 FOR RT FLANK PAIN History of Any Multi-Drug Resistant Organisms: None Reported Past Surgical History: Heart Catheterization, Tubal Ligation Additional Past Surgical History / Comment(s): Cardiac cath-normal, egd, colonoscopy, R ganglion cyst removal, 01/01/2498-[id number] HURON Past Anesthesia/Blood Transfusion Reactions: No Reported Reaction Smoking Status: Former smoker - Past Family History Mother Family Medical History: Chest Pain / Angina, Congestive Heart Failure (CHF) Father Family Medical History: Chest Pain / Angina, Congestive Heart Failure (CHF), Coronary Artery Disease (CAD) Medications and Allergies Home Medications Medication Instructions Recorded Confirmed Type amLODIPine [Norvasc] 10 mg PO HS 10/04/19 01/11/24 History Allergies Allergy/AdvReac Type Severity Reaction Status Date / Time codeine Allergy Rash/Hives Verified 01/12/24 15:02 ketorolac [From Toradol] Allergy Nausea Verified 01/12/24 15:02 Penicillins Allergy Rash/Hives Verified 01/12/24 15:02 Surgical - Exam - General well developed, well nourished, no distress - Eyes normal ocular movement, no icteric - ENT no hearing loss, no congestion - Neck no masses, trachea midline - Respiratory normal respiratory effort, clear to auscultation - Abdomen Abdomen: soft, non tender, no guarding, no rigid, no rebound - Integumentary no rash, no abnormal pigmentation - Neurologic no disoriented, no combative - Psychiatric oriented to time, oriented to person, oriented to place, speech is normal, memory intact Results - Imaging Abdominal x-ray: report reviewed, image reviewed CT scan - abdomen: report reviewed, image reviewed CT scan - pelvis: report reviewed, image reviewed Assessment and Plan Assessment: Impression: right ureteral stones Plan: right ureteroscopy with laser lithotripsy
[~2024-01-17 09:46] MED LIST: fentaNYL (PF) 50 MCG/ML 2 ML AMP IV PRN
--- NOTE | 2024-01-17 10:27 | XR ---
EXAMINATION TYPE: XR KUB DATE OF EXAM: 01/17/2024 10:09 AM CLINICAL INDICATION:Female, 68 years old with history of N20.1 right ureteral stone; [facility] COMPARISON: 01/11/2024 CT TECHNIQUE: One radiographic view of the abdomen was obtained. FINDINGS: The bowel gas pattern is nonspecific without dilated loops of small or large bowel. There i s no evidence for organomegaly or pneumoperitoneum. The osseous structures are intact. Multiple uret eral calculi project over the sacrum measuring up to 11 mm. Fecal material and gas are demonstrated t hroughout the colon and rectum. IMPRESSION: Multiple right ureteral calculi project over the sacrum on today's exam.
[2024-01-17] MEDS: LACTATED RINGERS 1,000 ML IV SCH (11:09)
[2024-01-17] MEDS ORDERED: ONDANSETRON 4 MG/2 ML VIAL ONE ×2 (11:17→14:54)
[2024-01-17] MEDS: ONDANSETRON 4 MG/2 ML VIAL IVP ONE ×3 (11:27→20:39)
[2024-01-17] MEDS: DEXAMETHASONE SOD PHOSPHATE 4 MG/ML 1 ML VIAL IVP ONE (11:27)
[2024-01-17] MEDS ORDERED: LIDOCAINE 1% INJ 10MG/ML (20 ML MDV) ONE (11:42)
[2024-01-17] MEDS ORDERED: PHENYLEPHRINE-0.9% NACL SYG 1,000 MCG/10 ML SYRINGE ONE (11:42)
[2024-01-17] MEDS ORDERED: fentaNYL (PF) 50 MCG/ML 2 ML AMP ONE (11:42)
[2024-01-17] MEDS ORDERED: MIDAZOLAM 2 MG/2 ML VIAL ONE (11:42)
[2024-01-17] MEDS ORDERED: HYDROmorphone (PF) 1 MG/ML ONE (11:42)
[2024-01-17] MEDS ORDERED: PROPOFOL 10 MG/ML 20 ML VIAL IV ONE (11:42)
[2024-01-17] MEDS: AMPICILLIN 1,000 MG in SODIUM CHLORIDE 0.9% 50 ML IVPB PRN (11:47)
[2024-01-17] MEDS: GENTAMICIN 110 MG in SODIUM CHLORIDE 0.9% 100 ML IVPB PRN (11:55)
--- NOTE | 2024-01-17 13:10 | P.OP ---
Date of Procedure: 01/17/24 Preoperative Diagnosis: right ureteral calculi (Steinstrasse) status post shockwave lithotripsy Postoperative Diagnosis: same Procedure(s) Performed: cystoscopy, right ureteroscopy with laser lithotripsy, placement of 6 x 24 double-J catheter Anesthesia: TRINI Surgeon: Heraclio Carrizales Estimated Blood Loss (ml): 0 Pathology: other (stone) Condition: stable Disposition: PACU Indications for Procedure: the patient is 68. She had a 12 mm stone treated with shockwave lithotripsy. The stone fractured but formed a Steinstrasse in the upper ureter that is now progress to the mid ureter. She is having persistent pain. She comes for right ureteroscopy and laser lithotripsy Description of Procedure: patient is brought to the operating suite. She is given a general endotracheal anesthetic. She's placed lithotomy position with a sterile prep and drape. Cystoscopy a Foroblique lens and 21-Polish sheath identifies a normal urethra. The bladder simon unremarkable. I first attempt intubate the right ureteral orifice with a 7-Polish mini ureteroscope but this fails. I then pass an 035 wire up the right ureter and over the wires passed [id number] reentry sheath. This is somewhat tenuous as the stones are relatively low a. Through the inner sheath I then pass a flexible ureteroscope up to the stone and began to break up the Steinstrasse. Unfortunately the ureteral sheath falls out of the ureter. I then fortunately am able to introduce the 7-Polish mini rigid ureteroscope up the ureter pass up to the Steinstrasse and then I slowly and tediously break up the stones in the right ureter. I basket the larger fragments. I passed the scope up the ureter and I see no remaining fragments. Due to the edema from the Steinstrasse and the work I'll pass a double-J catheter. An 035 wires passed through the ureteroscope up into the kidney. I removed the ureteroscope and then I passed a 6 x 24 double-J catheter that coils in the right renal pelvis and in the bladder the bladder is drained fragments are collected the patient is awakened and returned recovery in good condition. She tolerated the procedure well and will be discharged home upon recovery.
--- NOTE | 2024-01-17 13:28 | FL ---
EXAMINATION TYPE: FL guidance operating room Intraoperative/procedural fluoroscopic services were pro vided. Total fluoroscopy time is 13 seconds with a total of 1 submitted images to PACS. Please see th e operative/procedural note for further details. DAP: 1.9936 Gycm2
[2024-01-17] MEDS: HYDROmorphone 0.5 MG/0.5 ML SYRINGE IVP ONE (13:43)
[2024-01-17] MEDS ORDERED: NALOXONE 0.4 MG/ML 1 ML VIAL IV PRN (17:40)
[2024-01-17] MEDS ORDERED: ONDANSETRON 4 MG/2 ML VIAL IVP PRN (17:40)
[2024-01-17 18:43] LABS: HCT 36.2 % (34.0-46.0); HGB 10.9 gm/dL (11.4-16.0); Hypochromasia Moderate; MCH 26.9 pg (25.0-35.0); MCHC 30.1 g/dL (31.0-37.0); MCV 89.2 fL (80.0-100.0); Mean Platelet Volume 8.9; Platelet Count 237 k/uL (150-450); RBC 4.06 m/uL (3.80-5.40); WBC 10.1 k/uL (3.8-10.6)
[2024-01-17 18:54] LABS: African American GFR (CKD) 83 (>60 ml/min/1.73 sqM); Anion Gap 9 mmol/L; Blood Urea Nitrogen 12 mg/dL (7-17); Calcium 9.1 mg/dL (8.4-10.2); Carbon Dioxide 27 mmol/L (22-30); Chloride 105 mmol/L (98-107); Glucose 182 mg/dL (74-99); Non-African American GFR(CKD) 72 (>60 ml/min/1.73 sqM); Potassium 4.1 mmol/L (3.5-5.1); Sodium 141 mmol/L (137-145)
[2024-01-17] MEDS ORDERED: MORPHINE SULFATE 4 MG/ML SYRINGE IVP PRN (20:33)
[2024-01-17] MEDS: amLODIPine 10 MG TAB PO SCH (20:45)
[2024-01-17] MEDS ORDERED: MAG HYDROX/AL HYDROX/SIMETH 30 ML CUP PO PRN (22:28)
--- NOTE | 2024-01-17 22:39 | XR ---
EXAM: XR Chest, 1 View CLINICAL HISTORY: ITS.REASON XR Reason: Chest Pain TECHNIQUE: Frontal view of the chest. COMPARISON: No relevant prior studies available. FINDINGS: Lungs: Unremarkable. No consolidation. Pleural space: Unremarkable. No pneumothorax. Heart: Unremarkable. No cardiomegaly. Mediastinum: Unremarkable. Normal mediastinal contour. Bones/joints: Unremarkable. No acute fracture. IMPRESSION: Normal chest x-ray.
[2024-01-18] MEDS: FAMOTIDINE 20 MG TAB PO SCH (00:17)
[2024-01-18] MEDS ORDERED: LORazepam 2 MG/ML INJ IV PRN (00:23)
[2024-01-18] MEDS ORDERED: ZOLPIDEM 5 MG TAB PO PRN (00:23)
--- NOTE | 2024-01-18 01:23 | P.CONS ---
History of Present Illness - Reason for Consult Consult date: 01/17/24 Postoperative syncope - Chief Complaint Syncope - History of Present Illness 68-year-old female with hypertension Patient coming in for scheduled right cystoscopy she was diagnosed with a right kidney stone couple weeks ago and received lithotripsy couple weeks ago today presenting with some flank pain and abnormal blood work found to have residual stone or blockage. Patient reports that she almost passed out while in recovery this is a typical of her typically she can walk long distances and do heavy chores without limitations patient denies any upper respiratory infection symptoms joint problems burning when you urinate nausea vomiting abdominal pain. Patient denies tobacco smoking illicit drugs or heavy alcohol Patient was diagnosed with kidney stone few weeks ago received shockwave lithotripsy to break down Patient reports accidental fall about a week ago where she tripped and fell bumped her head against the wall CT scan was done at that time reports to be negative review of systems Pertinent positives as noted in HPI. All other systems were reviewed and are negative on exam Constitutional: No acute distress, patient feels anxious and tearful during exam Eyes: Anicteric sclerae, moist conjunctiva, Pupils equal round reactive to light ENMT: NC/AT Oropharynx clear, no erythema, or exudates. Patient reports an area of the tip of her tongue which feels numb Neck: Supple, no masses, or JVD No carotid bruits No thyromegaly Lungs: Clear to auscultation Clear to percussion Normal respiratory effort, no accessory muscle use Cardiovascular: Heart regular in rate and rhythm, No murmurs, gallops, or rubs No peripheral edema Abdominal: Soft Nontender, no guarding, rebound or rigidity Abdomen moving with respiration Normoactive bowel sounds Extremities: No digital cyanosis No clubbing Pedal pulses intact and symmetrical Radial pulses intact and symmetrical No calf tenderness Psychiatric: Alert and oriented to person, place and time Appropriate affect fair judgement Neuro Muscles Strength 5/5 in all 4 extremities Sensation to light touch grossly present throughout Cranial nerves II-XII grossly intact Past Medical History Past Medical History: Coronary Artery Disease (CAD), Chest Pain / Angina, Eye Disorder, GERD/Reflux, Hypertension, Skin Disorder Additional Past Medical History / Comment(s): Chronic bilateral sciatica, arrhythmia-pt cannot recall type, beginnings of bilateral cataracts, rosacea. KIDNEY STONES, SEEN IN ER 01/11/24 FOR RT FLANK PAIN History of Any Multi-Drug Resistant Organisms: None Reported Past Surgical History: Heart Catheterization, Tubal Ligation Additional Past Surgical History / Comment(s): Cardiac cath-normal, egd, colonoscopy, R ganglion cyst removal, 01/01/2437-[id number] HURON Past Anesthesia/Blood Transfusion Reactions: No Reported Reaction Smoking Status: Former smoker - Past Family History Mother Family Medical History: Chest Pain / Angina, Congestive Heart Failure (CHF) Father Family Medical History: Chest Pain / Angina, Congestive Heart Failure (CHF), Coronary Artery Disease (CAD) Medications and Allergies Home Medications Medication Instructions Recorded Confirmed Type amLODIPine [Norvasc] 10 mg PO HS 10/04/19 01/17/24 History Allergies Allergy/AdvReac Type Severity Reaction Status Date / Time codeine Allergy Rash/Hives Verified 01/17/24 10:53 ketorolac [From Toradol] Allergy Nausea Verified 01/17/24 10:53 Penicillins Allergy Rash/Hives Verified 01/17/24 10:53 Physical Exam Vitals: Vital Signs Temp Pulse Pulse Resp BP BP Pulse Ox 01/18/24 00:00 69 18 145/85 97 01/17/24 20:00 98.7 F 64 18 123/60 94 L 01/17/24 18:00 72 20 137/72 99 01/17/24 17:26 73 20 137/74 100 01/17/24 17:10 68 18 139/74 100 01/17/24 16:35 66 16 129/79 99 01/17/24 16:05 69 16 145/75 98 01/17/24 15:25 71 16 119/65 98 01/17/24 15:04 60 20 129/81 98 01/17/24 14:42 66 14 145/78 95 01/17/24 14:27 67 16 156/81 94 L 01/17/24 14:10 60 16 129/61 96 01/17/24 13:55 59 L 16 119/63 99 01/17/24 13:39 60 16 133/75 98 01/17/24 13:24 60 16 143/77 99 01/17/24 13:09 97 F L 62 16 136/72 97 01/17/24 11:12 98.1 F 70 16 171/87 99 Intake and Output 01/17/24 01/17/24 01/18/24 14:59 22:59 06:59 Intake Total 852.75 1150 Output Total 1025 Balance 852.75 1150 -1025 Intake: IV 852.75 1150 Output: Urine 1025 Other: Voiding Method External Catheter # Voids 1 Weight 97.7 kg Results CBC & Chem 7: 01/17/24 18:26 01/17/24 18:26 Labs: Abnormal Lab Results - Last 24 Hours (Table) 01/17/24 01/17/24 Range/Units 18:26 18:26 Hgb 10.9 L (11.4-16.0) gm/dL MCHC 30.1 L (31.0-37.0) g/dL Glucose 182 H (74-99) mg/dL Assessment and Plan Assessment: 68-year-old female with hypertension coming in for scheduled right cystoscopy experienced an episode of syncope I discussed the case with admitting physician accepted the admission for close monitoring rule out infectious process With anticipated length of stay less than 2 midnights Kidney stone status post right cystoscopy and stent placement Urology following Full code DVT prophylaxis heparin subcu 3 times daily Patient stable from medical standpoint Patient has a high level of anxiety was offered Ativan Blood work showing white count of hemoglobin of 15 leukocytosis of 10.1 Renal function sodium 144 potassium 4.1 BUN 12 creatinine 0.9 Hypertension controlled Continue with amlodipine
[2024-01-18] MEDS: ACETAMINOPHEN TAB 325 MG TAB PO PRN (02:31)
[2024-01-18 02:55] LABS: Basophils % (A) 0 %; Eosinophils # (A) 0.1 k/uL (0-0.7); Eosinophils % (A) 1 %; HCT 37.6 % (34.0-46.0); HGB 11.2 gm/dL (11.4-16.0); Hypochromasia Slight; Lymphocytes # (A) 0.8 k/uL (1.0-4.8); Lymphocytes % (A) 8 %; MCH 26.4 pg (25.0-35.0); MCHC 29.7 g/dL (31.0-37.0); MCV 88.8 fL (80.0-100.0); Monocytes # (A) 0.4 k/uL (0-1.0); Monocytes % (A) 3 %; Neutrophils # (A) 9.5 k/uL (1.3-7.7); Neutrophils % (A) 88 %; Platelet Count 243 k/uL (150-450); RBC 4.23 m/uL (3.80-5.40); RDW 14.1 % (11.5-15.5); WBC 10.8 k/uL (3.8-10.6)
[2024-01-18 03:08] LABS: African American GFR (CKD) 89 (>60 ml/min/1.73 sqM); Anion Gap 10 mmol/L; Blood Urea Nitrogen 11 mg/dL (7-17); Calcium 9.4 mg/dL (8.4-10.2); Carbon Dioxide 26 mmol/L (22-30); Chloride 104 mmol/L (98-107); Glucose 127 mg/dL (74-99); Non-African American GFR(CKD) 78 (>60 ml/min/1.73 sqM); Potassium 4.2 mmol/L (3.5-5.1); Sodium 140 mmol/L (137-145)
--- NOTE | 2024-01-18 06:25 | P.PN ---
Subjective Progress Note Date: 01/18/24 Patient seen and examined at bedside today. She is resting comfortably in bed, has no complaints of chest pain at this time. She says that her pain resolved with the use of Pepcid. Cardiology was consulted, and their evaluation is pending. From medical perspective, patient is stable for discharge. Gen: In NAD, non-toxic HEENT: normocephalic, atraumatic, hearing acuity is intant, mucous membranes mo ist CVS: perfusing all extremities well, no pitting edema, Respiratory: symmetric chest expansion, no accessory muscle use, GI: soft, NTTP, ND, : no suprapubic tenderness, no CVA tenderness MSK/Derm: no rashes, cyanosis Neuro: CN II-XII intact, no motor weakness, Psych: cooperative, euthymic mood, judgment and insight is intact Hospital course: 68-year-old female with hypertension presented for scheduled right cystoscopy, and while in recovery felt that she had a syncopal episode, some flank pain and some chest pain. She was subsequently admitted to observation under the urology service with medical consultation. Patient's chest pain did resolve with some Pepcid, troponins remain negative, EKG was nonischemic. Telemetry had no acute events. Blood work showing white count of hemoglobin of 15 leukocytosis of 10.1 Renal function sodium 144 potassium 4.1 BUN 12 creatinine 0.9 Assessment/plan: Kidney stone status post right cystoscopy and stent placement Urology following Chest pain, atypical Resolved with Tylenol, Pepcid Troponins remain negative Cardiology was consulted by primary team, their evaluation is pending Hypertension controlled Continue with amlodipine Anxiety Ativan PRN Full code DVT prophylaxis heparin subcu 3 times daily Patient stable from medical standpoint Objective - Vital Signs Vital signs: Vital Signs Temp 98.7 F 01/17/24 20:00 Pulse 75 01/18/24 04:00 Resp 18 01/18/24 04:00 BP 114/74 01/18/24 04:00 Pulse Ox 96 01/18/24 04:00 FiO2 Intake & Output 01/17/24 01/17/24 01/18/24 06:59 18:59 06:59 Intake Total Output Total 1025 Balance 75 -1024 Weight 97.7 kg Intake: IV Output: Urine 1025 Other: Voiding Method Bedpan External Catheter # Voids 1 - Labs CBC & Chem 7: 01/18/24 02:19 01/18/24 02:19 Labs: Abnormal Lab Results - Last 24 Hours (Table) 01/17/24 01/17/24 01/18/24 Range/Units 18:26 18:26 02:19 WBC 10.8 H (3.8-10.6) k/uL Hgb 10.9 L 11.2 L (11.4-16.0) gm/dL MCHC 30.1 L 29.7 L (31.0-37.0) g/dL Neutrophils # 9.5 H (1.3-7.7) k/uL Lymphocytes # 0.8 L (1.0-4.8) k/uL Glucose 182 H (74-99) mg/dL 01/18/24 Range/Units 02:19 WBC (3.8-10.6) k/uL Hgb (11.4-16.0) gm/dL MCHC (31.0-37.0) g/dL Neutrophils # (1.3-7.7) k/uL Lymphocytes # (1.0-4.8) k/uL Glucose 127 H (74-99) mg/dL
[2024-01-18] MEDS: HEPARIN SODIUM,PORCINE 5,000 UNIT/ML 1 ML VIAL SQ SCH (10:17)
[2024-01-18 11:15] LABS: African American GFR (CKD) 69 (>60 ml/min/1.73 sqM); Anion Gap 9 mmol/L; Blood Urea Nitrogen 13 mg/dL (7-17); Calcium 9.4 mg/dL (8.4-10.2); Carbon Dioxide 26 mmol/L (22-30); Chloride 106 mmol/L (98-107); Glucose 90 mg/dL (74-99); Non-African American GFR(CKD) 60 (>60 ml/min/1.73 sqM); Sodium 141 mmol/L (137-145)
--- NOTE | 2024-01-18 12:18 | CA ---
Transthoracic Echo Report Name: Angelita Griffith Age: 68 Gender: F : 1955 Exam Date: 01/18/2024 10:24 Exam Location: [facility] Ht (in): 67 Wt (lb): 215 Ordering Physician: Carolee Rey Attending/Referring Phys: [id number], [facility] Case Manager Gabi Mcmahon RCS Procedure CPT: Indications: LV function, CP Cardiac Hx: Technical Quality: Good Contrast 1: Total Dose (mL): Contrast 2: Total Dose (mL): MEASUREMENTS (Male / Female) Normal Values 2D ECHO LV Diastolic Diameter PLAX 4.9 cm 4.2 - 5.9 / 3.9 - 5.3 cm LV Systolic Diameter PLAX 3.2 cm IVS Diastolic Thickness 1.0 cm 0.6 - 1.0 / 0.6 - 0.9 cm LVPW Diastolic Thickness 1.0 cm 0.6 - 1.0 / 0.6 - 0.9 cm LV Relative Wall Thickness 0.4 RV Internal Dim ED PLAX 3.2 cm LVOT Diameter 2.0 cm Aortic Root Diameter 3.2 cm LV Diastolic Volume MOD BP 116.2 cm??? 67 - 155 / 56 - 104 cm??? LV Systolic Volume MOD BP 42.9 cm??? 22 - 58 / 19 - 49 cm??? LV Ejection Fraction MOD BP 63.0 % >= 55 % LV Cardiac Index MOD BP 2080.2 cm???/min???m??? LV Diastolic Volume MOD 4C 123.4 cm??? LV Systolic Volume MOD 4C 45.5 cm??? LV Ejection Fraction MOD 4C 63.1 % LV Cardiac Index MOD 4C 2212.2 cm???/min???m??? LV Diastolic Length 4C 8.2 cm LV Systolic Length 4C 6.6 cm LV Diastolic Volume MOD 2C 109.3 cm??? LV Systolic Volume MOD 2C 40.5 cm??? LV Ejection Fraction MOD 2C 62.9 % LV Cardiac Index MOD 2C 1954.1 cm???/min???m??? LV Diastolic Length 2C 8.2 cm LV Systolic Length 2C 6.5 cm LA Volume 64.0 cm??? 18 - 58 / 22 - 52 cm??? LA Volume Index 29.3 cm???/m??? 16 - 28 cm???/m??? Ascending Aorta Diameter 3.5 cm DOPPLER AV Peak Velocity 185.6 cm/s AV Peak Gradient 13.8 mmHg AV Mean Velocity 116.7 cm/s AV Mean Gradient 6.4 mmHg AV Velocity Time Integral 36.3 cm LVOT Peak Velocity 135.1 cm/s LVOT Peak Gradient 7.3 mmHg LVOT Velocity Time Integral 26.5 cm LVOT Stroke Volume 82.1 cm??? LVOT Stroke Volume Index 39.4 ml/m??? LVOT Cardiac Index 2331.5 cm???/min???m??? AV Area Cont Eq vti 2.3 cm??? AV Area Cont Eq pk 2.3 cm??? MV Area PHT 4.8 cm??? Mitral E Point Velocity 58.6 cm/s Mitral A Point Velocity 89.5 cm/s Mitral E to A Ratio 0.7 MV Deceleration Time 157.1 ms PV Peak Velocity 112.0 cm/s PV Peak Gradient 5.0 mmHg FINDINGS Left Ventricle Left ventricular ejection fraction is estimated at 60-65 %. Mildly increased septal wall thickness. Mildly increased left ventricular diastolic volume. No obvious regional wall motion abnormalities. Right Ventricle Normal right ventricular size and function. Unable to estimate right ventricular systolic function. Right Atrium Normal right atrial size. Left Atrium Mildly increased left atrial volume. Mitral Valve Mitral valve thickened. No evidence for mitral valve prolapse. No mitral stenosis. Trace mitral regurgitation. Aortic Valve Trileaflet aortic valve. No aortic stenosis. No aortic regurgitation. Tricuspid Valve Structurally normal tricuspid valve. No tricuspid stenosis. Trace tricuspid regurgitation. Pulmonic Valve Structurally normal pulmonic valve. No pulmonic stenosis. Trace pulmonic regurgitation. Pericardium No pericardial effusion. Aorta Normal size aortic root and proximal ascending aorta. CONCLUSIONS Normal LV function Previewed by: Dr. Perry May MD (Electronically Signed) Final Date: 18 January 2024 12:17
--- NOTE | 2024-01-18 12:24 | P.CRDCN ---
History of Present Illness History of present illness: HISTORY OF PRESENT ILLNESS: This is a 68-year-old female with a past medical history significant for hypertension, hyperlipidemia with statin intolerance, and morbid obesity. Patient follows in the office with Dr. Marvin. We have been asked to see the patient in consultation for chest pain. Patient examined at the bedside. Patient is status post cystoscopy, right ureteroscopy with laser lithotripsy, and placement of 6 x 24 double-J catheter with Dr. Carrizales. Patient states yesterday after her procedure she began to have nausea and vomiting. She reports feeling dizzy and lightheaded. She states afterwards she began to have pain in the middle of her chest that radiated to her back. She describes the pain as a pressure type sensation. At the time of examination this morning she denies any chest pain or pressure. She is a non-smoker. She reports a family history of CAD in her mom, dad, and brother. DIAGNOSTICS: - EKG reveals EKG with nonspecific ST-T changes - Laboratory data: WBC 10.8. Hemoglobin 11.2. Platelet count 243. D-dimer 0.57. Sodium 141. Potassium 4.0. BUN 13. Creatinine 0.96. Troponin negative x 3 - Current home cardiac medications include amlodipine 10 mg at night. - Most recent echocardiogram obtained in March 2022 reveals ejection fraction 55% with mild MR and mild TR. - Patient underwent stress echo in July 2023 which was negative for ischemia. - Patient underwent cardiac catheterization in 2010 revealing 55% mid circumflex lesion with no other critical stenosis noted. Medical management was recommended. REVIEW OF SYSTEMS: At the time of my exam: CONSTITUTIONAL: Denies fever or chills. HEENT: Denies blurred vision, vision changes, or eye pain. Denies hemoptysis CARDIOVASCULAR: Denies chest pain. Denies orthopnea. Denies PND. Denies palpitations RESPIRATORY: Denies shortness of breath. GASTROINTESTINAL: Denies abdominal pain. Denies nausea or vomiting. HEMATOLOGIC: Denies bleeding disorders. GENITOURINARY: Denies any blood in urine. SKIN: Denies pruitis. Denies rash. PHYSICAL EXAM: VITAL SIGNS: Reviewed. GENERAL: Well-developed in no acute distress. HEENT: Head is normocephalic. Pupils are equal, round. Sclerae anicteric. Mucous membranes of the mouth are moist. Neck supple. No JVD or thyromegaly LUNGS: Respirations even and unlabored. Lungs essentially clear to auscultation bilaterally. HEART: Regular rate and rhythm. S1 and S2 heard. ABDOMEN: Soft. Nondistended. Nontender. EXTREMITIES: Normal range of motion. No clubbing or cyanosis. Peripheral pulses intact. No lower extremity edema NEUROLOGIC: Awake and alert. Oriented x 3. ASSESSMENT: Chest pain, troponin negative x 3 Status post cystoscopy, right ureteroscopy with laser lithotripsy, and placement of 6 x 24 double-J catheter Known 55% mid circumflex lesion, per cardiac catheterization 2010 Hypertension History of hyperlipidemia with statin intolerance Morbid obesity: BMI 33.7 PLAN: An acute coronary but has been ruled out Due to patient's episode of chest pain with EKG changes, will proceed with stress echocardiogram today If negative, she may be discharged home from a cardiac standpoint and follow-up outpatient with Dr. Marvin Nurse practitioner note has been reviewed by physician. Signing provider agrees with the documented findings, assessment, and plan of care documented by WORM SORTER as a scribe. Past Medical History Past Medical History: Coronary Artery Disease (CAD), Chest Pain / Angina, Eye Disorder, GERD/Reflux, Hypertension, Skin Disorder Additional Past Medical History / Comment(s): Chronic bilateral sciatica, arrhythmia-pt cannot recall type, beginnings of bilateral cataracts, rosacea. KIDNEY STONES, SEEN IN ER 01/11/24 FOR RT FLANK PAIN History of Any Multi-Drug Resistant Organisms: None Reported Past Surgical History: Heart Catheterization, Tubal Ligation Additional Past Surgical History / Comment(s): Cardiac cath-normal, egd, colonoscopy, R ganglion cyst removal, 01/01/2416-[id number] HURON Past Anesthesia/Blood Transfusion Reactions: No Reported Reaction Smoking Status: Former smoker - Past Family History Mother Family Medical History: Chest Pain / Angina, Congestive Heart Failure (CHF) Father Family Medical History: Chest Pain / Angina, Congestive Heart Failure (CHF), Coronary Artery Disease (CAD) Medications and Allergies Home Medications Medication Instructions Recorded Confirmed Type amLODIPine [Norvasc] 10 mg PO HS 10/04/19 01/17/24 History Allergies Allergy/AdvReac Type Severity Reaction Status Date / Time codeine Allergy Rash/Hives Verified 01/17/24 10:53 ketorolac [From Toradol] Allergy Nausea Verified 01/17/24 10:53 Penicillins Allergy Rash/Hives Verified 01/17/24 10:53 Physical Exam Vitals: Vital Signs Temp Pulse Pulse Resp BP BP Pulse Ox 01/18/24 04:00 75 18 114/74 96 01/18/24 00:00 69 18 145/85 97 01/17/24 20:00 98.7 F 64 18 123/60 94 L 01/17/24 18:00 72 20 137/72 99 01/17/24 17:26 73 20 137/74 100 01/17/24 17:10 68 18 139/74 100 01/17/24 16:35 66 16 129/79 99 01/17/24 16:05 69 16 145/75 98 01/17/24 15:25 71 16 119/65 98 01/17/24 15:04 60 20 129/81 98 01/17/24 14:42 66 14 145/78 95 01/17/24 14:27 67 16 156/81 94 L 01/17/24 14:10 60 16 129/61 96 01/17/24 13:55 59 L 16 119/63 99 01/17/24 13:39 60 16 133/75 98 01/17/24 13:24 60 16 143/77 99 01/17/24 13:09 97 F L 62 16 136/72 97 01/17/24 11:12 98.1 F 70 16 171/87 99 Intake and Output 01/17/24 01/18/24 01/18/24 22:59 06:59 14:59 Intake Total 1150 Output Total 1025 Balance 1150 -1025 Intake: IV 1150 Output: Urine 1025 Other: Voiding Method External Catheter External Catheter # Voids 1 Results 01/18/24 02:19 01/18/24 09:38 Cardiac Enzymes 01/17/24 01/17/24 01/18/24 Range/Units 18:26 21:35 02:19 Troponin I <0.012 <0.012 <0.012 (0.000-0.034) ng/mL CBC 01/17/24 01/18/24 Range/Units 18:26 02:19 WBC 10.1 10.8 H (3.8-10.6) k/uL RBC 4.06 4.23 (3.80-5.40) m/uL Hgb 10.9 L 11.2 L (11.4-16.0) gm/dL Hct 36.2 37.6 (34.0-46.0) % Plt Count 237 243 (150-450) k/uL Comprehensive Metabolic Panel 01/17/24 01/18/24 Range/Units 18:26 02:19 Sodium 141 140 (137-145) mmol/L Potassium 4.1 4.2 (3.5-5.1) mmol/L Chloride 105 104 (98-107) mmol/L Carbon Dioxide 27 26 (22-30) mmol/L BUN 12 11 (7-17) mg/dL Creatinine 0.83 0.78 (0.52-1.04) mg/dL Glucose 182 H 127 H (74-99) mg/dL Calcium 9.1 9.4 (8.4-10.2) mg/dL Current Medications Generic Name Dose Route Start Last Admin Trade Name Freq PRN Reason Stop Dose Admin Acetaminophen 650 mg 01/17/24 17:40 01/18/24 02:31 Acetaminophen Tab 325 Mg Tab PO 02/16/24 17:41 650 mg Q6HR PRN Administration Mild Pain or Fever > 100.5 Al Hydroxide/Mg Hydroxide 30 ml 01/17/24 22:28 Mag Hydrox/Al Hydrox/Simeth 30 Ml Cup PO Q4HR PRN GI Upset Amlodipine Besylate 10 mg 01/17/24 21:00 01/17/24 20:45 Amlodipine 10 Mg Tab PO 02/16/24 21:01 10 mg HS RUPALI Administration Famotidine 20 mg 01/17/24 22:30 01/18/24 00:17 Famotidine 20 Mg Tab PO 20 mg BID RUPALI Administration Heparin Sodium (Porcine) 5,000 unit 01/18/24 08:00 Heparin Sodium,Porcine 5,000 Unit/Ml 1 Ml Vial SQ Q8HR RUPALI Lactated Ringer's 1,000 mls @ 20 mls/hr 01/16/24 11:45 01/17/24 18:27 Lactated Ringers IV 02/15/24 11:46 100 mls .Q24H RUPALI Administration Lorazepam 1 mg 01/18/24 00:23 Lorazepam 2 Mg/Ml Inj IV Q6HR PRN Anxiety Morphine Sulfate 4 mg 01/17/24 20:33 Morphine Sulfate 4 Mg/Ml Syringe IVP Q3HR PRN Pain Naloxone HCl 0.2 mg 01/17/24 17:40 Naloxone 0.4 Mg/Ml 1 Ml Vial IV 02/16/24 17:41 Q2M PRN Opioid Reversal Ondansetron HCl 4 mg 01/17/24 17:40 Ondansetron 4 Mg/2 Ml Vial IVP 02/16/24 17:41 Q8HR PRN Nausea And Vomiting Zolpidem Tartrate 5 mg 01/18/24 00:23 Zolpidem 5 Mg Tab PO HS PRN Insomnia Intake and Output 01/17/24 01/18/24 01/18/24 22:59 06:59 14:59 Intake Total 1150 Output Total 1025 Balance 1150 -1025 Intake: IV 1150 Output: Urine 1025 Other: Voiding Method External Catheter External Catheter # Voids 1 01/18/24 02:19 01/18/24 02:19
--- NOTE | 2024-01-18 15:49 | P.DS ---
Providers Date of admission: 01/17/24 09:47 Attending physician: Heraclio Carrizales Consults: 01/17/24 20:34 Consult Physician Urgent Consulting Provider: Florencio Galeano Consult Reason/Comments: Chest Pain Do you want consulting provider notified?: Yes, Notify in am 01/17/24 22:24 Consult Physician Routine Consulting Provider: Edmar Redding Consult Reason/Comments: Medical management Do you want consulting provider notified?: Already Contacted Primary care physician: [facility] Course: This is a 68-year-old female that underwent right-sided ureteroscopy with holmium laser by Dr. Carrizales on January 16. Patient was having a syncopal episode and chest pain postoperatively. Patient was admitted to the hospital for medical and cardiology evaluation. Cardiology and internal medicine service ev aluated the patient and deemed her to be stable for discharge on postop day #1. Postop day #1 her chest pain has resolved, and she underwent an echo that was within normal limits. She was discharged home in stable condition. Plan - Discharge Summary Discharge Rx Participant: No New Discharge Prescriptions: No Action amLODIPine [Norvasc] 10 mg PO HS Discharge Medication List amLODIPine [Norvasc] 10 mg PO HS 10/04/19 [History] Follow up Appointment(s)/Referral(s): Heraclio Carrizales MD [STAFF PHYSICIAN] - 1 Week (cystoscopy with stent removal-december AT 9:40) Patient Instructions/Handouts: Cystoscopy (DC), Ureteral Stent Placement (DC), Ureteral Stent Placement (GEN), Lithotripsy (DC) Activity/Diet/Wound Care/Special Instructions: DRINK LOTS OF FLUIDS Discharge Disposition: HOME SELF-CARE
[2024-01-18 16:16] LABS: Chol/HDL Ratio 4.12 Ratio; LDL Cholesterol,Calculated 137.3 mg/dL (0.0-131.0); VLDL Calculation 14.94 mg/dL (5.00-40.00)
--- NOTE | 2024-01-18 17:14 | CA ---
Stress Echo Report Angelita Griffith Age: 68 Gender: F : 1955 Exam Date: 01/18/2024 13:01 Exam Location: [facility] Ht (in): 67 Wt (lb): 215 Ordering Physician: Carolee Rey Referring Physician: [id number] Rental Manager: Varsha Houser RDCS Technologist Procedure CPT: Indication: CP ICD-9 Codes: Rhythm: Patient History: CHEST PAIN, PALPITATIONS, HTN, FAMILY HX OF HEART DISEASE, PRIOR SMOKER, PRIOR HEART CATH Cardiac Medications: Medications in past 24 hours: Contrast: Stress Results Protocol: Kenny Total dose(mL): Exercise Duration (min:sec): 6:[address] Depression (mm): Angina Score: Garcia Score: METS: 7.3 Resting HR: 79 Resting BP: 156 / 85 Peak HR: 144 Peak BP: 199 / 81 Max Predicted HR: 150 96 % Max Predicted HR Target HR: 128 Double Product: 44160 Stress Summary: BP Response: Reason for Termination: MAX EXERTION/TARGET HR Cardiac Symptoms: NO SYMPTOMS ECG Analysis Resting ECG: Normal sinus rhythm normal axis normal intervals Stress ECG: Patient exercised on Kenny protocol for 6 minutes achieving 85% of predicted maximal heart rate there was one and half millimeter ST segment depression in inferolateral leads Arrhythmia: Echo Analysis Resting Echo: Normal left ventricular size wall motion and systolic function Peak Echo Analysis: Normal hyperdynamic response MEASUREMENTS (Male/Female) Normal Values CONCLUSIONS Average exercise tolerance Abnormal stress test by EKG criteria No evidence of exercise induced wall motion abnormalities Dr. Perry May MD (Electronically Signed) Final Date: 18 January 2024 17:13
[2024-01-18 17:16] VITALS: BP 131/79; PULSE 62; RESP 18; TEMP 99.1
== END 2024-01-18 18:19 | disposition home or self-care (01) ==
LOC: OR 09:46 → 3SCARD 09:47
PROVIDERS: ADMIT Urology; ATTEND Urology
DX: N20.1 Calculus of ureter (principal); R07.89 Other chest pain; R55 Syncope and collapse; I10 Essential (primary) hypertension; F41.9 Anxiety disorder, unspecified; I25.10 Atherosclerotic heart disease of native coronary artery without angina pectoris; K21.9 Gastro-esophageal reflux disease without esophagitis; E78.5 Hyperlipidemia, unspecified; E66.01 Morbid (severe) obesity due to excess calories; Z68.33 Body mass index [BMI] 33.0-33.9, adult; Z87.891 Personal history of nicotine dependence; Z79.899 Other long term (current) drug therapy; Z88.0 Allergy status to penicillin; Z88.5 Allergy status to narcotic agent
CPT/HCPCS: 93306; 93351; 85379; 80061; 80048 ×2; 83735; 84484 ×2; 85025; 85027; 82365; 83036; 71045; 74018; 52356; G0378 ×2; C2625; C1769; J2250; J1100; J2405; J2001; J3010; J1580; J0290; J1170 ×2; J2704; J2371

== ENCOUNTER → 2024-03-12 | Outpatient (CLI) | payer MEDICARE ==
--- NOTE | 2024-03-12 10:06 | XR ---
EXAMINATION TYPE: XR KUB DATE OF EXAM: 03/12/2024 COMPARISON: 01/17/2024 HISTORY: Renal calculus. TECHNIQUE: One view abdominal series FINDINGS: The osseous structures are intact. The bowel gas pattern is nonspecific. Scoliosis and degenerative change of the spine. Bilateral hip arthropathy. There are vascular coils In the remaining calcifications overlying the sacrum similar in appearance to the prior exam measurin g a diameter of 4 mm. There may be some interval reduction in the number of calcifications. Additional calcifications in the pelvis are stable and likely vascular. IMPRESSION: 1. This appears to be interval reduction in number of right ureteral calcifications with persistent c alcification overlying the lower margin of the right sacrum measuring a diameter of 4 mm..
== END | disposition home or self-care (01) ==
LOC: RADXRMAIN 09:22
PROVIDERS: ATTEND Urology
DX: N20.2 Calculus of kidney with calculus of ureter (principal)
CPT/HCPCS: 74018

== ENCOUNTER → 2024-04-08 | Outpatient (CLI) | payer MEDICARE ==
--- NOTE | 2024-04-08 10:28 | MR ---
EXAMINATION TYPE: MR brain wo con DATE OF EXAM: 04/08/2024 COMPARISON: CT 01/09/2024 HISTORY: 68-year-old female S09.90XA, Ataxia, balance disorder. Headache and dizziness following fall 2 days ago. TECHNIQUE: Multiplanar, multisequence images of the brain and brainstem without IV contrast. Diffusi on weighted imaging is performed. FINDINGS: No evidence for acute infarction, hemorrhage, mass effect, midline shift, herniation, effacement of b brenna cisterns, or extra-axial fluid collection. Focal dense calcification measuring 1.0 cm and the left parasagittal region along the falx, superior frontoparietal junction. There is mild generalized supratentorial volume loss. Normal caliber to the ventricular system. There is normal variation with persistent CSP. T2/FLAIR weighted sequences show moderate to severe patchy and scattered right white matter change th roughout the subcortical, deep, and periventricular white matter regions of both cerebral hemispheres . Major intracranial flow voids are intact. Midline structures demonstrate normal morphology. The craniocervical junction is normal. Post contrast images demonstrate no evidence of pathologic enhancement. Dural venous sinuses are pat ent. Mild mucosal thickening ethmoid air cells. Globes are intact. IMPRESSION: 1. Mild generalized atrophy and moderate to severe burden of T2 bright white matter change. Findings probably reflect chronic small vessel ischemic disease and chronic hypertension. Clinically correlate . 2. Focal dense 1 cm calcification left parasagittal falx. Either dystrophic calcification or a densel y calcified meningioma. Consider 6-12 month follow-up to reassess. 2. No acute intracranial abnormality seen.
--- NOTE | 2024-04-09 19:23 | US ---
EXAMINATION TYPE: US carotid duplex BILAT DATE OF EXAM: 04/08/2024 COMPARISON: NONE CLINICAL INDICATION: Female, 68 years old with history of R26.89 BALANCE DISORDER, R27.0 ATAXIA; dizz iness TECHNIQUE: Carotid duplex ultrasound examination. Indirect Doppler criteria was utilized. FINDINGS: EXAM MEASUREMENTS: RIGHT: Peak Systolic Velocity (PSV) cm/sec ----- Right CCA: 55.1 ----- Right ICA: 82.7 ----- Right ECA: 11.8 ICA/CCA ratio: 1.5 RIGHT: End Diastole cm/sec ----- Right CCA: 20.2 ----- Right ICA: 34.7 ----- Right ECA: 15.8 LEFT: Peak Systolic Velocity (PSV) cm/sec ----- Left CCA: 69.6 ----- Left ICA: 79.8 ----- Left ECA: 82.7 ICA/CCA ratio: 1.1 LEFT: End Diastole cm/sec ----- Left CCA: 23.1 ----- Left ICA: 30.4 ----- Left ECA: 11.5 VERTEBRALS (direction of flow): Right Vertebral: Antegrade Left Vertebral: Antegrade Rhythm: Normal B2B SALES MANAGER NOTES: No significant stenosis seen IMPRESSION: 1. Mild atheromatous plaquing present without significant flow-limiting stenosis based on velocities. Criteria for Assigning % of Stenosis / Diameter reduction (Estimation based on the indirect measurements of the internal carotid artery velocities (ICA PSV). 1. Normal (no stenosis)=ICA PSV < 125 cm/s: ratio < 2.0: ICA EDV<40 cm/s. 2. Less than 50% stenosis=ICA PSV < 125 cm/s: ratio < 2.0: ICA EDV<40 cm/s. 3. 50 to 69% stenosis=ICA PSV of 125 to 230 cm/s: ration 2.0 ? 4.0: ICA EDV 40-100 cm/s. 4. Greater than 70% stenosis to near occlusion= ICA PSV > 230 cm/s: ratio > 4.0: ICA EDV > 100 cm/s. 5. Near occlusion= ICA PSV velocities may be low or undetectable: variable ratio and ICA EDV. 6. Total occlusion=unable to detect flow.
== END | disposition home or self-care (01) ==
LOC: RADMRIMAIN 06:41
PROVIDERS: ATTEND Psychiatry & Neurology Neurology
DX: R26.89 Other abnormalities of gait and mobility (principal); M48.8X4 Other specified spondylopathies, thoracic region
CPT/HCPCS: 70551; 93880

== ENCOUNTER 2024-06-20 17:52 | Emergency (ER) | payer MEDICARE ==
--- NOTE | 2024-06-20 18:10 | ED ---
URI HPI - General Chief Complaint: Upper Respiratory Infection Stated Complaint: cough-post op cardiac Time Seen by Provider: 06/20/24 18:05 Source: patient, RN notes reviewed Mode of arrival: ambulatory Limitations: no limitations - History of Present Illness Initial Comments: 68-year-old female presents emergency department accompanied by her jayda ajquez complaint of a cough over the past 2 to 3 days. Patient is concerned that this may have reaction to medications that she is on. Patient was visiting family in [place] a few weeks ago when she had suffered from a heart attack and underwent cardiac catheterization where 2 stents were placed. Patient denies fevers, chills, nausea, vomiting, congestion or headaches. Patient has an appointment scheduled with her media developer on Monday for further evaluation. - Related Data Home Medications Medication Instructions Recorded Confirmed amLODIPine [Norvasc] 10 mg PO HS 10/04/19 01/17/24 Allergies Allergy/AdvReac Type Severity Reaction Status Date / Time codeine Allergy Rash/Hives Verified 06/20/24 17:58 ketorolac [From Toradol] Allergy Nausea Verified 06/20/24 17:58 lisinopril Allergy Anaphylaxis Verified 06/20/24 17:58 Penicillins Allergy Rash/Hives Verified 06/20/24 17:58 Review of Systems ROS Statement: Those systems with pertinent positive or pertinent negative responses have been documented in the HPI. ROS Other: All systems not noted in ROS Statement are negative. Past Medical History Past Medical History: Coronary Artery Disease (CAD), Chest Pain / Angina, Eye Disorder, GERD/Reflux, Hypertension, Skin Disorder Additional Past Medical History / Comment(s): Chronic bilateral sciatica, arrhythmia-pt cannot recall type, beginnings of bilateral cataracts, rosacea. KIDNEY STONES, SEEN IN ER 01/11/24 FOR RT FLANK PAIN History of Any Multi-Drug Resistant Organisms: None Reported Past Surgical History: Heart Catheterization, Heart Catheterization With Stent, Tubal Ligation Additional Past Surgical History / Comment(s): Cardiac cath-normal, egd, colonoscopy, R ganglion cyst removal, 01/01/2407-[id number] HURON Past Anesthesia/Blood Transfusion Reactions: No Reported Reaction Past Psychological History: Anxiety, Depression Smoking Status: Former smoker Past Alcohol Use History: None Reported Past Drug Use History: None Reported - Past Family History Mother Family Medical History: Chest Pain / Angina, Congestive Heart Failure (CHF) Father Family Medical History: Chest Pain / Angina, Congestive Heart Failure (CHF), Coronary Artery Disease (CAD) General Exam Limitations: no limitations General appearance: alert, in no apparent distress Head exam: Present: atraumatic, normocephalic, normal inspection Eye exam: Present: normal appearance, PERRL, EOMI. Absent: scleral icterus, conjunctival injection, periorbital swelling ENT exam: Present: normal exam, mucous membranes moist Neck exam: Present: normal inspection. Absent: tenderness, meningismus, lymphadenopathy Respiratory exam: Present: normal lung sounds bilaterally. Absent: respiratory distress, wheezes, rales, rhonchi, stridor Cardiovascular Exam: Present: regular rate, normal rhythm, normal heart sounds. Absent: systolic murmur, diastolic murmur, rubs, gallop, clicks GI/Abdominal exam: Present: soft, normal bowel sounds. Absent: distended, tenderness, guarding, rebound, rigid Extremities exam: Present: normal inspection, full ROM, normal capillary refill. Absent: tenderness, pedal edema, joint swelling, calf tenderness Skin exam: Present: warm, dry, intact, normal color. Absent: rash Course Vital Signs 06/20/24 06/20/24 06/20/24 17:54 17:58 18:30 Temperature 98.3 F 99.1 F Pulse Rate 65 67 Respiratory 20 17 17 Rate Blood Pressure 126/83 118/87 O2 Sat by Pulse 98 98 Oximetry 06/20/24 19:48 Temperature 99.0 F Pulse Rate 70 Respiratory 18 Rate Blood Pressure 121/76 O2 Sat by Pulse 98 Oximetry Medical Decision Making - Medical Decision Making Was pt. sent in by a medical professional or institution (, PA, PREP ROOM SUPERVISOR, urgent care, hospital, or care home...) When possible be specific @ -No Did you speak to anyone other than the patient for history (EMS, parent, family, police, friend...)? What history was obtained from this source @ -No Did you review nursing and triage notes (agree or disagree)? Why? @ -I reviewed and agree with nursing and triage notes Were old charts reviewed (outside hosp., previous admission, EMS record, old EKG, old radiological studies, urgent care reports/EKG's, care home records)? Report findings @ -No old charts were reviewed Differential Diagnosis (chest pain, altered mental status, abdominal pain women, abdominal pain men, vaginal bleeding, weakness, fever, dyspnea, syncope, headache, dizziness, GI bleed, back pain, seizure, CVA, palpatations, mental health, musculoskeletal)? @ -COVID 19, RSV, influenza, pneumonia, acute bronchitis, URI, this list is not all inclusive EKG interpreted by me (3pts min.). @ -Completed at 1808 sinus rhythm with a ventricular of 66, WA interval 166, QTc 414. No acute signs of ischemia. X-rays interpreted by me (1pt min.). @ -None done CT interpreted by me (1pt min.). @ -None done U/S interpreted by me (1pt. min.). @ -None done What testing was considered but not performed or refused? (CT, X-rays, U/S, labs)? Why? @ -chest xray considered but deferred at this time, there is minimal clinical concern for pulmonary pathology at this time as patient is not expressing systemic symptoms and lung examination is benign. What meds were considered but not given or refused? Why? @ -None Did you discuss the management of the patient with other professionals (prof kulwinders i.e. , PA, PREP ROOM SUPERVISOR, lab, RT, psych nurse, professor of social work, manufacturing plant technician, teacher, recruitment officer, watch caser)? Give summary @ -No Was smoking cessation discussed for >3mins.? @ -No Was critical care preformed (if so, how long)? @ -No Were there social determinants of health that impacted care today? How? (Homelessness, low income, unemployed, alcoholism, drug addiction, transportation, low edu. Level, literacy, decrease access to med. care, assisted, rehab)? @ -No Was there de-escalation of care discussed even if they declined (Discuss DNR or withdrawal of care, Hospice)? DNR status @ -No What co-morbidities impacted this encounter? (DM, HTN, Smoking, COPD, CAD, Cancer, CVA, ARF, Chemo, Hep., AIDS, mental health diagnosis, sleep apnea, morbid obesity)? @ -None Was patient admitted / discharged? Hospital course, mention meds given and route, prescriptions, significant lab abnormalities, going to OR and other pertinent info. @ -Discharged. 68-year-old female with cough. Vitals are stable and patient is in no signs of respiratory distress. Physical examination reveals no adventitious lung sounds, lungs are clear. Patient is EKG reveals sinus rhythm. Symptom is negative. Recommend that patient follow-up as scheduled outpatient with her media developer for further evaluation. discussed with Dr. Huitron. Undiagnosed new problem with uncertain prognosis? @ -No Drug Therapy requiring intensive monitoring for toxicity (Heparin, Nitro, Insulin, Cardizem)? @ -No Were any procedures done? @ -No Diagnosis/symptom? @ -Cough Acute, or Chronic, or Acute on Chronic? @ -acute Uncomplicated (without systemic symptoms) or Complicated (systemic symptoms)? @ -Uncomplicated Side effects of treatment? @ -No Exacerbation, Progression, or Severe Exacerbation? @ -No Poses a threat to life or bodily function? How? (Chest pain, [place], [place], pneumonia, PE, COPD, DKA, ARF, appy, cholecystitis, CVA, Diverticulitis, Homicidal, Suicidal, threat to staff... and all critical care pts) @ -No - Lab Data Lab Results 06/20/24 Range/Units 18:28 Influenza Type A (PCR) Not Detected (Not Detectd) Influenza Type B (PCR) Not Detected (Not Detectd) RSV (PCR) Not Detected (Not Detectd) SARS-CoV-2 (PCR) Not Detected (Not Detectd) Disposition Clinical Impression: Cough, History of heart artery stent Disposition: HOME SELF-CARE Condition: Good Instructions (If sedation given, give patient instructions): Acute Cough (ED) Additional Instructions: Return to the emergency department for any new or worsening symptoms. Recommend that you follow-up as scheduled with your media developer on Monday for further evaluation. Is patient prescribed a controlled substance at d/c from ED?: No Referrals: Andre Rice DO [Primary Care Provider] - 1-2 days Time of Disposition: 19:40
[2024-06-20 19:50] VITALS: BP 121/76; PULSE 70; RESP 18; TEMP 99
== END 2024-06-20 19:48 | disposition home or self-care (01) ==
LOC: EC 17:52
CPT/HCPCS: 87636; 93005; 99283

== ENCOUNTER 2024-07-03 18:20 | Emergency (ER) | payer MEDICARE, OTHER ==
[2024-07-03 18:33] VITALS: TEMP 97.8
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
[2024-07-03] MEDS: SODIUM CHLORIDE 0.9% 500 ML 500 ML IV STA (19:02)
[2024-07-03] MEDS: MORPHINE SULFATE 4 MG/ML SYRINGE IV STA (19:06)
[2024-07-03 19:22] LABS: Basophils % (A) 0 %; Eosinophils # (A) 0.2 k/uL (0-0.7); Eosinophils % (A) 2 %; HCT 34.6 % (34.0-46.0); Hypochromasia Moderate; Lymphocytes # (A) 1.4 k/uL (1.0-4.8); Lymphocytes % (A) 18 %; MCH 27.7 pg (25.0-35.0); MCHC 31.8 g/dL (31.0-37.0); MCV 87.2 fL (80.0-100.0); Mean Platelet Volume 7.4; Monocytes # (A) 0.3 k/uL (0-1.0); Monocytes % (A) 4 %; Neutrophils # (A) 5.5 k/uL (1.3-7.7); Neutrophils % (A) 72 %; Platelet Count 267 k/uL (150-450); RBC 3.97 m/uL (3.80-5.40); RDW 14.5 % (11.5-15.5); WBC 7.7 k/uL (3.8-10.6)
[2024-07-03 19:31] LABS: ALT 30 U/L (4-34); AST 32 U/L (14-36); African American GFR (CKD) 51 (>60 ml/min/1.73 sqM); Albumin 4.6 g/dL (3.5-5.0); Alkaline Phosphatase 91 U/L (38-126); Anion Gap 7 mmol/L; Blood Urea Nitrogen 25 mg/dL (7-17); Calcium 9.7 mg/dL (8.4-10.2); Carbon Dioxide 25 mmol/L (22-30); Chloride 104 mmol/L (98-107); Glucose 87 mg/dL (74-99); Lipase 229 U/L (23-300); Magnesium 1.9 mg/dL (1.6-2.3); Non-African American GFR(CKD) 44 (>60 ml/min/1.73 sqM); Partial Thromboplastin Time 25.3 sec (22.0-30.0); Potassium 4.1 mmol/L (3.5-5.1); Prothrombin Time 10.9 sec (10.0-12.5); Sodium 136 mmol/L (137-145); Total Protein 7.8 g/dL (6.3-8.2)
[2024-07-03 19:40] LABS: NT-Pro-B-Type Natriuretic Pept 92 pg/mL
[2024-07-03] MEDS: MORPHINE SULFATE 2 MG/ML SYRINGE IVP STA (19:45)
[2024-07-03] MEDS: ACETAMINOPHEN TAB 500 MG TAB PO STA (19:48)
--- NOTE | 2024-07-03 19:48 | XR ---
EXAMINATION TYPE: XR chest 2V DATE OF EXAM: 07/03/2024 7:38 PM CLINICAL INDICATION: Female, 68 years old with history of pain; [facility] COMPARISON: Chest radiographs from 01/17/2024 TECHNIQUE: XR chest 2V Frontal view of the chest. FINDINGS: Lungs/Pleura: There is no evidence of pleural effusion, focal consolidation, or pneumothorax. Pulmonary vascularity: Unremarkable. Heart/mediastinum: Cardiomediastinal silhouette is unremarkable. Musculoskeletal: No acute osseous pathology. Other findings: None IMPRESSION: No acute cardiopulmonary disease/process. [facility], , 07/03/2024 7:46 PM
--- NOTE | 2024-07-03 19:48 | XR ---
EXAMINATION TYPE: XR ribs LT DATE OF EXAM: 07/03/2024 7:37 PM CLINICAL INDICATION: Female, 68 years old with history of pain; COMPARISON: 07/03/2024 TECHNIQUE: XR ribs LT; Frontal and oblique views of the ribs with frontal chest radiograph. FINDINGS: The ribs have a normal appearance. No evidence of fracture. Overall, the lungs are clear. The cardiac silhouette is normal in size. The remaining osseous structures are intact. Scoliosis ch anges of the spine. IMPRESSION: No acute osseous pathology. [facility], Workstation: [id number], 07/03/2024 7:45 PM
[2024-07-03 20:57] VITALS: BP 162/85; PULSE 80; RESP 18
== END 2024-07-03 20:57 | disposition home or self-care (01) ==
LOC: EC 18:20
CPT/HCPCS: 36415; 71046; 80053; 83690; 83735; 83880; 84484; 85025; 85610; 85730; 93005; 96360; 99284

== ENCOUNTER → 2024-07-05 | Outpatient (CLI) | payer MEDICARE ==
--- NOTE | 2024-07-05 17:16 | US ---
EXAMINATION TYPE: US kidneys/renal and bladder DATE OF EXAM: 07/05/2024 COMPARISON: CLINICAL INDICATION: Female, 68 years old with history of N17.9 ACUTE KIDNEY FAILURE; Abnormal labs. Hx right hydro. TECHNIQUE: Grayscale and color Doppler imaging of the bilateral kidneys and urinary bladder: EXAM MEASUREMENTS: Right Kidney: 9.9 x 5.0 x 4.1 cm Left Kidney: 10.9 x 5.1 x 5.6 cm Right Kidney: Minimal hydronephrosis, cortical thinning Left Kidney: No hydronephrosis or masses seen Bladder: distended, anechoic Bilateral Jets not seen IMPRESSION: Minimal right hydronephrosis. No obstructing etiology identified. [facility], Workstation: [id number], 07/05/2024 5:14 PM
== END | disposition home or self-care (01) ==
LOC: RADUSWWP 15:09
PROVIDERS: ATTEND Family Medicine
DX: N17.9 Acute kidney failure, unspecified
CPT/HCPCS: 76770

== ENCOUNTER 2024-08-03 07:10 | Emergency (ER) | payer MEDICARE ==
--- NOTE | 2024-08-03 07:41 | ED ---
Extremity Problem HPI - General Chief complaint: Extremity Problem,Nontraumatic Stated complaint: L Leg, Hip, Arm, and Back Pain Time Seen by Provider: 08/03/24 07:16 Source: patient, RN notes reviewed Mode of arrival: wheelchair Limitations: no limitations - History of Present Illness Initial comments: 68 year old female presents to ED with Chief complaint of myalgias. She states the she recently had a heart attack for which she received 2 stents and was started on amlodipine, metoprolol, and atorvastatin. Since starting atorvastatin, she developed myalgia of her shoulder, back, and legs so she was switched to rusovastatin. She states that she sees a area secretary at [facility] who reported that her creatinine and GFR are improving; however, while having myalgia previously, her urine was tea colored and kidney function was worsening. Significant to her history is hypertension, chronic kidney disease and AR. She reports associated nausea without vomitting, muscle spasms of her back, legs, and shoulders, and palpitations. She denies shortness of breath, chest pain, and fever. - Related Data Home Medications Medication Instructions Recorded Confirmed amLODIPine [Norvasc] 10 mg PO HS 10/04/19 01/17/24 Allergies Allergy/AdvReac Type Severity Reaction Status Date / Time codeine Allergy Rash/Hives Verified 08/03/24 07:15 ketorolac [From Toradol] Allergy Nausea Verified 08/03/24 07:15 lisinopril Allergy Anaphylaxis Verified 08/03/24 07:15 Penicillins Allergy Rash/Hives Verified 08/03/24 07:15 fentanyl AdvReac Nausea & Verified 08/03/24 07:15 Vomiting hydromorphone [From Dilaudid] AdvReac Nausea & Verified 08/03/24 07:15 Vomiting Review of Systems ROS Statement: Those systems with pertinent positive or pertinent negative responses have been documented in the HPI. ROS Other: All systems not noted in ROS Statement are negative. Past Medical History Past Medical History: Coronary Artery Disease (CAD), Chest Pain / Angina, Eye Disorder, GERD/Reflux, Hypertension, Skin Disorder Additional Past Medical History / Comment(s): Chronic bilateral sciatica, arrhythmia-pt cannot recall type, beginnings of bilateral cataracts, rosacea. KIDNEY STONES, SEEN IN ER 01/11/24 FOR RT FLANK PAIN History of Any Multi-Drug Resistant Organisms: None Reported Past Surgical History: Heart Catheterization, Heart Catheterization With Stent, Tubal Ligation Additional Past Surgical History / Comment(s): Cardiac cath-normal, egd, colonoscopy, R ganglion cyst removal, 01/01/2426[id number] Past Anesthesia/Blood Transfusion Reactions: No Reported Reaction Past Psychological History: Anxiety, Depression Smoking Status: Former smoker Past Alcohol Use History: None Reported Past Drug Use History: None Reported - Past Family History Mother Family Medical History: Chest Pain / Angina, Congestive Heart Failure (CHF) Father Family Medical History: Chest Pain / Angina, Congestive Heart Failure (CHF), Coronary Artery Disease (CAD) General Exam Limitations: no limitations General appearance: alert, in no apparent distress Head exam: Present: atraumatic, normocephalic, normal inspection Eye exam: Present: normal appearance, PERRL, EOMI. Absent: scleral icterus, conjunctival injection, periorbital swelling ENT exam: Present: normal exam, mucous membranes moist Neck exam: Present: normal inspection. Absent: tenderness, meningismus, lymphadenopathy Respiratory exam: Present: normal lung sounds bilaterally. Absent: respiratory distress, wheezes, rales, rhonchi, stridor Cardiovascular Exam: Present: regular rate, normal rhythm, normal heart sounds. Absent: systolic murmur, diastolic murmur, rubs, gallop, clicks GI/Abdominal exam: Present: soft, normal bowel sounds. Absent: distended, tenderness, guarding, rebound, rigid Extremities exam: Present: normal inspection, full ROM, normal capillary refill. Absent: tenderness, pedal edema, joint swelling, calf tenderness Back exam: Present: normal inspection Neurological exam: Present: alert, oriented X3, CN II-XII intact Psychiatric exam: Present: normal affect, normal mood Skin exam: Present: warm, dry, intact, normal color. Absent: rash Course Vital Signs 08/03/24 07:13 Temperature 97.9 F Pulse Rate 52 L Respiratory 16 Rate Blood Pressure 141/82 O2 Sat by Pulse 100 Oximetry Medical Decision Making - Medical Decision Making Was pt. sent in by a medical professional or institution (, PA, NEWS PRODUCER, urgent care, hospital, or halfway...) When possible be specific @ -No Did you speak to anyone other than the patient for history (EMS, parent, family, police, friend...)? What history was obtained from this source @ -No Did you review nursing and triage notes (agree or disagree)? Why? @ -I reviewed and agree with nursing and triage notes Were old charts reviewed (outside hosp., previous admission, EMS record, old EKG, old radiological studies, urgent care reports/EKG's, halfway records)? Report findings @ -No old charts were reviewed Differential Diagnosis (chest pain, altered mental status, abdominal pain women, abdominal pain men, vaginal bleeding, weakness, fever, dyspnea, syncope, headache, dizziness, GI bleed, back pain, seizure, CVA, palpatations, mental health, musculoskeletal)? @ -Differential Musculoskeletal Muscular strain, contusion, ligament sprain, fracture, arthritis, septic arthritis, bursitis, cellulitis, muscle spasm, nerve compression, DVT, arterial occlusion, herpes zoster, electrolyte abnormality, tumor.... This is not meant to be in all inclusive list EKG interpreted by me (3pts min.). @ -As above X-rays interpreted by me (1pt min.). @ -None done CT interpreted by me (1pt min.). @ -None done U/S interpreted by me (1pt. min.). @ -None done What testing was considered but not performed or refused? (CT, X-rays, U/S, labs)? Why? @ -None What meds were considered but not given or refused? Why? @ -None Did you discuss the management of the patient with other professionals (professionals i.e. , PA, NEWS PRODUCER, lab, RT, psych nurse, social service worker, platform attendant, teacher, guest relations officer, case management specialist)? Give summary @ -No Was smoking cessation discussed for >3mins.? @ -No Was critical care preformed (if so, how long)? @ -No Were there social determinants of health that impacted care today? How? (Homelessness, low income, unemployed, alcoholism, drug addiction, transportation, low edu. Level, literacy, decrease access to med. care, detention, rehab)? @ -No Was there de-escalation of care discussed even if they declined (Discuss DNR or withdrawal of care, Hospice)? DNR status @ -No What co-morbidities impacted this encounter? (DM, HTN, Smoking, COPD, CAD, Cancer, CVA, ARF, Chemo, Hep., AIDS, mental health diagnosis, sleep apnea, mo rbid obesity)? @ -CAD, CKD Was patient admitted / discharged? Hospital course, mention meds given and route, prescriptions, significant lab abnormalities, going to OR and other pertinent info. @ -Discharge patient presented for multiple myalgias, muscle joint pain seems to be related to medication we discussed possibility of fibromyalgia rheumatica versus lumbar radiculopathy. She has no bladder symptoms. She has a steroid pack that she has prescribed has not started it. Patient advised to take this she does have [place] at home that she did not take she can take a [place] for the pain. She is contact her PCP and cardiology on Monday she is return for any worsening changes symptoms. Undiagnosed new problem with uncertain prognosis? @ -No Drug Therapy requiring intensive monitoring for toxicity (Heparin, Nitro, Insulin, Cardizem)? @ -No Were any procedures done? @ -No Diagnosis/symptom? @ -Lumbar radiculopathy, polymyalgia Acute, or Chronic, or Acute on Chronic? @ -Acute Uncomplicated (without systemic symptoms) or Complicated (systemic symptoms)? @ -Complicated Side effects of treatment? @ -No Exacerbation, Progression, or Severe Exacerbation? @ -No Poses a threat to life or bodily function? How? (Chest pain, [place], AR, pneumonia, PE, COPD, DKA, ARF, appy, cholecystitis, CVA, Diverticulitis, Homicidal, Suicidal, threat to staff... and all critical care pts) @ -No - Lab Data Result diagrams: 08/03/24 07:41 08/03/24 08:20 Lab Results 08/03/24 08/03/24 08/03/24 Range/Units 07:41 07:41 07:41 WBC 6.9 (3.8-10.6) k/uL RBC 3.92 (3.80-5.40) m/uL Hgb 10.7 L (11.4-16.0) gm/dL Hct 35.3 (34.0-46.0) % MCV 90.0 (80.0-100.0) fL MCH 27.4 (25.0-35.0) pg MCHC 30.4 L (31.0-37.0) g/dL RDW 14.9 (11.5-15.5) % Plt Count 242 (150-450) k/uL MPV 8.0 Neutrophils % 76 % Lymphocytes % 15 % Monocytes % 4 % Eosinophils % 2 % Basophils % 0 % Neutrophils # 5.3 (1.3-7.7) k/uL Lymphocytes # 1.1 (1.0-4.8) k/uL Monocytes # 0.3 (0-1.0) k/uL Eosinophils # 0.2 (0-0.7) k/uL Basophils # 0.0 (0-0.2) k/uL Hypochromasia Moderate Sodium (137-145) mmol/L Potassium (3.5-5.1) mmol/L Chloride (98-107) mmol/L Carbon Dioxide (22-30) mmol/L Anion Gap mmol/L BUN (7-17) mg/dL Creatinine (0.52-1.04) mg/dL Est GFR (CKD-EPI)AfAm (>60 ml/min/1.73 sqM) Est GFR (CKD-EPI)NonAf (>60 ml/min/1.73 sqM) Glucose (74-99) mg/dL Plasma Lactic Acid David 0.8 (0.7-2.0) mmol/L Calcium (8.4-10.2) mg/dL Magnesium (1.6-2.3) mg/dL Total Bilirubin (0.2-1.3) mg/dL AST (14-36) U/L ALT (4-34) U/L Alkaline Phosphatase (38-126) U/L Creatine Kinase (30-135) U/L Total Protein (6.3-8.2) g/dL Albumin (3.5-5.0) g/dL Urine Color Light Yellow Urine Appearance Clear (Clear) Urine pH 5.5 (5.0-8.0) Ur Specific [place] 1.013 (1.001-1.035) Urine Protein Negative (Negative) Urine Glucose (UA) Negative (Negative) Urine Ketones Negative (Negative) Urine Blood Negative (Negative) Urine Nitrite Negative (Negative) Urine Bilirubin Negative (Negative) Urine Urobilinogen <2.0 (<2.0) mg/dL Ur Leukocyte Esterase Negative (Negative) 08/03/24 Range/Units 08:20 WBC (3.8-10.6) k/uL RBC (3.80-5.40) m/uL Hgb (11.4-16.0) gm/dL Hct (34.0-46.0) % MCV (80.0-100.0) fL MCH (25.0-35.0) pg MCHC (31.0-37.0) g/dL RDW (11.5-15.5) % Plt Count (150-450) k/uL MPV Neutrophils % % Lymphocytes % % Monocytes % % Eosinophils % % Basophils % % Neutrophils # (1.3-7.7) k/uL Lymphocytes # (1.0-4.8) k/uL Monocytes # (0-1.0) k/uL Eosinophils # (0-0.7) k/uL Basophils # (0-0.2) k/uL Hypochromasia Sodium 139 (137-145) mmol/L Potassium 4.0 (3.5-5.1) mmol/L Chloride 109 H (98-107) mmol/L Carbon Dioxide 26 (22-30) mmol/L Anion Gap 4 mmol/L BUN 16 (7-17) mg/dL Creatinine 0.94 (0.52-1.04) mg/dL Est GFR (CKD-EPI)AfAm 71 (>60 ml/min/1.73 sqM) Est GFR (CKD-EPI)NonAf 62 (>60 ml/min/1.73 sqM) Glucose 90 (74-99) mg/dL Plasma Lactic Acid David (0.7-2.0) mmol/L Calcium 8.2 L (8.4-10.2) mg/dL Magnesium 2.0 (1.6-2.3) mg/dL Total Bilirubin 0.7 (0.2-1.3) mg/dL AST 22 (14-36) U/L ALT 18 (4-34) U/L Alkaline Phosphatase 63 (38-126) U/L Creatine Kinase 53 (30-135) U/L Total Protein 6.1 L (6.3-8.2) g/dL Albumin 3.4 L (3.5-5.0) g/dL Urine Color Urine Appearance (Clear) Urine pH (5.0-8.0) Ur Specific [place] (1.001-1.035) Urine Protein (Negative) Urine Glucose (UA) (Negative) Urine Ketones (Negative) Urine Blood (Negative) Urine Nitrite (Negative) Urine Bilirubin (Negative) Urine Urobilinogen (<2.0) mg/dL Ur Leukocyte Esterase (Negative) - EKG Data -: EKG Interpreted by Me EKG Comments: Sinus bradycardia with a rate of 50 HI 182 QRS 98 QT/QTc 469/442 Disposition Clinical Impression: Polymyalgia, Lumbar radicular pain Disposition: HOME SELF-CARE Condition: Stable Instructions (If sedation given, give patient instructions): Musculoskeletal Pain (ED) Additional Instructions: Please return to the Emergency Department if symptoms worsen or any other concerns. Is patient prescribed a controlled substance at d/c from ED?: No Referrals: Andre Rice DO [Primary Care Provider] - 1-2 days Time of Disposition: 09:13
[2024-08-03] MEDS: ONDANSETRON 4 MG/2 ML VIAL IVP STA (07:49)
[2024-08-03] MEDS: ONDANSETRON 4 MG/2 ML VIAL IM STA (07:49)
[2024-08-03] MEDS: SODIUM CHLORIDE 0.9% 1,000 ML IV STA (07:52)
[2024-08-03 08:02] LABS: Appearance,Urine Clear (Clear); Basophils % (A) 0 %; Bilirubin,Urine Negative (Negative); Blood,Urine Negative (Negative); Color,Urine Light Yellow; Eosinophils # (A) 0.2 k/uL (0-0.7); Eosinophils % (A) 2 %; Glucose,Urine (UA) Negative (Negative); HCT 35.3 % (34.0-46.0); HGB 10.7 gm/dL (11.4-16.0); Hypochromasia Moderate; Ketones,Urine Negative (Negative); Leukocyte Esterase,Urine Negative (Negative); Lymphocytes # (A) 1.1 k/uL (1.0-4.8); Lymphocytes % (A) 15 %; MCH 27.4 pg (25.0-35.0); MCHC 30.4 g/dL (31.0-37.0); Monocytes # (A) 0.3 k/uL (0-1.0); Monocytes % (A) 4 %; Neutrophils # (A) 5.3 k/uL (1.3-7.7); Neutrophils % (A) 76 %; Nitrite,Urine Negative (Negative); PH, Urine 5.5 (5.0-8.0); Platelet Count 242 k/uL (150-450); Protein,Urine Negative (Negative); RBC 3.92 m/uL (3.80-5.40); RDW 14.9 % (11.5-15.5); Specific Gravity,Urine 1.013 (1.001-1.035); Urobilinogen,Urine <2.0 mg/dL (<2.0); WBC 6.9 k/uL (3.8-10.6)
[2024-08-03 08:52] LABS: ALT 18 U/L (4-34); AST 22 U/L (14-36); African American GFR (CKD) 71 (>60 ml/min/1.73 sqM); Albumin 3.4 g/dL (3.5-5.0); Alkaline Phosphatase 63 U/L (38-126); Anion Gap 4 mmol/L; Blood Urea Nitrogen 16 mg/dL (7-17); Calcium 8.2 mg/dL (8.4-10.2); Carbon Dioxide 26 mmol/L (22-30); Chloride 109 mmol/L (98-107); Creatine Kinase 53 U/L (30-135); Glucose 90 mg/dL (74-99); Non-African American GFR(CKD) 62 (>60 ml/min/1.73 sqM); Sodium 139 mmol/L (137-145); Total Bilirubin 0.7 mg/dL (0.2-1.3); Total Protein 6.1 g/dL (6.3-8.2)
[2024-08-03] MEDS: methylPREDNISolone SOD SUCCI 125 MG/2 ML VIAL IV STA (09:27)
[2024-08-03] MEDS: HYDROcodone/APAP 5-325MG 1 EACH TAB PO STA (09:27)
[2024-08-03 09:43] VITALS: BP 152/84; PULSE 51; RESP 18; TEMP 97.5
== END 2024-08-03 09:43 | disposition home or self-care (01) ==
LOC: EC 07:10
DX: M35.3 Polymyalgia rheumatica (principal); M54.16 Radiculopathy, lumbar region; Z88.5 Allergy status to narcotic agent; Z88.6 Allergy status to analgesic agent; Z88.0 Allergy status to penicillin; Z88.8 Allergy status to other drugs, medicaments and biological substances; Z87.891 Personal history of nicotine dependence
CPT/HCPCS: 36415; 93005; 80053; 82550; 83605; 83735; 85025; 81003; 99284; 96374; 96375; 96361; J2405; J2919

== ENCOUNTER → 2024-09-11 | Outpatient (CLI) | payer MEDICARE ==
--- NOTE | 2024-09-11 15:17 | MM ---
Reason for Exam: Clinical finding. Last mammogram was performed 1 year(s) and 2 month(s) ago. Indicated Problems: Pain of the left side. Patient History: Menarche at age 8. First Full-Term at age 20. Postmenopausal. Risk Values: Jaquelin 5 year model risk: 1.7%. NCI Lifetime model risk: 4.8%. Tissue Density: There are scattered areas of fibroglandular density. Findings: Analyzed By CAD. The pattern is symmetrical. Chronic nodularity is present bilaterally. No enlarging nodules are evident. Benign coarse calcifications within the left breast. Scattered benign round and punctate calcifications are present greater on the right. No suspicious groups of microcalcifications, spiculated or lobular masses, architectural distortion or other secondary signs of malignancy are mammographically apparent.The pattern is symmetrical. Chronic nodularity is present bilaterally. No enlarging nodules are evident. Benign coarse calcifications within the left breast. Scattered benign round and punctate calcifications are present greater on the right. No suspicious contusion or mass effect within the left breast from injury is identified No suspicious groups of microcalcifications, spiculated or lobular masses, architectural distortion or other secondary signs of malignancy are mammographically apparent. Overall Assessment: Benign, BI-RAD 2 Management: Screening Mammogram of both breasts in 1 year. A negative mammogram report should not preclude additional follow up of suspicious palpable abnormalities. Patient should continue monthly self breast exam. A clinical breast exam by your physician is recommended on an annual basis and results should be correlated with mammographic findings. Note on Jaquelin scores and lifetime risk: 1. A Jaquelin score greater than 3% is considered moderate risk. If this is the case, consider specialist referral to assess eligibility for a risk reducing agent. 2. If overall lifetime risk for the development of breast cancer is 20% or higher, the patient may qualify for future screening with alternating mammogram and breast MRI. [facility], , 09/11/2024 3:14 PM. Electronically signed and approved by: Andre Tamez D.O. Radiologis
== END | disposition home or self-care (01) ==
LOC: RADMAMWWP 08:39
PROVIDERS: ATTEND Family Medicine
DX: R92.323 Mammographic fibroglandular density, bilateral breasts (principal); N64.4 Mastodynia; Z78.0 Asymptomatic menopausal state
CPT/HCPCS: 77062; 77066

== ENCOUNTER 2024-11-27 18:44 | Emergency (ER) | payer MEDICARE ==
[2024-11-27 19:04] VITALS: BP 164/82; PULSE 56; RESP 17; TEMP 97.8
--- NOTE | 2024-11-27 19:50 | ED ---
Chest Pain HPI - General Source: patient, family Mode of arrival: wheelchair Limitations: no limitations <Cinthya Mata - Last Filed: 11/27/24 19:49> <Carina Ortega - Last Filed: 11/28/24 09:28> - General Chief Complaint: Chest Pain Stated Complaint: chest pain L arm pain Time Seen by Provider: 11/27/24 19:50 - History of Present Illness Initial Comments: 68-year-old female presenting with chief complaint of chest pain and palpitations. Started today. She also reports generalized weakness. States that she has history of MD and stents placed back in June (Cinthya Mata) Patient is a 68-year-old female past medical history of CAD presenting today for chest pain and palpitations. Patient states she was out running errands today when she began feeling like her heart was pounding. This evening she began having pressure-like left-sided chest pain that radiated to her left shoulder. 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 Endorses associated generalized weakness. Upon arrival to the ER states she began feeling very weak. States pain is spontaneously improving currently rates as 3 out of 10. She denies associated focal numbness weakness, changes in vision or slurred speech. Denies difficulty in breathing, cough or fevers. Denies lower extremity swelling, nausea, vomiting or abdominal pain. Denies diarrhea melena or hematochezia. Currently takes Brilinta, aspirin metoprolol. She took herself off her statin because she is not likely side effects. She had a stress echo done with Dr. Aguila about 1 month ago and was told it was normal however when she had a heart attack in June, in [place], she had a stress echo just prior to that and was told that was normal as well. (Carina Ortega) - Related Data Home Medications Medication Instructions Recorded Confirmed amLODIPine [Norvasc] 10 mg PO HS 10/04/19 01/17/24 Allergies Allergy/AdvReac Type Severity Reaction Status Date / Time codeine Allergy Rash/Hives Verified 11/27/24 19:03 ketorolac [From Toradol] Allergy Nausea Verified 11/27/24 19:03 lisinopril Allergy Anaphylaxis Verified 11/27/24 19:03 Penicillins Allergy Rash/Hives Verified 11/27/24 19:03 fentanyl AdvReac Nausea & Verified 11/27/24 19:03 Vomiting hydromorphone [From Dilaudid] AdvReac Nausea & Verified 11/27/24 19:03 Vomiting Review of Systems ROS Other: All systems not noted in ROS Statement are negative. <Cinthya Mata - Last Filed: 11/27/24 19:49> ROS Other: All systems not noted in ROS Statement are negative. <Carina Ortega - Last Filed: 11/28/24 09:28> ROS Statement: Those systems with pertinent positive or pertinent negative responses have been documented in the HPI. EKG Findings - EKG Comments: EKG Findings:: Sinus bradycardia, rate 57 bpm AK interval 168 ms QT/QTc 409/403 ms, left axis deviation, no ST elevations or depressions, T wave inversion lead IIICompared to EKG performed on 08/03/2024, T wave is now upright in leads V1, V2 when compared to prior, T wave inversion in lead III is not new from prior, otherwise unchanged from prior, transfer text <Carina Ortega - Last Filed: 11/28/24 09:28> Past Medical History Past Medical History: Coronary Artery Disease (CAD), Chest Pain / Angina, Eye Disorder, GERD/Reflux, Hypertension, Skin Disorder Additional Past Medical History / Comment(s): Chronic bilateral sciatica, ar rhythmia-pt cannot recall type, beginnings of bilateral cataracts, rosacea. KIDNEY STONES, SEEN IN ER 01/11/24 FOR RT FLANK PAIN History of Any Multi-Drug Resistant Organisms: None Reported Past Surgical History: Heart Catheterization, Heart Catheterization With Stent, Tubal Ligation Additional Past Surgical History / Comment(s): Cardiac cath-normal, egd, colonoscopy, R ganglion cyst removal, 01/01/2403-[id number] HURON Past Anesthesia/Blood Transfusion Reactions: No Reported Reaction Past Psychological History: Anxiety, Depression Smoking Status: Former smoker Past Alcohol Use History: None Reported Past Drug Use History: None Reported - Past Family History Mother Family Medical History: Chest Pain / Angina, Congestive Heart Failure (CHF) Father Family Medical History: Chest Pain / Angina, Congestive Heart Failure (CHF), Coronary Artery Disease (CAD) <Cinthya Mata - Last Filed: 11/27/24 19:49> General Exam Limitations: no limitations <Cinthya Mata - Last Filed: 11/27/24 19:49> <Carina Ortega - Last Filed: 11/28/24 09:28> - General Exam Comments Initial Comments: Visual Physical Exam Vital signs reviewed General: Well-appearing, nontoxic, no acute distress. Head: Normocephalic, atraumatic Eyes: PERRLA, EOMI ENT: Airway patent Chest: Nonlabored breathing Skin: No visual rash, normal skin tone Neuro: Alert and oriented 3 Musculoskeletal: No gross abnormalities (Cinthya Mata) PE: CONSTITUTIONAL: No apparent distress, well appearing SKIN: Warm, dry, no jaundice, hives or petechiae EYES: Pupils are equally round, extraocular movements intact without nystagmus, clear conjunctiva, non-icteric sclera HENT: Normocephalic, atraumatic, moist mucus membranes, oropharynx clear without exudates NECK: , Full range of motion, normal appearance PULMONARY: Clear to auscultation without wheezes, rhonchi, or rales, normal excursion, no accessory muscle use and no stridor CARDIOVASCULAR: Regular rate, rhythm, normal S1 and S2. No appreciated murmurs, rubs or gallops. Strong radial pulses with intact distal perfusion. No lower extremity edema GASTROINTESTINAL: Soft, active bowel sounds throughout, non-tender, non-distended, no palpable masses, no rebound or guarding. No hepatosplenomegaly MUSCULOSKELETAL: Extremities have no gross deformity NEUROLOGIC:_a/o x 3, GCS 15, normal mentation and speech. Moves all extremities x 4 without motor or sensory deficit PSYCHIATRIC:_normal mood and affect, thought process is clear and linear (Carina Ortega) Course Vital Signs 11/27/24 19:00 Temperature 97.8 F Pulse Rate 56 L Respiratory 17 Rate Blood Pressure 164/82 O2 Sat by Pulse 98 Oximetry Chest Pain MDM <Cinthya Mata - Last Filed: 11/27/24 19:49> <Carina Ortega - Last Filed: 11/28/24 09:28> - MDM I performed the quick note portion of this visit, electronically signed Cinthya Mata PA-C (Cinthya Mata) Was pt. sent in by a medical professional or institution (, INGE, IMPORT CUSTOMS CLEARING AGENT, urgent care, hospital, or penitentiary...) When possible be specific @ -No Did you speak to anyone other than the patient for history (EMS, parent, family, police, friend...)? What history was obtained from this source @ -No Did you review nursing and triage notes (agree or disagree)? Why? @ -I reviewed nursing and triage notes-Triage notes that patient reports palpitations and chest pain, had near syncopal event in the waiting room, patient reports that she just felt weak when this occurred she did not syncopized Were old charts reviewed (outside hosp., previous admission, EMS record, old EKG, old radiological studies, urgent care reports/EKG's, penitentiary records)? Report findings @ -Medical records reviewed- reviewed prior EKG, T waves are now upright in V1 and V2 when compared to prior, noted to have an abnormal stress test on review of stress test on 01/18/2024 Differential Diagnosis (chest pain, altered mental status, abdominal pain women, abdominal pain men, vaginal bleeding, weakness, fever, dyspnea, syncope, headache, dizziness, GI bleed, back pain, seizure, CVA, palpatations, mental health, musculoskeletal)? @Differential Chest Pain: Stable Angina, Unstable Angina, STEMI, NSTEMI pericarditis, pleurisy, chostochondirits, Pneumothorax, Musculoskeletal, Esophageal Spasm GERD, Cholecystitis, Pancreatitis, Zoster, this is not meant to be an all-inclusive list. EKG interpreted by me (3pts min.). @ -As above X-rays interpreted by me (1pt min.). Chest x-ray shows no cardiomegaly or consolidations or pneumothorax, I agree with radiologist interpretation CT interpreted by me (1pt min.). @ -None done U/S interpreted by me (1pt. min.). @ -None done What testing was considered but not performed or refused? (CT, X-rays, U/S, labs)? Why? @ -None What meds were considered but not given or refused? Why? @Sublingual nitroglycerin was considered however patient is currently in the waiting room, pain is rated as 3 out of 10 and improving spontaneously so this will be held until patient has a room Did you discuss the management of the patient with other professionals (professionals i.e. , PA, IMPORT CUSTOMS CLEARING AGENT, lab, RT, psych nurse, social media executive, cop examiner, teacher, interface control officer, block and case maker)? Give summary @ -No Was smoking cessation discussed for >3mins.? @ -No Was critical care preformed (if so, how long)? @ -No Were there social determinants of health that impacted care today? How? (Homelessness, low income, unemployed, alcoholism, drug addiction, transportation, low edu. Level, literacy, decrease access to med. care, custodial, rehab)? @ -No Was there de-escalation of care discussed even if they declined (Discuss DNR or withdrawal of care, Hospice)? @ -No What co-morbidities impacted this encounter? (DM, HTN, Smoking, COPD, CAD, Cancer, CVA, ARF, Chemo, Hep., AIDS, mental health diagnosis, sleep apnea, morbid obesity)? @CAD Was patient admitted / discharged? Hospital course, mention meds given and route, prescriptions, significant lab abnormalities, going to OR and other pertinent info. @Left PBI-10-blxy-old female presenting today for palpitations and left-sided chest pressure history CAD, stents placed in June. Sees Dr. Aguila. Pt initially seen and assessed in waiting room due to bed shortage in ED. Obtained pt's permission to discuss her case and perform brief physical exam in waiting room. Labs here are reassuring however patient does have an elevated HEART score and concerning history so will be admitted for observation for chest pain. Discussed this w/ pt and the importance of remaining for observation to further rule out signs of ACS. Pt agreeable with POC. Case discussed with Dr. Mcleod, kindly accepts pt for admission. Shortly after being accepted for admission, I was informed by RN that patient left against medical advice. Prior to this, when I had seen pt in the waiting room and discussed plan for admission, I did discuss with her the risks of leaving the hospital without further workup including but not limited to suffering a MACE and resultant potential serious complications and . Pt understood risks and had agreed to admission. Undiagnosed new problem with uncertain prognosis? @ -No Drug Therapy requiring intensive monitoring for toxicity (Heparin, Nitro, Ins ulin, Cardizem)? @ -No Were any procedures done? @ -No Diagnosis/symptom? @Chest Pain Acute, or Chronic, or Acute on Chronic? @Acute Uncomplicated (without systemic symptoms) or Complicated (systemic symptoms)? complicated Side effects of treatment? @ -No Exacerbation, Progression, or Severe Exacerbation? @ -No Poses a threat to life or bodily function? How? (Chest pain, USA, MD, pneumonia, PE, COPD, DKA, ARF, appy, cholecystitis, CVA, Diverticulitis, Homicidal, Suicidal, threat to staff... and all critical care pts) @Yes (Carina Ortega) Disposition <Cinthya Mata - Last Filed: 11/27/24 19:49> Is patient prescribed a controlled substance at d/c from ED?: No <Carina Ortega - Last Filed: 11/28/24 09:28> Clinical Impression: Chest pain Disposition: LEFT AGAINST MEDICAL ADVICE Condition: Stable
[2024-11-27 20:29] LABS: Basophils % (A) 1 %; Eosinophils # (A) 0.2 k/uL (0-0.7); Eosinophils % (A) 2 %; HCT 36.4 % (34.0-46.0); HGB 11.2 gm/dL (11.4-16.0); Hypochromasia Moderate; Lymphocytes # (A) 1.6 k/uL (1.0-4.8); Lymphocytes % (A) 19 %; MCH 27.3 pg (25.0-35.0); MCHC 30.8 g/dL (31.0-37.0); MCV 88.6 fL (80.0-100.0); Mean Platelet Volume 7.6; Monocytes # (A) 0.3 k/uL (0-1.0); Monocytes % (A) 3 %; Neutrophils # (A) 5.9 k/uL (1.3-7.7); Neutrophils % (A) 73 %; Platelet Count 246 k/uL (150-450); RBC 4.11 m/uL (3.80-5.40); RDW 14.2 % (11.5-15.5); WBC 8.2 k/uL (3.8-10.6)
[2024-11-27 20:38] LABS: INR 0.9 (<1.2); Partial Thromboplastin Time 24.3 sec (22.0-30.0); Prothrombin Time 10.6 sec (10.0-12.5)
--- NOTE | 2024-11-27 20:49 | XR ---
EXAMINATION TYPE: XR chest 2V DATE OF EXAM: 11/27/2024 8:36 PM COMPARISON: Chest x-ray July 03, 2024 CLINICAL INDICATION: Female, 68 years old with history of Chest Pain, TECHNIQUE: Frontal and lateral views of the chest are obtained. FINDINGS: Eventration of right hemidiaphragm redemonstrated. There is no focal air space opacity, pl eural effusion, or pneumothorax seen. The cardiac silhouette size remains within normal limits. Th e osseous structures are intact. IMPRESSION: No acute cardiopulmonary process. [facility], , 11/27/2024 8:47 PM
[2024-11-27 21:06] LABS: ALT 14 U/L (4-34); AST 19 U/L (14-36); African American GFR (CKD) 68 (>60 ml/min/1.73 sqM); Albumin 4.1 g/dL (3.5-5.0); Alkaline Phosphatase 83 U/L (38-126); Anion Gap 9 mmol/L; Blood Urea Nitrogen 19 mg/dL (7-17); Calcium 9.5 mg/dL (8.4-10.2); Carbon Dioxide 26 mmol/L (22-30); Chloride 104 mmol/L (98-107); Glucose 115 mg/dL (74-99); Magnesium 2.1 mg/dL (1.6-2.3); Non-African American GFR(CKD) 59 (>60 ml/min/1.73 sqM); Potassium 4.1 mmol/L (3.5-5.1); Sodium 139 mmol/L (137-145); Total Bilirubin 0.6 mg/dL (0.2-1.3); Total Protein 7.1 g/dL (6.3-8.2)
[2024-11-27] MEDS ORDERED: ONDANSETRON 4 MG/2 ML VIAL IVP PRN (22:42)
[2024-11-27] MEDS ORDERED: NALOXONE 0.4 MG/ML 1 ML VIAL IV PRN (22:42)
[2024-11-27] MEDS ORDERED: CALCIUM CARBONATE 500 MG CHEWABLE PO PRN (22:42)
[2024-11-27] MEDS ORDERED: MAG HYDROX/AL HYDROX/SIMETH 30 ML CUP PO PRN (22:42)
[2024-11-27] MEDS ORDERED: NITROGLYCERIN SL TABS 0.4 MG TAB SUBLINGUAL PRN (22:46)
[2024-11-27] MEDS: ASPIRIN 81 MG PO STA (23:38)
[2024-11-27] MEDS: SODIUM CHLORIDE 0.9% 1,000 ML IV SCH (23:42)
[2024-11-27] MEDS: ACETAMINOPHEN TAB 500 MG TAB PO STA (23:42)
[2024-11-28] MEDS ORDERED: ACETAMINOPHEN TAB 325 MG TAB PO PRN (04:00)
--- NOTE | 2024-11-28 07:04 | P.HPIM ---
History of Present Illness Please note patient was not discharged but left AMA Patient was admitted to my service from emergency room, and within very short time they called me back that patient left AMA. Patient please patient left AGAINST MEDICAL ADVICE before I have a chance to talk to her or see her. Please refer to emergency room note for more details Past Medical History Past Medical History: Coronary Artery Disease (CAD), Chest Pain / Angina, Eye Disorder, GERD/Reflux, Hypertension, Skin Disorder Additional Past Medical History / Comment(s): Chronic bilateral sciatica, arrhythmia-pt cannot recall type, beginnings of bilateral cataracts, rosacea. SURINDER BRENNAN STONES, SEEN IN ER 01/11/24 FOR RT FLANK PAIN History of Any Multi-Drug Resistant Organisms: None Reported Past Surgical History: Heart Catheterization, Heart Catheterization With Stent, Tubal Ligation Additional Past Surgical History / Comment(s): Cardiac cath-normal, egd, colonoscopy, R ganglion cyst removal, 01/01/2495-[id number] HURON Past Anesthesia/Blood Transfusion Reactions: No Reported Reaction Past Psychological History: Anxiety, Depression Smoking Status: Former smoker Past Alcohol Use History: None Reported Past Drug Use History: None Reported - Past Family History Mother Family Medical History: Chest Pain / Angina, Congestive Heart Failure (CHF) Father Family Medical History: Chest Pain / Angina, Congestive Heart Failure (CHF), Coronary Artery Disease (CAD) Medications and Allergies Home Medications Medication Instructions Recorded Confirmed Type amLODIPine [Norvasc] 10 mg PO HS 10/04/19 01/17/24 History Allergies Allergy/AdvReac Type Severity Reaction Status Date / Time codeine Allergy Rash/Hives Verified 11/27/24 19:03 ketorolac [From Toradol] Allergy Nausea Verified 11/27/24 19:03 lisinopril Allergy Anaphylaxis Verified 11/27/24 19:03 Penicillins Allergy Rash/Hives Verified 11/27/24 19:03 fentanyl AdvReac Nausea & Verified 11/27/24 19:03 Vomiting hydromorphone [From Dilaudid] AdvReac Nausea & Verified 11/27/24 19:03 Vomiting Physical Exam Vitals: Vital Signs Temp Pulse Resp BP Pulse Ox 11/27/24 19:00 97.8 F 56 L 17 164/82 98 Intake and Output 11/27/24 11/28/24 11/28/24 22:59 06:59 14:59 Other: Weight 94.347 kg Results CBC & Chem 7: 11/27/24 20:18 11/27/24 20:18 Labs: Abnormal Lab Results - Last 24 Hours (Table) 11/27/24 11/27/24 Range/Units 20:18 20:18 Hgb 11.2 L (11.4-16.0) gm/dL MCHC 30.8 L (31.0-37.0) g/dL BUN 19 H (7-17) mg/dL Glucose 115 H (74-99) mg/dL
[2024-11-28] MEDS ORDERED: FAMOTIDINE 20 MG TAB PO SCH (09:00)
== END 2024-11-27 23:31 | disposition left against medical advice (07) ==
LOC: EC 18:44 → UNDOADMOB 22:44 → 6NMEDSUR 22:44 → UNDODISOB 23:55
DX: R07.9 Chest pain, unspecified (principal); I11.9 Hypertensive heart disease without heart failure; I25.10 Atherosclerotic heart disease of native coronary artery without angina pectoris; Z87.891 Personal history of nicotine dependence; Z88.5 Allergy status to narcotic agent; Z88.0 Allergy status to penicillin; Z88.8 Allergy status to other drugs, medicaments and biological substances
CPT/HCPCS: 36415; 71046; 80053; 83735; 84484; 85025; 85610; 85730; 93005; 99285

== ENCOUNTER 2025-01-02 17:23 | Emergency (ER) | payer MEDICARE ==
[2025-01-02 17:28] VITALS: RESP 20
--- NOTE | 2025-01-02 17:59 | ED ---
Abdominal Pain HPI - General Chief Complaint: Abdominal Pain Stated Complaint: ABD Pain Time Seen by Provider: 01/02/25 17:38 Source: patient, RN notes reviewed Mode of arrival: ambulatory Limitations: no limitations - History of Present Illness MD Complaint: abdominal pain Onset/Timin -: days(s) Location: RLQ, R flank Radiation: back Migration to: no migration Severity scale (1-10): 5 Quality: cramping, stabbing Consistency: intermittent Worsens With: movement Associated Symptoms: denies other symptoms - Related Data Home Medications Medication Instructions Recorded Confirmed amLODIPine [Norvasc] 10 mg PO HS 10/04/19 01/17/24 Allergies Allergy/AdvReac Type Severity Reaction Status Date / Time codeine Allergy Rash/Hives Verified 01/02/25 17:28 ketorolac [From Toradol] Allergy Nausea Verified 01/02/25 17:28 lisinopril Allergy Anaphylaxis Verified 01/02/25 17:28 Penicillins Allergy Rash/Hives Verified 01/02/25 17:28 fentanyl AdvReac Nausea & Verified 01/02/25 17:28 Vomiting hydromorphone [From Dilaudid] AdvReac Nausea & Verified 01/02/25 17:28 Vomiting Review of Systems ROS Statement: Those systems with pertinent positive or pertinent negative responses have been documented in the HPI. ROS Other: All systems not noted in ROS Statement are negative. Past Medical History Past Medical History: Coronary Artery Disease (CAD), Chest Pain / Angina, Eye Disorder, GERD/Reflux, Hypertension, Skin Disorder Additional Past Medical History / Comment(s): Chronic bilateral sciatica, arrhythmia-pt cannot recall type, beginnings of bilateral cataracts, rosacea. KIDNEY STONES, SEEN IN ER 01/11/24 FOR RT FLANK PAIN History of Any Multi-Drug Resistant Organisms: None Reported Past Surgical History: Heart Catheterization, Heart Catheterization With Stent, Tubal Ligation Additional Past Surgical History / Comment(s): Cardiac cath-normal, egd, colonoscopy, R ganglion cyst removal, 01/01/2407-[id number] HURON Past Anesthesia/Blood Transfusion Reactions: No Reported Reaction Past Psychological History: Anxiety, Depression Smoking Status: Former smoker Past Alcohol Use History: None Reported Past Drug Use History: None Reported - Past Family History Mother Family Medical History: Chest Pain / Angina, Congestive Heart Failure (CHF) Father Family Medical History: Chest Pain / Angina, Congestive Heart Failure (CHF), Coronary Artery Disease (CAD) General Exam Limitations: no limitations General appearance: alert, in no apparent distress Head exam: Present: atraumatic, normocephalic, normal inspection Eye exam: Present: normal appearance, PERRL, EOMI. Absent: scleral icterus, conjunctival injection, periorbital swelling ENT exam: Present: normal exam, mucous membranes moist Neck exam: Present: normal inspection. Absent: tenderness, meningismus, lymphadenopathy Respiratory exam: Present: normal lung sounds bilaterally. Absent: respiratory distress, wheezes, rales, rhonchi, stridor Cardiovascular Exam: Present: regular rate, normal rhythm, normal heart sounds. Absent: systolic murmur, diastolic murmur, rubs, gallop, clicks GI/Abdominal exam: Present: soft, normal bowel sounds. Absent: distended, tenderness, guarding, rebound, rigid Extremities exam: Present: normal inspection, full ROM, normal capillary refill. Absent: tenderness, pedal edema, joint swelling, calf tenderness Back exam: Present: normal inspection, tenderness, muscle spasm (Positive right lumbar muscle spasm and point tenderness). Absent: CVA tenderness (R), CVA tenderness (L), vertebral tenderness Neurological exam: Present: alert, oriented X3, CN II-XII intact Psychiatric exam: Present: normal affect, normal mood Skin exam: Present: warm, dry, intact, normal color. Absent: rash Course Vital Signs 01/02/25 01/02/25 17:25 18:37 Temperature 97.6 F 98.9 F Pulse Rate 62 65 Respiratory 20 20 Rate Blood Pressure 191/102 143/104 O2 Sat by Pulse 98 96 Oximetry Medical Decision Making - Medical Decision Making Was pt. sent in by a medical professional or institution (, PA, LIQUID FERTILIZER SERVICER, urgent care, hospital, or fci...) When possible be specific @ -[facility] Did you speak to anyone other than the patient for history (EMS, parent, family, police, friend...)? What history was obtained from this source @ -[No] Did you review nursing and triage notes (agree or disagree)? Why? @ -[I reviewed and agree with nursing and triage notes] Were old charts reviewed (outside hosp., previous admission, EMS record, old EKG, old radiological studies, urgent care reports/EKG's, fci records)? Report findings @ -[No old charts were reviewed] Differential Diagnosis (chest pain, altered mental status, abdominal pain women, abdominal pain men, vaginal bleeding, weakness, fever, dyspnea, syncope, headache, dizziness, GI bleed, back pain, seizure, CVA, palpatations, mental health, musculoskeletal)? @ -Differential Abdominal Pain Women: Appendicitis, Cholecystitis, diverticulosis, ischemic bowel, pancreatitis, hepatitis, UTI, gastroenteritis, AAA, incarcerated hernia, bowel obstruction, constipation, inflammatory bowel, hepatitis, peptic ulcer disease, splenic infar ction, perforated viscus, vulvitis, ovarian torsion, PID, kidney stone, placenta abruption, this is not meant to be an all-inclusive list EKG interpreted by me (3pts min.). @ -Not done X-rays interpreted by me (1pt min.). @ -[None done] CT interpreted by me (1pt min.). @ -[None done] U/S interpreted by me (1pt. min.). @ -[None done] What testing was considered but not performed or refused? (CT, X-rays, U/S, labs)? Why? @ -[None] What meds were considered but not given or refused? Why? @ -Patient declined IM Toradol, Norflex as well as p.o. Motrin, tamsulosin and cyclobenzaprine. Did you discuss the management of the patient with other professionals (professionals i.e. , PA, LIQUID FERTILIZER SERVICER, lab, RT, psych nurse, social services aide, welding technician, teacher, security flex officer, embedded case manager)? Give summary @ -[No] Was smoking cessation discussed for >3mins.? @ -[No] Was critical care preformed (if so, how long)? @ -[No] Were there social determinants of health that impacted care today? How? (Homelessness, low income, unemployed, alcoholism, drug addiction, transportation, low edu. Level, literacy, decrease access to med. care, prison, rehab)? @ -[No] Was there de-escalation of care discussed even if they declined (Discuss DNR or withdrawal of care, Hospice)? DNR status @ -[No] What co-morbidities impacted this encounter? (DM, HTN, Smoking, COPD, CAD, Cancer, CVA, ARF, Chemo, Hep., AIDS, mental health diagnosis, sleep apnea, morbid obesity)? @ -[None] Was patient admitted / discharged? Hospital course, mention meds given and route, prescriptions, significant lab abnormalities, going to OR and other pertinent info. @ -[hospital course] Undiagnosed new problem with uncertain prognosis? @ -[No] Drug Therapy requiring intensive monitoring for toxicity (Heparin, Nitro, Insulin, Cardizem)? @ -[No] Were any procedures done? @ -[No] Diagnosis/symptom? @ -Ureterolithiasis, muscle spasm Acute, or Chronic, or Acute on Chronic? @ -Acute Uncomplicated (without systemic symptoms) or Complicated (systemic symptoms)? @ -Uncomplicated Side effects of treatment? @ -[No] Exacerbation, Progression, or Severe Exacerbation? @ -[No] Poses a threat to life or bodily function? How? (Chest pain, [place], [place], pneumonia, PE, COPD, DKA, ARF, appy, cholecystitis, CVA, Diverticulitis, Homicidal, Suicidal, threat to staff... and all critical care pts) @ -[No] Disposition Clinical Impression: Ureterolithiasis Disposition: HOME SELF-CARE Condition: Good Instructions (If sedation given, give patient instructions): Kidney Stones (ED), Ureteroscopy (DC) Additional Instructions: Follow-up with urology in the next 24-48 hours for ongoing care/treatment Is patient prescribed a controlled substance at d/c from ED?: No Referrals: Andre Rice DO [Primary Care Provider] - 1-2 days Maurice Miranda MD [REFERRING] - 1-2 days Time of Disposition: 18:27
[2025-01-02] MEDS: ORPHENADRINE 30 MG/ML 2 ML VIAL IM STA (18:19)
[2025-01-02 18:39] VITALS: BP 143/104; PULSE 65; TEMP 98.9
== END 2025-01-02 18:38 | disposition home or self-care (01) ==
LOC: EC 17:23
DX: N20.1 Calculus of ureter (principal); Z87.891 Personal history of nicotine dependence; Z88.0 Allergy status to penicillin; Z88.5 Allergy status to narcotic agent; Z88.6 Allergy status to analgesic agent; Z88.8 Allergy status to other drugs, medicaments and biological substances
CPT/HCPCS: 99283

== ENCOUNTER 2025-01-07 04:42 | Emergency (ER) | payer MEDICARE ==
[2025-01-07] MEDS: GLUCAGON 1 MG/ML VIAL IM STA (05:17)
--- NOTE | 2025-01-07 05:36 | ED ---
General Adult HPI - General Chief complaint: ENT Stated complaint: throat pain Time Seen by Provider: 01/07/25 05:01 Source: patient Mode of arrival: ambulatory Limitations: no limitations - History of Present Illness Initial comments: This patient is a 69-year-old woman who presents with complaint that she is having sensation that there may be a pill stuck in her throat. She states that around 10 PM she took a dose of antibiotic, which she states was a rather large pill. She states that it felt like it had wedged in her throat. She did not have coughing, dyspnea, nausea, vomiting, but she did feel like the pill was causing discomfort. She states that she tried drinking water but nothing really changed the feeling, and when it persisted for some hours she came here. Onset/Timin -: hour(s) Radiation: non-radiation Quality: dull Consistency: constant Improves with: none Worsens with: none Associated Symptoms: denies other symptoms Treatments Prior to Arrival: none - Related Data Home Medications Medication Instructions Recorded Confirmed amLODIPine [Norvasc] 10 mg PO HS 10/04/19 01/17/24 Allergies Allergy/AdvReac Type Severity Reaction Status Date / Time codeine Allergy Rash/Hives Verified 01/07/25 04:47 ketorolac [From Toradol] Allergy Nausea Verified 01/07/25 04:47 lisinopril Allergy Anaphylaxis Verified 01/07/25 04:47 Penicillins Allergy Rash/Hives Verified 01/07/25 04:47 fentanyl AdvReac Nausea & Verified 01/07/25 04:47 Vomiting hydromorphone [From Dilaudid] AdvReac Nausea & Verified 01/07/25 04:47 Vomiting Review of Systems ROS Statement: Those systems with pertinent positive or pertinent negative responses have been documented in the HPI. ROS Other: All systems not noted in ROS Statement are negative. Constitutional: Denies: fever, chills ENT: Reports: throat pain Respiratory: Denies: cough, dyspnea Cardiovascular: Denies: chest pain, palpitations Gastrointestinal: Denies: abdominal pain, nausea, vomiting Neurological: Denies: headache, weakness Past Medical History Past Medical History: Coronary Artery Disease (CAD), Chest Pain / Angina, Eye Disorder, GERD/Reflux, Hypertension, Skin Disorder Additional Past Medical History / Comment(s): Chronic bilateral sciatica, arrhythmia-pt cannot recall type, beginnings of bilateral cataracts, rosacea. KIDNEY STONES, SEEN IN ER 01/11/24 FOR RT FLANK PAIN History of Any Multi-Drug Resistant Organisms: None Reported Past Surgical History: Heart Catheterization, Heart Catheterization With Stent, Tubal Ligation Additional Past Surgical History / Comment(s): Cardiac cath-normal, egd, colonoscopy, R ganglion cyst removal, 01/01/2401-[id number] HURON Past Anesthesia/Blood Transfusion Reactions: No Reported Reaction Past Psychological History: Anxiety, Depression Smoking Status: Former smoker Past Alcohol Use History: None Reported Past Drug Use History: None Reported - Past Family History Mother Family Medical History: Chest Pain / Angina, Congestive Heart Failure (CHF) Father Family Medical History: Chest Pain / Angina, Congestive Heart Failure (CHF), Coronary Artery Disease (CAD) General Exam Limitations: no limitations General appearance: alert, in no apparent distress Head exam: Present: atraumatic, normocephalic Eye exam: Present: normal appearance. Absent: scleral icterus, conjunctival injection ENT exam: Present: normal oropharynx Neck exam: Present: normal inspection, full ROM. Absent: tenderness Respiratory exam: Present: normal lung sounds bilaterally. Absent: respiratory distress, wheezes, rales, rhonchi, stridor, accessory muscle use Cardiovascular Exam: Present: regular rate, normal rhythm, normal heart sounds. Absent: systolic murmur, diastolic murmur, rubs, gallop Neurological exam: Present: alert Skin exam: Present: warm, dry, intact, normal color. Absent: rash Course Vital Signs 01/07/25 01/07/25 01/07/25 04:44 05:55 06:35 Temperature 97.7 F 98.3 F Pulse Rate 64 64 69 Respiratory 18 22 16 Rate Blood Pressure 172/102 152/89 124/77 O2 Sat by Pulse 99 100 96 Oximetry Disposition Clinical Impression: Esophagitis Disposition: HOME SELF-CARE Condition: Good Instructions (If sedation given, give patient instructions): Esophagitis (ED) Is patient prescribed a controlled substance at d/c from ED?: No Referrals: Andre Rice DO [Primary Care Provider] - 1-2 days Vijaya May MD [STAFF PHYSICIAN] - 1-2 days
[2025-01-07] MEDS: LIDOCAINE VISCOUS 2% 15 ML CUP MUCOUS MEM STA (05:56)
[2025-01-07] MEDS: MAG HYDROX/AL HYDROX/SIMETH 30 ML CUP PO STA (05:56)
[2025-01-07 06:36] VITALS: BP 124/77; PULSE 69; RESP 16; TEMP 98.3
== END 2025-01-07 06:55 | disposition home or self-care (01) ==
LOC: EC 04:42
DX: K20.90 Esophagitis, unspecified without bleeding (principal); Z87.891 Personal history of nicotine dependence; Z88.0 Allergy status to penicillin; Z88.5 Allergy status to narcotic agent; Z88.8 Allergy status to other drugs, medicaments and biological substances
CPT/HCPCS: 99283; 96372; J1610

== ENCOUNTER 2025-04-24 11:51 | Observation (INO) | payer MEDICARE ==
[2025-04-24] MEDS: ASPIRIN 81 MG PO STA (12:57)
--- NOTE | 2025-04-24 12:57 | ED ---
General Adult HPI - General Chief complaint: Chest Pain Stated complaint: Chest pain Time Seen by Provider: 04/24/25 12:00 Source: patient, EMS, RN notes reviewed, old records reviewed Mode of arrival: EMS Limitations: no limitations - History of Present Illness Initial comments: This is a 69-year-old female who brought to the emergency department because of chest pain. Patient states she had chest pain while she was at rehab for her knee but she was not exerting herself. Patient states the pain radiated to her shoulder and she was mildly short of breath. Patient states she took a nitroglycerin and the pain went away. Patient states currently she is not having any chest pain. Patient Nuys any fever chills or cough. Patient denies any abdominal pain patient states that she has some nausea but no vomiting. Patient denies any swelling to the legs or calf tenderness. Patient states this pain feels like the pain she had when she had her previous heart attack and stent. - Related Data Home Medications Medication Instructions Recorded Confirmed Aspirin EC [Ecotrin Low Dose] 81 mg PO DAILY 04/24/25 04/24/25 Metoprolol Tartrate [Lopressor] 25 mg PO BID 04/24/25 04/24/25 Ticagrelor [Brilinta] 90 mg PO BID 04/24/25 04/24/25 amLODIPine [Norvasc] 5 mg PO HS 04/24/25 04/24/25 Allergies Allergy/AdvReac Type Severity Reaction Status Date / Time codeine Allergy Rash/Hives Verified 04/24/25 13:54 ketorolac [From Toradol] Allergy Nausea Verified 04/24/25 13:54 lisinopril Allergy Anaphylaxis Verified 04/24/25 13:54 Penicillins Allergy Rash/Hives Verified 04/24/25 13:54 fentanyl AdvReac Nausea & Verified 04/24/25 13:54 Vomiting hydromorphone [From Dilaudid] AdvReac Nausea & Verified 04/24/25 13:54 Vomiting Review of Systems ROS Statement: Those systems with pertinent positive or pertinent negative responses have been documented in the HPI. ROS Other: All systems not noted in ROS Statement are negative. Past Medical History Past Medical History: Coronary Artery Disease (CAD), Chest Pain / Angina, Eye Disorder, GERD/Reflux, Hypertension, Skin Disorder Additional Past Medical History / Comment(s): Chronic bilateral sciatica, arrhythmia-pt cannot recall type, beginnings of bilateral cataracts, rosacea. KIDNEY STONES, SEEN IN ER 01/11/24 FOR RT FLANK PAIN History of Any Multi-Drug Resistant Organisms: None Reported Past Surgical History: Heart Catheterization, Heart Catheterization With Stent, Tubal Ligation Additional Past Surgical History / Comment(s): Cardiac cath-normal, egd, colonoscopy, R ganglion cyst removal, 01/01/2455-[id number] HURON Past Anesthesia/Blood Transfusion Reactions: No Reported Reaction Past Psychological History: Anxiety, Depression Smoking Status: Former smoker Past Alcohol Use History: None Reported Past Drug Use History: None Reported - Past Family History Mother Family Medical History: Chest Pain / Angina, Congestive Heart Failure (CHF) Father Family Medical History: Chest Pain / Angina, Congestive Heart Failure (CHF), Coronary Artery Disease (CAD) General Exam - General Exam Comments Initial Comments: GENERAL: Patient is well-developed and well-nourished. Patient is nontoxic and well-hydrated and is in mild distress. ENT: Neck is soft and supple. No significant lymphadenopathy is noted. Oropharynx is clear. Moist mucous membranes. Neck has full range of motion without eliciting any pain. EYES: The sclera were anicteric and conjunctiva were pink and moist. Extraocular movements were intact and pupils were equal round and reactive to light. Eyelids were unremarkable. PULMONARY: Unlabored respirations. Good breath sounds bilaterally. No audible rales rhonchi or wheezing was noted. CARDIOVASCULAR: There is a regular rate and rhythm without any murmurs gallops or rubs. ABDOMEN: Soft and nontender with normal bowel sounds. SKIN: Skin is clear with no lesions or rashes and otherwise unremarkable. NEUROLOGIC: Patient is alert and oriented x3. Cranial nerves II through XII are grossly intact. Motor and sensory are also intact. Normal speech, volume and content. Symmetrical smile. MUSCULOSKELETAL: Normal extremities with adequate strength and full range of motion. No lower extremity swelling or edema. No calf tenderness. LYMPHATICS: No significant lymphadenopathy is noted PSYCHIATRIC: Normal psychiatric evaluation. Limitations: no limitations Course Vital Signs 04/24/25 04/24/25 04/24/25 11:53 12:45 14:16 Temperature 98 F Pulse Rate 54 L 52 L 60 Respiratory 16 16 16 Rate Blood Pressure 155/87 137/79 138/82 O2 Sat by Pulse 100 99 100 Oximetry Medical Decision Making - Medical Decision Making EKG is interpreted by myself. EKG shows sinus bradycardia 53 bpm. Of the 189 QRS is 93 QT interval is 459 QTc is 441. EKG shows no ST segment elevation Was pt. sent in by a medical professional or institution ([facility], [employer], urgent care, hospital, or group home...) When possible be specific @ -No Did you speak to anyone other than the patient for history (EMS, parent, family, police, friend...)? What history was obtained from this source @ -No Did you review nursing and triage notes (agree or disagree)? Why? @ -I reviewed and agree with nursing and triage notes Were old charts reviewed (outside hosp., previous admission, EMS record, old EKG, old radiological studies, urgent care reports/EKG's, group home records)? Report findings @ -No old charts were reviewed Differential Diagnosis? @ -Differential Chest Pain: Stable Angina, Unstable Angina, STEMI, NSTEMI Aortic Dissection, Pneumothorax, Musculoskeletal, Esophageal Spasm GERD, Cholecystitis, Pancreatitis, Zoster, this is not meant to be an all-inclusive list. EKG interpreted by me (3pts min.). @ -As above X-rays interpreted by me (1pt min.). @ -Chest x-ray shows no acute Pirmella CT interpreted by me (1pt min.). @ -None done U/S interpreted by me (1pt. min.). @ -None done What testing was considered but not performed or refused? (CT, X-rays, U/S, labs)? Why? @ -None What meds were considered but not given or refused? Why? @ -None Did you discuss the management of the patient with other professionals (professionals i.e. [employer], ASSOCIATE [employer]OMATION ENGINEER, lab, RT, psych nurse, director social, crop nutrition scientist, teacher, title officer, registered nurse hh case manager)? Give summary @ -I spoke with the [facility]ist agreed to admit the patient Was smoking cessation discussed for >3mins.? @ -No Was critical care preformed (if so, how long)? @ -No Were there social determinants of health that impacted care today? How? (Homelessness, low income, unemployed, alcoholism, drug addiction, transportation, low edu. Level, literacy, decrease access to med. care, intermediate, rehab)? @ -No Was there de-escalation of care discussed even if they declined (Discuss DNR or withdrawal of care, Hospice)? DNR status @ -No What co-morbidities impacted this encounter? (DM, HTN, Smoking, COPD, CAD, Cancer, CVA, ARF, Chemo, Hep., AIDS, mental health diagnosis, sleep apnea, morbid obesity)? @ -None Was patient admitted / discharged? Hospital course, mention meds given and route, prescriptions, significant lab abnormalities, going to OR and other pertinent info. @ -Patient had no chest pain throughout her ED stay. Patient's lab work was within normal range x-ray showed no acute abnormality. Patient will be admitted to [facility] and I will consult cardiology Undiagnosed new problem with uncertain prognosis? @ -No Drug Therapy requiring intensive monitoring for toxicity (Heparin, Nitro, Insulin, Cardizem)? @ -No Were any procedures done? @ -No Diagnosis/symptom? @ -Chest pain Acute, or Chronic, or Acute on Chronic? @ -Acute Uncomplicated (without systemic symptoms) or Complicated (systemic symptoms)? @ -Complicated Side effects of treatment? @ -No Exacerbation, Progression, or Severe Exacerbation? @ -No Poses a threat to life or bodily function? How? (Chest pain, [place], MN, pneumonia, PE, COPD, DKA, ARF, appy, cholecystitis, CVA, Diverticulitis, Homicidal, Suicidal, threat to staff... and all critical care pts) @ -Yes this can lead to an MN and endorgan dysfunction - Lab Data Result diagrams: 04/24/25 12:56 04/24/25 12:56 Lab Results 04/24/25 04/24/25 04/24/25 Range/Units 12:56 12:56 12:56 WBC 5.34 (4.50-10.00) 10*3/uL RBC 3.97 L (4.10-5.20) 10*6/uL Hgb 10.8 L (12.0-15.0) g/dL Hct 33.4 L (37.2-46.3) % MCV 84.1 (80.0-97.0) fL MCH 27.2 (27.0-32.0) pg MCHC 32.3 (32.0-37.0) g/dL Plt Count 240 (140-440) 10*3/uL MPV 11.1 (9.5-12.2) fL Immature Gran % (Auto) 0.4 % Neutrophils % 70.8 % Lymphocytes % 20.2 % Monocytes % 6.7 % Eosinophils % 1.3 % Basophils % 0.6 % Immature Gran # 0.02 (0.00-0.04) 10*3/uL Neutrophils # 3.78 (1.80-7.70) 10*3/uL Lymphocytes # 1.08 (0.90-5.00) 10*3/uL Monocytes # 0.36 (0.20-1.00) 10*3/uL Eosinophils # 0.07 (0.04-0.35) 10*3/uL Basophils # 0.03 (0.00-0.10) 10*3/uL PT 10.8 (10.0-12.5) sec INR 1.0 (<1.2) APTT 25.6 (22.0-30.0) sec Sodium 137 (137-145) mmol/L Potassium 4.2 (3.5-5.1) mmol/L Chloride 103 (98-107) mmol/L Carbon Dioxide 23 (22-30) mmol/L Anion Gap 11 mmol/L BUN 17 (7-17) mg/dL Creatinine 0.80 (0.52-1.04) mg/dL Est GFR (CKD-EPI)AfAm 86 (>60 ml/min/1.73 sqM) Est GFR (CKD-EPI)NonAf 75 (>60 ml/min/1.73 sqM) Glucose 82 (74-99) mg/dL Calcium 9.6 (8.4-10.2) mg/dL Magnesium 2.1 (1.6-2.3) mg/dL Total Bilirubin 0.7 (0.2-1.3) mg/dL AST 25 (14-36) U/L ALT 15 (4-34) U/L Alkaline Phosphatase 79 (38-126) U/L Troponin I (0.000-0.034) ng/mL Total Protein 7.1 (6.3-8.2) g/dL Albumin 3.9 (3.5-5.0) g/dL Lipase 117 (23-300) U/L // Range/Units 12:56 WBC (4.50-10.00) 10*3/uL RBC (4.10-5.20) 10*6/uL Hgb (12.0-15.0) g/dL Hct (37.2-46.3) % MCV (80.0-97.0) fL MCH (27.0-32.0) pg MCHC (32.0-37.0) g/dL Plt Count (140-440) 10*3/uL MPV (9.5-12.2) fL Immature Gran % (Auto) % Neutrophils % % Lymphocytes % % Monocytes % % Eosinophils % % Basophils % % Immature Gran # (0.00-0.04) 10*3/uL Neutrophils # (1.80-7.70) 10*3/uL Lymphocytes # (0.90-5.00) 10*3/uL Monocytes # (0.20-1.00) 10*3/uL Eosinophils # (0.04-0.35) 10*3/uL Basophils # (0.00-0.10) 10*3/uL PT (10.0-12.5) sec INR (<1.2) APTT (22.0-30.0) sec Sodium (137-145) mmol/L Potassium (3.5-5.1) mmol/L Chloride (98-107) mmol/L Carbon Dioxide (22-30) mmol/L Anion Gap mmol/L BUN (7-17) mg/dL Creatinine (0.52-1.04) mg/dL Est GFR (CKD-EPI)AfAm (>60 ml/min/1.73 sqM) Est GFR (CKD-EPI)NonAf (>60 ml/min/1.73 sqM) Glucose (74-99) mg/dL Calcium (8.4-10.2) mg/dL Magnesium (1.6-2.3) mg/dL Total Bilirubin (0.2-1.3) mg/dL AST (14-36) U/L ALT (4-34) U/L Alkaline Phosphatase (38-126) U/L Troponin I <0.012 (0.000-0.034) ng/mL Total Protein (6.3-8.2) g/dL Albumin (3.5-5.0) g/dL Lipase (23-300) U/L Disposition Clinical Impression: Chest pain Disposition: ADMITTED IP TO THIS HOSP Referrals: Andre Rice DO [Primary Care Provider] - 1-2 days Time of Disposition: 15:14
[2025-04-24 13:24] LABS: Basophils # (A) 0.03 10*3/uL (0.00-0.10); Basophils % (A) 0.6 %; Eosinophils # (A) 0.07 10*3/uL (0.04-0.35); Eosinophils % (A) 1.3 %; HCT 33.4 % (37.2-46.3); HGB 10.8 g/dL (12.0-15.0); Lymphocytes # (A) 1.08 10*3/uL (0.90-5.00); Lymphocytes % (A) 20.2 %; MCH 27.2 pg (27.0-32.0); MCHC 32.3 g/dL (32.0-37.0); MCV 84.1 fL (80.0-97.0); Monocytes # (A) 0.36 10*3/uL (0.20-1.00); Monocytes % (A) 6.7 %; Neutrophils # (A) 3.78 10*3/uL (1.80-7.70); Neutrophils % (A) 70.8 %; Platelet Count 240 10*3/uL (140-440); RBC 3.97 10*6/uL (4.10-5.20); RDW 13.5 % (11.5-14.5); WBC 5.34 10*3/uL (4.50-10.00)
[2025-04-24 13:34] LABS: INR 1.0 (<1.2); Partial Thromboplastin Time 25.6 sec (22.0-30.0); Prothrombin Time 10.8 sec (10.0-12.5)
[2025-04-24 13:43] LABS: ALT 15 U/L (4-34); AST 25 U/L (14-36); African American GFR (CKD) 86 (>60 ml/min/1.73 sqM); Albumin 3.9 g/dL (3.5-5.0); Alkaline Phosphatase 79 U/L (38-126); Anion Gap 11 mmol/L; Blood Urea Nitrogen 17 mg/dL (7-17); Calcium 9.6 mg/dL (8.4-10.2); Carbon Dioxide 23 mmol/L (22-30); Chloride 103 mmol/L (98-107); Glucose 82 mg/dL (74-99); Lipase 117 U/L (23-300); Magnesium 2.1 mg/dL (1.6-2.3); Non-African American GFR(CKD) 75 (>60 ml/min/1.73 sqM); Potassium 4.2 mmol/L (3.5-5.1); Sodium 137 mmol/L (137-145); Total Protein 7.1 g/dL (6.3-8.2)
[2025-04-24] MEDS: NITROGLYCERIN OINT 1 INCH/GM PACKET TOPICAL STA (14:30)
--- NOTE | 2025-04-24 14:46 | XR ---
EXAMINATION TYPE: XR chest 2V DATE OF EXAM: 04/24/2025 1:15 PM COMPARISON: 11/27/2024 CLINICAL INDICATION: Female, 69 years old with history of Chest Pain, , TECHNIQUE: PA and lateral views FINDINGS: Heart and lungs are normal in size. Atherosclerotic arch calcifications. Eventration anterior hemidia phragm is unchanged. No consolidation or pleural effusion. IMPRESSION: No acute cardiopulmonary process. [facility], Workstation: [facility], 04/24/2025 2:44 PM
[2025-04-24] MEDS ORDERED: NITROGLYCERIN SL TABS 0.4 MG TAB SUBLINGUAL PRN (15:15)
[2025-04-24] MEDS: NITROGLYCERIN OINT 1 INCH/GM PACKET TOPICAL SCH (17:41)
[2025-04-24] MEDS ORDERED: amLODIPine 5 MG TAB PO SCH (21:00)
[2025-04-24] MEDS: METOPROLOL TARTRATE 25 MG TAB PO SCH (21:29)
[2025-04-24] MEDS: amLODIPine 10 MG TAB PO SCH (21:29)
[2025-04-24] MEDS: TICAGRELOR 90 MG TAB PO SCH (22:08)
--- NOTE | 2025-04-24 23:59 | HP ---
HISTORY AND PHYSICAL CHIEF COMPLAINT: Chest pain. HISTORY OF PRESENT ILLNESS: This 69-year-old woman with a past medical history of multiple medical problems including CAD, myocardial infarction, was complaining of pain, which is anterior part of chest, which is radiating to the shoulder associated with some mild shortness of breath. The patient is on nitroglycerin and the pain felt better. The patient came to [facility] and EKG showed some ST changes, admitted for further evaluation and treatment. There is no history of fever, rigors, or chills. PAST MEDICAL HISTORY: History of CAD, hypertension, myocardial infarction, GERD, CAD stent. Rest of history and chart is also reviewed. HOME MEDICATIONS: Norvasc. Rest of the medications and doses are reviewed. ALLERGIES: Codeine. Rest allergies noted. FAMILY HISTORY: History of CHF. SOCIAL HISTORY: Social stressors reported. Previous history of smoking. REVIEW OF SYSTEMS: A 14-point review of systems negative except as mentioned earlier. PHYSICAL EXAMINATION: VITAL SIGNS: Pulse is 57, blood pressure 197/99, and respirations 16. HEENT: Conjunctivae normal. CARDIOVASCULAR: S1, S2. RESPIRATION: Breath sounds diminished at the bases. ABDOMEN: Soft, nontender. LEGS: No edema. NERVOUS SYSTEM: No focal deficit. LABORATORY DATA: Reviewed. ASSESSMENT: 1. Chest pain, possible unstable angina. 2. Hypertension. 3. History of CAD stent, myocardial infarction. 4. History of gastroesophageal reflux disease. 5. Multiple complex medical issues. RECOMMENDATIONS: This is a 69-year-old woman presented with multiple complex medical issues. We will monitor the patient closely. I would recommend resume the home medications. Rule out myocardial infarction, Cardiology consultation possible stress test. Guarded prognosis because of multiple complex medical issues. Further recommendations to follow. See orders for details. MMODL / IJN: [id number] /
[2025-04-25 02:01] VITALS: PULSE 57; RESP 16
[2025-04-25 05:34] LABS: Basophils # (A) 0.04 10*3/uL (0.00-0.10); Basophils % (A) 0.7 %; Eosinophils # (A) 0.09 10*3/uL (0.04-0.35); Eosinophils % (A) 1.5 %; HCT 33.7 % (37.2-46.3); HGB 10.8 g/dL (12.0-15.0); Lymphocytes # (A) 1.42 10*3/uL (0.90-5.00); Lymphocytes % (A) 23.4 %; MCH 27.6 pg (27.0-32.0); MCHC 32.0 g/dL (32.0-37.0); MCV 86.0 fL (80.0-97.0); Monocytes # (A) 0.42 10*3/uL (0.20-1.00); Monocytes % (A) 6.9 %; Neutrophils # (A) 4.07 10*3/uL (1.80-7.70); Neutrophils % (A) 67.2 %; Platelet Count 260 10*3/uL (140-440); RBC 3.92 10*6/uL (4.10-5.20); RDW 13.5 % (11.5-14.5); WBC 6.06 10*3/uL (4.50-10.00)
[2025-04-25 05:53] LABS: ALT 15 U/L (4-34); AST 20 U/L (14-36); African American GFR (CKD) 67 (>60 ml/min/1.73 sqM); Albumin 4.1 g/dL (3.5-5.0); Alkaline Phosphatase 78 U/L (38-126); Anion Gap 9 mmol/L; Blood Urea Nitrogen 17 mg/dL (7-17); Calcium 9.3 mg/dL (8.4-10.2); Carbon Dioxide 25 mmol/L (22-30); Chloride 106 mmol/L (98-107); Glucose 93 mg/dL (74-99); Non-African American GFR(CKD) 58 (>60 ml/min/1.73 sqM); Potassium 4.2 mmol/L (3.5-5.1); Sodium 140 mmol/L (137-145); Total Protein 7.0 g/dL (6.3-8.2)
[2025-04-25] MEDS: PANTOPRAZOLE 40 MG TABLET PO SCH (06:12)
[2025-04-25] MEDS: ASPIRIN 81 MG PO SCH (08:36)
[2025-04-25 08:59] VITALS: BP 143/88; TEMP 97.7
[2025-04-25] MEDS: hydroCHLOROthiazide 25 MG TAB PO SCH (10:43)
[2025-04-25] MEDS: LOSARTAN 25 MG TAB PO SCH (10:43)
[2025-04-25 10:49] LABS: Cholesterol 209.00 mg/dL (0.00-200.00); HDL Cholesterol 45.20 mg/dL (40.00-60.00); LDL Cholesterol,Calculated 142.4 mg/dL (0.0-131.0); Triglycerides 107.00 mg/dL (0.00-149.00); VLDL Calculation 21.40 mg/dL (5.00-40.00)
--- NOTE | 2025-04-25 11:07 | P.CRDCN ---
History of Present Illness Consult date: 04/25/25 Consult reason: chest pain History of present illness: This is a 69-year-old female patient of Dr. Aguila with past medical history of coronary artery disease, hypertension hyperlipidemia, chronic kidney disease, palpitations. We have been asked to evaluate the patient for chest pain. Patient states that she was having physical therapy on her leg and she developed some indigestion similar to the symptoms she had with her previous [place] and she was taken to Dr. Rice's office and from there sent to the hospital. She denies any chest pain at this time. Blood pressure readings significantly high at 197/99 yesterday afternoon and this morning at 143/88, heart rate is running in the 50s. Patient has an intolerance to statins is on Repatha. She states she is heading to [place] tomorrow. -EKG: Sinus bradycardia -Chest x-ray: No acute process -Laboratory studies: Troponin negative x 3. Hemoglobin 10.8, creatinine 0.99, D-dimer 0.49. X 3. Triglycerides 107, cholesterol 209, LDL 142. -Home cardiac medications: Aspirin 81 mg daily, Brilinta 90 mg twice daily, metoprolol tartrate 25 mg twice daily, Nitrostat as needed, Norvasc 5 mg daily, Repatha every 2 weeks. -Event monitor 04/25 - 12/05/2024 revealed normal sinus rhythm with occasional PACs with nonsustained paroxysmal atrial tachycardia, rare PVCs. -Lexiscan stress test performed 10/17/2024 revealed EF of 66%, probably normal study. -PCI history: 06/08/2024, stent to the mid RCA x 2. 06/10/2024, stent to the proximal OM1, mid circumflex. Review Of Systems: At the time of my exam: CONSTITUTIONAL: Denies fever or chills. HEENT: Denies blurred vision, vision changes, or eye pain. Denies hemoptysis CARDIOVASCULAR: Denies chest pain. Denies orthopnea. Denies PND. Denies palpitations RESPIRATORY: Denies shortness of breath. GASTROINTESTINAL: Denies abdominal pain. Denies nausea or vomiting. HEMATOLOGIC: Denies bleeding disorders. GENITOURINARY: Denies any blood in urine. SKIN: Denies puritis. Denies rash. Physical examination: Gen: This is a 69-year-old black female in no acute distress. VS: reviewed HEENT: Head is atraumatic, normocephalic. Pupils equal, round. Sclerae is anicteric. NECK: Supple. No JVD. LUNGS: Clear to auscultation. No wheezes or rhonchi. No intercostal retractions. HEART: Regular rate and rhythm. 2/6 systolic ejection murmur at the base. ABDOMEN: Soft No tenderness. EXTREMITIES: No pedal edema. No calf tenderness. NEUROLOGICAL: Patient is awake, alert and oriented x3. Assessment: Atypical chest pain, acute coronary syndrome ruled out History of coronary artery disease Hypertension, uncontrolled Plan: Resume patient's home cardiac medications with the following changes: Discontinue hydralazine Continue amlodipine increased to 10 mg at bedtime by admitting team Discontinue Lopressor and start Toprol XL 25 mg daily Add losartan 25 mg daily and hydrochlorothiazide 25 mg daily Continue aspirin 81 mg daily and Brilinta 90 mg twice daily Discontinue Nitropaste Patient is cleared for discharge from cardiology perspective. She will follow- up with Dr. Aguila as scheduled. Thank you kindly for this consultation. Nurse practitioner note has been reviewed, I agree with documented findings and plan of care. Patient was seen and examined. Past Medical History Past Medical History: Coronary Artery Disease (CAD), Chest Pain / Angina, Eye Disorder, GERD/Reflux, Hypertension, Myocardial Infarction ([place]), Skin Disorder Additional Past Medical History / Comment(s): Chronic bilateral sciatica, beginnings of bilateral cataracts, rosacea. KIDNEY STONES, SEEN IN ER 01/11/24 FOR RT FLANK PAIN, [place] with 2 stents placed Last Myocardial Infarction Date:: 06/08/2024 History of Any Multi-Drug Resistant Organisms: None Reported Past Surgical History: Heart Catheterization, Heart Catheterization With Stent, Tubal Ligation Additional Past Surgical History / Comment(s): Cardiac cath-normal, egd, colonoscopy, R ganglion cyst removal, 01/01/2450-[id number] HURON Past Anesthesia/Blood Transfusion Reactions: No Reported Reaction Date of Last Stent Placement:: 06/08/2024 Past Psychological History: Anxiety, Depression Additional Psychological History / Comment(s): NO CURRENT PROBLEMS, NO MEDS NEEDED Smoking Status: Former smoker Past Alcohol Use History: None Reported Additional Past Alcohol Use History / Comment(s): Pt started smoking in 1975 and quit in 1998. She smoked 1.5 ppd. Past Drug Use History: None Reported - Past Family History Mother Family Medical History: Chest Pain / Angina, Congestive Heart Failure (CHF) Father Family Medical History: Chest Pain / Angina, Congestive Heart Failure (CHF), Coronary Artery Disease (CAD) Medications and Allergies Home Medications Medication Instructions Recorded Confirmed Type Aspirin EC [Ecotrin Low Dose] 81 mg PO DAILY 04/24/25 04/24/25 History Metoprolol Tartrate [Lopressor] 25 mg PO BID 04/24/25 04/24/25 History Ticagrelor [Brilinta] 90 mg PO BID 04/24/25 04/24/25 History amLODIPine [Norvasc] 5 mg PO HS 04/24/25 04/24/25 History Allergies Allergy/AdvReac Type Severity Reaction Status Date / Time codeine Allergy Rash/Hives Verified 04/24/25 13:54 ketorolac [From Toradol] Allergy Nausea Verified 04/24/25 13:54 lisinopril Allergy Anaphylaxis Verified 04/24/25 13:54 Penicillins Allergy Rash/Hives Verified 04/24/25 13:54 fentanyl AdvReac Nausea & Verified 04/24/25 13:54 Vomiting hydromorphone [From Dilaudid] AdvReac Nausea & Verified 04/24/25 13:54 Vomiting Physical Exam Vitals: Vital Signs Temp Pulse Pulse Resp BP BP Pulse Ox 04/25/25 07:00 97.7 F 57 L 16 143/88 97 04/25/25 01:31 97.9 F 57 L 16 143/69 99 04/24/25 19:02 97.9 F 55 L 17 138/80 99 04/24/25 17:15 98.0 F 61 17 186/95 97 04/24/25 16:55 98.4 F 57 L 16 197/99 97 04/24/25 14:16 60 16 138/82 100 04/24/25 12:45 52 L 16 137/79 99 04/24/25 11:53 98 F 54 L 16 155/87 100 Intake and Output 04/24/25 04/25/25 04/25/25 22:59 06:59 14:59 Other: Weight 95.254 kg Results 04/25/25 04:51 04/25/25 04:51 Cardiac Enzymes 04/24/25 04/24/25 04/24/25 Range/Units 12:56 12:56 16:30 AST 25 (14-36) U/L Troponin I <0.012 <0.012 (0.000-0.034) ng/mL 04/24/25 04/25/25 Range/Units 19:39 04:51 AST 20 (14-36) U/L Troponin I <0.012 (0.000-0.034) ng/mL Coagulation 04/24/25 Range/Units 12:56 PT 10.8 (10.0-12.5) sec APTT 25.6 (22.0-30.0) sec CBC 04/24/25 04/25/25 Range/Units 12:56 04:51 WBC 5.34 6.06 (4.50-10.00) 10*3/uL RBC 3.97 L 3.92 L (4.10-5.20) 10*6/uL Hgb 10.8 L 10.8 L (12.0-15.0) g/dL Hct 33.4 L 33.7 L (37.2-46.3) % Plt Count 240 260 (140-440) 10*3/uL Comprehensive Metabolic Panel 04/24/25 04/25/25 Range/Units 12:56 04:51 Sodium 137 140 (137-145) mmol/L Potassium 4.2 4.2 (3.5-5.1) mmol/L Chloride 103 106 (98-107) mmol/L Carbon Dioxide 23 25 (22-30) mmol/L BUN 17 17 (7-17) mg/dL Creatinine 0.80 0.99 (0.52-1.04) mg/dL Glucose 82 93 (74-99) mg/dL Calcium 9.6 9.3 (8.4-10.2) mg/dL AST 25 20 (14-36) U/L ALT 15 15 (4-34) U/L Alkaline Phosphatase 79 78 (38-126) U/L Total Protein 7.1 7.0 (6.3-8.2) g/dL Albumin 3.9 4.1 (3.5-5.0) g/dL Current Medications Generic Name Dose Route Start Last Admin Trade Name Freq PRN Reason Stop Dose Admin Amlodipine Besylate 10 mg 04/24/25 19:15 04/24/25 21:29 Amlodipine 10 Mg Tab PO 10 mg HS RUPALI Administration Aspirin 81 mg 04/25/25 09:00 04/25/25 08:36 Aspirin 81 Mg PO 81 mg DAILY RUPALI Administration Hydralazine HCl 50 mg 04/24/25 19:00 04/25/25 08:37 Hydralazine Hcl 50 Mg Tab PO Not Given TID RUPALI Metoprolol Tartrate 25 mg 04/24/25 21:00 04/25/25 08:36 Metoprolol Tartrate 25 Mg Tab PO 25 mg BID RUPALI Administration Nitroglycerin 0.4 mg 04/24/25 15:15 Nitroglycerin Sl Tabs 0.4 Mg Tab SUBLINGUAL Q5M PRN Chest Pain Nitroglycerin 1 inch 04/24/25 18:00 04/25/25 06:10 Nitroglycerin Oint 1 Inch/Gm Packet TOPICAL Not Given Q6HR RUPALI Pantoprazole Sodium 40 mg 04/25/25 07:30 04/25/25 06:12 Pantoprazole 40 Mg Tablet PO 40 mg AC-BRKFST [facility] Administration Ticagrelor 90 mg 04/24/25 21:00 04/24/25 22:08 Ticagrelor 90 Mg Tab PO 90 mg BID RUPALI Administration Intake and Output 04/24/25 04/25/25 04/25/25 22:59 06:59 14:59 Other: Weight 95.254 kg 04/25/25 04:51 04/25/25 04:51
[2025-04-26] MEDS ORDERED: METOPROLOL SUCCINATE (ER) 25 MG TAB.ER.24H PO SCH (09:00)
--- NOTE | 2025-04-28 05:25 | P.DS ---
Providers Date of admission: 04/24/25 15:17 Expected date of discharge: 04/25/25 Attending physician: Cezar Painting Consults: 04/24/25 15:15 Consult Physician Urgent Consulting Provider: [facility] Consult Reason/Comments: Chest pain Do you want consulting provider notified?: Yes Primary care physician: Andre Rice [facility] Course: Final diagnosis Chest pain, possible unstable angina, ACS ruled out Hypertension History of coronary artery disease with stenting previously History of GERD Obesity with a BMI of 33.9 History of anxiety/depression Former smoker GI prophylaxis DVT prophylaxis Full code Discharge disposition Patient is being discharged in a stable condition with guarded prognosis to home. Patient will follow-up with Dr. Rice in the outpatient setting upon discharge. Patient is to continue with current medications and outpatient follow-up with cardiology as scheduled. Total time taken is greater than 35 minutes. Hospital course This is a 69-year-old female who was recently admitted with pain in the anterior part of her chest radiating to the shoulder with some mild shortness of breath and received nitroglycerin reported to feeling better. Patient evaluated by cardiology making adjustments to medications including adding blood pressure control and has cleared the patient recommending outpatient follow-up with cardiology. Patient is extremely keen on going home and is currently reporting to feeling much better with no further chest pain noted. Patient instructed to follow-up with primary care provider as well as cardiology outpatient. Please refer to cardiology consultation note for further HPI. Currently no reports of chest pain, shortness of breath, or palpitations. Patient is afebrile. No reports of nausea or vomiting and patient is tolerating diet. Patient will be discharged home today. Guarded prognosis Physical exam: Gen: This is a 69-year-old female who is awake, alert and oriented x 3, well-dev eloped, elderly appearing, obese HEENT: Head is atraumatic, normocephalic. Pupils equal, round. Sclerae is anicteric. NECK: Supple. No JVD. No lymphadenopathy. No thyromegaly. LUNGS: Diminished breath sounds bilaterally otherwise clear to auscultation. No wheezes or rhonchi. No intercostal retractions. HEART: S1, S2 are muffled ABDOMEN: Soft. Obese bowel sounds are present. No masses. No tenderness. EXTREMITIES: No pedal edema. No calf tenderness. NEUROLOGICAL: Patient is awake, alert and oriented x3. Cranial nerves 2 through 12 are grossly intact. Please refer to medication reconciliation sheet for a list of medications. The impression and plan of care has been dictated by Tanja Montes, Nurse Practitioner as directed. Dr. Mert MD I have performed a history and examination and MDM of this patient, discussed the same with the dictator, and agree with the dictator's assessment and plan as written ,documented as a scribe. Based on total visit time, I have performed more than 50% of the visit. Patient Condition at Discharge: Fair Plan - Discharge Summary Discharge Rx Participant: No New Discharge Prescriptions: New hydroCHLOROthiazide [Hydrodiuril] 25 mg PO DAILY #30 tab Losartan [Cozaar] 25 mg PO DAILY #30 tab Pantoprazole [Protonix] 40 mg PO AC-BRKFST 15 Days #15 tab Metoprolol Succinate (ER) [Toprol XL] 25 mg PO DAILY #30 tab Continue Ticagrelor [Brilinta] 90 mg PO BID Metoprolol Tartrate [Lopressor] 25 mg PO BID amLODIPine [Norvasc] 5 mg PO HS Aspirin EC [Ecotrin Low Dose] 81 mg PO DAILY Discharge Medication List Aspirin EC [Ecotrin Low Dose] 81 mg PO DAILY 04/24/25 [History] Metoprolol Tartrate [Lopressor] 25 mg PO BID 04/24/25 [History] Ticagrelor [Brilinta] 90 mg PO BID 04/24/25 [History] amLODIPine [Norvasc] 5 mg PO HS 04/24/25 [History] Losartan [Cozaar] 25 mg PO DAILY #30 tab 04/25/25 [Rx] Metoprolol Succinate (ER) [Toprol XL] 25 mg PO DAILY #30 tab 04/25/25 [Rx] Pantoprazole [Protonix] 40 mg PO AC-BRKFST 15 Days #15 tab 04/25/25 [Rx] hydroCHLOROthiazide [Hydrodiuril] 25 mg PO DAILY #30 tab 04/25/25 [Rx] Follow up Appointment(s)/Referral(s): Andre Rice DO [Primary Care Provider] - 1-2 days Cecy Aguila MD [STAFF PHYSICIAN] - 1 Week Activity/Diet/Wound Care/Special Instructions: Activity limited until follow-up Follow-up with primary care provider Follow-up with cardiology outpatient Continue taking medications as prescribed Discharge Disposition: HOME SELF-CARE
== END 2025-04-25 13:07 | disposition home or self-care (01) ==
LOC: EC 11:51 → 1SOBS 15:17
PROVIDERS: ADMIT Hospitalist; ATTEND Hospitalist
DX: R07.89 Other chest pain (principal); I25.10 Atherosclerotic heart disease of native coronary artery without angina pectoris; I25.2 Old myocardial infarction; I12.9 Hypertensive chronic kidney disease with stage 1 through stage 4 chronic kidney disease, or unspecified chronic kidney disease; N18.9 Chronic kidney disease, unspecified; E66.9 Obesity, unspecified; E78.5 Hyperlipidemia, unspecified; F32.A Depression, unspecified; F41.9 Anxiety disorder, unspecified; K21.9 Gastro-esophageal reflux disease without esophagitis; Z68.33 Body mass index [BMI] 33.0-33.9, adult; Z79.02 Long term (current) use of antithrombotics/antiplatelets; Z79.82 Long term (current) use of aspirin; Z79.899 Other long term (current) drug therapy; Z87.891 Personal history of nicotine dependence; Z95.5 Presence of coronary angioplasty implant and graft; Z88.5 Allergy status to narcotic agent; Z88.0 Allergy status to penicillin; Z88.8 Allergy status to other drugs, medicaments and biological substances
CPT/HCPCS: 99285; 36415; 93005; 85379; 80061; 80053 ×2; 83690; 83735; 84484; 85025 ×2; 85610; 85730; 71046; G0378 ×2